=== PATIENT | male | born 1960 | race Caucasian/White ===

== ENCOUNTER 2017-06-21 12:59 | Inpatient (IN) | payer OTHER ==
--- NOTE | 2017-06-21 14:42 | PDOC ---
History of Present Illness - General History Source: Patient Exam Limitations: No Limitations - History of Present Illness Initial Comments: 06/21/17 14:56 The patient is a 56 year old male with a significant PMH of anemia, HTN, diabetes, hepatitis C, and MRSA who presents to the emergency department with RLE erythema beginning approximately yesterday. The patient reports having multiple diabetic ulcers bilaterally on his legs which take a while to heal. Upon presentation he notes developing RLE erythema which is spreading from his heel up his right leg. He notes the wounds on his RLE opened up a few days ago. He reports his LLE was wrapped by Dr. Barraza and has no LLE complaints aside from mild pruritus. The patient has been seen in the ED in the past for LE cellulitis. The patient also notes mild shortness of breath and chills that began yesterday but he denies palpitations. The patient denies chest pain, headache and dizziness. Denies fever, nausea, vomit, diarrhea and constipation. Denies dysuria, frequency, urgency and hematuria. Allergies: NKA Past surgical history: None reported. Social history: No reported cigarette, alcohol, or drug use. PCP: Dr. Ortiz <Carlitos Nunez - Last Filed: 06/21/17 15:03> <Catina Munson - Last Filed: 06/24/17 08:26> - General Chief Complaint: Wound Stated Complaint: CELLULITIS (RT LEG), SOB Time Seen by Provider: 06/21/17 13:28 Past History <Carlitos Nunez - Last Filed: 06/21/17 15:03> - Past Medical History Anemia: Yes Asthma: No Cancer: No Cardiac Disorders: No CVA: No COPD: No CHF: No Dementia: No Diabetes: Yes HTN: Yes Hypercholesterolemia: No Kidney Stones: No Liver Disease: Yes (HEP C) Seizures: No - Immunization History Immunization Up to Date: Yes - Suicide/Smoking/Psychosocial Hx Smoking Status: No Smoking History: Never smoked Have you smoked in the past 12 months: No Number of Cigarettes Smoked Daily: 0 Information on smoking cessation initiated: No Hx Alcohol Use: No Drug/Substance Use Hx: No Substance Use Type: None Hx Substance Use Treatment: No <Catina Munson - Last Filed: 06/24/17 08:26> - Past Medical History Allergies/Adverse Reactions: Allergies Allergy/AdvReac Type Severity Reaction Status Date / Time No Known Allergies Allergy Verified 06/21/17 13:08 Home Medications: Ambulatory Orders Furosemide [Lasix -] 40 mg PO DAILY 08/06/13 Glimepiride [Amaryl] 4 mg PO BID 08/06/13 Lisinopril [Prinivil -] 2.5 mg PO DAILY 08/06/13 Carvedilol [Coreg -] 6.25 mg PO BID #0 tablet 08/12/13 Metformin HCl [Glucophage] 1,000 mg PO BID #0 tablet 08/12/13 Lactobacillus Acidophilus [Bacid -] 1 each PO DAILY #14 tab 10/23/14 Lactulose (Oral Use) [Cephulac -] 20 gm PO DAILY #30 ud 10/23/14 Silver Sulfadiazine [Silvadene] 85 gm TP DAILY #1 cream..g. 02/24/17 Review of Systems - Review of Systems Able to Perform ROS?: Yes Comments:: 06/21/17 14:56 GENERAL/CONSTITUTIONAL: (+) Chills. No fever. No weakness. HEAD, EYES, EARS, NOSE AND THROAT: No change in vision. No ear pain or discharge. No sore throat. CARDIOVASCULAR: (+) Mild shortness of breath, No chest pain or shortness of breath. RESPIRATORY: No cough, wheezing, or hemoptysis. GASTROINTESTINAL: No nausea, vomiting, diarrhea or constipation. GENITOURINARY: No dysuria, frequency, or change in urination. MUSCULOSKELETAL: No joint or muscle swelling or pain. No neck or back pain. SKIN: (+) RLE erythema. (+) Bilateral LE diabetic ulcers, NEUROLOGIC: No headache, vertigo, loss of consciousness, or change in strength/ sensation. ENDOCRINE: No increased thirst. No abnormal weight change. HEMATOLOGIC/LYMPHATIC: No anemia, easy bleeding, or history of blood clots. ALLERGIC/IMMUNOLOGIC: No hives or skin allergy. <Carlitos Nunez - Last Filed: 06/21/17 15:03> *Physical Exam - Vital Signs Last Vital Signs Temp Pulse Resp BP Pulse Ox 98.3 F 74 17 113/56 100 06/21/17 13:08 06/21/17 13:08 06/21/17 13:08 06/21/17 13:08 06/21/17 13:08 <Carlitos Nunez - Last Filed: 06/21/17 15:03> - Vital Signs Last Vital Signs Temp Pulse Resp BP Pulse Ox 98.3 F 74 17 113/56 100 06/21/17 13:08 06/21/17 13:08 06/21/17 13:08 06/21/17 13:08 06/21/17 13:08 <Catina Munson - Last Filed: 06/24/17 08:26> ED Treatment Course - LABORATORY CBC & Chemistry Diagram: 06/21/17 14:35 06/21/17 14:35 <Carlitos Nunez - Last Filed: 06/21/17 15:03> - LABORATORY CBC & Chemistry Diagram: 06/24/17 06:00 06/24/17 06:00 <Catina Munson - Last Filed: 06/24/17 08:26> Medical Decision Making - Medical Decision Making Case d/w Dr. Wu for admission. Pt noted to have anemia and thrombocytopenia. Poss bone marrow suppression, as WBC is not commensurate with presence of infection in RLE. He has history of LIGHT and prior varices, guaiac sent to lab for analysis. IV abx given in ED for cellulitis. Wound cultures obtained for both RLE wounds. LLE not cultured, as there were no signs of infection. Patient also found to have acute renal failure. <Catina Munson - Last Filed: 06/24/17 08:26> *DC/Admit/Observation/Transfer - Attestations Scribe Attestion: 06/21/17 14:57 Documentation prepared by Carlitos Nunez, acting as medical records auditor for Catina Munson MD. <Carlitos Nunez - Last Filed: 06/21/17 15:03> - Discharge Dispostion Admit: Yes <Catina Munson - Last Filed: 06/24/17 08:26> Diagnosis at time of Disposition: Cellulitis of right anterior lower leg Acute renal failure Qualifiers: Acute renal failure type: unspecified Qualified Code(s): N17.9 - Acute kidney failure, unspecified Anemia Qualifiers: Other causes of anemia: acute posthemorrhagic - Discharge Dispostion Condition at time of disposition: Stable
[2017-06-21] MEDS ORDERED: PIPERACILLIN/TAZOB 3.375 GM 50 ML IVPB ONE (14:46)
--- NOTE | 2017-06-21 14:50 | EKG ---
Test Reason : Blood Pressure : / mmHG Vent. Rate : 074 BPM Atrial Rate : 074 BPM P-R Int : 292 ms QRS Dur : 094 ms QT Int : 372 ms P-R-T Axes : 011 -28 016 degrees QTc Int : 412 ms POOR DATA QUALITY, INTERPRETATION MAY BE ADVERSELY AFFECTED SINUS RHYTHM WITH 1ST DEGREE A-V BLOCK ANTERIOR INFARCT , AGE UNDETERMINED ABNORMAL ECG WHEN COMPARED WITH ECG OF 20-OCT-2014 08:56, ANTERIOR INFARCT IS NOW PRESENT Confirmed by JOSEPH ALVAREZ, BRENDA ([id number]) on 06/21/2017 2:50:07 PM Referred By: Confirmed By:BRENDA RUIZ MD
[2017-06-21 15:01] LABS: BASO % 0.4 % (0-2.0); EOS % 0.6 % (0-4.5); HEMATOCRIT 25.2 % (35.4-49); HEMOGLOBIN 7.7 GM/dL (11.7-16.9); LYMPH % 6.8 % (8-40); MCH 22.8 pg (25.7-33.7); MCHC 30.5 g/dl (32.0-35.9); MEAN CELL VOLUME 74.7 fl (80-96); MEAN PLT VOLUME 9.5 fl (7.5-11.1); NEUT % 84.2 % (42.8-82.8); PLATELET COUNT 61 K/MM3 (134-434); RBC 3.37 M/mm3 (4.00-5.60); RDW 23.7 % (11.9-15.9); WHITE BLOOD COUNT 7.2 K/mm3 (4.0-10.0)
[2017-06-21 15:10] LABS: ADD RBC MORPHOLOGY YES
[2017-06-21 15:11] LABS: ANISOCYTOSIS 3+
[2017-06-21 15:30] LABS: ALK PHOS 109 U/L (45-117); ANION GAP 9 (8-16); BLOOD UREA NITROGEN 59 mg/dL (7-18); CALCIUM 8.1 mg/dL (8.5-10.1); CHLORIDE 105 mmol/L (98-107); CO2 22 mmol/L (21-32); CREATININE 2.6 mg/dL (0.7-1.3); GLUCOSE,RANDOM 121 mg/dL (74-106); POTASSIUM 5.4 mmol/L (3.5-5.1); SGOT/AST 33 U/L (15-37); SGPT/ALT 32 U/L (12-78); SODIUM 136 mmol/L (136-145); TOT PROT 7.1 g/dl (6.4-8.2)
[2017-06-21] MEDS ORDERED: PIPERACILLIN/TAZOB 3.375 GM 3.375 GM/50 ML BAG IVPB ONE (16:11)
[2017-06-21] MEDS ORDERED: ONDANSETRON 4 MG/2 ML VIAL IVPUSH PRN (16:17)
--- NOTE | 2017-06-21 16:24 | HP ---
Admitting History and Physical - Primary Care Physician PCP: James Ortiz - Admission Chief Complaint: My leg is red History of Present Illness: Mr Apodaca is a pleasant 56 year old male who comes in with redness of his RLE with ulcerations x24 hours. He has history of LLE wounds and is being followed by wound care, this is doing well. However yesterday he noted that his RLE was becoming red. He also noted 2 area of ulcers with slight oozing. He says the redness was worsening and it began to track. He did not have trauma to the area , no interactions with animals. Because the redness was worsening he came in for further evaluation. He denies fevers, chills, lightheadedness, dizziness, chest pain or pressure, shortness of breath, nausea, vomiting, abdominal pain, diarrhea, constipation, difficulty or pain on urination, or leg swelling. He says he has a cold that has been present "for some time" with non-productive cough. History Source: Patient Limitations to Obtaining History: No Limitations - Past Medical History Cardiovascular: Yes: HTN Gastrointestinal: Yes: Esophageal Varices, Other (LIGHT with cirrhosis) Heme/Onc: Yes: Thrombocytopenia Endocrine: Yes: Diabetes Mellitus - Past Surgical History Past Surgical History: Yes: Tonsillectomy - Smoking History Smoking history: Never smoked Have you smoked in the past 12 months: No Aproximately how many cigarettes per day: 0 - Alcohol/Substance Use Hx Alcohol Use: No History of Substance Use: reports: None - Social History ADL: Independent Occupation: works for [employer] in [place] History of Recent Travel: No Home Medications - Allergies Allergies/Adverse Reactions: Allergies Allergy/AdvReac Type Severity Reaction Status Date / Time No Known Allergies Allergy Verified 06/21/17 13:08 - Home Medications Home Medications: Ambulatory Orders Furosemide [Lasix -] 40 mg PO DAILY 08/06/13 Glimepiride [Amaryl] 4 mg PO BID 08/06/13 Lisinopril [Prinivil -] 2.5 mg PO DAILY 08/06/13 Carvedilol [Coreg -] 6.25 mg PO BID #0 tablet 08/12/13 Metformin HCl [Glucophage] 1,000 mg PO BID #0 tablet 08/12/13 Lactobacillus Acidophilus [Bacid -] 1 each PO DAILY #14 tab 06/04/15 Lactulose (Oral Use) [Cephulac -] 20 gm PO DAILY #30 ud 10/23/14 Silver Sulfadiazine [Silvadene] 85 gm TP DAILY #1 cream..g. 02/24/17 Family Disease History - Family Disease History Family Disease History: Diabetes: Sister, CA: Father, Other: Mother (parkinsons) Review of Systems Findings/Remarks: Full review of systems obtained, as per HPI and otherwise negative. Physical Examination Vital Signs: Vital Signs Temperature 36.8 C 06/21/17 13:08 Pulse Rate 74 06/21/17 13:08 Respiratory Rate 17 06/21/17 13:08 Blood Pressure 113/56 06/21/17 13:08 O2 Sat by Pulse Oximetry (%) 100 06/21/17 13:08 Constitutional: Yes: No Distress, Calm, Obese Eyes: Yes: Conjunctiva Clear, EOM Intact, PERRL HENT: Yes: Atraumatic, Normocephalic Cardiovascular: Yes: Regular Rate and Rhythm. No: Gallop, Murmur, Rub Respiratory: Yes: Regular, CTA Bilaterally. No: Cough, Rales, Rhonchi, Wheezes Gastrointestinal: Yes: Normal Bowel Sounds, Soft. No: Distention, Tenderness Extremities: Yes: Erythema (RLE, tracking up leg) Edema: No Labs: CBC, BMP 06/21/17 14:35 06/21/17 14:35 Imaging - Results X-ray: Image Reviewed Ultrasound: Report Reviewed Problem List - Problems (1) Cellulitis of right anterior lower leg Assessment/Plan: -patient came in with acute onset cellulitis and ulceration -concern for DVT, negative -with normal WBC, however patient WBCs normally run around 4000 so 7000 with elevated neutrophils is significant -no other signs of sepsis -admit to med/surg -case d/w ID who will see in consultation -vancomycin and zosyn ordered -follow up wound cultures -wound care ordered -lactobacillus Code(s): L03.115 - CELLULITIS OF RIGHT LOWER LIMB (2) Acute renal failure Assessment/Plan: -patient on aldactone and lasix -will hold -hydrate with NS -monitor for improvement -will also hold lisinopril until renal function returns Code(s): N17.9 - ACUTE KIDNEY FAILURE, UNSPECIFIED Qualifiers: Acute renal failure type: unspecified Qualified Code(s): N17.9 - Acute kidney failure, unspecified (3) Diabetes mellitus Assessment/Plan: -continue glimeperide -hold metformin secondary to renal function -diabetic diet -FSBS and SSI Code(s): E11.9 - TYPE 2 DIABETES MELLITUS WITHOUT COMPLICATIONS Qualifiers: Diabetes mellitus complication status: with skin complications Diabetes mellitus complication detail: with other skin ulcer (4) Hyperkalemia Assessment/Plan: -secondary to aldactone and DARINEL -lisinopril might also be contributing -hold both aldactone and lisinopril -hydrate with NS Code(s): E87.5 - HYPERKALEMIA (5) Hypertension Assessment/Plan: -may elevate as off of aldactone, lasix, and lisinopril -also receiving IVF -continue coreg -monitor Code(s): I10 - ESSENTIAL (PRIMARY) HYPERTENSION (6) LIGHT (nonalcoholic steatohepatitis) Assessment/Plan: -monitor LFTs -check INR Code(s): K75.81 - NONALCOHOLIC STEATOHEPATITIS (LIGHT) (7) Thrombocytopenia Assessment/Plan: -chronic -secondary to hepatic disease Code(s): D69.6 - THROMBOCYTOPENIA, UNSPECIFIED (8) Anemia Assessment/Plan: -unclear cause -stool guaiac -check anemia labs -may need transfusion Code(s): D64.9 - ANEMIA, UNSPECIFIED Qualifiers: Anemia type: unspecified type Qualified Code(s): D64.9 - Anemia, unspecified
[2017-06-21] MEDS ORDERED: VANCOMYCIN 1,500 MG in DEXTROSE 5%-WATER - 500 ML IVPB ONE (16:55)
[2017-06-21] MEDS ORDERED: VANCOMYCIN 1,750 MG in SODIUM CHLORIDE 500 ML IVPB ONE (16:58)
[2017-06-21] MEDS: SODIUM CHLORIDE 1,000 ML IV SCH (18:05)
[2017-06-21] MEDS: INSULIN SLIDING SCALE (NOVOLOG) 1 VIAL SQ SCH ×2 (18:50→21:23)
[2017-06-21] MEDS ORDERED: INSULIN (NOVOLOG) ASPART 100 UNITS/ML 10ML VIAL ONE (20:50)
[2017-06-21] MEDS: CARVEDILOL 6.25 MG TABLET (FP) PO SCH (21:23)
[2017-06-21] MEDS ORDERED: VANCOMYCIN 1,000 MG in DEXTROSE 5%-WATER - 250 ML IVPB SCH (22:00)
[2017-06-21] MEDS: PIPERACILLIN/TAZOB 3.375 GM 3.375 GM in DEXTROSE 5%-WATER - 100 ML IVPB SCH (22:39)
[2017-06-21] MEDS ORDERED: PIPERACILLIN/TAZOB 3.375 GM/50 ML PRE-DOCKED IVPB SCH (23:00)
[2017-06-22] MEDS ORDERED: PIPERACIL/TAZOB 3.375 GM 3.375 GM/50 ML PREMIX IVPB ONE (00:30)
[2017-06-22 03:39] VITALS: BMI 44.7
[2017-06-22] MEDS: INSULIN SLIDING SCALE (NOVOLOG) 1 VIAL SQ SCH ×4 (06:58→21:42)
[2017-06-22] MEDS: PIPERACILLIN/TAZOB 3.375 GM 3.375 GM in DEXTROSE 5%-WATER - 100 ML IVPB SCH ×2 (07:01→14:33)
[2017-06-22] MEDS: GLIMEPIRIDE 4 MG TABLET (FP) PO SCH ×2 (07:02→17:24)
[2017-06-22] MEDS ORDERED: PT OWN MED DRAWER 7, Y5N ONE ×4 (07:23→17:18)
--- NOTE | 2017-06-22 07:39 | PN ---
Progress Note, Physician Chief Complaint: ID Full note dictated - Current Medication List Current Medications: Active Medications Carvedilol (Coreg -) 6.25 mg PO BID [facility] Last Admin: 06/21/17 21:23 Dose: 6.25 mg Glimepiride (Amaryl -) 4 mg PO BIDAC [facility] Last Admin: 06/22/17 07:02 Dose: 4 mg Sodium Chloride (Normal Saline -) 1,000 mls @ 75 mls/hr IV ASDIR [facility] Last Admin: 06/21/17 18:05 Dose: 75 mls/hr Piperacillin Sod/Tazobactam (Sod 3.375 gm/ Dextrose) 100 mls @ 200 mls/hr IVPB Q8H [facility] Last Admin: 06/22/17 07:01 Dose: 200 mls/hr Influenza Virus Vaccine Quadrival (Flulaval Quad [id number]) 60 mcg IM .ONCE ONE Stop: 06/22/17 10:01 Insulin Aspart (Novolog Vial Sliding Scale -) 1 vial SQ ACHS [facility] PRN Reason: Protocol Last Admin: 06/22/17 06:58 Dose: Not Given Lactobacillus Acidophilus (Bacid -) 1 tab PO DAILY [facility] Ondansetron HCl (Zofran Injection) 4 mg IVPUSH Q6H PRN PRN Reason: NAUSEA Silver Sulfadiazine (Silvadene -) 1 applic TP DAILY [facility] - Objective Vital Signs: Vital Signs Temperature 98 F 06/22/17 06:00 Pulse Rate 69 06/22/17 06:00 Respiratory Rate 20 06/22/17 06:00 Blood Pressure 111/53 06/22/17 06:00 O2 Sat by Pulse Oximetry (%) 98 06/22/17 02:28 Extremities: Yes: Other (Extensive right leg confulent erythema with multiple excoriations lower leg superfical ulcer LLE medial anle ulcer clean) Wound/Incision: Yes: Other (Multiple excoriations dry over his legs arms and trunk abd) Problem List - Problems (1) Cirrhosis Code(s): K74.60 - UNSPECIFIED CIRRHOSIS OF LIVER (2) Cellulitis of right anterior lower leg Code(s): L03.115 - CELLULITIS OF RIGHT LOWER LIMB (3) Diabetes mellitus Code(s): E11.9 - TYPE 2 DIABETES MELLITUS WITHOUT COMPLICATIONS Qualifiers: Diabetes mellitus complication status: with skin complications Diabetes mellitus complication detail: with other skin ulcer (4) LIGHT (nonalcoholic steatohepatitis) Code(s): K75.81 - NONALCOHOLIC STEATOHEPATITIS (LIGHT) Assessment/Plan Laboratory Tests 06/21/17 06/21/17 14:35 14:35 WBC 7.2 D Hgb 7.7 L D Plt Count 61 L BUN 59 H D Creatinine 2.6 H D Creat Clearance w eGFR 25.48 Assessment Cellulitis of the RLE Diabetes Cirrhosis ( LIGHT) Multiple excoriations with pruritus ? etiology ( Spares webs of the fingers) CKD Plan Vanco and Zosyn Check Vanco level Contact isolation ordered Dermatology evaluation Dr Dylan Tubbs MD
[2017-06-22 07:44] LABS: ANION GAP 3 (8-16); BLOOD UREA NITROGEN 63 mg/dL (7-18); CALCIUM 7.5 mg/dL (8.5-10.1); CHLORIDE 109 mmol/L (98-107); CO2 26 mmol/L (21-32); CREATININE 2.7 mg/dL (0.7-1.3); GLUCOSE,RANDOM 88 mg/dL (74-106); MAGNESIUM 2.1 mg/dL (1.8-2.4); PHOSPHOROUS 3.7 mg/dL (2.5-4.9); POTASSIUM 5.1 mmol/L (3.5-5.1); SODIUM 138 mmol/L (136-145)
[2017-06-22 07:48] LABS: ALBUMIN 2.6 g/dl (3.4-5.0); BILIRUBIN,DIRECT 0.3 mg/dL (0.0-0.2); BILIRUBIN,TOTAL 0.9 mg/dL (0.2-1.0); TOT PROT 6.5 g/dl (6.4-8.2)
[2017-06-22 07:54] LABS: BASO % 0.5 % (0-2.0); EOS % 3.1 % (0-4.5); LYMPH % 11.3 % (8-40); MCH 22.8 pg (25.7-33.7); MCHC 30.7 g/dl (32.0-35.9); MEAN CELL VOLUME 74.3 fl (80-96); MEAN PLT VOLUME 9.6 fl (7.5-11.1); MONO % 10.4 % (3.8-10.2); NEUT % 74.7 % (42.8-82.8); PLATELET COUNT 61 K/MM3 (134-434); RBC 2.89 M/mm3 (4.00-5.60); RDW 23.5 % (11.9-15.9); WHITE BLOOD COUNT 4.8 K/mm3 (4.0-10.0)
[2017-06-22 08:39] LABS: INR 1.28 (0.82-1.09); PROTHROMBIN TIME (PATIENT) 14.5 SEC (9.98-11.88)
[2017-06-22 08:57] LABS: HEMATOCRIT 21.5 % (35.4-49); HEMOGLOBIN 6.6 GM/dL (11.7-16.9)
--- NOTE | 2017-06-22 09:35 | CONS ---
DATE OF CONSULTATION: DATE OF DICTATION: 06/22/2017 HISTORY OF PRESENT ILLNESS: This is a 56-year-old male with a history of multiple comorbidities, admitted for cellulitis of the right lower extremity. He has had chronic wounds in the lower legs for which he has [facility]. He has morbid obesity, diabetes mellitus, liver cirrhosis with LIGHT, and apparently is admitted now after scratching multiple skin lesions and developing redness and swelling of his right lower leg extending up into his inner thigh area. He did not have any fever, chills, or other systemic signs of toxicity. He was empirically treated with initial dose of vancomycin along with Zosyn with adjustment for renal insufficiency. I am asked to see him now for further evaluation noting that he has been scratching his right lower leg and subsequently redness developed. PAST MEDICAL HISTORY: As noted above. MEDICATIONS: Lasix, Amaryl, Prinivil, Coreg, Glucophage. ALLERGIES: None known. SOCIAL HISTORY: Nonsmoker. No history of alcohol use. FAMILY HISTORY: Positive for diabetes and Parkinson's disease. REVIEW OF SYSTEMS: Respiratory: No cough, shortness of breath. Cardiac: No chest pain or palpitations. Gastrointestinal: No nausea, vomiting, or diarrhea. Genitourinary: No dysuria, hematuria, or urinary frequency. PHYSICAL EXAMINATION: General: He was an alert male weighing 358 pounds. He appeared in no acute distress. Vital signs: The temperature was 98, pulse 69, blood pressure 111/53, respirations 20. Neck: Supple, without adenopathy. Lungs: Clear to percussion and auscultation. Heart: S1, S2, regular rhythm, without audible murmur, gallop, or rub. Abdomen: Soft. Positive bowel sounds. No distension. No localized tenderness, guarding or rebound. Extremities: Revealed confluent erythema extending up the right lower extremity with swelling and erythema extending into the right thigh area. There was a superficial ulcer of the lateral aspect of the right lower extremity, and multiple dry excoriated lesions where apparently he had been scratching on his lower leg. Skin: Revealed multiple discrete excoriations on his trunk, arms, and lower legs. The white count is 7.2, hemoglobin 7.7, platelets 61. BUN 59, creatinine 2.6, bilirubin 1.0, AST 33, alkaline phosphatase 109, albumin 3.0. Blood cultures pending. ASSESSMENT: 1. This is a 56-year-old male with morbid obesity, diabetes, and liver cirrhosis presents with multiple discrete excoriations pruritic throughout his body for which he said he saw Dr. Richardson in the past. Currently, he has a history of wound culture for methicillin-resistant staphylococcus aureus June 15 from a vascular ulcer of the medial left ankle noted on examination today. 2. LIGHT (nonalcoholic steatohepatitis) with cirrhosis. 3. Diabetes mellitus. 4. Morbid obesity. 5. Chronic kidney disease. 6. Thrombocytopenia. PLAN: Empiric therapy with vancomycin and Zosyn as ordered. Maintain contact isolation for resistant organism. Vancomycin level has been ordered for this morning. Lastly, would obtain consultation with Dr. Richardson for dermatology evaluation of the skin lesions. He does not appear to have lesions between the web spaces, though scabies still needs to be considered. CARLOS EDUARDO MUNOZ M.D. [id number]
[2017-06-22 10:00] LABS: HEMATOCRIT 22.5 % (35.4-49); MCH 22.9 pg (25.7-33.7); MCHC 30.7 g/dl (32.0-35.9); MEAN CELL VOLUME 74.5 fl (80-96); MEAN PLT VOLUME 9.7 fl (7.5-11.1); PLATELET COUNT 65 K/MM3 (134-434); RBC 3.02 M/mm3 (4.00-5.60); RDW 23.8 % (11.9-15.9); WHITE BLOOD COUNT 4.7 K/mm3 (4.0-10.0)
[2017-06-22] MEDS ORDERED: FLU VACCINE QUAD 60 MCG/0.5 ML (MDV 17-18) IM ONE (10:00)
[2017-06-22] MEDS: CARVEDILOL 6.25 MG TABLET (FP) PO SCH ×2 (10:02→21:38)
[2017-06-22] MEDS: LACTOBACILLUS ACIDOPHILUS 1 CAP PO SCH (10:02)
[2017-06-22] MEDS: SILVER SULFADIAZINE 1% TOP CREAM 50 GM JAR TP SCH (10:10)
[2017-06-22 10:14] LABS: HEMOGLOBIN 6.9 GM/dL (11.7-16.9)
[2017-06-22] MEDS: SODIUM CHLORIDE 1,000 ML IV SCH ×2 (11:36→17:24)
--- NOTE | 2017-06-22 13:19 | PN ---
Progress Note (short form) - Note Progress Note: WOUND CARE - Dr. Pino Gonzalez PCP: James Ortiz CC: My leg is red HPI: Called to eval 56 yo male admitted with RLE cellulitis. Has h/o of LLE wound and is followed in [facility]. States RLE became more red than usual so came in for further evaluation. Since admit to hospital and started on iv abx. ID consult appreciated. Patient states he feels better today compared to yesterday. Still c /o total body itching. Denies n/v/f/c, fevers, CO, SOB, IVEY. PMHx: Chronic LLE wound. Diabetes Mellitus, Morbid obesity, HTN, Esophageal Varices, Other (LIGHT with cirrhosis), Thrombocytopenia PSHx: Tonsillectomy, bilat LE Vein stripping Allergies: NKDA Home Meds: Furosemide [Lasix -] 40 mg PO DAILY 08/06/13 Glimepiride [Amaryl] 4 mg PO BID 08/06/13 Lisinopril [Prinivil -] 2.5 mg PO DAILY 08/06/13 Carvedilol [Coreg -] 6.25 mg PO BID #0 tablet 08/12/13 Metformin HCl [Glucophage] 1,000 mg PO BID #0 tablet 08/12/13 Lactobacillus Acidophilus [Bacid -] 1 each PO DAILY #14 tab 10/23/14 Lactulose (Oral Use) [Cephulac -] 20 gm PO DAILY #30 ud 10/23/14 Silver Sulfadiazine [Silvadene] 85 gm TP DAILY #1 cream..g. 02/24/17 PE: Gen: alert. nad ABD: obese. soft. nt. nd. tiny 1 x 1 cm dry lesions to torso (chest/back/flank) UE: multiple 1 x 1 cm dry lesions LE: Left --> wound to foot (covered with clean dry dressing), venous stasis changes/dermatitis, excortiations. +1 edema Right--> venous stasis changes/dermatitis, excortiations, erythematous from mid calf extending distally. Small 2 x 2 cm stage 1 ulcer with serous drainage to posterolateral aspect of lower leg. +1 edema Problem List - Problems (1) Cellulitis of right anterior lower leg Assessment/Plan: Cont IV abx per ID LLE daily wound care Keep both legs elevated on footstool/chair or while in bed (will help with swelling) Lasix for diuresis No surgical intervention Cont medical management On behalf of Dr. Gonzalez, thank you for the opportunity to participate in your patient's care. Code(s): L03.115 - CELLULITIS OF RIGHT LOWER LIMB
--- NOTE | 2017-06-22 13:59 | PN ---
Progress Note, Physician Chief Complaint: Mr Apodaca says he is doing well, he says his leg is feeling better. No cp, sob , n/v. Complains of itching everywhere. - Current Medication List Current Medications: Active Medications Carvedilol (Coreg -) 6.25 mg PO BID [facility] Last Admin: 06/22/17 10:02 Dose: 6.25 mg Diphenhydramine HCl (Benadryl -) 25 mg PO Q6H PRN PRN Reason: FOR ITCHING Glimepiride (Amaryl -) 4 mg PO BIDAC [facility] Last Admin: 06/22/17 07:02 Dose: 4 mg Sodium Chloride (Normal Saline -) 1,000 mls @ 75 mls/hr IV ASDIR [facility] Last Admin: 06/22/17 11:36 Dose: 75 mls/hr Piperacillin Sod/Tazobactam (Sod 3.375 gm/ Dextrose) 100 mls @ 200 mls/hr IVPB Q8H [facility] Last Admin: 06/22/17 07:01 Dose: 200 mls/hr Insulin Aspart (Novolog Vial Sliding Scale -) 1 vial SQ ACHS [facility] PRN Reason: Protocol Last Admin: 06/22/17 11:39 Dose: Not Given Lactobacillus Acidophilus (Bacid -) 1 tab PO DAILY [facility] Last Admin: 06/22/17 10:02 Dose: 1 tab Ondansetron HCl (Zofran Injection) 4 mg IVPUSH Q6H PRN PRN Reason: NAUSEA Silver Sulfadiazine (Silvadene -) 1 applic TP DAILY [facility] Last Admin: 06/22/17 10:10 Dose: 1 applic - Objective Vital Signs: Vital Signs Temperature 36.6 C 06/22/17 06:00 Pulse Rate 69 06/22/17 06:00 Respiratory Rate 20 06/22/17 06:00 Blood Pressure 111/53 06/22/17 06:00 O2 Sat by Pulse Oximetry (%) 98 06/22/17 02:28 Constitutional: Yes: No Distress, Calm, Obese Cardiovascular: Yes: Regular Rate and Rhythm. No: Gallop, Murmur, Rub Respiratory: Yes: Regular, CTA Bilaterally. No: Rales, Rhonchi, Wheezes Gastrointestinal: Yes: Normal Bowel Sounds, Soft. No: Distention, Tenderness Extremities: Yes: Erythema (RLE, improved) Edema: No Labs: CBC, BMP 06/22/17 09:20 06/22/17 06:15 INR, PTT INR 1.28 (0.82-1.09) H 06/22/17 06:15 Problem List - Problems (1) Cellulitis of right anterior lower leg Code(s): L03.115 - CELLULITIS OF RIGHT LOWER LIMB (2) Acute renal failure Code(s): N17.9 - ACUTE KIDNEY FAILURE, UNSPECIFIED Qualifiers: Acute renal failure type: unspecified Qualified Code(s): N17.9 - Acute kidney failure, unspecified (3) Diabetes mellitus Code(s): E11.9 - TYPE 2 DIABETES MELLITUS WITHOUT COMPLICATIONS Qualifiers: Diabetes mellitus complication status: with skin complications Diabetes mellitus complication detail: with other skin ulcer (4) Hyperkalemia Code(s): E87.5 - HYPERKALEMIA (5) Hypertension Code(s): I10 - ESSENTIAL (PRIMARY) HYPERTENSION (6) LIGHT (nonalcoholic steatohepatitis) Code(s): K75.81 - NONALCOHOLIC STEATOHEPATITIS (LIGHT) (7) Thrombocytopenia Code(s): D69.6 - THROMBOCYTOPENIA, UNSPECIFIED (8) Anemia Code(s): D64.9 - ANEMIA, UNSPECIFIED Qualifiers: Other causes of anemia: acute posthemorrhagic (9) Generalized pruritus Code(s): L29.9 - PRURITUS, UNSPECIFIED Assessment/Plan (1) Cellulitis of right anterior lower leg Assessment/Plan: -case d/w ID -continue zosyn -improving Code(s): L03.115 - CELLULITIS OF RIGHT LOWER LIMB (2) Acute renal failure Assessment/Plan: -continue to hold aldactone and lasix -will transfuse blood today -if does not improve, consult nephrology in am -also hold lisinopril Code(s): N17.9 - ACUTE KIDNEY FAILURE, UNSPECIFIED Qualifiers: Acute renal failure type: unspecified Qualified Code(s): N17.9 - Acute kidney failure, unspecified (3) Diabetes mellitus Assessment/Plan: -continue glimeperide -hold metformin secondary to renal function -diabetic diet -FSBS and SSI Code(s): E11.9 - TYPE 2 DIABETES MELLITUS WITHOUT COMPLICATIONS Qualifiers: Diabetes mellitus complication status: with skin complications Diabetes mellitus complication detail: with other skin ulcer (4) Hyperkalemia Assessment/Plan: -resolved with IVF -monitor Code(s): E87.5 - HYPERKALEMIA (5) Hypertension Assessment/Plan: -controlled -monitor Code(s): I10 - ESSENTIAL (PRIMARY) HYPERTENSION (6) LIGHT (nonalcoholic steatohepatitis) Assessment/Plan: -stable Code(s): K75.81 - NONALCOHOLIC STEATOHEPATITIS (LIGHT) (7) Thrombocytopenia Assessment/Plan: -chronic -secondary to hepatic disease Code(s): D69.6 - THROMBOCYTOPENIA, UNSPECIFIED (8) Anemia Assessment/Plan: -worsening -occult blood positive -transfuse 2 units today -GI consult Code(s): D64.9 - ANEMIA, UNSPECIFIED Qualifiers: Anemia type: unspecified type Qualified Code(s): D64.9 - Anemia, unspecified (9) Pruritis -case d/w Dr Tubbs -concern for scabies -dermatology consulted -prn benadryl for symptom control
[2017-06-22] MEDS ORDERED: INSULIN (NOVOLOG) ASPART 100 UNITS/ML 10ML VIAL ONE ×2 (17:17→21:12)
--- NOTE | 2017-06-22 18:12 | PN ---
Progress Note (short form) - Note Progress Note: Dr. Driver covering for Dr. Franz full consult dictated 56M with RLE cellulitis. H/O LIGHT cirrhosis with poor follow-up Guaiac positive on exam - For EGD with possible banding tomorrow followed by colonoscopy at later date - Q 6 month AFP tumor marker and liver US to screen for HCC
--- NOTE | 2017-06-22 18:21 | PN ---
Progress Note (short form) - Note Progress Note: Glimepiride held as Mr. Apodaca will be NPO after midnight
--- NOTE | 2017-06-22 18:36 | CONSULT ---
Consult Consult Specialty:: Dermatology - History of Present Illness Chief Complaint: Itch and scabs on arms - History Source History Provided By: Patient - Past Medical History Cardio/Vascular: Yes: HTN Gastrointestinal: Yes: Esophageal Varices, Other (LIGHT with cirrhosis) Endocrine: Yes: Diabetes Mellitus Additional Medical History: perineal abscess - Past Surgical History Past Surgical History: Yes: Tonsillectomy - Alcohol/Substance Use Hx Alcohol Use: No History of Substance Use: reports: None - Smoking History Smoking history: Never smoked Have you smoked in the past 12 months: No Aproximately how many cigarettes per day: 0 - Social History Usual Living Arrangement: Other (with sister) ADL: Independent Occupation: works for [employer] in [place] History of Recent Travel: No Home Medications - Allergies Allergies/Adverse Reactions: Allergies Allergy/AdvReac Type Severity Reaction Status Date / Time No Known Allergies Allergy Verified 06/21/17 13:08 - Home Medications Home Medications: Ambulatory Orders Furosemide [Lasix -] 40 mg PO DAILY 08/06/13 Glimepiride [Amaryl] 4 mg PO BID 08/06/13 Lisinopril [Prinivil -] 2.5 mg PO DAILY 08/06/13 Carvedilol [Coreg -] 6.25 mg PO BID #0 tablet 08/12/13 Metformin HCl [Glucophage] 1,000 mg PO BID #0 tablet 08/12/13 Lactobacillus Acidophilus [Bacid -] 1 each PO DAILY #14 tab 10/23/14 Lactulose (Oral Use) [Cephulac -] 20 gm PO DAILY #30 ud 10/23/14 Silver Sulfadiazine [Silvadene] 85 gm TP DAILY #1 cream..g. 02/24/17 Family Disease History - Family Disease History Family Disease History: Diabetes: Sister, [place]: Father, Other: Mother (parkinsons) Review of Systems - Review of Systems Integumentary: reports: Lesions (multiple excoriations on forearms), Pruritis Physical Exam Vital Signs: Vital Signs Temperature 98.3 F 06/22/17 17:08 Pulse Rate 70 06/22/17 17:08 Respiratory Rate 20 06/22/17 17:08 Blood Pressure 105/65 06/22/17 17:08 O2 Sat by Pulse Oximetry (%) 96 06/22/17 09:00 Labs: CBC, BMP 06/22/17 09:20 06/22/17 06:15 Assessment/Plan Patient was previously seen by me for pruritis and eczema. he is currently hospitalized for cellulitis of extremity. On exam he has multiple excoriations on both forearms and lower extremity edema and erythema. patient reports that he picks at the scabs that form on his arms from excoriating. pruritis may result from renal and liver disease as well as diabetes and dryness of the skin. Patient should apply triamcinolone oint QD and apply vaseline QD. Patient will return to office for biopsy if condition continues. Patient has no lesions on abdomen umbilical area, back, neck or between fingers. On exam he has no evidence of scabies. He lives with his sister who has no skin complaints.
--- NOTE | 2017-06-22 19:57 | CONS ---
DATE OF CONSULTATION: 06/22/2017 GASTROINTESTINAL CONSULTATION REQUESTING PHYSICIAN: Chris Wu M.D. HISTORY OF PRESENT ILLNESS: The patient is a 56-year-old male admitted through [facility] initially yesterday for evaluation of right lower extremity erythema that began yesterday morning. He states that he just began experiencing pain in his right leg and then the redness began. He did have some wounds on his right lower extremity that had opened up a few days prior and is followed by Dr. Pino Gonzalez, and the wound clinic. I am covering for Dr. Franz, who has been asked to evaluate the patient for anemia. On admission, his hemoglobin was 7.7. This morning his hemoglobin 6.6 and repeat was 6.9. He is scheduled to receive 2 units of packed red blood cells. His last hemoglobin from [facility] system was in October of 2014 that revealed a hemoglobin of 10.5 . MCV is also noted to be 74.5 now, it is a new microcytic anemia as his MCV was 86.1 in October of 2014. He denies any nausea, vomiting, dysphagia, or odynophagia. He denies any overt rectal bleeding. He does describe dark bowel movements of late but he also attributes this to having recently started iron supplementation last week, which was started by his primary doctor, James Ortiz. He has been followed by Dr. Franz and Dr. Galvan in the past. He was seen in March of [address] Franz; at that time, he underwent upper endoscopy with banding of varices, and he was seen in office by Dr. Franz as well. He believes he was last seen in the office by Dr. Galvan, and it may have been a few years back. He admits that his followup has been poor of late. Upper endoscopy also revealed portal gastropathy as well. It appears as though his last colonoscopy was in March of 2012 that revealed diverticulosis, and he had a hyperplastic polyp removed in the past. He now describes, there is no family history of colorectal cancer. PAST MEDICAL HISTORY: Includes hypertension, diabetes mellitus type 2, morbid obesity, cirrhosis secondary to LIGHT manifesting with esophageal varices, portal gastropathy. He has a history of ascites, thrombocytopenia, splenomegaly, and he is also status post fistulectomy for recurrent fistulae. He is status post tonsillectomy, status post hyperplastic colonic polyp removal in 2009, diverticulosis and recurrent cellulitis. MEDICATION: Prior to admission, include Lasix, Prinivil, Amaryl, Coreg, Glucophage, Bacid, Cephulac, Silvadene, and he describes iron supplementation. ALLERGIES: No known drug allergies. SOCIAL HISTORY: He is . He has 2 sons . Retired from [employer] work. No smoking history. No history of alcohol abuse. No history of intravenous drug abuse or illicit drugs. Lives at home. FAMILY HISTORY: Mother at age 79, following an [place]. Father age 71 of prostate cancer. He has 2 sisters, 1 sister is diabetic with thyroid disease. His oldest sister has thyroid disease as well. REVIEW OF SYSTEMS: He does complain of some dyspnea on exertion, no dysphagia or early satiety. No over GI bleeding. The remainder of his review of systems is noted in the history of present illness. He denies any recent increase in abdominal girth. PHYSICAL EXAMINATION: General: The patient is found laying in his bed, he appeared to be in no apparent distress. Vital signs: Temperature is 98.3, pulse 70, blood pressure 105/65. HEENT: Sclerae are anicteric. Neck: Supple. Cardiovascular: Heart regular rate and rhythm. No murmurs are appreciated. Lungs: Clear to auscultation bilaterally. Abdomen: He had excoriated medrano on his abdomen, otherwise there were no scars. He had normoactive bowel sounds. No hepatosplenomegaly was appreciated. No mass was palpated. No hernia detected. No fluid wave was elicited. Extremities: Bilateral lower extremity edema. He did have erythema on his right lower extremity extending from his foot and improved on the upper thigh. 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 Otherwise no other external lesions. He had dark brown stool in the rectal vault which was guaiac positive. There was no overt melena or blood. Neurologic: The patient was awake, alert, oriented x3. LABORATORY EVALUATION: White blood count 4.7, hemoglobin 6.9, hematocrit 22.5 with an MCV of 74.5. INR of 1.28. Sodium of 138, potassium 3.1, chloride 109, bicarbonate of 26 with a BUN of 63 and creatinine of 2.7. AST of 28. ALT of 27. Alkaline phosphatase of 100. Total bilirubin 0.9 with an albumin of 2.6. Stool specimen sent was positive for occult blood this afternoon. RADIOLOGY REPORTS: He had a lower extremity Doppler study that revealed no evidence of DVT in the right lower extremity. IMPRESSION: This is a 56-year-old male with a profound microcytic anemia, thrombocytopenia, and mild coagulopathy in the background setting of suspected nonalcoholic steatohepatitis cirrhosis. I explained to the patient that for further evaluation, upper endoscopy could be undertaken followed by colonoscopy to exclude sources of potential bleeding such as esophageal varices, portal gastropathy, peptic ulcer disease, polyps of the intestinal tract, or malignancies of the intestinal tract such as colon cancer. We discussed potential risks of the procedure including but not limited to bleeding, perforation requiring surgery to repair, infection, sedation/medication effects, all of which can be potentially life-threatening, and we did discuss possible banding of varices if necessary. He has agreed to the procedures. He did eat breakfast, lunch, and dinner today, and therefore would not risk inadequate bowel preparation for tomorrow; therefore, upper endoscopy will be undertaken tomorrow, followed by colonoscopy, the timing of which will be dictated by Dr. Franz. He will also need q.6 month tumor marker along with liver ultrasound to screen for hepatoma. Other recommendations pending the above. I thank you for this consultative opportunity. WALTER GOVEA DO [id number]
[2017-06-22] MEDS: diphenhydrAMINE HCL 25 MG CAPSULE (FP) PO PRN (21:39)
[2017-06-22] MEDS: TRIAMCINOLONE ACET 0.1% OINT 15 GM TUBE TP SCH (22:30)
[2017-06-23] MEDS: PIPERACILLIN/TAZOB 3.375 GM 3.375 GM in DEXTROSE 5%-WATER - 100 ML IVPB SCH ×4 (00:34→22:33)
[2017-06-23] MEDS: DEXTROSE 5%-0.45% SALINE 1,000 ML IV SCH ×2 (02:42→06:38)
[2017-06-23] MEDS: INSULIN SLIDING SCALE (NOVOLOG) 1 VIAL SQ SCH ×4 (06:01→21:26)
[2017-06-23 08:07] LABS: SERUM IRON SATURATION 4 % (15-55); TOTAL IRON BINDING CAPACITY 270 ug/dL (250-450); UIBC 259 ug/dL (111-343)
[2017-06-23 08:08] LABS: ANION GAP 6 (8-16); BLOOD UREA NITROGEN 61 mg/dL (7-18); CALCIUM 7.6 mg/dL (8.5-10.1); CHLORIDE 108 mmol/L (98-107); CO2 23 mmol/L (21-32); CREATININE 2.6 mg/dL (0.7-1.3); GLUCOSE,RANDOM 95 mg/dL (74-106); MAGNESIUM 2.6 mg/dL (1.8-2.4); PHOSPHOROUS 3.7 mg/dL (2.5-4.9); POTASSIUM 5.5 mmol/L (3.5-5.1); SODIUM 137 mmol/L (136-145)
[2017-06-23 08:19] LABS: INR 1.12 (0.82-1.09); PROTHROMBIN TIME (PATIENT) 12.7 SEC (9.98-11.88)
[2017-06-23 09:47] LABS: BASO % 0.8 % (0-2.0); EOS % 5.4 % (0-4.5); HEMATOCRIT 28.8 % (35.4-49); HEMOGLOBIN 8.9 GM/dL (11.7-16.9); LYMPH % 14.5 % (8-40); MCH 23.4 pg (25.7-33.7); MCHC 30.9 g/dl (32.0-35.9); MEAN CELL VOLUME 75.9 fl (80-96); MEAN PLT VOLUME 9.7 fl (7.5-11.1); MONO % 7.7 % (3.8-10.2); NEUT % 71.6 % (42.8-82.8); PLATELET COUNT 96 K/MM3 (134-434); RDW 23.8 % (11.9-15.9); WHITE BLOOD COUNT 6.1 K/mm3 (4.0-10.0)
[2017-06-23] MEDS: LACTOBACILLUS ACIDOPHILUS 1 CAP PO SCH (10:07)
[2017-06-23] MEDS: CARVEDILOL 6.25 MG TABLET (FP) PO SCH ×2 (10:07→21:25)
[2017-06-23] MEDS: TRIAMCINOLONE ACET 0.1% OINT 15 GM TUBE TP SCH ×2 (10:09→21:30)
--- NOTE | 2017-06-23 10:19 | PN ---
Progress Note, Physician Chief Complaint: Mr Apodaca says the itching is improved today. No cp, sob, n/v. - Current Medication List Current Medications: Active Medications Carvedilol (Coreg -) 6.25 mg PO BID [facility] Last Admin: 06/23/17 10:07 Dose: 6.25 mg Diphenhydramine HCl (Benadryl -) 25 mg PO Q6H PRN PRN Reason: FOR ITCHING Last Admin: 06/22/17 21:39 Dose: 25 mg Piperacillin Sod/Tazobactam (Sod 3.375 gm/ Dextrose) 100 mls @ 200 mls/hr IVPB Q8H [facility] Last Admin: 06/23/17 06:23 Dose: 200 mls/hr Dextrose/Sodium Chloride (D5-1/2ns -) 1,000 mls @ 75 mls/hr IV ASDIR [facility] Last Admin: 06/23/17 06:38 Dose: 75 mls/hr Insulin Aspart (Novolog Vial Sliding Scale -) 1 vial SQ ACHS [facility] PRN Reason: Protocol Last Admin: 06/23/17 06:01 Dose: Not Given Lactobacillus Acidophilus (Bacid -) 1 tab PO DAILY [facility] Last Admin: 06/23/17 10:07 Dose: 1 tab Ondansetron HCl (Zofran Injection) 4 mg IVPUSH Q6H PRN PRN Reason: NAUSEA Pantoprazole Sodium (Protonix Iv) 40 mg IVPUSH BID [facility] Silver Sulfadiazine (Silvadene -) 1 applic TP DAILY [facility] Last Admin: 06/22/17 10:10 Dose: 1 applic Triamcinolone Acetonide (Aristocort 0.1% Ointment -) 1 applic TP BID [facility] Last Admin: 06/23/17 10:09 Dose: 1 applic - Objective Vital Signs: Vital Signs Temperature 36.9 C 06/23/17 06:00 Pulse Rate 66 06/23/17 06:00 Respiratory Rate 20 06/23/17 06:00 Blood Pressure 129/65 06/23/17 06:00 O2 Sat by Pulse Oximetry (%) 96 06/22/17 21:00 Constitutional: Yes: No Distress, Calm, Obese Cardiovascular: Yes: Regular Rate and Rhythm. No: Gallop, Murmur, Rub Respiratory: Yes: Regular, CTA Bilaterally. No: Rales, Rhonchi, Wheezes Gastrointestinal: Yes: Normal Bowel Sounds, Soft. No: Distention, Tenderness Extremities: Yes: Erythema (RLE) Edema: No Labs: CBC, BMP 06/23/17 06:00 06/23/17 06:00 INR, PTT INR 1.12 (0.82-1.09) 06/23/17 06:00 Problem List - Problems (1) Cellulitis of right anterior lower leg Code(s): L03.115 - CELLULITIS OF RIGHT LOWER LIMB (2) Acute renal failure Code(s): N17.9 - ACUTE KIDNEY FAILURE, UNSPECIFIED Qualifiers: Acute renal failure type: unspecified Qualified Code(s): N17.9 - Acute kidney failure, unspecified (3) Diabetes mellitus Code(s): E11.9 - TYPE 2 DIABETES MELLITUS WITHOUT COMPLICATIONS Qualifiers: Diabetes mellitus complication status: with skin complications Diabetes mellitus complication detail: with other skin ulcer (4) Hyperkalemia Code(s): E87.5 - HYPERKALEMIA (5) Hypertension Code(s): I10 - ESSENTIAL (PRIMARY) HYPERTENSION (6) LGIHT (nonalcoholic steatohepatitis) Code(s): K75.81 - NONALCOHOLIC STEATOHEPATITIS (LIGHT) (7) Thrombocytopenia Code(s): D69.6 - THROMBOCYTOPENIA, UNSPECIFIED (8) Anemia Code(s): D64.9 - ANEMIA, UNSPECIFIED Qualifiers: Other causes of anemia: acute posthemorrhagic (9) Generalized pruritus Code(s): L29.9 - PRURITUS, UNSPECIFIED Assessment/Plan (1) Cellulitis of right anterior lower leg Assessment/Plan: -case d/w ID -continue zosyn -improving Code(s): L03.115 - CELLULITIS OF RIGHT LOWER LIMB (2) Acute renal failure Assessment/Plan: -minimal improvement after IVF and blood -hold lasix, lisinopril, and aldactone -consult nephrology Code(s): N17.9 - ACUTE KIDNEY FAILURE, UNSPECIFIED Qualifiers: Acute renal failure type: unspecified Qualified Code(s): N17.9 - Acute kidney failure, unspecified (3) Diabetes mellitus Assessment/Plan: -continue glimeperide -hold metformin secondary to renal function -diabetic diet -FSBS and SSI Code(s): E11.9 - TYPE 2 DIABETES MELLITUS WITHOUT COMPLICATIONS Qualifiers: Diabetes mellitus complication status: with skin complications Diabetes mellitus complication detail: with other skin ulcer (4) Hyperkalemia Assessment/Plan: -recurrent -consult nephrology Code(s): E87.5 - HYPERKALEMIA (5) Hypertension Assessment/Plan: -controlled -monitor Code(s): I10 - ESSENTIAL (PRIMARY) HYPERTENSION (6) LIGHT (nonalcoholic steatohepatitis) Assessment/Plan: -stable Code(s): K75.81 - NONALCOHOLIC STEATOHEPATITIS (LIGHT) (7) Thrombocytopenia Assessment/Plan: -chronic -secondary to hepatic disease Code(s): D69.6 - THROMBOCYTOPENIA, UNSPECIFIED (8) Anemia Assessment/Plan: -case d/w GI -patient has history of esophageal varices -planning for endoscopy today -PPI -plan for colonoscopy on Monday since also has history of LGIB Code(s): D64.9 - ANEMIA, UNSPECIFIED Qualifiers: Anemia type: unspecified type Qualified Code(s): D64.9 - Anemia, unspecified (9) Pruritis -appreciate dermatology assistance -improved with cream
[2017-06-23] MEDS: PANTOPRAZOLE SODIUM 40 MG VIAL IVPUSH SCH ×2 (12:35→21:25)
[2017-06-23] MEDS: SILVER SULFADIAZINE 1% TOP CREAM 50 GM JAR TP SCH (12:35)
[2017-06-23] MEDS ORDERED: MIDAZOLAM HCL 2 MG/2 ML SINGLE DOSE VIAL ONE (14:26)
--- NOTE | 2017-06-23 14:33 | PN ---
Progress Note, Physician Chief Complaint: ID Vancomcyin and Zojohannn Seen by Dr Richardson - Current Medication List Current Medications: Active Medications Carvedilol (Coreg -) 6.25 mg PO BID [facility] Last Admin: 06/23/17 10:07 Dose: 6.25 mg Diphenhydramine HCl (Benadryl -) 25 mg PO Q6H PRN PRN Reason: FOR ITCHING Last Admin: 06/22/17 21:39 Dose: 25 mg Piperacillin Sod/Tazobactam (Sod 3.375 gm/ Dextrose) 100 mls @ 200 mls/hr IVPB Q8H [facility] Last Admin: 06/23/17 06:23 Dose: 200 mls/hr Dextrose/Sodium Chloride (D5-1/2ns -) 1,000 mls @ 75 mls/hr IV ASDIR [facility] Last Admin: 06/23/17 06:38 Dose: 75 mls/hr Insulin Aspart (Novolog Vial Sliding Scale -) 1 vial SQ ACHS [facility] PRN Reason: Protocol Last Admin: 06/23/17 12:36 Dose: Not Given Lactobacillus Acidophilus (Bacid -) 1 tab PO DAILY [facility] Last Admin: 06/23/17 10:07 Dose: 1 tab Ondansetron HCl (Zofran Injection) 4 mg IVPUSH Q6H PRN PRN Reason: NAUSEA Pantoprazole Sodium (Protonix Iv) 40 mg IVPUSH BID [facility] Last Admin: 06/23/17 12:35 Dose: 40 mg Silver Sulfadiazine (Silvadene -) 1 applic TP DAILY [facility] Last Admin: 06/23/17 12:35 Dose: 1 applic Triamcinolone Acetonide (Aristocort 0.1% Ointment -) 1 applic TP BID [facility] Last Admin: 06/23/17 10:09 Dose: 1 applic - Objective Vital Signs: Vital Signs Temperature 98.5 F 06/23/17 06:00 Pulse Rate 66 06/23/17 06:00 Respiratory Rate 20 06/23/17 06:00 Blood Pressure 129/65 06/23/17 06:00 O2 Sat by Pulse Oximetry (%) 96 06/22/17 21:00 Cardiovascular: Yes: Regular Rate and Rhythm, S1, S2 Respiratory: Yes: WNL, Regular, CTA Bilaterally Extremities: Yes: Erythema Labs: CBC, BMP 06/23/17 06:00 06/23/17 06:00 INR, PTT INR 1.12 (0.82-1.09) 06/23/17 06:00 Problem List - Problems (1) Cirrhosis Code(s): K74.60 - UNSPECIFIED CIRRHOSIS OF LIVER (2) Cellulitis of right anterior lower leg Code(s): L03.115 - CELLULITIS OF RIGHT LOWER LIMB (3) Diabetes mellitus Code(s): E11.9 - TYPE 2 DIABETES MELLITUS WITHOUT COMPLICATIONS Qualifiers: Diabetes mellitus complication status: with skin complications Diabetes mellitus complication detail: with other skin ulcer (4) LIGHT (nonalcoholic steatohepatitis) Code(s): K75.81 - NONALCOHOLIC STEATOHEPATITIS (LIGHT) Assessment/Plan Microbiology 06/21/17 23:00 Leg - Right Lower Gram Stain - Final 06/21/17 23:00 Leg - Right Lower Wound Culture - Preliminary Lactose Fermenting Neg Bacilli Presumptive Mrsa (Pbp2a Pos) Group D Strep Or Entero Coccus Pending Organism Pending Organism#2 Laboratory Tests 06/22/17 06/23/17 06/23/17 06:15 06:00 06:00 WBC 6.1 Hct 28.8 L D Plt Count 96 L D BUN 61 H Creatinine 2.6 H Random Vancomycin 11.859 Assessment Cellulitis of the leg Polymicrobial wound culture MRSA Plan Continue current meds an redose Vancomcyin 1.75 grs now Suly ALVAREZ
[2017-06-23] MEDS ORDERED: VANCOMYCIN 1,750 MG in DEXTROSE 5%-WATER - 500 ML IVPB ONE (14:45)
[2017-06-23] MEDS ORDERED: VANCOMYCIN 1,750 MG in SODIUM CHLORIDE 500 ML IVPB ONE (15:00)
[2017-06-23] MEDS ORDERED: PT OWN MED DRAWER 7, Y5N ONE (16:41)
--- NOTE | 2017-06-23 19:05 | CONSULT ---
Consult Consult Specialty:: Nephrology Reason for Consultation:: DARINEL - History of Present Illness Chief Complaint: right leg erythema History of Present Illness: Pt is 56 year old male with pmhx of anemia, HTN, DM, hep C, MRSA, obesity and cellulitis who presents to the ER for right lower extremity edema and erythema. He says that it started a few days ago. He denies fevers or chills. He has had cellulitis in the past and said he was following with the wound care clinic. He does complains of lower extremity edema and shortness of breath at times. He was found to be in acute renal failure and I was called to evaluate him. He denies history of CKD. He says he gets his labs checked regularly with his pmd and is unaware of any abnormal kidney function. He denies dysuria or hematuria. He was also found to be hyperkalemic. He is on an peyton at home. He has been taking daily nsaids for about 8 or 9 days for a toothache. He was also found to be anemic. - History Source History Provided By: Patient, Medical Record - Past Medical History Cardio/Vascular: Yes: HTN Gastrointestinal: Yes: Esophageal Varices, Other (LIGHT with cirrhosis) Hepatobiliary: Yes: Hepatitis C Infectious Disease: Yes: MRSA Endocrine: Yes: Diabetes Mellitus Additional Medical History: perineal abscess - Past Surgical History Past Surgical History: Yes: Tonsillectomy - Alcohol/Substance Use Hx Alcohol Use: No History of Substance Use: reports: None - Smoking History Smoking history: Never smoked Have you smoked in the past 12 months: No Aproximately how many cigarettes per day: 0 - Social History Usual Living Arrangement: Other (with sister) ADL: Independent Occupation: works for [employer] in [place] History of Recent Travel: No Home Medications - Allergies Allergies/Adverse Reactions: Allergies Allergy/AdvReac Type Severity Reaction Status Date / Time No Known Allergies Allergy Verified 06/21/17 13:08 - Home Medications Home Medications: Ambulatory Orders Furosemide [Lasix -] 40 mg PO DAILY 08/06/13 Glimepiride [Amaryl] 4 mg PO BID 08/06/13 Lisinopril [Prinivil -] 2.5 mg PO DAILY 08/06/13 Carvedilol [Coreg -] 6.25 mg PO BID #0 tablet 08/12/13 Metformin HCl [Glucophage] 1,000 mg PO BID #0 tablet 08/12/13 Lactobacillus Acidophilus [Bacid -] 1 each PO DAILY #14 tab 10/23/14 Lactulose (Oral Use) [Cephulac -] 20 gm PO DAILY #30 ud 10/23/14 Silver Sulfadiazine [Silvadene] 85 gm TP DAILY #1 cream..g. 02/24/17 Family Disease History - Family Disease History Family Disease History: Diabetes: Sister, [place]: Father, Other: Mother (parkinsons) Review of Systems - Review of Systems Constitutional: reports: Malaise. denies: Chills, Fever Eyes: reports: No Symptoms HENT: reports: No Symptoms Neck: reports: No Symptoms Cardiovascular: reports: Edema. denies: Chest Pain Respiratory: reports: No Symptoms Gastrointestinal: reports: No Symptoms Genitourinary: reports: No Symptoms Musculoskeletal: reports: No Symptoms Integumentary: reports: Eczema, Erythema, Lesions Neurological: reports: No Symptoms Endocrine: reports: No Symptoms Hematology/Lymphatic: reports: No Symptoms Psychiatric: reports: No Symptoms Physical Exam Vital Signs: Vital Signs Temperature 98.3 F 06/23/17 15:03 Pulse Rate 64 06/23/17 15:40 Respiratory Rate 18 06/23/17 15:40 Blood Pressure 130/70 06/23/17 15:40 O2 Sat by Pulse Oximetry (%) 100 06/23/17 15:40 Constitutional: Yes: Calm Eyes: Yes: Conjunctiva Clear HENT: Yes: Atraumatic Neck: Yes: Supple Cardiovascular: Yes: S1, S2 Respiratory: Yes: CTA Bilaterally Gastrointestinal: Yes: Soft, Abdomen, Obese Renal/: Yes: WNL Musculoskeletal: Yes: WNL Edema: Yes Edema: LLE: 1+, RLE: 2+ Integumentary: Yes: Erythema, Venous Stasis Changes Neurological: Yes: Oriented Psychiatric: Yes: Oriented Labs: CBC, BMP 06/23/17 06:00 06/23/17 06:00 Laboratory Tests 08/06/13 08/09/13 08/11/13 13:00 11:20 16:45 Hgb Sodium Potassium Chloride Carbon Dioxide Anion Gap BUN Creatinine 0.8 0.9 1.0 Stool Occult Blood Random Vancomycin 10/22/14 10/23/14 06/21/17 08:30 07:00 14:35 Hgb 7.7 L D Sodium Potassium Chloride Carbon Dioxide Anion Gap BUN Creatinine 1.2 1.1 Stool Occult Blood Random Vancomycin 06/21/17 06/22/17 06/22/17 14:35 06:15 06:15 Hgb 6.6 L* D Sodium Potassium Chloride Carbon Dioxide Anion Gap BUN Creatinine 2.6 H D Stool Occult Blood Random Vancomycin 11.859 06/22/17 06/22/17 06/22/17 06:15 09:20 14:40 Hgb 6.9 L* Sodium Potassium 5.1 Chloride Carbon Dioxide Anion Gap BUN Creatinine 2.7 H Stool Occult Blood Positive Random Vancomycin 06/23/17 06/23/17 06:00 06:00 Hgb 8.9 L D Sodium 137 Potassium 5.5 H Chloride 108 H Carbon Dioxide 23 Anion Gap 6 L BUN 61 H Creatinine 2.6 H Stool Occult Blood Random Vancomycin Imaging - Results Ultrasound: Report Reviewed (negative hydro) Problem List - Problems (1) Acute renal failure Code(s): N17.9 - ACUTE KIDNEY FAILURE, UNSPECIFIED Qualifiers: Acute renal failure type: unspecified Qualified Code(s): N17.9 - Acute kidney failure, unspecified (2) Anemia Code(s): D64.9 - ANEMIA, UNSPECIFIED Qualifiers: Other causes of anemia: acute posthemorrhagic (3) Cellulitis of right anterior lower leg Code(s): L03.115 - CELLULITIS OF RIGHT LOWER LIMB (4) Cirrhosis Code(s): K74.60 - UNSPECIFIED CIRRHOSIS OF LIVER (5) Generalized pruritus Code(s): L29.9 - PRURITUS, UNSPECIFIED (6) Cellulitis Code(s): L03.90 - CELLULITIS, UNSPECIFIED (7) Diabetes mellitus Code(s): E11.9 - TYPE 2 DIABETES MELLITUS WITHOUT COMPLICATIONS Qualifiers: Diabetes mellitus complication status: with skin complications Diabetes mellitus complication detail: with other skin ulcer (8) Hyperkalemia Code(s): E87.5 - HYPERKALEMIA (9) Hypertension Code(s): I10 - ESSENTIAL (PRIMARY) HYPERTENSION (10) LIGHT (nonalcoholic steatohepatitis) Code(s): K75.81 - NONALCOHOLIC STEATOHEPATITIS (LIGHT) Assessment/Plan Current Medications Generic Name Dose Route Start Last Admin Trade Name Freq PRN Reason Stop Dose Admin Carvedilol 6.25 mg 06/21/17 22:00 02/02/18 10:07 Coreg - PO 6.25 mg BID HANY Administration Diphenhydramine HCl 25 mg 06/22/17 13:58 06/22/17 21:39 Benadryl - PO 25 mg Q6H PRN Administration FOR ITCHING Piperacillin Sod/Tazobactam 100 mls @ 200 mls/hr 06/21/17 23:00 06/23/17 16: 45 Sod 3.375 gm/ Dextrose IVPB 200 mls/hr Q8H HANY Administration Dextrose/Sodium Chloride 1,000 mls @ 75 mls/hr 06/23/17 00:01 06/23/17 06:38 D5-1/2ns - IV 75 mls/hr ASDIR HANY Administration Insulin Aspart 1 vial 06/21/17 16:30 06/23/17 16:45 Novolog Vial Sliding Scale - SQ Not Given ACHS [facility] Protocol Lactobacillus Acidophilus 1 tab 06/22/17 10:00 06/23/17 10:07 Bacid - PO 1 tab DAILY HANY Administration Ondansetron HCl 4 mg 06/21/17 16:17 Zofran Injection IVPUSH Q6H PRN NAUSEA Pantoprazole Sodium 40 mg 06/23/17 10:30 06/23/17 12:35 Protonix Iv IVPUSH 40 mg BID HANY Administration Silver Sulfadiazine 1 applic 06/22/17 10:00 06/23/17 12:35 Silvadene - TP 1 applic DAILY HANY Administration Triamcinolone Acetonide 1 applic 06/22/17 22:00 06/23/17 10:09 Aristocort 0.1% Ointment - TP 1 applic BID HANY Administration chart reviewed meds reviewed labs reviewed (from old visits as well) Impression 1. DARINEL 2. anemia 3. cellulitis 4. anemia 5. hyperkalemia 6. hep c 7. hx MRSA 8. HTN 9. obesity 10. DM 11. LIGHT 12. right renal cyst 13. eczema 14. positive stool for occult blood Plan - will order more extensive renal workup - unclear hep c status - will give a dose of lasix as he appears overloaded, will help with potassium as well - hold peyton - hold metformin - stop nsaids (pt was taking OTC at home) - repeat labs in am - will order urine lytes and urine urea - repeat cxr in am - follow iron studies - GI follow up - cont abx - wound care to legs Dr Bermudez
[2017-06-23] MEDS ORDERED: FUROSEMIDE 40 MG TABLET (FP) PO ONE (19:30)
[2017-06-23] MEDS: diphenhydrAMINE HCL 25 MG CAPSULE (FP) PO PRN (23:05)
[2017-06-24] MEDS: DEXTROSE 5%-0.45% SALINE 1,000 ML IV SCH (04:54)
[2017-06-24] MEDS: INSULIN SLIDING SCALE (NOVOLOG) 1 VIAL SQ SCH ×4 (06:16→22:23)
[2017-06-24] MEDS: PIPERACILLIN/TAZOB 3.375 GM 3.375 GM in DEXTROSE 5%-WATER - 100 ML IVPB SCH ×3 (06:16→22:23)
[2017-06-24 07:38] LABS: ANION GAP 8 (8-16); BLOOD UREA NITROGEN 54 mg/dL (7-18); CALCIUM 7.8 mg/dL (8.5-10.1); CHLORIDE 107 mmol/L (98-107); CO2 22 mmol/L (21-32); CREATININE 2.4 mg/dL (0.7-1.3); GLUCOSE,RANDOM 151 mg/dL (74-106); MAGNESIUM 2.3 mg/dL (1.8-2.4); PHOSPHOROUS 3.9 mg/dL (2.5-4.9); POTASSIUM 5.5 mmol/L (3.5-5.1); SODIUM 137 mmol/L (136-145)
[2017-06-24 07:39] LABS: ALBUMIN 2.9 g/dl (3.4-5.0); BILIRUBIN,DIRECT 0.4 mg/dL (0.0-0.2); BILIRUBIN,TOTAL 1.1 mg/dL (0.2-1.0); TOT PROT 7.4 g/dl (6.4-8.2)
[2017-06-24 07:59] LABS: BASO % 0.8 % (0-2.0); EOS % 6.9 % (0-4.5); HEMATOCRIT 27.6 % (35.4-49); HEMOGLOBIN 8.7 GM/dL (11.7-16.9); LYMPH % 16.6 % (8-40); MCH 23.7 pg (25.7-33.7); MCHC 31.4 g/dl (32.0-35.9); MEAN CELL VOLUME 75.6 fl (80-96); MEAN PLT VOLUME 8.7 fl (7.5-11.1); MONO % 8.7 % (3.8-10.2); PLATELET COUNT 101 K/MM3 (134-434); RBC 3.65 M/mm3 (4.00-5.60); RDW 23.4 % (11.9-15.9); WHITE BLOOD COUNT 4.2 K/mm3 (4.0-10.0)
--- NOTE | 2017-06-24 08:21 | PN ---
Physical Exam: SUBJECTIVE: Patient seen and examined. He is oob eating breakfast, has itching under pecs, he denies fever, chills, bleeding. OBJECTIVE: Vital Signs Period Temp Pulse Resp BP Sys/Mathews Pulse Ox Last 24 Hr 97.3 F-98.3 F 60-67 18-20 110-130/47-70 97-100 PE Neuro: alert,a wake, cn 2-12intact Pulm: CTAB CV: s1 s2 rrr Abd: obese abd, soft nd nt + bs Ext: b/l LE edema R>L + 3 pitting edema RLE erythema, R lateral mallelous wound , LLE wound, chip drier than right SKin: b/l UE scabbed wounds, under b/l chest dermatitis + puritis Laboratory Results - last 24 hr 06/23/17 06/24/17 06/24/17 22:40 05:47 06:00 WBC 4.2 D RBC 3.65 L Hgb 8.7 L Hct 27.6 L MCV 75.6 L MCH 23.7 L MCHC 31.4 L RDW 23.4 H Plt Count 101 L MPV 8.7 D Neutrophils % 67.0 Lymphocytes % 16.6 Monocytes % 8.7 Eosinophils % 6.9 H Basophils % 0.8 PT with INR INR Sodium Potassium Chloride Carbon Dioxide Anion Gap BUN Creatinine POC Glucometer 191 Random Glucose Calcium Phosphorus Magnesium Total Bilirubin Direct Bilirubin AST ALT Alkaline Phosphatase Total Protein Albumin Tumor Marker AFP Ur Random Sodium Ur Random Potassium Ur Random Chloride Ur Random Urea Nitrogn Urine Creatinine 112.0 06/24/17 06/24/17 06:00 06:00 WBC RBC Hgb Hct MCV MCH MCHC RDW Plt Count MPV Neutrophils % Lymphocytes % Monocytes % Eosinophils % Basophils % PT with INR INR Sodium 137 Potassium 5.5 H Chloride 107 Carbon Dioxide 22 Anion Gap 8 BUN 54 H Creatinine 2.4 H POC Glucometer Random Glucose 151 H D Calcium 7.8 L Phosphorus 3.9 Magnesium 2.3 Total Bilirubin 1.1 H D Direct Bilirubin 0.4 H D AST 30 ALT 30 Alkaline Phosphatase 115 Total Protein 7.4 Albumin 2.9 L Tumor Marker AFP Ur Random Sodium Ur Random Potassium Ur Random Chloride Ur Random Urea Nitrogn Urine Creatinine Active Medications Generic Name Dose Route Start Last Admin Trade Name Freq PRN Reason Stop Dose Admin Carvedilol 6.25 mg 06/21/17 22:00 06/23/17 21:25 Coreg - PO 6.25 mg BID HANY Administration Diphenhydramine HCl 25 mg 06/22/17 13:58 06/23/17 23:05 Benadryl - PO 25 mg Q6H PRN Administration FOR ITCHING Piperacillin Sod/Tazobactam 100 mls @ 200 mls/hr 06/21/17 23:00 06/24/17 06: 16 Sod 3.375 gm/ Dextrose IVPB 200 mls/hr Q8H HANY Administration Insulin Aspart 1 vial 06/21/17 16:30 06/24/17 06:16 Novolog Vial Sliding Scale - SQ Not Given ACHS HANY Protocol Lactobacillus Acidophilus 1 tab 06/22/17 10:00 06/23/17 10:07 Bacid - PO 1 tab DAILY HANY Administration Ondansetron HCl 4 mg 06/21/17 16:17 Zofran Injection IVPUSH Q6H PRN NAUSEA Pantoprazole Sodium 40 mg 06/24/17 10:00 Protonix - PO BID HANY Silver Sulfadiazine 1 applic 06/22/17 10:00 06/23/17 12:35 Silvadene - TP 1 applic DAILY HANY Administration Triamcinolone Acetonide 1 applic 06/22/17 22:00 06/23/17 21:30 Aristocort 0.1% Ointment - TP 1 applic BID HANY Administration Microbiology 06/21/17 15:08 Blood Culture - Preliminary Blood - Peripheral Venous NO GROWTH OBTAINED AFTER 48 HOURS, INCUBATION TO CONTINUE FOR 3 DAYS. 06/21/17 15:08 Blood Culture - Preliminary Blood - Peripheral Venous NO GROWTH OBTAINED AFTER 48 HOURS, INCUBATION TO CONTINUE FOR 3 DAYS. 06/21/17 23:00 Gram Stain - Final Wound Wound Culture - Preliminary 06/21/17 14:43 Gram Stain - Final Leg - Right Lower Wound Culture - Preliminary 06/21/17 23:00 Gram Stain - Final Leg - Right Lower Wound Culture - Preliminary Lactose Fermenting Neg Bacilli Presumptive Mrsa (Pbp2a Pos) Group D Strep Or Entero Coccus Pending Organism Pending Organism#2 Assessment: 56 year old male with a significant PMH of anemia, HTN, diabetes, hepatitis C, and MRSA admitted with RLE erythema Plan: 1. Cellulitis of right anterior lower leg - Wound cx polymicrobial, MRSA - Continue Zosyn per ID 2. Acute renal failure - Stop fluids - Cr improved following lasix dose - Likely redose today, as continues to appear overloaded, will d/w renal - Continue to hold lasix, lisinopril, aldactone - Renal following 3. DM II - Hold PO antidiabetics - ISS, BGM ACHS 4. Hyperkalemia - Unchanged - Nephrology following 5. Hypertension - Controlled - Coreg 6.25mg BID 6. LIGHT (nonalcoholic steatohepatitis) - Stable 7. Thrombocytopenia - Improved today - Chronic - Secondary to hepatic disease 8. Acute blood loss anemia - s/p EGD 06/23 - Patient has history of esophageal varices - Change protonix to oral 40mg BID - Plan for colonoscopy on Monday since also has history of LGIB 9. Pruritis - Rash is drying - Continue Triamcinolone cream per Derm Visit type - Emergency Visit Emergency Visit: Yes ED Registration Date: 06/21/17 Care time: The patient presented to the Emergency Department on the above date and was hospitalized for further evaluation of their emergent condition. - New Patient This patient is new to me today: Yes Date on this admission: 06/24/17 - Critical Care Critical Care patient: No
[2017-06-24] MEDS ORDERED: PT OWN MED DRAWER 7, Y5N ONE ×2 (09:32→16:02)
--- NOTE | 2017-06-24 10:28 | PN ---
Progress Note (short form) - Note Progress Note: ID Vancomycin intermittent dosing ( given yesterday) along Pip Tazobactam Selected Entries 06/24/17 07:00 Temperature 98.0 F Pulse Rate 62 Respiratory 18 Rate Blood Pressure 123/65 Exam with cellulitis of the left leg Multiple excoriations seen by Ade Richardson treat steroids topical Microbiology 06/21/17 23:00 Leg - Right Lower Gram Stain - Final 06/21/17 23:00 Leg - Right Lower Wound Culture - Preliminary Lactose Fermenting Neg Bacilli Presumptive Mrsa (Pbp2a Pos) Group D Strep Or Entero Coccus Pending Organism Pending Organism#2 Laboratory Tests 06/22/17 06/24/17 06/24/17 06:15 06:00 06:00 WBC 4.2 D Hgb 8.7 L Hct 27.6 L Plt Count 101 L BUN 54 H Creatinine 2.4 H Random Vancomycin 11.859 Advise Check Vanco level today if between 10-15 would redose tomorrow Continue Zosyn as ordered Reassess on monday Suly ALVAREZ Problem List - Problems (1) Cirrhosis Code(s): K74.60 - UNSPECIFIED CIRRHOSIS OF LIVER (2) Cellulitis of right anterior lower leg Code(s): L03.115 - CELLULITIS OF RIGHT LOWER LIMB (3) Diabetes mellitus Code(s): E11.9 - TYPE 2 DIABETES MELLITUS WITHOUT COMPLICATIONS Qualifiers: Diabetes mellitus complication status: with skin complications Diabetes mellitus complication detail: with other skin ulcer (4) LIGHT (nonalcoholic steatohepatitis) Code(s): K75.81 - NONALCOHOLIC STEATOHEPATITIS (LIGHT)
[2017-06-24] MEDS: PANTOPRAZOLE 40 MG TABLET (FP) PO SCH ×2 (10:39→22:23)
[2017-06-24] MEDS: LACTOBACILLUS ACIDOPHILUS 1 CAP PO SCH (10:39)
[2017-06-24] MEDS: CARVEDILOL 6.25 MG TABLET (FP) PO SCH ×2 (10:39→22:22)
[2017-06-24] MEDS: TRIAMCINOLONE ACET 0.1% OINT 15 GM TUBE TP SCH ×2 (10:40→22:24)
[2017-06-24] MEDS ORDERED: INSULIN (NOVOLOG) ASPART 100 UNITS/ML 10ML VIAL ONE (10:42)
--- NOTE | 2017-06-24 16:24 | PN ---
Progress Note, Physician History of Present Illness: Pt seen and examined at bedside. He is awake and appears comfortable. He complains of lower extremity edema. - Current Medication List Current Medications: Active Medications Carvedilol (Coreg -) 6.25 mg PO BID [facility] Last Admin: 06/24/17 10:39 Dose: 6.25 mg Diphenhydramine HCl (Benadryl -) 25 mg PO Q6H PRN PRN Reason: FOR ITCHING Last Admin: 06/23/17 23:05 Dose: 25 mg Piperacillin Sod/Tazobactam (Sod 3.375 gm/ Dextrose) 100 mls @ 200 mls/hr IVPB Q8H [facility] Last Admin: 06/24/17 06:16 Dose: 200 mls/hr Insulin Aspart (Novolog Vial Sliding Scale -) 1 vial SQ ACHS [facility] PRN Reason: Protocol Last Admin: 06/24/17 10:52 Dose: 2 units Lactobacillus Acidophilus (Bacid -) 1 tab PO DAILY [facility] Last Admin: 06/24/17 10:39 Dose: 1 tab Ondansetron HCl (Zofran Injection) 4 mg IVPUSH Q6H PRN PRN Reason: NAUSEA Pantoprazole Sodium (Protonix -) 40 mg PO BID [facility] Last Admin: 06/24/17 10:39 Dose: 40 mg Silver Sulfadiazine (Silvadene -) 1 applic TP DAILY [facility] Last Admin: 06/23/17 12:35 Dose: 1 applic Triamcinolone Acetonide (Aristocort 0.1% Ointment -) 1 applic TP BID [facility] Last Admin: 06/24/17 10:40 Dose: 1 applic - Objective Vital Signs: Vital Signs Temperature 97.8 F 06/24/17 10:00 Pulse Rate 66 06/24/17 10:00 Respiratory Rate 18 06/24/17 10:00 Blood Pressure 121/62 06/24/17 10:00 O2 Sat by Pulse Oximetry (%) 100 06/24/17 09:00 Constitutional: Yes: Calm Eyes: Yes: Conjunctiva Clear HENT: Yes: Atraumatic Neck: Yes: Supple Cardiovascular: Yes: S1, S2 Respiratory: Yes: CTA Bilaterally Gastrointestinal: Yes: Soft, Abdomen, Obese Genitourinary: Yes: WNL Edema: Yes Edema: LLE: 1+, RLE: 1+ Integumentary: Yes: Erythema Neurological: Yes: Oriented Psychiatric: Yes: Oriented Labs: CBC, BMP 06/24/17 06:00 06/24/17 06:00 INR, PTT INR 1.12 (0.82-1.09) 06/23/17 06:00 Problem List - Problems (1) Acute renal failure Code(s): N17.9 - ACUTE KIDNEY FAILURE, UNSPECIFIED Qualifiers: Acute renal failure type: unspecified Qualified Code(s): N17.9 - Acute kidney failure, unspecified (2) Anemia Code(s): D64.9 - ANEMIA, UNSPECIFIED Qualifiers: Other causes of anemia: acute posthemorrhagic (3) Cellulitis of right anterior lower leg Code(s): L03.115 - CELLULITIS OF RIGHT LOWER LIMB (4) Cirrhosis Code(s): K74.60 - UNSPECIFIED CIRRHOSIS OF LIVER (5) Generalized pruritus Code(s): L29.9 - PRURITUS, UNSPECIFIED (6) Cellulitis Code(s): L03.90 - CELLULITIS, UNSPECIFIED (7) Diabetes mellitus Code(s): E11.9 - TYPE 2 DIABETES MELLITUS WITHOUT COMPLICATIONS Qualifiers: Diabetes mellitus complication status: with skin complications Diabetes mellitus complication detail: with other skin ulcer (8) Hyperkalemia Code(s): E87.5 - HYPERKALEMIA (9) Hypertension Code(s): I10 - ESSENTIAL (PRIMARY) HYPERTENSION (10) LIGHT (nonalcoholic steatohepatitis) Code(s): K75.81 - NONALCOHOLIC STEATOHEPATITIS (LIGHT) Assessment/Plan Current Medications Generic Name Dose Route Start Last Admin Trade Name Freq PRN Reason Stop Dose Admin Carvedilol 6.25 mg 06/21/17 22:00 06/24/17 10:39 Coreg - PO 6.25 mg BID HANY Administration Diphenhydramine HCl 25 mg 06/22/17 13:58 06/23/17 23:05 Benadryl - PO 25 mg Q6H PRN Administration FOR ITCHING Piperacillin Sod/Tazobactam 100 mls @ 200 mls/hr 06/21/17 23:00 06/24/17 06: 16 Sod 3.375 gm/ Dextrose IVPB 200 mls/hr Q8H HANY Administration Insulin Aspart 1 vial 06/21/17 16:30 06/24/17 10:52 Novolog Vial Sliding Scale - SQ 2 units ACHS HANY Administration Protocol Lactobacillus Acidophilus 1 tab 06/22/17 10:00 06/24/17 10:39 Bacid - PO 1 tab DAILY HANY Administration Ondansetron HCl 4 mg 06/21/17 16:17 Zofran Injection IVPUSH Q6H PRN NAUSEA Pantoprazole Sodium 40 mg 06/24/17 10:00 06/24/17 10:39 Protonix - PO 40 mg BID HANY Administration Silver Sulfadiazine 1 applic 06/22/17 10:00 06/23/17 12:35 Silvadene - TP 1 applic DAILY HANY Administration Triamcinolone Acetonide 1 applic 06/22/17 22:00 06/24/17 10:40 Aristocort 0.1% Ointment - TP 1 applic BID HANY Administration Laboratory Tests 06/24/17 06/24/17 06:00 06:00 LAKEISHA M-Moody Pending DOMINICK Screen Pending c-ANCA Pending Proteinase 3 (PR3) Pending p-ANCA Pending Atypical p-ANCA Pending Myeloperoxidase Ab Pending Double Strand DNA Ab Pending Glomerular Base Memb Ab Pending Hepatitis A Ab Total Pending Hep Bs Antigen Pending Hep Bs Antibody Pending Hep B Core Total Ab Pending Hepatitis C Antibody Pending Impression 1. DARINEL 2. anemia 3. cellulitis 4. anemia 5. hyperkalemia 6. hep c 7. hx MRSA 8. HTN 9. obesity 10. DM 11. LIGHT 12. right renal cyst 13. eczema 14. positive stool for occult blood Plan - renal workup in progress - will give a dose of lasix - repeat labs in am - discussed with medical team - please stop fluids - low potassium diet - hold peyton - hold metformin - stop nsaids (pt was taking OTC at home) - follow iron studies - cont abx - wound care to legs Dr Bermudez
[2017-06-24] MEDS ORDERED: SODIUM BICARBONATE 8.4% 50 MEQ/50 ML VIAL IVPUSH ONE (16:30)
[2017-06-24] MEDS ORDERED: FUROSEMIDE 40 MG/4 ML INJECTABLE VIAL IVPUSH ONE (16:30)
[2017-06-24] MEDS: SILVER SULFADIAZINE 1% TOP CREAM 50 GM JAR TP SCH (16:30)
[2017-06-25 06:37] LABS: HBSAG SCREEN Negative (Negative); HEP B CORE AB, TOT Negative (Negative)
[2017-06-25] MEDS: PIPERACILLIN/TAZOB 3.375 GM 3.375 GM in DEXTROSE 5%-WATER - 100 ML IVPB SCH ×3 (06:56→22:40)
[2017-06-25] MEDS: INSULIN SLIDING SCALE (NOVOLOG) 1 VIAL SQ SCH ×4 (06:59→21:49)
[2017-06-25 08:18] LABS: BASO % 0.8 % (0-2.0); EOS % 7.3 % (0-4.5); HEMATOCRIT 28.3 % (35.4-49); LYMPH % 16.9 % (8-40); MCH 23.6 pg (25.7-33.7); MCHC 31.6 g/dl (32.0-35.9); MEAN CELL VOLUME 74.7 fl (80-96); MEAN PLT VOLUME 8.9 fl (7.5-11.1); MONO % 9.5 % (3.8-10.2); NEUT % 65.5 % (42.8-82.8); PLATELET COUNT 115 K/MM3 (134-434); RDW 22.9 % (11.9-15.9); WHITE BLOOD COUNT 5.1 K/mm3 (4.0-10.0)
[2017-06-25 08:59] LABS: ALBUMIN 2.9 g/dl (3.4-5.0); ALK PHOS 118 U/L (45-117); ANION GAP 8 (8-16); BILIRUBIN,TOTAL 0.9 mg/dL (0.2-1.0); BLOOD UREA NITROGEN 58 mg/dL (7-18); CALCIUM 7.8 mg/dL (8.5-10.1); CHLORIDE 107 mmol/L (98-107); CO2 23 mmol/L (21-32); CREATININE 2.5 mg/dL (0.7-1.3); GLUCOSE,RANDOM 129 mg/dL (74-106); POTASSIUM 5.4 mmol/L (3.5-5.1); SGOT/AST 28 U/L (15-37); SGPT/ALT 30 U/L (12-78); SODIUM 138 mmol/L (136-145); TOT PROT 7.5 g/dl (6.4-8.2)
[2017-06-25 09:08] LABS: ADD RBC MORPHOLOGY YES
[2017-06-25] MEDS: TRIAMCINOLONE ACET 0.1% OINT 15 GM TUBE TP SCH ×2 (09:16→21:49)
[2017-06-25] MEDS: LACTOBACILLUS ACIDOPHILUS 1 CAP PO SCH (09:17)
[2017-06-25] MEDS: CARVEDILOL 6.25 MG TABLET (FP) PO SCH ×2 (09:17→21:49)
[2017-06-25] MEDS: PANTOPRAZOLE 40 MG TABLET (FP) PO SCH ×2 (09:17→21:49)
[2017-06-25 09:49] LABS: ANISOCYTOSIS 2+; PLATELET ESTIMATE ADEQUATE
[2017-06-25] MEDS ORDERED: SODIUM POLYSTYRENE SULFONATE 15 GM/60 ML BOTTLE PO ONE (10:20)
--- NOTE | 2017-06-25 10:45 | PN ---
Physical Exam: SUBJECTIVE: Patient seen and examined. He has no acute complaints. He does think his R leg is less red. OBJECTIVE: Vital Signs Period Temp Pulse Resp BP Sys/Mathews Pulse Ox Last 24 Hr 97.5 F-98.2 F 65-69 20-20 126-127/62-65 100 PE Neuro: alert,a wake, cn 2-12intact Pulm: CTAB CV: s1 s2 rrr Abd: obese abd, soft nd nt + bs Ext: RLE edema, erythema- improving, R ankle edema resolving, wound with purulent drainage, LLE edema- improving drying, wound dressed SKin: b/l UE excoriations, drying Laboratory Results - last 24 hr 06/24/17 06/24/17 06/24/17 06:00 10:37 11:34 WBC RBC Hgb Hct MCV MCH MCHC RDW Plt Count MPV Neutrophils % Lymphocytes % Monocytes % Eosinophils % Basophils % Hypochromia Platelet Estimate Polychromasia Anisocytosis Sodium Potassium Chloride Carbon Dioxide Anion Gap BUN Creatinine Creat Clearance w eGFR POC Glucometer 224 Random Glucose Calcium Total Bilirubin AST ALT Alkaline Phosphatase Total Protein Albumin Random Vancomycin 14.326 Hepatitis A Ab Total Negative Hep Bs Antigen Negative Hep Bs Antibody Non reactive Hep B Core Total Ab Negative Hepatitis C Antibody 0.2 06/25/17 06/25/17 07:15 07:15 WBC 5.1 RBC 3.80 L Hgb 9.0 L Hct 28.3 L MCV 74.7 L MCH 23.6 L MCHC 31.6 L RDW 22.9 H Plt Count 115 L MPV 8.9 Neutrophils % 65.5 Lymphocytes % 16.9 Monocytes % 9.5 Eosinophils % 7.3 H Basophils % 0.8 Hypochromia 1+ Platelet Estimate Adequate Polychromasia 1+ Anisocytosis 2+ Sodium 138 Potassium 5.4 H Chloride 107 Carbon Dioxide 23 Anion Gap 8 BUN 58 H Creatinine 2.5 H Creat Clearance w eGFR 26.66 POC Glucometer Random Glucose 129 H Calcium 7.8 L Total Bilirubin 0.9 AST 28 ALT 30 Alkaline Phosphatase 118 H Total Protein 7.5 Albumin 2.9 L Random Vancomycin Hepatitis A Ab Total Hep Bs Antigen Hep Bs Antibody Hep B Core Total Ab Hepatitis C Antibody Active Medications Generic Name Dose Route Start Last Admin Trade Name Freq PRN Reason Stop Dose Admin Carvedilol 6.25 mg 06/21/17 22:00 06/25/17 09:17 Coreg - PO 6.25 mg BID HANY Administration Diphenhydramine HCl 25 mg 06/22/17 13:58 06/23/17 23:05 Benadryl - PO 25 mg Q6H PRN Administration FOR ITCHING Piperacillin Sod/Tazobactam 100 mls @ 200 mls/hr 06/21/17 23:00 06/25/17 06: 56 Sod 3.375 gm/ Dextrose IVPB 200 mls/hr Q8H HANY Administration Insulin Aspart 1 vial 06/21/17 16:30 06/25/17 06:59 Novolog Vial Sliding Scale - SQ Not Given ACHS HANY Protocol Lactobacillus Acidophilus 1 tab 06/22/17 10:00 06/25/17 09:17 Bacid - PO 1 tab DAILY HANY Administration Ondansetron HCl 4 mg 06/21/17 16:17 Zofran Injection IVPUSH Q6H PRN NAUSEA Pantoprazole Sodium 40 mg 06/24/17 10:00 06/25/17 09:17 Protonix - PO 40 mg BID HANY Administration Silver Sulfadiazine 1 applic 06/22/17 10:00 06/24/17 16:30 Silvadene - TP 1 applic DAILY HANY Administration Triamcinolone Acetonide 1 applic 06/22/17 22:00 06/25/17 09:16 Aristocort 0.1% Ointment - TP 1 applic BID HANY Administration Assessment: 56 year old male with a significant PMHx of anemia, HTN, diabetes, hepatitis C, and MRSA admitted with RLE erythema Plan: 1. Cellulitis of right anterior lower leg - Wound cx polymicrobial, MRSA - Dose vanco for level 10-15 - Continue Zosyn per ID 2. Acute renal failure - Cr unchanged - Lasix 60mg iv given yesterday - Continue to hold lasix, lisinopril, aldactone - Nephrology seeing 3. DM II - Hold PO antidiabetics - ISS, BGM ACHS 4. Hyperkalemia - Unchanged after lasix and amp of bicarb - Unclear if pt to go for colonoscopy tomorrow, will d/w GI re: prep - If no prep, will consider kayexalate 5. Hypertension - Controlled - Coreg 6.25mg BID 6. LIGHT (nonalcoholic steatohepatitis) - Stable 7. Thrombocytopenia - Up trending - Chronic - Secondary to hepatic disease 8. Acute blood loss anemia - s/p EGD 2/2 - Patient has history of esophageal varices - Change protonix to oral 40mg BID - Tentative plan for colonoscopy tomorrow since also has history of LGIB, will need to confirm with GI 9. Pruritis - Continue Triamcinolone cream per Derm Visit type - Emergency Visit Emergency Visit: Yes ED Registration Date: 06/21/17 Care time: The patient presented to the Emergency Department on the above date and was hospitalized for further evaluation of their emergent condition. - New Patient This patient is new to me today: No - Critical Care Critical Care patient: No
[2017-06-25] MEDS ORDERED: PT OWN MED DRAWER 7, Y5N ONE ×2 (14:11→15:33)
[2017-06-25] MEDS: SILVER SULFADIAZINE 1% TOP CREAM 50 GM JAR TP SCH (15:33)
[2017-06-25] MEDS ORDERED: FUROSEMIDE 40 MG/4 ML INJECTABLE VIAL IVPUSH ONE (17:56)
--- NOTE | 2017-06-25 17:57 | PN ---
Progress Note, Physician History of Present Illness: Pt seen and examined at bedside. He is awake and alert. He denies shortness of breath. He complains of lower ext edema. - Current Medication List Current Medications: Active Medications Carvedilol (Coreg -) 6.25 mg PO BID [facility] Last Admin: 06/25/17 09:17 Dose: 6.25 mg Diphenhydramine HCl (Benadryl -) 25 mg PO Q6H PRN PRN Reason: FOR ITCHING Last Admin: 06/23/17 23:05 Dose: 25 mg Piperacillin Sod/Tazobactam (Sod 3.375 gm/ Dextrose) 100 mls @ 200 mls/hr IVPB Q8H [facility] Last Admin: 06/25/17 15:00 Dose: 200 mls/hr Insulin Aspart (Novolog Vial Sliding Scale -) 1 vial SQ ACHS [facility] PRN Reason: Protocol Last Admin: 06/25/17 12:13 Dose: Not Given Lactobacillus Acidophilus (Bacid -) 1 tab PO DAILY [facility] Last Admin: 06/25/17 09:17 Dose: 1 tab Ondansetron HCl (Zofran Injection) 4 mg IVPUSH Q6H PRN PRN Reason: NAUSEA Pantoprazole Sodium (Protonix -) 40 mg PO BID [facility] Last Admin: 06/25/17 09:17 Dose: 40 mg Silver Sulfadiazine (Silvadene -) 1 applic TP DAILY [facility] Last Admin: 06/25/17 15:33 Dose: 1 applic Triamcinolone Acetonide (Aristocort 0.1% Ointment -) 1 applic TP BID [facility] Last Admin: 06/25/17 09:16 Dose: 1 applic - Objective Vital Signs: Vital Signs Temperature 98.4 F 06/25/17 17:34 Pulse Rate 66 06/25/17 17:34 Respiratory Rate 18 06/25/17 17:34 Blood Pressure 124/68 06/25/17 17:34 O2 Sat by Pulse Oximetry (%) 98 06/25/17 09:00 Constitutional: Yes: Calm Eyes: Yes: Conjunctiva Clear HENT: Yes: Atraumatic Neck: Yes: Supple Cardiovascular: Yes: S1, S2 Respiratory: Yes: CTA Bilaterally Gastrointestinal: Yes: Soft, Abdomen, Obese Genitourinary: Yes: WNL Edema: Yes Edema: LLE: 1+, RLE: 2+ Neurological: Yes: Oriented Psychiatric: Yes: Oriented Labs: CBC, BMP 06/25/17 07:15 06/25/17 07:15 INR, PTT INR 1.12 (0.82-1.09) 06/23/17 06:00 Problem List - Problems (1) Acute renal failure Code(s): N17.9 - ACUTE KIDNEY FAILURE, UNSPECIFIED Qualifiers: Acute renal failure type: unspecified Qualified Code(s): N17.9 - Acute kidney failure, unspecified (2) Anemia Code(s): D64.9 - ANEMIA, UNSPECIFIED Qualifiers: Other causes of anemia: acute posthemorrhagic (3) Cellulitis of right anterior lower leg Code(s): L03.115 - CELLULITIS OF RIGHT LOWER LIMB (4) Cirrhosis Code(s): K74.60 - UNSPECIFIED CIRRHOSIS OF LIVER (5) Generalized pruritus Code(s): L29.9 - PRURITUS, UNSPECIFIED (6) Cellulitis Code(s): L03.90 - CELLULITIS, UNSPECIFIED (7) Diabetes mellitus Code(s): E11.9 - TYPE 2 DIABETES MELLITUS WITHOUT COMPLICATIONS Qualifiers: Diabetes mellitus complication status: with skin complications Diabetes mellitus complication detail: with other skin ulcer (8) Hyperkalemia Code(s): E87.5 - HYPERKALEMIA (9) Hypertension Code(s): I10 - ESSENTIAL (PRIMARY) HYPERTENSION (10) LIGHT (nonalcoholic steatohepatitis) Code(s): K75.81 - NONALCOHOLIC STEATOHEPATITIS (LIGHT) Assessment/Plan Current Medications Generic Name Dose Route Start Last Admin Trade Name Akiq PRN Reason Stop Dose Admin Carvedilol 6.25 mg 06/21/17 22:00 06/25/17 09:17 Coreg - PO 6.25 mg BID [facility] Administration Diphenhydramine HCl 25 mg 06/22/17 13:58 06/23/17 23:05 Benadryl - PO 25 mg Q6H PRN Administration FOR ITCHING Piperacillin Sod/Tazobactam 100 mls @ 200 mls/hr 06/21/17 23:00 06/25/17 15: 00 Sod 3.375 gm/ Dextrose IVPB 200 mls/hr Q8H [facility] Administration Insulin Aspart 1 vial 06/21/17 16:30 06/25/17 12:13 Novolog Vial Sliding Scale - SQ Not Given ACHS [facility] Protocol Lactobacillus Acidophilus 1 tab 06/22/17 10:00 06/25/17 09:17 Bacid - PO 1 tab DAILY [facility] Administration Ondansetron HCl 4 mg 06/21/17 16:17 Zofran Injection IVPUSH Q6H PRN NAUSEA Pantoprazole Sodium 40 mg 06/24/17 10:00 06/25/17 09:17 Protonix - PO 40 mg BID [facility] Administration Silver Sulfadiazine 1 applic 06/22/17 10:00 06/25/17 15:33 Silvadene - TP 1 applic DAILY [facility] Administration Triamcinolone Acetonide 1 applic 06/22/17 22:00 06/25/17 09:16 Aristocort 0.1% Ointment - TP 1 applic BID [facility] Administration Laboratory Tests 06/24/17 06/24/17 06:00 06:00 LAKEISHA M-Moody Pending DOMINICK Screen Pending c-ANCA Pending Proteinase 3 (PR3) Pending p-ANCA Pending Atypical p-ANCA Pending Myeloperoxidase Ab Pending Double Strand DNA Ab Pending Glomerular Base Memb Ab Pending Hepatitis A Ab Total Negative Hep Bs Antigen Negative Hep Bs Antibody Non reactive Hep B Core Total Ab Negative Hepatitis C Antibody 0.2 Impression 1. DARINEL 2. anemia 3. cellulitis 4. anemia 5. hyperkalemia 6. hep c 7. hx MRSA 8. HTN 9. obesity 10. DM 11. LIGHT 12. right renal cyst 13. eczema 14. positive stool for occult blood Plan - follow renal workup - low potassium diet - will give a dose of lasix - repeat labs in am - low potassium diet - hold peyton - hold metformin - stop nsaids (pt was taking OTC at home) - cont abx - wound care to legs - discussed with medical team Dr Bermudez
[2017-06-25 20:58] LABS: URINE APPEARANCE CLEAR; URINE BILIRUBIN NEGATIVE (NEGATIVE); URINE BLOOD 1+ (NEGATIVE); URINE COLOR LTYELLOW; URINE GLUCOSE (UA) NEGATIVE (NEGATIVE); URINE KETONE NEGATIVE (NEGATIVE); URINE LEUK ESTERASE NEGATIVE (NEGATIVE); URINE NITRITE NEGATIVE (NEGATIVE); URINE PROTEIN NEGATIVE (NEGATIVE); URINE UROBILINOGEN NEGATIVE mg/dL (0.2-1.0)
[2017-06-26] MEDS: PIPERACILLIN/TAZOB 3.375 GM 3.375 GM in DEXTROSE 5%-WATER - 100 ML IVPB SCH (06:24)
[2017-06-26] MEDS: INSULIN SLIDING SCALE (NOVOLOG) 1 VIAL SQ SCH ×4 (06:24→21:53)
[2017-06-26 07:40] LABS: HEMATOCRIT 30.2 % (35.4-49); HEMOGLOBIN 9.6 GM/dL (11.7-16.9); MCH 23.6 pg (25.7-33.7); MCHC 31.7 g/dl (32.0-35.9); MEAN CELL VOLUME 74.4 fl (80-96); MEAN PLT VOLUME 8.9 fl (7.5-11.1); PLATELET COUNT 120 K/MM3 (134-434); RBC 4.06 M/mm3 (4.00-5.60); RDW 23.3 % (11.9-15.9); WHITE BLOOD COUNT 6.2 K/mm3 (4.0-10.0)
[2017-06-26 08:22] LABS: CHLORIDE 104 mmol/L (98-107); POTASSIUM 5.3 mmol/L (3.5-5.1); SODIUM 137 mmol/L (136-145)
[2017-06-26 08:26] LABS: ANION GAP 10 (8-16); BLOOD UREA NITROGEN 59 mg/dL (7-18); CALCIUM 8.3 mg/dL (8.5-10.1); CO2 23 mmol/L (21-32); CREATININE 2.5 mg/dL (0.7-1.3); GLUCOSE,RANDOM 128 mg/dL (74-106)
--- NOTE | 2017-06-26 10:00 | PN ---
Progress Note, Physician Chief Complaint: ID Erma and Kimberly Admitted the May - Current Medication List Current Medications: Active Medications Carvedilol (Coreg -) 6.25 mg PO BID [facility] Last Admin: 06/25/17 21:49 Dose: 6.25 mg Diphenhydramine HCl (Benadryl -) 25 mg PO Q6H PRN PRN Reason: FOR ITCHING Last Admin: 06/23/17 23:05 Dose: 25 mg Piperacillin Sod/Tazobactam (Sod 3.375 gm/ Dextrose) 100 mls @ 200 mls/hr IVPB Q8H [facility] Last Admin: 06/26/17 06:24 Dose: 200 mls/hr Insulin Aspart (Novolog Vial Sliding Scale -) 1 vial SQ ACHS [facility] PRN Reason: Protocol Last Admin: 06/26/17 06:24 Dose: Not Given Lactobacillus Acidophilus (Bacid -) 1 tab PO DAILY [facility] Last Admin: 06/25/17 09:17 Dose: 1 tab Ondansetron HCl (Zofran Injection) 4 mg IVPUSH Q6H PRN PRN Reason: NAUSEA Pantoprazole Sodium (Protonix -) 40 mg PO BID [facility] Last Admin: 06/25/17 21:49 Dose: 40 mg Silver Sulfadiazine (Silvadene -) 1 applic TP DAILY [facility] Last Admin: 06/25/17 15:33 Dose: 1 applic Triamcinolone Acetonide (Aristocort 0.1% Ointment -) 1 applic TP BID [facility] Last Admin: 06/25/17 21:49 Dose: 1 applic - Objective Vital Signs: Vital Signs Temperature 97.9 F 06/26/17 07:59 Pulse Rate 71 06/26/17 07:59 Respiratory Rate 20 06/26/17 07:59 Blood Pressure 122/68 06/26/17 07:59 O2 Sat by Pulse Oximetry (%) 98 06/25/17 23:53 Constitutional: Yes: Obese Neck: Yes: WNL, Supple Cardiovascular: Yes: Regular Rate and Rhythm, S1, S2. No: Murmur Respiratory: Yes: WNL, Regular, CTA Bilaterally Gastrointestinal: Yes: WNL, Normal Bowel Sounds, Soft. No: Tenderness Extremities: Yes: Other (Swelling of the right leg and redness improved by 50% LLE swollen though less so with clean ulcer ankle) Labs: CBC, BMP 06/26/17 06:00 06/26/17 06:00 INR, PTT INR 1.12 (0.82-1.09) 06/23/17 06:00 Problem List - Problems (1) Cirrhosis Code(s): K74.60 - UNSPECIFIED CIRRHOSIS OF LIVER (2) Cellulitis of right anterior lower leg Code(s): L03.115 - CELLULITIS OF RIGHT LOWER LIMB (3) Diabetes mellitus Code(s): E11.9 - TYPE 2 DIABETES MELLITUS WITHOUT COMPLICATIONS Qualifiers: Diabetes mellitus complication status: with skin complications Diabetes mellitus complication detail: with other skin ulcer (4) LIGHT (nonalcoholic steatohepatitis) Code(s): K75.81 - NONALCOHOLIC STEATOHEPATITIS (LIGHT) Assessment/Plan Microbiology 06/21/17 23:00 Leg - Right Lower Gram Stain - Final 06/21/17 23:00 Leg - Right Lower Wound Culture - Preliminary Klebsiella Oxytoca Mr S Aureus Enterococcus Faecalis Pending Organism#2 Laboratory Tests 06/24/17 06/26/17 06/26/17 11:34 06:00 06:00 WBC 6.2 Hgb 9.6 L Hct 30.2 L Plt Count 120 L BUN 59 H Creatinine 2.5 H Random Vancomycin 14.326 Assessment Severe cellulitis right leg with ulcer polymicrobial wound. This is about 50% better but not ready for discharge Plan Continue current therapy but can substitute Unasyn instead of Zosyn to "save" Zosyn Kindly recall as needed Treat another 3-5 days
--- NOTE | 2017-06-26 10:13 | PN ---
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 I have offered [facility] and [facility]. He has chosen the latter. He will contact my office after discharge when I will provide him with the names [facility]. He already has a copy of his EGD report. He denies abdominal pain. NO bleeding. - Objective Vital Signs: Vital Signs Temperature 97.9 F 06/26/17 07:59 Pulse Rate 71 06/26/17 07:59 Respiratory Rate 20 06/26/17 07:59 Blood Pressure 122/68 06/26/17 07:59 O2 Sat by Pulse Oximetry (%) 98 06/25/17 23:53 Laboratory Tests 06/22/17 06/23/17 06/25/17 09:20 06:00 07:15 Hgb 6.9 L* 9.0 L Total Bilirubin AST ALT Alkaline Phosphatase Albumin Tumor Marker AFP 1.1 06/25/17 06/26/17 07:15 06:00 Hgb 9.6 L Total Bilirubin 0.9 AST 28 ALT 30 Alkaline Phosphatase 118 H Albumin 2.9 L Tumor Marker AFP Constitutional: No Distress ...Auscultate: Yes: Normoactive Bowel Sounds ...Palpate: Yes: Soft, Other (nontender) Labs: CBC, BMP 06/26/17 06:00 06/26/17 06:00 INR, PTT INR 1.12 (0.82-1.09) 06/23/17 06:00 Assessment/Plan 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 They will need to be confirmed by EUS and then ablated with endoscopic glue which is available at [facility]. I have then advised him to followup in our office to arrange colonoscopy. No GI objections to discharge when otherwise medically feasible.
[2017-06-26] MEDS ORDERED: PT OWN MED DRAWER 7, Y5N ONE ×2 (10:22→15:43)
[2017-06-26] MEDS: LACTOBACILLUS ACIDOPHILUS 1 CAP PO SCH (10:27)
[2017-06-26] MEDS: PANTOPRAZOLE 40 MG TABLET (FP) PO SCH ×2 (10:27→21:54)
[2017-06-26] MEDS: CARVEDILOL 6.25 MG TABLET (FP) PO SCH ×2 (10:27→21:53)
[2017-06-26] MEDS: TRIAMCINOLONE ACET 0.1% OINT 15 GM TUBE TP SCH ×2 (10:28→21:54)
[2017-06-26] MEDS: SILVER SULFADIAZINE 1% TOP CREAM 50 GM JAR TP SCH (10:28)
[2017-06-26] MEDS ORDERED: VANCOMYCIN 1,750 MG in SODIUM CHLORIDE 500 ML IVPB ONE (11:00)
[2017-06-26] MEDS: AMPICILLIN NA/SULBACTAM NA 1.5 GM in SODIUM CHLORIDE 100 ML IVPB SCH ×3 (11:32→21:54)
--- NOTE | 2017-06-26 13:39 | PN ---
Progress Note, Physician Chief Complaint: Mr Apodaca is without complaint. No cp, sob, n/v. - Current Medication List Current Medications: Active Medications Carvedilol (Coreg -) 6.25 mg PO BID [facility] Last Admin: 06/26/17 10:27 Dose: 6.25 mg Diphenhydramine HCl (Benadryl -) 25 mg PO Q6H PRN PRN Reason: FOR ITCHING Last Admin: 06/23/17 23:05 Dose: 25 mg Vancomycin HCl 1,750 mg/ (Sodium Chloride) 500 mls @ 250 mls/hr IVPB ONCE ONE Stop: 06/28/17 12:59 Ampicillin Sodium/Sulbactam (Sodium 1.5 gm/ Sodium Chloride) 100 mls @ 200 mls/ hr IVPB Q6H-IV [facility] Last Admin: 06/26/17 11:32 Dose: 200 mls/hr Insulin Aspart (Novolog Vial Sliding Scale -) 1 vial SQ ACHS [facility] PRN Reason: Protocol Last Admin: 06/26/17 11:58 Dose: 4 units Lactobacillus Acidophilus (Bacid -) 1 tab PO DAILY [facility] Last Admin: 06/26/17 10:27 Dose: 1 tab Ondansetron HCl (Zofran Injection) 4 mg IVPUSH Q6H PRN PRN Reason: NAUSEA Pantoprazole Sodium (Protonix -) 40 mg PO BID [facility] Last Admin: 06/26/17 10:27 Dose: 40 mg Silver Sulfadiazine (Silvadene -) 1 applic TP DAILY [facility] Last Admin: 06/26/17 10:28 Dose: 1 applic Triamcinolone Acetonide (Aristocort 0.1% Ointment -) 1 applic TP BID [facility] Last Admin: 06/26/17 10:28 Dose: 1 applic - Objective Vital Signs: Vital Signs Temperature 36.6 C 06/26/17 07:59 Pulse Rate 71 06/26/17 07:59 Respiratory Rate 20 06/26/17 07:59 Blood Pressure 122/68 06/26/17 07:59 O2 Sat by Pulse Oximetry (%) 97 06/26/17 09:00 Constitutional: Yes: No Distress, Calm, Obese Cardiovascular: Yes: Regular Rate and Rhythm. No: Gallop, Murmur, Rub Respiratory: Yes: Regular, CTA Bilaterally. No: Rales, Rhonchi, Wheezes Gastrointestinal: Yes: Normal Bowel Sounds, Soft. No: Distention, Tenderness Extremities: Yes: Other (RLE wrapped) Edema: Yes Edema: LLE: 2+, RLE: 2+ Labs: CBC, BMP 06/26/17 06:00 06/26/17 06:00 INR, PTT INR 1.12 (0.82-1.09) 06/23/17 06:00 Problem List - Problems (1) Cellulitis of right anterior lower leg Code(s): L03.115 - CELLULITIS OF RIGHT LOWER LIMB (2) Acute renal failure Code(s): N17.9 - ACUTE KIDNEY FAILURE, UNSPECIFIED Qualifiers: Acute renal failure type: unspecified Qualified Code(s): N17.9 - Acute kidney failure, unspecified (3) Diabetes mellitus Code(s): E11.9 - TYPE 2 DIABETES MELLITUS WITHOUT COMPLICATIONS Qualifiers: Diabetes mellitus complication status: with skin complications Diabetes mellitus complication detail: with other skin ulcer (4) Hyperkalemia Code(s): E87.5 - HYPERKALEMIA (5) Hypertension Code(s): I10 - ESSENTIAL (PRIMARY) HYPERTENSION (6) LIGHT (nonalcoholic steatohepatitis) Code(s): K75.81 - NONALCOHOLIC STEATOHEPATITIS (LIGHT) (7) Thrombocytopenia Code(s): D69.6 - THROMBOCYTOPENIA, UNSPECIFIED (8) Anemia Code(s): D64.9 - ANEMIA, UNSPECIFIED Qualifiers: Other causes of anemia: acute posthemorrhagic (9) Generalized pruritus Code(s): L29.9 - PRURITUS, UNSPECIFIED Assessment/Plan (1) Cellulitis of right anterior lower leg Assessment/Plan: -case d/w ID -changed to unasyn -continue vancomycin -improving -needs 3 more days per ID Code(s): L03.115 - CELLULITIS OF RIGHT LOWER LIMB (2) Acute renal failure Assessment/Plan: -case d/w nephrology -will need to obtain outpatient creatinine level, may be at baseline Code(s): N17.9 - ACUTE KIDNEY FAILURE, UNSPECIFIED Qualifiers: Acute renal failure type: unspecified Qualified Code(s): N17.9 - Acute kidney failure, unspecified (3) Diabetes mellitus Assessment/Plan: -continue glimeperide -metformin stopped secondary to renal function -diabetic diet -FSBS and SSI Code(s): E11.9 - TYPE 2 DIABETES MELLITUS WITHOUT COMPLICATIONS Qualifiers: Diabetes mellitus complication status: with skin complications Diabetes mellitus complication detail: with other skin ulcer (4) Hyperkalemia Assessment/Plan: -given lasix -low potassium diet Code(s): E87.5 - HYPERKALEMIA (5) Hypertension Assessment/Plan: -controlled -monitor Code(s): I10 - ESSENTIAL (PRIMARY) HYPERTENSION (6) LIGHT (nonalcoholic steatohepatitis) Assessment/Plan: -stable Code(s): K75.81 - NONALCOHOLIC STEATOHEPATITIS (LIGHT) (7) Thrombocytopenia Assessment/Plan: -chronic -secondary to hepatic disease Code(s): D69.6 - THROMBOCYTOPENIA, UNSPECIFIED (8) Anemia Assessment/Plan: -s/p EGD with 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
[2017-06-26] MEDS ORDERED: INSULIN (NOVOLOG) ASPART 100 UNITS/ML 10ML VIAL ONE ×2 (18:18→21:30)
[2017-06-26] MEDS ORDERED: FUROSEMIDE 100 MG/10 ML INJECTABLE VIAL IVPB ONE (18:45)
--- NOTE | 2017-06-26 18:45 | PN ---
Progress Note, Physician History of Present Illness: Pt seen and examined at bedside. He is awake and alert. He complains of lower extremity edema. He denies shortness of breath. - Current Medication List Current Medications: Active Medications Carvedilol (Coreg -) 6.25 mg PO BID [facility] Last Admin: 06/26/17 10:27 Dose: 6.25 mg Diphenhydramine HCl (Benadryl -) 25 mg PO Q6H PRN PRN Reason: FOR ITCHING Last Admin: 06/23/17 23:05 Dose: 25 mg Vancomycin HCl 1,750 mg/ (Sodium Chloride) 500 mls @ 250 mls/hr IVPB ONCE ONE Stop: 06/28/17 12:59 Ampicillin Sodium/Sulbactam (Sodium 1.5 gm/ Sodium Chloride) 100 mls @ 200 mls/ hr IVPB Q6H-IV [facility] Last Admin: 06/26/17 15:47 Dose: 200 mls/hr Insulin Aspart (Novolog Vial Sliding Scale -) 1 vial SQ ACHS [facility] PRN Reason: Protocol Last Admin: 06/26/17 18:09 Dose: 2 units Lactobacillus Acidophilus (Bacid -) 1 tab PO DAILY [facility] Last Admin: 06/26/17 10:27 Dose: 1 tab Ondansetron HCl (Zofran Injection) 4 mg IVPUSH Q6H PRN PRN Reason: NAUSEA Pantoprazole Sodium (Protonix -) 40 mg PO BID [facility] Last Admin: 06/26/17 10:27 Dose: 40 mg Silver Sulfadiazine (Silvadene -) 1 applic TP DAILY [facility] Last Admin: 06/26/17 10:28 Dose: 1 applic Triamcinolone Acetonide (Aristocort 0.1% Ointment -) 1 applic TP BID [facility] Last Admin: 06/26/17 10:28 Dose: 1 applic - Objective Vital Signs: Vital Signs Temperature 98.4 F 06/26/17 13:57 Pulse Rate 66 06/26/17 13:57 Respiratory Rate 20 06/26/17 13:57 Blood Pressure 108/60 06/26/17 13:57 O2 Sat by Pulse Oximetry (%) 97 06/26/17 09:00 Constitutional: Yes: Calm Eyes: Yes: Conjunctiva Clear HENT: Yes: Atraumatic Cardiovascular: Yes: S1, S2 Respiratory: Yes: CTA Bilaterally Gastrointestinal: Yes: Soft, Abdomen, Obese Genitourinary: Yes: WNL Musculoskeletal: Yes: WNL Edema: Yes Edema: LLE: 2+, RLE: 2+ Neurological: Yes: Oriented Psychiatric: Yes: Oriented Labs: CBC, BMP 06/26/17 06:00 06/26/17 06:00 INR, PTT INR 1.12 (0.82-1.09) 06/23/17 06:00 Problem List - Problems (1) Acute renal failure Code(s): N17.9 - ACUTE KIDNEY FAILURE, UNSPECIFIED Qualifiers: Acute renal failure type: unspecified Qualified Code(s): N17.9 - Acute kidney failure, unspecified (2) Anemia Code(s): D64.9 - ANEMIA, UNSPECIFIED Qualifiers: Other causes of anemia: acute posthemorrhagic (3) Cellulitis of right anterior lower leg Code(s): L03.115 - CELLULITIS OF RIGHT LOWER LIMB (4) Cirrhosis Code(s): K74.60 - UNSPECIFIED CIRRHOSIS OF LIVER (5) Generalized pruritus Code(s): L29.9 - PRURITUS, UNSPECIFIED (6) Cellulitis Code(s): L03.90 - CELLULITIS, UNSPECIFIED (7) Diabetes mellitus Code(s): E11.9 - TYPE 2 DIABETES MELLITUS WITHOUT COMPLICATIONS Qualifiers: Diabetes mellitus complication status: with skin complications Diabetes mellitus complication detail: with other skin ulcer (8) Hyperkalemia Code(s): E87.5 - HYPERKALEMIA (9) Hypertension Code(s): I10 - ESSENTIAL (PRIMARY) HYPERTENSION (10) LIGHT (nonalcoholic steatohepatitis) Code(s): K75.81 - NONALCOHOLIC STEATOHEPATITIS (LIGHT) Assessment/Plan Current Medications Generic Name Dose Route Start Last Admin Trade Name Freq PRN Reason Stop Dose Admin Carvedilol 6.25 mg 06/21/17 22:00 06/26/17 10:27 Coreg - PO 6.25 mg BID [facility] Administration Diphenhydramine HCl 25 mg 06/22/17 13:58 06/23/17 23:05 Benadryl - PO 25 mg Q6H PRN Administration FOR ITCHING Vancomycin HCl 1,750 mg/ 500 mls @ 250 mls/hr 06/28/17 11:00 Sodium Chloride IVPB 06/28/17 12:59 ONCE ONE Ampicillin Sodium/Sulbactam 100 mls @ 200 mls/hr 06/26/17 10:30 06/26/17 15: 47 Sodium 1.5 gm/ Sodium Chloride IVPB 200 mls/hr Q6H-IV [facility] Administration Insulin Aspart 1 vial 06/21/17 16:30 06/26/17 18:09 Novolog Vial Sliding Scale - SQ 2 units ACHS [facility] Administration Protocol Lactobacillus Acidophilus 1 tab 06/22/17 10:00 06/26/17 10:27 Bacid - PO 1 tab DAILY [facility] Administration Ondansetron HCl 4 mg 06/21/17 16:17 Zofran Injection IVPUSH Q6H PRN NAUSEA Pantoprazole Sodium 40 mg 06/24/17 10:00 06/26/17 10:27 Protonix - PO 40 mg BID [facility] Administration Silver Sulfadiazine 1 applic 06/22/17 10:00 06/26/17 10:28 Silvadene - TP 1 applic DAILY [facility] Administration Triamcinolone Acetonide 1 applic 06/22/17 22:00 06/26/17 10:28 Aristocort 0.1% Ointment - TP 1 applic BID [facility] Administration Laboratory Tests 06/24/17 06/24/17 06:00 06:00 LAKEISHA M-Moody Pending DOMINICK Screen Pending c-ANCA Pending Proteinase 3 (PR3) Pending p-ANCA Pending Atypical p-ANCA Pending Myeloperoxidase Ab Pending Double Strand DNA Ab 1 Glomerular Base Memb Ab Pending Hepatitis A Ab Total Negative Hep Bs Antigen Negative Hep Bs Antibody Non reactive Hep B Core Total Ab Negative Hepatitis C Antibody 0.2 Impression 1. DARINEL 2. anemia 3. cellulitis 4. anemia 5. hyperkalemia 6. hep c 7. hx MRSA 8. HTN 9. obesity 10. DM 11. LIGHT 12. right renal cyst 13. eczema 14. positive stool for occult blood Plan - renal workup is in progress - awaiting outpt lab results - will give dose of lasix - low potassium diet - hold peyton - hold metformin - stop nsaids (pt was taking OTC at home) - wound care to legs Dr Bermudez
[2017-06-27] MEDS: AMPICILLIN NA/SULBACTAM NA 1.5 GM in SODIUM CHLORIDE 100 ML IVPB SCH ×4 (02:31→21:08)
[2017-06-27] MEDS: INSULIN SLIDING SCALE (NOVOLOG) 1 VIAL SQ SCH ×4 (06:07→21:16)
[2017-06-27] MEDS ORDERED: INSULIN (NOVOLOG) ASPART 100 UNITS/ML 10ML VIAL ONE ×3 (06:33→20:36)
[2017-06-27 07:54] LABS: BASO % 0.7 % (0-2.0); EOS % 5.9 % (0-4.5); HEMATOCRIT 27.3 % (35.4-49); HEMOGLOBIN 8.6 GM/dL (11.7-16.9); LYMPH % 13.8 % (8-40); MCH 23.6 pg (25.7-33.7); MCHC 31.4 g/dl (32.0-35.9); MEAN CELL VOLUME 75.2 fl (80-96); MEAN PLT VOLUME 8.9 fl (7.5-11.1); MONO % 11.4 % (3.8-10.2); NEUT % 68.2 % (42.8-82.8); PLATELET COUNT 109 K/MM3 (134-434); RBC 3.63 M/mm3 (4.00-5.60); RDW 22.9 % (11.9-15.9); WHITE BLOOD COUNT 5.4 K/mm3 (4.0-10.0)
[2017-06-27 08:15] LABS: CHLORIDE 106 mmol/L (98-107); POTASSIUM 5.1 mmol/L (3.5-5.1); SODIUM 138 mmol/L (136-145)
[2017-06-27 08:23] LABS: ANION GAP 8 (8-16); BLOOD UREA NITROGEN 59 mg/dL (7-18); CALCIUM 8.3 mg/dL (8.5-10.1); CO2 24 mmol/L (21-32); CREATININE 2.3 mg/dL (0.7-1.3); GLUCOSE,RANDOM 146 mg/dL (74-106); MAGNESIUM 2.1 mg/dL (1.8-2.4); PHOSPHOROUS 3.7 mg/dL (2.5-4.9)
[2017-06-27] MEDS ORDERED: PT OWN MED DRAWER 7, Y5N ONE ×2 (08:27→11:30)
[2017-06-27] MEDS ORDERED: FUROSEMIDE 100 MG/10 ML INJECTABLE VIAL IVPB SCH (10:00)
[2017-06-27 10:12] LABS: ANTIGLOMERULAR BASEMENT MEN.AB 5 units (0-20)
[2017-06-27] MEDS: CARVEDILOL 6.25 MG TABLET (FP) PO SCH ×2 (10:34→21:09)
[2017-06-27] MEDS: diphenhydrAMINE HCL 25 MG CAPSULE (FP) PO PRN ×2 (10:34→21:10)
[2017-06-27] MEDS: PANTOPRAZOLE 40 MG TABLET (FP) PO SCH ×2 (10:34→21:09)
[2017-06-27] MEDS: LACTOBACILLUS ACIDOPHILUS 1 CAP PO SCH (10:34)
[2017-06-27] MEDS: TRIAMCINOLONE ACET 0.1% OINT 15 GM TUBE TP SCH ×2 (10:35→21:11)
[2017-06-27] MEDS: FUROSEMIDE 40 MG/4 ML INJECTABLE VIAL IVPB SCH ×2 (11:33→15:21)
[2017-06-27] MEDS: SILVER SULFADIAZINE 1% TOP CREAM 50 GM JAR TP SCH (15:21)
--- NOTE | 2017-06-27 16:12 | PN ---
Progress Note, Physician History of Present Illness: Pt seen and examined at bedside. He is awake and alert. He denies shortness of breath. - Current Medication List Current Medications: Active Medications Carvedilol (Coreg -) 6.25 mg PO BID [facility] Last Admin: 06/27/17 10:34 Dose: 6.25 mg Diphenhydramine HCl (Benadryl -) 25 mg PO Q6H PRN PRN Reason: FOR ITCHING Last Admin: 06/27/17 10:34 Dose: 25 mg Furosemide (Lasix Injection -) 40 mg IVPB BID@0600,1400 [facility] Last Admin: 06/27/17 15:21 Dose: 40 mg Vancomycin HCl 1,750 mg/ (Sodium Chloride) 500 mls @ 250 mls/hr IVPB ONCE ONE Stop: 06/28/17 12:59 Ampicillin Sodium/Sulbactam (Sodium 1.5 gm/ Sodium Chloride) 100 mls @ 200 mls/ hr IVPB Q6H-IV [facility] Last Admin: 06/27/17 15:20 Dose: 200 mls/hr Insulin Aspart (Novolog Vial Sliding Scale -) 1 vial SQ ACHS HANY PRN Reason: Protocol Last Admin: 06/27/17 11:34 Dose: 2 units Lactobacillus Acidophilus (Bacid -) 1 tab PO DAILY [facility] Last Admin: 06/27/17 10:34 Dose: 1 tab Ondansetron HCl (Zofran Injection) 4 mg IVPUSH Q6H PRN PRN Reason: NAUSEA Pantoprazole Sodium (Protonix -) 40 mg PO BID [facility] Last Admin: 06/27/17 10:34 Dose: 40 mg Silver Sulfadiazine (Silvadene -) 1 applic TP DAILY [facility] Last Admin: 06/27/17 15:21 Dose: 1 applic Triamcinolone Acetonide (Aristocort 0.1% Ointment -) 1 applic TP BID [facility] Last Admin: 06/27/17 10:35 Dose: 1 applic - Objective Vital Signs: Vital Signs Temperature 98.3 F 06/27/17 14:23 Pulse Rate 73 06/27/17 14:23 Respiratory Rate 18 06/27/17 14:23 Blood Pressure 112/53 06/27/17 14:23 O2 Sat by Pulse Oximetry (%) 97 06/27/17 09:00 Constitutional: Yes: Calm Eyes: Yes: Conjunctiva Clear HENT: Yes: Atraumatic Neck: Yes: Supple Cardiovascular: Yes: S1, S2 Respiratory: Yes: CTA Bilaterally Gastrointestinal: Yes: Soft, Abdomen, Obese Genitourinary: Yes: WNL Musculoskeletal: Yes: WNL Edema: Yes Edema: LUE: 1+, RUE: 1+ Wound/Incision: Yes: Dressing Dry and Intact Neurological: Yes: Oriented Labs: CBC, BMP 06/27/17 06:30 06/27/17 06:30 INR, PTT INR 1.12 (0.82-1.09) 06/23/17 06:00 Problem List - Problems (1) Acute renal failure Code(s): N17.9 - ACUTE KIDNEY FAILURE, UNSPECIFIED Qualifiers: Acute renal failure type: unspecified Qualified Code(s): N17.9 - Acute kidney failure, unspecified (2) Anemia Code(s): D64.9 - ANEMIA, UNSPECIFIED Qualifiers: Other causes of anemia: acute posthemorrhagic (3) Cellulitis of right anterior lower leg Code(s): L03.115 - CELLULITIS OF RIGHT LOWER LIMB (4) Cirrhosis Code(s): K74.60 - UNSPECIFIED CIRRHOSIS OF LIVER (5) Generalized pruritus Code(s): L29.9 - PRURITUS, UNSPECIFIED (6) Cellulitis Code(s): L03.90 - CELLULITIS, UNSPECIFIED (7) Diabetes mellitus Code(s): E11.9 - TYPE 2 DIABETES MELLITUS WITHOUT COMPLICATIONS Qualifiers: Diabetes mellitus complication status: with skin complications Diabetes mellitus complication detail: with other skin ulcer (8) Hyperkalemia Code(s): E87.5 - HYPERKALEMIA (9) Hypertension Code(s): I10 - ESSENTIAL (PRIMARY) HYPERTENSION (10) LIGHT (nonalcoholic steatohepatitis) Code(s): K75.81 - NONALCOHOLIC STEATOHEPATITIS (LIGHT) Assessment/Plan Current Medications Generic Name Dose Route Start Last Admin Trade Name Freq PRN Reason Stop Dose Admin Carvedilol 6.25 mg 06/21/17 22:00 06/27/17 10:34 Coreg - PO 6.25 mg BID HANY Administration Diphenhydramine HCl 25 mg 06/22/17 13:58 06/27/17 10:34 Benadryl - PO 25 mg Q6H PRN Administration FOR ITCHING Furosemide 40 mg 06/27/17 10:00 06/27/17 15:21 Lasix Injection - IVPB 40 mg BID@0600,1400 HANY Administration Vancomycin HCl 1,750 mg/ 500 mls @ 250 mls/hr 06/28/17 11:00 Sodium Chloride IVPB 06/28/17 12:59 ONCE ONE Ampicillin Sodium/Sulbactam 100 mls @ 200 mls/hr 06/26/17 10:30 06/27/17 15: 20 Sodium 1.5 gm/ Sodium Chloride IVPB 200 mls/hr Q6H-IV HANY Administration Insulin Aspart 1 vial 06/21/17 16:30 06/27/17 11:34 Novolog Vial Sliding Scale - SQ 2 units ACHS HANY Administration Protocol Lactobacillus Acidophilus 1 tab 06/22/17 10:00 06/27/17 10:34 Bacid - PO 1 tab DAILY HANY Administration Ondansetron HCl 4 mg 06/21/17 16:17 Zofran Injection IVPUSH Q6H PRN NAUSEA Pantoprazole Sodium 40 mg 06/24/17 10:00 06/27/17 10:34 Protonix - PO 40 mg BID HANY Administration Silver Sulfadiazine 1 applic 06/22/17 10:00 06/27/17 15:21 Silvadene - TP 1 applic DAILY HANY Administration Triamcinolone Acetonide 1 applic 06/22/17 22:00 06/27/17 10:35 Aristocort 0.1% Ointment - TP 1 applic BID HANY Administration Impression 1. DARINEL 2. anemia 3. cellulitis 4. anemia 5. hyperkalemia 6. hep c 7. hx MRSA 8. HTN 9. obesity 10. DM 11. LIGHT 12. right renal cyst 13. eczema 14. positive stool for occult blood 15. 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
--- NOTE | 2017-06-27 17:17 | PN ---
Progress Note, Physician Chief Complaint: Mr Apodaca is without complaint. No cp, sob, n/v. - Current Medication List Current Medications: Active Medications Carvedilol (Coreg -) 6.25 mg PO BID [facility] Last Admin: 06/27/17 10:34 Dose: 6.25 mg Diphenhydramine HCl (Benadryl -) 25 mg PO Q6H PRN PRN Reason: FOR ITCHING Last Admin: 06/27/17 10:34 Dose: 25 mg Furosemide (Lasix Injection -) 40 mg IVPB BID@0600,1400 [facility] Last Admin: 06/27/17 15:21 Dose: 40 mg Vancomycin HCl 1,750 mg/ (Sodium Chloride) 500 mls @ 250 mls/hr IVPB ONCE ONE Stop: 06/28/17 12:59 Ampicillin Sodium/Sulbactam (Sodium 1.5 gm/ Sodium Chloride) 100 mls @ 200 mls/ hr IVPB Q6H-IV [facility] Last Admin: 06/27/17 15:20 Dose: 200 mls/hr Insulin Aspart (Novolog Vial Sliding Scale -) 1 vial SQ ACHS HANY PRN Reason: Protocol Last Admin: 06/27/17 11:34 Dose: 2 units Lactobacillus Acidophilus (Bacid -) 1 tab PO DAILY [facility] Last Admin: 06/27/17 10:34 Dose: 1 tab Ondansetron HCl (Zofran Injection) 4 mg IVPUSH Q6H PRN PRN Reason: NAUSEA Pantoprazole Sodium (Protonix -) 40 mg PO BID [facility] Last Admin: 06/27/17 10:34 Dose: 40 mg Silver Sulfadiazine (Silvadene -) 1 applic TP DAILY [facility] Last Admin: 06/27/17 15:21 Dose: 1 applic Triamcinolone Acetonide (Aristocort 0.1% Ointment -) 1 applic TP BID [facility] Last Admin: 06/27/17 10:35 Dose: 1 applic - Objective Vital Signs: Vital Signs Temperature 36.8 C 06/27/17 14:23 Pulse Rate 73 06/27/17 14:23 Respiratory Rate 18 06/27/17 14:23 Blood Pressure 112/53 06/27/17 14:23 O2 Sat by Pulse Oximetry (%) 97 06/27/17 09:00 Constitutional: Yes: No Distress, Calm, Obese Cardiovascular: Yes: Regular Rate and Rhythm. No: Gallop, Murmur, Rub Respiratory: Yes: Regular, CTA Bilaterally. No: Rales, Rhonchi, Wheezes Gastrointestinal: Yes: Normal Bowel Sounds, Soft. No: Distention, Tenderness Extremities: Yes: Other (wrapped) Edema: Yes Edema: LLE: Trace, RLE: Trace Labs: CBC, BMP 06/27/17 06:30 06/27/17 06:30 INR, PTT INR 1.12 (0.82-1.09) 06/23/17 06:00 Problem List - Problems (1) Cellulitis of right anterior lower leg Code(s): L03.115 - CELLULITIS OF RIGHT LOWER LIMB (2) Acute renal failure Code(s): N17.9 - ACUTE KIDNEY FAILURE, UNSPECIFIED Qualifiers: Acute renal failure type: unspecified Qualified Code(s): N17.9 - Acute kidney failure, unspecified (3) Diabetes mellitus Code(s): E11.9 - TYPE 2 DIABETES MELLITUS WITHOUT COMPLICATIONS Qualifiers: Diabetes mellitus complication status: with skin complications Diabetes mellitus complication detail: with other skin ulcer (4) Hyperkalemia Code(s): E87.5 - HYPERKALEMIA (5) Hypertension Code(s): I10 - ESSENTIAL (PRIMARY) HYPERTENSION (6) LIGHT (nonalcoholic steatohepatitis) Code(s): K75.81 - NONALCOHOLIC STEATOHEPATITIS (LIGHT) (7) Thrombocytopenia Code(s): D69.6 - THROMBOCYTOPENIA, UNSPECIFIED (8) Anemia Code(s): D64.9 - ANEMIA, UNSPECIFIED Qualifiers: Other causes of anemia: acute posthemorrhagic (9) Generalized pruritus Code(s): L29.9 - PRURITUS, UNSPECIFIED Assessment/Plan (1) Cellulitis of right anterior lower leg Assessment/Plan: -case d/w ID -changed to unasyn -continue vancomycin -improving -needs 2 more days per ID Code(s): L03.115 - CELLULITIS OF RIGHT LOWER LIMB (2) Acute renal failure Assessment/Plan: -case d/w nephrology -will need to obtain outpatient creatinine level, may be at baseline Code(s): N17.9 - ACUTE KIDNEY FAILURE, UNSPECIFIED Qualifiers: Acute renal failure type: unspecified Qualified Code(s): N17.9 - Acute kidney failure, unspecified (3) Diabetes mellitus Assessment/Plan: -continue glimeperide -metformin stopped secondary to renal function -diabetic diet -FSBS and SSI Code(s): E11.9 - TYPE 2 DIABETES MELLITUS WITHOUT COMPLICATIONS Qualifiers: Diabetes mellitus complication status: with skin complications Diabetes mellitus complication detail: with other skin ulcer (4) Hyperkalemia Assessment/Plan: -given lasix -low potassium diet Code(s): E87.5 - HYPERKALEMIA (5) Hypertension Assessment/Plan: -controlled -monitor Code(s): I10 - ESSENTIAL (PRIMARY) HYPERTENSION (6) LIGHT (nonalcoholic steatohepatitis) Assessment/Plan: -stable Code(s): K75.81 - NONALCOHOLIC STEATOHEPATITIS (LIGHT) (7) Thrombocytopenia Assessment/Plan: -chronic -secondary to hepatic disease Code(s): D69.6 - THROMBOCYTOPENIA, UNSPECIFIED (8) Anemia Assessment/Plan: -s/p EGD with 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
[2017-06-28 00:11] LABS: ATYPICAL pANCA <1:20 titer (Neg:<1:20); C-ANCA <1:20 titer (Neg:<1:20); P-ANCA <1:20 titer (Neg:<1:20); PROTEINASE-3 ANTIBODY <3.5 U/mL (0.0-3.5)
[2017-06-28] MEDS: AMPICILLIN NA/SULBACTAM NA 1.5 GM in SODIUM CHLORIDE 100 ML IVPB SCH ×3 (02:03→15:19)
[2017-06-28] MEDS ORDERED: INSULIN (NOVOLOG) ASPART 100 UNITS/ML 10ML VIAL ONE (06:25)
[2017-06-28] MEDS: INSULIN SLIDING SCALE (NOVOLOG) 1 VIAL SQ SCH ×2 (06:27→12:13)
[2017-06-28] MEDS: FUROSEMIDE 40 MG/4 ML INJECTABLE VIAL IVPB SCH (06:27)
[2017-06-28 08:13] LABS: BASO % 0.6 % (0-2.0); EOS % 6.2 % (0-4.5); HEMATOCRIT 28.3 % (35.4-49); LYMPH % 13.8 % (8-40); MCH 23.5 pg (25.7-33.7); MCHC 31.8 g/dl (32.0-35.9); MEAN CELL VOLUME 73.9 fl (80-96); MEAN PLT VOLUME 8.9 fl (7.5-11.1); MONO % 12.2 % (3.8-10.2); NEUT % 67.2 % (42.8-82.8); PLATELET COUNT 114 K/MM3 (134-434); RBC 3.83 M/mm3 (4.00-5.60); RDW 22.6 % (11.9-15.9)
[2017-06-28 08:37] LABS: ANION GAP 7 (8-16); BLOOD UREA NITROGEN 58 mg/dL (7-18); CALCIUM 8.3 mg/dL (8.5-10.1); CHLORIDE 104 mmol/L (98-107); CO2 25 mmol/L (21-32); GLUCOSE,RANDOM 178 mg/dL (74-106); SODIUM 136 mmol/L (136-145)
[2017-06-28] MEDS ORDERED: PT OWN MED DRAWER 7, Y5N ONE ×2 (09:10→10:22)
[2017-06-28] MEDS: CARVEDILOL 6.25 MG TABLET (FP) PO SCH (09:24)
[2017-06-28] MEDS: LACTOBACILLUS ACIDOPHILUS 1 CAP PO SCH (09:24)
[2017-06-28] MEDS: PANTOPRAZOLE 40 MG TABLET (FP) PO SCH (09:24)
[2017-06-28] MEDS: SILVER SULFADIAZINE 1% TOP CREAM 50 GM JAR TP SCH ×2 (09:25→15:14)
[2017-06-28] MEDS: TRIAMCINOLONE ACET 0.1% OINT 15 GM TUBE TP SCH (09:25)
[2017-06-28] MEDS ORDERED: VANCOMYCIN 1,750 MG in SODIUM CHLORIDE 500 ML IVPB ONE (11:00)
[2017-06-28] MEDS ORDERED: FUROSEMIDE 40 MG/4 ML INJECTABLE VIAL IVPUSH SCH (12:55)
--- NOTE | 2017-06-28 13:19 | PN ---
Progress Note, Physician History of Present Illness: Pt seen and examined at bedside. He is awake and alert. He denies shortness of breath. - Current Medication List Current Medications: Active Medications Carvedilol (Coreg -) 6.25 mg PO BID [facility] Last Admin: 06/28/17 09:24 Dose: 6.25 mg Diphenhydramine HCl (Benadryl -) 25 mg PO Q6H PRN PRN Reason: FOR ITCHING Last Admin: 06/27/17 21:10 Dose: 25 mg Furosemide (Lasix Injection -) 40 mg IVPUSH BID@0600,1400 [facility] Ampicillin Sodium/Sulbactam (Sodium 1.5 gm/ Sodium Chloride) 100 mls @ 200 mls/ hr IVPB Q6H-IV [facility] Last Admin: 06/28/17 09:24 Dose: 200 mls/hr Insulin Aspart (Novolog Vial Sliding Scale -) 1 vial SQ ACHS HANY PRN Reason: Protocol Last Admin: 06/28/17 12:13 Dose: 4 units Lactobacillus Acidophilus (Bacid -) 1 tab PO DAILY [facility] Last Admin: 06/28/17 09:24 Dose: 1 tab Ondansetron HCl (Zofran Injection) 4 mg IVPUSH Q6H PRN PRN Reason: NAUSEA Pantoprazole Sodium (Protonix -) 40 mg PO BID [facility] Last Admin: 06/28/17 09:24 Dose: 40 mg Silver Sulfadiazine (Silvadene -) 1 applic TP DAILY [facility] Last Admin: 06/28/17 09:25 Dose: 1 applic Triamcinolone Acetonide (Aristocort 0.1% Ointment -) 1 applic TP BID [facility] Last Admin: 06/28/17 09:25 Dose: 1 applic - Objective Vital Signs: Vital Signs Temperature 98.3 F 06/28/17 06:34 Pulse Rate 70 06/28/17 06:34 Respiratory Rate 20 06/28/17 09:00 Blood Pressure 118/62 06/28/17 06:34 O2 Sat by Pulse Oximetry (%) 98 06/28/17 09:00 Constitutional: Yes: Calm Eyes: Yes: Conjunctiva Clear HENT: Yes: Atraumatic Neck: Yes: Supple Cardiovascular: Yes: S1, S2 Respiratory: Yes: CTA Bilaterally Gastrointestinal: Yes: Normal Bowel Sounds, Soft, Abdomen, Obese Genitourinary: Yes: WNL Edema: Yes Edema: LLE: 1+, RLE: 1+ Integumentary: Yes: Venous Stasis Changes Wound/Incision: Yes: Dressing Dry and Intact Neurological: Yes: Oriented Psychiatric: Yes: Oriented Labs: CBC, BMP 06/28/17 06:45 06/28/17 06:45 INR, PTT INR 1.12 (0.82-1.09) 06/23/17 06:00 Problem List - Problems (1) Acute renal failure Code(s): N17.9 - ACUTE KIDNEY FAILURE, UNSPECIFIED Qualifiers: Acute renal failure type: unspecified Qualified Code(s): N17.9 - Acute kidney failure, unspecified (2) Anemia Code(s): D64.9 - ANEMIA, UNSPECIFIED Qualifiers: Other causes of anemia: acute posthemorrhagic (3) Cellulitis of right anterior lower leg Code(s): L03.115 - CELLULITIS OF RIGHT LOWER LIMB (4) Cirrhosis Code(s): K74.60 - UNSPECIFIED CIRRHOSIS OF LIVER (5) Generalized pruritus Code(s): L29.9 - PRURITUS, UNSPECIFIED (6) Cellulitis Code(s): L03.90 - CELLULITIS, UNSPECIFIED (7) Diabetes mellitus Code(s): E11.9 - TYPE 2 DIABETES MELLITUS WITHOUT COMPLICATIONS Qualifiers: Diabetes mellitus complication status: with skin complications Diabetes mellitus complication detail: with other skin ulcer (8) Hyperkalemia Code(s): E87.5 - HYPERKALEMIA (9) Hypertension Code(s): I10 - ESSENTIAL (PRIMARY) HYPERTENSION (10) LIGHT (nonalcoholic steatohepatitis) Code(s): K75.81 - NONALCOHOLIC STEATOHEPATITIS (LIGHT) Assessment/Plan Current Medications Generic Name Dose Route Start Last Admin Trade Name Freq PRN Reason Stop Dose Admin Carvedilol 6.25 mg 06/21/17 22:00 06/28/17 09:24 Coreg - PO 6.25 mg BID HANY Administration Diphenhydramine HCl 25 mg 06/22/17 13:58 06/27/17 21:10 Benadryl - PO 25 mg Q6H PRN Administration FOR ITCHING Furosemide 40 mg 06/28/17 12:55 Lasix Injection - IVPUSH BID@0600,1400 [facility] Ampicillin Sodium/Sulbactam 100 mls @ 200 mls/hr 06/26/17 10:30 06/28/17 09: 24 Sodium 1.5 gm/ Sodium Chloride IVPB 200 mls/hr Q6H-IV [facility]ANY Administration Insulin Aspart 1 vial 06/21/17 16:30 06/28/17 12:13 Novolog Vial Sliding Scale - SQ 4 units ACHS HANY Administration Protocol Lactobacillus Acidophilus 1 tab 06/22/17 10:00 06/28/17 09:24 Bacid - PO 1 tab DAILY [facility]ANY Administration Ondansetron HCl 4 mg 06/21/17 16:17 Zofran Injection IVPUSH Q6H PRN NAUSEA Pantoprazole Sodium 40 mg 06/24/17 10:00 06/28/17 09:24 Protonix - PO 40 mg BID [facility]ANY Administration Silver Sulfadiazine 1 applic 06/22/17 10:00 06/28/17 09:25 Silvadene - TP 1 applic DAILY [facility]ANY Administration Triamcinolone Acetonide 1 applic 06/22/17 22:00 06/28/17 09:25 Aristocort 0.1% Ointment - TP 1 applic BID HANY Administration Laboratory Tests 06/24/17 06/24/17 06:00 06:00 LAKEISHA M-Moody Not observed DOMINICK Screen Negative c-ANCA <1:20 Proteinase 3 (PR3) <3.5 p-ANCA <1:20 Atypical p-ANCA <1:20 Myeloperoxidase Ab <9.0 Double Strand DNA Ab 1 Glomerular Base Memb Ab 5 Hepatitis A Ab Total Negative Hep Bs Antigen Negative Hep Bs Antibody Non reactive Hep B Core Total Ab Negative Hepatitis C Antibody 0.2 Impression 1. DARINEL 2. anemia 3. cellulitis 4. CKD 5. hyperkalemia 6. hep c 7. hx MRSA 8. HTN 9. obesity 10. DM 11. LIGHT 12. right renal cyst 13. eczema 14. positive stool for occult blood Plan - renal function stabilizing - baseline handkerchief maker is 1.78 - cont lasix - will see as outpt for kidney biopsy - potassium is improved - low potassium diet - hold peyton and metformin - wound care to legs Dr Bermudez
[2017-06-28] MEDS ORDERED: FUROSEMIDE 40 MG TABLET (FP) PO ONE (13:58)
--- NOTE | 2017-06-28 14:01 | DS ---
Physical Examination Vital Signs: Vital Signs Temperature 36.8 C 06/28/17 06:34 Pulse Rate 70 06/28/17 06:34 Respiratory Rate 20 06/28/17 09:00 Blood Pressure 118/62 06/28/17 06:34 O2 Sat by Pulse Oximetry (%) 98 06/28/17 09:00 Constitutional: Yes: No Distress, Calm, Obese Cardiovascular: Yes: Regular Rate and Rhythm. No: Gallop, Murmur, Rub Respiratory: Yes: Regular, CTA Bilaterally. No: Rales, Rhonchi, Wheezes Gastrointestinal: Yes: Normal Bowel Sounds, Soft. No: Distention, Tenderness Extremities: Yes: Erythema Edema: Yes Edema: LLE: Trace, RLE: Trace Labs: CBC, BMP 06/28/17 06:45 06/28/17 06:45 Discharge Summary Reason For Visit: ARF,ANEMIA,CELLULITIS Current Active Problems Acute renal failure (Acute) Anemia (Acute) Cellulitis of right anterior lower leg (Acute) Cirrhosis (Acute) Generalized pruritus (Acute) Hospital Course: (1) Cellulitis of right anterior lower leg Code(s): L03.115 - CELLULITIS OF RIGHT LOWER LIMB (2) Acute renal failure Code(s): N17.9 - ACUTE KIDNEY FAILURE, UNSPECIFIED Qualifiers: Acute renal failure type: unspecified Qualified Code(s): N17.9 - Acute kidney failure, unspecified (3) Diabetes mellitus Code(s): E11.9 - TYPE 2 DIABETES MELLITUS WITHOUT COMPLICATIONS Qualifiers: Diabetes mellitus complication status: with skin complications Diabetes mellitus complication detail: with other skin ulcer (4) Hyperkalemia Code(s): E87.5 - HYPERKALEMIA (5) Hypertension Code(s): I10 - ESSENTIAL (PRIMARY) HYPERTENSION (6) LIGHT (nonalcoholic steatohepatitis) Code(s): K75.81 - NONALCOHOLIC STEATOHEPATITIS (LIGHT) (7) Thrombocytopenia Code(s): D69.6 - THROMBOCYTOPENIA, UNSPECIFIED (8) Anemia Code(s): D64.9 - ANEMIA, UNSPECIFIED Qualifiers: Other causes of anemia: acute posthemorrhagic (9) Generalized pruritus Code(s): L29.9 - PRURITUS, UNSPECIFIED Mr Apodaca is a 56 year old male who came in with cellulitis of his RLE. He was seen by ID and started on IV vancomycin and zosyn. He finished a full course of this and improved. He is to continue outpatient wound care for this. while here he developed anemia and was found to have a GI bleed. He was transfused and seen by GI. 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 His bleeding stopped and is otherwise stable, so he will be seen as an outpatient for this at [facility]. He also had ARF on CKD. he was seen by nephrology and treated, his renal function improved. He will need outpatient work up after his variceal work up. Currently he is stable for discharge home. 37 minutes spent in preparation of this discharge Condition: Stable - Instructions Diet, Activity, Other Instructions: resume previous diet and activity. Referrals: Rinku Tubbs MD [Staff Physician] - Pino Gonzalez MD [Staff Physician] - Rosana Bermudez MD [Staff Physician] - James Ortiz MD [Primary Care Provider] - Disposition: [facility]NS/HOME HEALTH CARE - Home Medications Comprehensive Discharge Medication List: Ambulatory Orders Furosemide [Lasix -] 40 mg PO DAILY 08/06/13 Glimepiride [Amaryl] 4 mg PO BID 08/06/13 Carvedilol [Coreg -] 6.25 mg PO BID #0 tablet 08/12/13 Lactobacillus Acidophilus [Bacid -] 1 each PO DAILY #14 tab 10/23/14 Silver Sulfadiazine [Silvadene] 85 gm TP DAILY #1 cream..g. 02/24/17 Triamcinolone 0.1% Ointment [Aristocort 0.1% Ointment -] 1 applic TP BID #1 tube 06/28/17
[2017-06-28 15:12] VITALS: BP 131/47; PULSE 69; TEMP 98
[2017-07-03 14:17] LABS: TOTAL PROTEIN, URINE 8.6 mg/dL (Not Estab.)
== END 2017-06-28 15:54 | disposition home health service (06) | DRG 383 ==
LOC: JER 12:59 → JERBED 15:56 → J8W 19:40
PROVIDERS: ADMIT Internal Medicine; ATTEND Internal Medicine
PROC: 30233N1 Transfusion of Nonautologous Red Blood Cells into Peripheral Vein, Percutaneous Approach (ICD-10-PCS; 2017-06-22)
PROC: 0DJ08ZZ Inspection of Upper Intestinal Tract, Via Natural or Artificial Opening Endoscopic (ICD-10-PCS; principal; 2017-06-23 14:30)
DX: L03.115 Cellulitis of right lower limb (principal); N17.9 Acute kidney failure, unspecified; E87.5 Hyperkalemia; K75.81 Nonalcoholic steatohepatitis (NASH); D69.6 Thrombocytopenia, unspecified; L29.9 Pruritus, unspecified; K92.2 Gastrointestinal hemorrhage, unspecified; I12.9 Hypertensive chronic kidney disease with stage 1 through stage 4 chronic kidney disease, or unspecified chronic kidney disease; N18.9 Chronic kidney disease, unspecified; K74.60 Unspecified cirrhosis of liver; E11.22 Type 2 diabetes mellitus with diabetic chronic kidney disease; E66.9 Obesity, unspecified; Z68.41 Body mass index [BMI] 40.0-44.9, adult; D62 Acute posthemorrhagic anemia; K44.9 Diaphragmatic hernia without obstruction or gangrene
CPT/HCPCS: 36415; 36430; 36511; 71045-TC-FY; 73590-TC-RT-FY; 76705-TC; 76775-TC; 80048; 80053; 80076; 81003; 81015; 82105; 82272; 82436; 82570; 82607; 82728; 82746; 82962; 83516; 83520; 83540; 83550; 83735; 84100; 84133; 84155; 84156; 84157; 84165; 84300; 84466; 84540; 85025; 85027; 85610; 86038; 86225; 86256; 86704; 86706; 86708; 86803; 86850; 86900; 86901; 86922; 87040; 87070; 87186; 87205; 87340; 87804; 90688; 93005; 93010; 93971-TC; 94010; 97116-GP; 97161-GP; 99284-25; G0008; G0480; J7030; P9038; P9058

== ENCOUNTER 2017-10-25 09:24 | Inpatient (IN) | payer OTHER ==
--- NOTE | 2017-10-25 09:55 | PDOC ---
History of Present Illness - General History Source: Patient Exam Limitations: No Limitations - History of Present Illness Initial Comments: 10/25/17 10:41 The patient is a 56-year-old male, with a significant past medical history of anemia, HTN, diabetes, LIGHT, MRSA, and recent admission for bilateral lower extremity cellulitis, who presents today with a necrotic right middle toe. The patient noted the wound on his right mid toe back in August 2017 for which he visited Dr. Pino Gonzalez. He presents today because the toe has progressively worsened since then. On exam, he also reports having multiple excoriated lesions on his upper and lower extremities; he states his skin is very itchy. He has not visited Dr. Gonzalez since his last visit in August and has been dressing his wounds on his own. The patient has a poor appetite and reports vomiting 1x recently. He has not been managing his diabetes or checking his sugar level. The patient denies any fever, chills, diarrhea, constipation, or abdominal pain. Denies any chest pain or shortness of breath. Allergies: NKA Surgical History: Tonsillectomy PCP: Dr. Ortiz Greens Keeper: Dr. Franz <Rina Johnson - Last Filed: 10/25/17 13:40> - General History Source: Patient Exam Limitations: No Limitations <Harriet Edwards - Last Filed: 10/25/17 18:36> - General Chief Complaint: Wound Stated Complaint: RT TOE INJURY, SOB Time Seen by Provider: 10/25/17 09:55 Past History <Rina Johnson - Last Filed: 10/25/17 13:40> - Past Medical History Anemia: Yes Asthma: No Cancer: No Cardiac Disorders: No CVA: No COPD: No CHF: No Dementia: No Diabetes: Yes HTN: Yes Hypercholesterolemia: No Kidney Stones: No Liver Disease: Yes (HEP C) Seizures: No - Immunization History Immunization Up to Date: Yes - Suicide/Smoking/Psychosocial Hx Smoking Status: No Smoking History: Never smoked Have you smoked in the past 12 months: No Number of Cigarettes Smoked Daily: 0 Hx Alcohol Use: No Drug/Substance Use Hx: No Substance Use Type: None Hx Substance Use Treatment: No <Harriet Edwards - Last Filed: 10/25/17 18:36> - Past Medical History Allergies/Adverse Reactions: Allergies Allergy/AdvReac Type Severity Reaction Status Date / Time No Known Allergies Allergy Verified 10/25/17 09:31 Home Medications: Ambulatory Orders Furosemide [Lasix -] 40 mg PO DAILY 08/06/13 Glimepiride [Amaryl] 4 mg PO BID 08/06/13 Carvedilol [Coreg -] 6.25 mg PO BID #0 tablet 08/12/13 Lactobacillus Acidophilus [Bacid -] 1 each PO DAILY #14 tab 10/23/14 Silver Sulfadiazine [Silvadene] 85 gm TP DAILY #1 cream..g. 02/24/17 Triamcinolone 0.1% Ointment [Aristocort 0.1% Ointment -] 1 applic TP BID #1 tube 06/28/17 Review of Systems - Review of Systems Able to Perform ROS?: Yes Comments:: 10/25/17 10:41 GENERAL/CONSTITUTIONAL: (+)loss of appetite. No: fever, chills, weakness. HEAD, EYES, EARS, NOSE AND THROAT: No: change in vision, ear pain, discharge, sore throat, throat swelling. CARDIOVASCULAR: No: chest pain, lightheadedness, palpitations, syncope RESPIRATORY: No: cough, shortness of breath, wheezing, hemoptysis, stridor. GASTROINTESTINAL: (+)vomiting. No: nausea, abdominal cramping, diarrhea, rectal bleeding, constipation. GENITOURINARY: No: dysuria, hematuria, frequency, urgency, flank pain. MUSCULOSKELETAL: No: back pain, neck pain, joint pain, muscle swelling or pain SKIN AND BREASTS: (+)Right necrotic middle toe, multiple excoriated lesions on upper and lower extremities, itching of bilateral upper and lower extremities. No: pallor, easy bruising. NEUROLOGIC: No: headache, vertigo, paresthesias, weakness ENDOCRINE: No: unexplained weight gain or loss HEMATOLOGIC/LYMPHATIC: No: anemia, easy bleeding, swelling nodes <Rina Johnson - Last Filed: 10/25/17 13:40> *Physical Exam - Vital Signs Last Vital Signs Temp Pulse Resp BP Pulse Ox 98 F 82 22 127/81 99 10/25/17 09:25 10/25/17 09:25 10/25/17 09:25 10/25/17 09:25 10/25/17 09:25 - Physical Exam Comments: 10/25/17 10:44 GENERAL: (+)Obese. Answers all questions, no acute distress. HEAD: Normal with no signs of trauma. EYES: PERRLA, EOMI, sclera anicteric, conjunctiva clear. ENT: Ears normal, nares patent, oropharynx clear without exudates. Moist mucous membranes. NECK: Normal range of motion, supple without lymphadenopathy, JVD, or masses. LUNGS: Breath sounds equal, clear to auscultation bilaterally. No wheezes, and no crackles. HEART:Regular rate and rhythm, normal S1 and S2 without murmur, rub or gallop. ABDOMEN: (+)Protuberant abdomen. Soft, nontender, normoactive bowel sounds. No guarding, no rebound. EXTREMITIES: (+)Bilateral upper and lower extremities with multiple excoriated lesions; Right middle toe grangenous, malodorous, with purulent drainage; Left medial malleolus wound is [id number]; Right medial malleolus is [id number]; Anterior right stanton is [id number]. Normal range of motion. No clubbing or cyanosis. NEUROLOGICAL: (+)Decreased sensation in bilateral lower extremities. Cranial nerves II through XII grossly intact. Normal speech. MUSCULOSKELETAL: Back non-tender to palpation, no CVA tenderness SKIN: Warm, Dry, normal turgor. (See EXTREMITIES section). <Rina Johnson - Last Filed: 10/25/17 13:40> - Vital Signs Last Vital Signs Temp Pulse Resp BP Pulse Ox 98 F 82 22 127/81 99 10/25/17 09:25 10/25/17 09:25 10/25/17 09:25 10/25/17 09:25 10/25/17 09:25 <Harriet Edwards - Last Filed: 10/25/17 18:36> ED Treatment Course - LABORATORY CBC & Chemistry Diagram: 10/25/17 09:56 10/25/17 09:56 - RADIOLOGY Radiology Studies Ordered: 10/25/17 13:39 Right Foot X-Ray was reviewed by Dr. Edwards and over-read by Radiology. Impression: Destructive osseous changes of the terminal phalanx of the third toe consistent with an osteomyelitis. Healing fracture of the midshaft of the proximal phalanx of the fourth toe. Plantar and retrocalcaneal enthesophytes. Degenerative changes of the tarsal bones. 10/25/17 13:40 Chest X-Ray was reviewed by Dr. Edwards and over-read by Radiology. Impression: No focal airspace disease or pleural effusion. Borderline-enlarged cardiac silhouette size. <Shannon Johnsonie - Last Filed: 10/25/17 13:40> - LABORATORY CBC & Chemistry Diagram: 10/25/17 09:56 10/25/17 09:56 <Harriet Edwards - Last Filed: 10/25/17 18:36> Medical Decision Making - Medical Decision Making 10/25/17 10:18 Dr. Pino Gonzalez was paged and notified via phone service. Second page was placed at 11:54, spoke to elementary secretary and she states the message was passed on to Dr. Gonzalez but she does not know when he is going to call back. <AlexShannonRina - Last Filed: 10/25/17 13:40> - Medical Decision Making 10/25/17 10:47 Mr Apodaca is a 56yo M h/o anemia, HTN, diabetes, LIGHT, MRSA, and recent admission for bilateral lower extremity cellulitis Pt presents to the ER due to progression of right middle toe necrosis Pt states that he last saw dr Gonzalez on 09/10 At that time, the toe ulcer was present but not severe He has noted a steady progression of worsening of his toe ulcer Over the past 1.5 weeks, the toe has rapidly worsened It is malodorous, (+) drainage Pt states it is not painful No fevers or chills No cellulitis (+) lower extremity edema (+) excoriated lesions of the arms and legs DD: Wet Gangrene Right Middle Toe Fluid overloading Will do: labs Cultures Lactate IV abx 10/25/17 10:56 Will admit Call placed to Dr Gonzalez 10/25/17 11:08 Laboratory Tests 06/28/17 10/25/17 06:45 09:56 WBC 5.0 6.7 D Hgb 9.0 L 6.3 L* D Hct 28.3 L 21.1 L D Plt Count 114 L 142 D PRBCs ordered 10/25/17 11:24 Laboratory Tests 10/25/17 09:56 PT with INR 15.00 H INR 1.33 H 10/25/17 11:37 Laboratory Tests 06/28/17 10/25/17 06:45 09:56 Sodium 135 L Potassium 4.7 Chloride 103 Carbon Dioxide 26 BUN 58 H 57 H Creatinine 2.0 H 10/25/17 11:37 Laboratory Tests 10/25/17 09:56 Total Bilirubin 1.1 H D AST 52 H D ALT 23 D 10/25/17 11:[address] Wu 10/25/17 12:13 CXR: cardiomegaly, no effusion, no consolidation Foot Xray: bony destruction middle toe Pt reports pain, swelling right posterior leg Will order duplex 10/25/17 18:35 EKG: Sinus rhythm, rate of 74 bpm, first-degree AV block, [place] normal, no other interval abnormality No ST elevations or depressions, T waves upright <Harriet Edwards - Last Filed: 10/25/17 18:36> *DC/Admit/Observation/Transfer - Attestations Scribe Attestion: 10/25/17 10:45 Documentation prepared by Rina Jhonson, acting as registered medical assistant for Harriet Edwards MD. <Rina Johnson - Last Filed: 10/25/17 13:40> - Discharge Dispostion Decision to Admit order: Yes <Harriet Edwards - Last Filed: 10/25/17 18:36> Diagnosis at time of Disposition: Diabetic wet gangrene of the foot, Renal insufficiency Anemia Qualifiers: Anemia type: other cause Other causes of anemia: acute posthemorrhagic Qualified Code(s): D62 - Acute posthemorrhagic anemia - Discharge Dispostion Condition at time of disposition: Fair
[2017-10-25] MEDS ORDERED: VANCOMYCIN 1,500 MG in DEXTROSE 5%-WATER - 250 ML IVPB ONE (10:31)
[2017-10-25] MEDS ORDERED: PIPERACILLIN/TAZOB 4.5 GM 4.5 GM in DEXTROSE 5%-WATER 100 ML IVPB ONE (10:31)
[2017-10-25 10:49] LABS: BASO % 1.1 % (0-2.0); EOS % 1.5 % (0-4.5); HEMATOCRIT 21.1 % (35.4-49); MCH 21.1 pg (25.7-33.7); MCHC 30.1 g/dl (32.0-35.9); MEAN CELL VOLUME 70.1 fl (80-96); MEAN PLT VOLUME 8.8 fl (7.5-11.1); MONO % 9.1 % (3.8-10.2); NEUT % 83.3 % (42.8-82.8); PLATELET COUNT 142 K/MM3 (134-434); RBC 3.01 M/mm3 (4.00-5.60); WHITE BLOOD COUNT 6.7 K/mm3 (4.0-10.0)
[2017-10-25] MEDS ORDERED: PIPERACILLIN/TAZOB 4.5 GM 4.5 GM/100 ML BAG IVPB ONE (11:02)
[2017-10-25 11:03] LABS: HEMOGLOBIN 6.3 GM/dL (11.7-16.9)
[2017-10-25 11:13] LABS: INR 1.33 (0.82-1.09)
[2017-10-25] MEDS ORDERED: VANCOMYCIN 1,500 MG in DEXTROSE 5%-WATER - 500 ML IVPB ONE (11:15)
[2017-10-25 11:23] LABS: ALBUMIN 2.6 g/dl (3.4-5.0); ANION GAP 6 (8-16); BLOOD UREA NITROGEN 57 mg/dL (7-18); CALCIUM 7.8 mg/dL (8.5-10.1); CHLORIDE 103 mmol/L (98-107); CO2 26 mmol/L (21-32); GLUCOSE,RANDOM 187 mg/dL (74-106); SODIUM 135 mmol/L (136-145)
[2017-10-25 11:26] LABS: ALK PHOS 109 U/L (45-117); BILIRUBIN,TOTAL 1.1 mg/dL (0.2-1.0); SGPT/ALT 23 U/L (12-78); TOT PROT 7.6 g/dl (6.4-8.2)
[2017-10-25 11:33] LABS: POTASSIUM 4.7 mmol/L (3.5-5.1); SGOT/AST 52 U/L (15-37)
[2017-10-25] MEDS ORDERED: PANTOPRAZOLE SODIUM 40 MG VIAL IVPUSH ONE (11:45)
[2017-10-25 11:47] LABS: ANISOCYTOSIS 1+; PLATELET ESTIMATE NORMAL; TEAR DROP CELLS 1+
[2017-10-25] MEDS ORDERED: PANTOPRAZOLE SODIUM 40 MG VIAL ONE (12:15)
[2017-10-25] MEDS ORDERED: ACETAMINOPHEN 325 MG TABLET (FP) PO PRN (14:29)
--- NOTE | 2017-10-25 14:33 | HP ---
Admitting History and Physical - Primary Care Physician PCP: James Ortiz - Admission Chief Complaint: My toe History of Present Illness: Mr Apodaca is a very pleasant 56 year old male who comes in with a gangrenous toe. He is somewhat reticent on history but says in August he was noted to have a lesion on his R toe. He did not return to wound care clinic and attempted to treat it himself. However he noted that it was becoming wet and when he was changing the dressing some skin sluffed off. After that it became maladorous and gangrenous. He says he became so concerned about how it looked and smelled he came in. He also notes that he has melena off and on for the past few months. He was supposed to follow up with GI at [facility] and did not, and has not followed up with GI at all. He denies fevers, chills, lightheadedness, dizziness , passing out, chest pain or pressure, shortness of breath, coughing, nausea, vomiting, diarrhea, constipation, difficulty or pain on urination, or pain in his foot. History Source: Patient Limitations to Obtaining History: No Limitations - Past Medical History Cardiovascular: Yes: HTN Gastrointestinal: Yes: Esophageal Varices, Other (LIGHT with cirrhosis) Hepatobiliary: Yes: Hepatitis C Heme/Onc: Yes: Thrombocytopenia Infectious Disease: Yes: MRSA Endocrine: Yes: Diabetes Mellitus - Past Surgical History Past Surgical History: Yes: Tonsillectomy - Smoking History Smoking history: Never smoked Have you smoked in the past 12 months: No Aproximately how many cigarettes per day: 0 - Alcohol/Substance Use Hx Alcohol Use: No History of Substance Use: reports: None - Social History Usual Living Arrangement: Yes: Alone ADL: Independent Occupation: works for [employer] in [employer] History of Recent Travel: No Home Medications - Allergies Allergies/Adverse Reactions: Allergies Allergy/AdvReac Type Severity Reaction Status Date / Time No Known Allergies Allergy Verified 10/25/17 09:31 - Home Medications Home Medications: Ambulatory Orders Furosemide [Lasix -] 40 mg PO DAILY 08/06/13 Glimepiride [Amaryl] 4 mg PO BID 08/06/13 Carvedilol [Coreg -] 6.25 mg PO BID #0 tablet 08/12/13 Lactobacillus Acidophilus [Bacid -] 1 each PO DAILY #14 tab 10/23/14 Silver Sulfadiazine [Silvadene] 85 gm TP DAILY #1 cream..g. 02/24/17 Triamcinolone 0.1% Ointment [Aristocort 0.1% Ointment -] 1 applic TP BID #1 tube 06/28/17 Family Disease History - Family Disease History Family Disease History: Diabetes: Sister, CA: Father, Other: Mother (parkinsons) Review of Systems Findings/Remarks: Full review of systems obtained, as per HPI and otherwise negative Physical Examination Vital Signs: Vital Signs Temperature 37.0 C 10/25/17 14:00 Pulse Rate 77 10/25/17 14:00 Respiratory Rate 18 10/25/17 14:00 Blood Pressure 144/70 10/25/17 14:00 O2 Sat by Pulse Oximetry (%) 98 10/25/17 14:00 Constitutional: Yes: No Distress, Calm, Obese (morbid) Eyes: Yes: Conjunctiva Clear, EOM Intact, PERRL HENT: Yes: Atraumatic, Normocephalic Cardiovascular: Yes: Regular Rate and Rhythm. No: Gallop, Murmur, Rub Respiratory: Yes: Regular, CTA Bilaterally. No: Rales, Rhonchi, Wheezes Gastrointestinal: Yes: Normal Bowel Sounds, Soft. No: Distention, Tenderness Extremities: Yes: Other (R toe gangrene, very malodorous) Edema: No Labs: CBC, BMP 10/25/17 09:56 10/25/17 09:56 Imaging - Results Chest X-ray: Report Reviewed, Image Reviewed X-ray: Report Reviewed Problem List - Problems (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 Assessment/Plan: -patient presents with wet gangrene of R foot -admit to hospital -received vancomycin and zosyn in the ED -consult ID to continue broad spectrum antibiotics -consult vascular surgery, suspect will need amputation Code(s): E11.52 - TYPE 2 DIABETES W DIABETIC PERIPHERAL ANGIOPATHY W GANGRENE (2) Anemia Assessment/Plan: -secondary to GI bleed, 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 -will start protonix gtt -consult GI -ultimately will need follow up at [facility] but will control bleeding -receiving transfusion currently Code(s): D64.9 - ANEMIA, UNSPECIFIED Qualifiers: Anemia type: other cause Other causes of anemia: acute posthemorrhagic Qualified Code(s): D62 - Acute posthemorrhagic anemia (3) CKD (chronic kidney disease) Assessment/Plan: -secondary to diabetes -at baseline -monitor Code(s): N18.9 - CHRONIC KIDNEY DISEASE, UNSPECIFIED Qualifiers: Chronic kidney disease stage: stage 4 (severe) Qualified Code(s): N18.4 - Chronic kidney disease, stage 4 (severe) (4) GI bleed Assessment/Plan: -consult GI -as above Code(s): K92.2 - GASTROINTESTINAL HEMORRHAGE, UNSPECIFIED (5) Cirrhosis Assessment/Plan: -stable Code(s): K74.60 - UNSPECIFIED CIRRHOSIS OF LIVER (6) Diabetes mellitus Assessment/Plan: -continue amaryl -diabetic diet -FSBS and SSI -check HgbA1c in am Code(s): E11.9 - TYPE 2 DIABETES MELLITUS WITHOUT COMPLICATIONS Qualifiers: Diabetes mellitus type: type 2 Diabetes mellitus mcfp insulin use: without terminal gauger supervisor use Diabetes mellitus complication status: with skin complications Diabetes mellitus complication detail: with other skin ulcer Qualified Code(s): E11.622 - Type 2 diabetes mellitus with other skin ulcer (7) Hypertension Assessment/Plan: -continue coreg and lasix -monitor Code(s): I10 - ESSENTIAL (PRIMARY) HYPERTENSION (8) LIGHT (nonalcoholic steatohepatitis) Assessment/Plan: -stable Code(s): K75.81 - NONALCOHOLIC STEATOHEPATITIS (LIGHT)
[2017-10-25] MEDS ORDERED: PANTOPRAZOLE SODIUM 80 MG in SODIUM CHLORIDE 100 ML IVPB SCH (16:15)
[2017-10-25] MEDS ORDERED: PANTOPRAZOLE SODIUM 160 MG in DEXTROSE 5%-WATER - 290 ML IVPB SCH (16:30)
--- NOTE | 2017-10-25 18:16 | CON.ID ---
Consult Consult Specialty:: infectious diseases Referred by:: Dr Barney Reason for Consultation:: non healing ulcer of the rt toes and non healing wound - History of Present Illness Chief Complaint: non healing ulcer of the rt 3rd toe and other leg and rt foot and left foot History of Present Illness: 56 year old male who comes in with a gangrenous toe. Patient in August he was noted to have a lesion on his R toe. patient never followed with anyone and tried to treat himself. patient noted that it was becoming wet and when he was changing the dressing some skin sluffed off. and had foul smell to the wound and then became maladorous and gangrenous. patient came to the hospital and was decided that the patient needed amputation of the toe and he is planned for amputation tomorrow other complaint of the patient is yoli off and on and patient was supposed to follow with gi at [facility] which he did not do he also scratches a lot says he cannot stop scratching and has multiple skin abrasions and small open wounds because of that otherwise patient is stable and doing well - History Source History Provided By: Patient Limitations to Obtaining History: No Limitations - Past Medical History Cardio/Vascular: Yes: HTN Gastrointestinal: Yes: Esophageal Varices, Other (LIGHT with cirrhosis) Hepatobiliary: Yes: Hepatitis C Infectious Disease: Yes: MRSA Endocrine: Yes: Diabetes Mellitus Additional Medical History: perineal abscess - Past Surgical History Past Surgical History: Yes: Tonsillectomy - Alcohol/Substance Use Hx Alcohol Use: No History of Substance Use: reports: None - Smoking History Smoking history: Never smoked Have you smoked in the past 12 months: No Aproximately how many cigarettes per day: 0 - Social History Usual Living Arrangement: Other (with sister) ADL: Independent Occupation: works for [employer] in [employer] History of Recent Travel: No Home Medications - Allergies Allergies/Adverse Reactions: Allergies Allergy/AdvReac Type Severity Reaction Status Date / Time No Known Allergies Allergy Verified 10/25/17 09:31 - Home Medications Home Medications: Ambulatory Orders Furosemide [Lasix -] 40 mg PO DAILY 08/06/13 Glimepiride [Amaryl] 4 mg PO BID 08/06/13 Carvedilol [Coreg -] 6.25 mg PO BID #0 tablet 08/12/13 Lactobacillus Acidophilus [Bacid -] 1 each PO DAILY #14 tab 10/23/14 Silver Sulfadiazine [Silvadene] 85 gm TP DAILY #1 cream..g. 02/24/17 Triamcinolone 0.1% Ointment [Aristocort 0.1% Ointment -] 1 applic TP BID #1 tube 06/28/17 Vit B12/Pyridoxine/Thiamine 1 tab PO WEEKLY 10/26/17 Family Disease History - Family Disease History Family Disease History: Diabetes: Sister, CA: Father, Other: Mother (parkinsons) Review of Systems - Review of Systems Constitutional: reports: No Symptoms Eyes: reports: No Symptoms HENT: reports: No Symptoms Neck: reports: No Symptoms Cardiovascular: reports: No Symptoms Respiratory: reports: No Symptoms Gastrointestinal: reports: No Symptoms Genitourinary: reports: No Symptoms Musculoskeletal: reports: Other Integumentary: reports: Change in Color, Erythema, Other Neurological: reports: No Symptoms Endocrine: reports: No Symptoms Hematology/Lymphatic: reports: No Symptoms Psychiatric: reports: No Symptoms Physical Exam Vital Signs: Vital Signs Temperature 98.6 F 10/25/17 14:38 Pulse Rate 74 10/25/17 14:38 Respiratory Rate 16 10/25/17 14:38 Blood Pressure 134/78 10/25/17 14:38 O2 Sat by Pulse Oximetry (%) 98 10/25/17 14:38 Constitutional: Yes: Well Nourished, Calm, Obese, Other Eyes: Yes: Conjunctiva Clear HENT: Yes: Atraumatic, Normocephalic Neck: Yes: Supple, Trachea Midline Cardiovascular: Yes: Regular Rate and Rhythm Respiratory: Yes: Regular, CTA Bilaterally Gastrointestinal: Yes: Normal Bowel Sounds, Soft Musculoskeletal: Yes: WNL Extremities: Yes: Other (rt toe gangrene wiht foul smell) Integumentary: Yes: Erythema, Other (gangren rt toe with foul smell multiple small open wounds on the lower and upper ext due to scratching) Wound/Incision: Yes: Draining, Other Neurological: Yes: Alert, Oriented Psychiatric: Yes: Alert, Oriented Labs: CBC, BMP 10/25/17 09:56 10/25/17 09:56 Imaging - Results X-ray: Report Reviewed, Image Reviewed Assessment/Plan Problem List - Problems (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 Code(s): E11.52 - TYPE 2 DIABETES W DIABETIC PERIPHERAL ANGIOPATHY W GANGRENE (2) Anemia Code(s): D64.9 - ANEMIA, UNSPECIFIED Qualifiers: Anemia type: other cause Other causes of anemia: acute posthemorrhagic Qualified Code(s): D62 - Acute posthemorrhagic anemia (3) CKD (chronic kidney disease) Code(s): N18.9 - CHRONIC KIDNEY DISEASE, UNSPECIFIED Qualifiers: Chronic kidney disease stage: stage 4 (severe) Qualified Code(s): N18.4 - Chronic kidney disease, stage 4 (severe) (4) GI bleed Code(s): K92.2 - GASTROINTESTINAL HEMORRHAGE, UNSPECIFIED (5) Cirrhosis Code(s): K74.60 - UNSPECIFIED CIRRHOSIS OF LIVER (6) Diabetes mellitus Code(s): E11.9 - TYPE 2 DIABETES MELLITUS WITHOUT COMPLICATIONS Qualifiers: Diabetes mellitus type: type 2 Diabetes mellitus intermediate frame tender insulin use: without intermediate frame tender use Diabetes mellitus complication status: with skin complications Diabetes mellitus complication detail: with other skin ulcer Qualified Code(s): E11.622 - Type 2 diabetes mellitus with other skin ulcer (7) Hypertension Code(s): I10 - ESSENTIAL (PRIMARY) HYPERTENSION (8) LIGHT (nonalcoholic steatohepatitis) Code(s): K75.81 - NONALCOHOLIC STEATOHEPATITIS (LIGHT) plan agree with amputation will start patient on abx await for cx report avoid scratching rest continue as per the team
--- NOTE | 2017-10-25 18:35 | PN ---
Progress Note (short form) - Note Progress Note: Vascular Surgery Pt seen and examined. Well known from [facility] Comes in with 2 week history of gangrene of toe on right foot. Now toe is infected and draining infection. Pt with palpable DP pulse. Will consult podiatry for amputation. NPO past midnite. Pino ramos DO
[2017-10-25] MEDS: INSULIN SLIDING SCALE (NOVOLOG) 1 VIAL SQ SCH ×2 (18:42→21:25)
[2017-10-25] MEDS: GLIMEPIRIDE 4 MG TABLET (FP) PO SCH (21:01)
[2017-10-25] MEDS ORDERED: PIPERACILLIN/TAZOBACTAM 2.25 GM VIAL IVPB ONE (21:05)
[2017-10-25] MEDS ORDERED: INSULIN (NOVOLOG) ASPART 100 UNITS/ML 10ML VIAL ONE (21:05)
[2017-10-25] MEDS ORDERED: DEXTROSE 5%-WATER - 50 ML IVPB ONE (21:06)
[2017-10-25] MEDS: CARVEDILOL 6.25 MG TABLET (FP) PO SCH (21:13)
[2017-10-25] MEDS: PIPERACILLIN/TAZOB 2.25 GM 2.25 GM in DEXTROSE 5%-WATER - 50 ML IVPB SCH (21:13)
[2017-10-25] MEDS: CLINDAMYCIN 300 MG PREMIX IVPB 300 MG/50 ML BAG IVPB SCH (21:14)
[2017-10-26 00:48] VITALS: BMI 46.8
[2017-10-26] MEDS: CLINDAMYCIN 300 MG PREMIX IVPB 300 MG/50 ML BAG IVPB SCH ×4 (03:21→21:47)
[2017-10-26] MEDS ORDERED: PIPERACILLIN/TAZOBACTAM 2.25 GM VIAL IVPB ONE ×3 (03:50→21:20)
[2017-10-26] MEDS ORDERED: DEXTROSE 5%-WATER - 50 ML IVPB ONE ×3 (03:50→21:20)
[2017-10-26] MEDS: PIPERACILLIN/TAZOB 2.25 GM 2.25 GM in DEXTROSE 5%-WATER - 50 ML IVPB SCH ×4 (03:55→21:47)
[2017-10-26] MEDS ORDERED: PT OWN MED DRAWER 7, Y5N ONE ×5 (04:01→21:19)
[2017-10-26] MEDS: GLIMEPIRIDE 4 MG TABLET (FP) PO SCH ×2 (06:23→17:09)
[2017-10-26 06:24] LABS: BASO % 0.7 % (0-2.0); EOS % 3.3 % (0-4.5); HEMATOCRIT 21.3 % (35.4-49); LYMPH % 6.5 % (8-40); MCH 22.6 pg (25.7-33.7); MCHC 32.1 g/dl (32.0-35.9); MEAN CELL VOLUME 70.5 fl (80-96); MEAN PLT VOLUME 8.6 fl (7.5-11.1); NEUT % 78.5 % (42.8-82.8); PLATELET COUNT 131 K/MM3 (134-434); RBC 3.02 M/mm3 (4.00-5.60); RDW 18.8 % (11.9-15.9); WHITE BLOOD COUNT 6.2 K/mm3 (4.0-10.0)
[2017-10-26 06:33] LABS: HEMOGLOBIN 6.8 GM/dL (11.7-16.9)
[2017-10-26] MEDS: INSULIN SLIDING SCALE (NOVOLOG) 1 VIAL SQ SCH ×4 (06:33→21:48)
[2017-10-26] MEDS ORDERED: INSULIN (NOVOLOG) ASPART 100 UNITS/ML 10ML VIAL ONE ×2 (06:38→11:43)
[2017-10-26 06:52] LABS: CHLORIDE 104 mmol/L (98-107); POTASSIUM 4.2 mmol/L (3.5-5.1); SODIUM 136 mmol/L (136-145)
[2017-10-26 06:58] LABS: ANION GAP 10 (8-16); BLOOD UREA NITROGEN 60 mg/dL (7-18); CALCIUM 7.9 mg/dL (8.5-10.1); CO2 22 mmol/L (21-32); CREATININE 1.9 mg/dL (0.7-1.3); GLUCOSE,RANDOM 185 mg/dL (74-106); MAGNESIUM 2.7 mg/dL (1.8-2.4); PHOSPHOROUS 2.7 mg/dL (2.5-4.9)
--- NOTE | 2017-10-26 07:29 | CONSULT ---
Consult - text type - Consultation Consultation Note: Patient seen in bed. VSS. Alert and oriented. Asked to see by vascular for debridement right foot with possible amputation right foot. Tmax 98.9 +gangarene 3rd toe right, +abscess proximal to 2,3,4 toes right, +mal odor, + drainage, +cellulitis, wbc=6.2 +wound medial ankles b/l, xray +for om 3rd toe, gangarene abscess right foot ankle wound b/l grade1 -2 Dressings removed. Reapplied. OR today. Patioent has verbally consented to debridement of bone and soft tissue possible amputation toes 2,3,4 right foot, Santyl dressing to b/l ankle wounds. ESR, CRP today.
[2017-10-26] MEDS: CARVEDILOL 6.25 MG TABLET (FP) PO SCH ×2 (07:45→21:46)
[2017-10-26 08:07] LABS: SERUM IRON SATURATION 4 % (15-55); TOTAL IRON BINDING CAPACITY 261 ug/dL (250-450); UIBC 250 ug/dL (111-343)
[2017-10-26] MEDS ORDERED: PROPOFOL 20 ML ONE (08:42)
[2017-10-26] MEDS ORDERED: MIDAZOLAM HCL 2 MG/2 ML SINGLE DOSE VIAL ONE (08:42)
[2017-10-26] MEDS ORDERED: LIDOCAINE HCL 1%, 10 MG/ML (20ML VIAL) PNB ONE (09:18)
[2017-10-26] MEDS ORDERED: BUPIVACAINE HCL/PF (5 MG/ML) 30 ML VIAL IJ ONE (09:18)
[2017-10-26] MEDS ORDERED: ONDANSETRON 4 MG/2 ML VIAL IVPUSH PRN (09:20)
[2017-10-26] MEDS ORDERED: FUROSEMIDE 40 MG TABLET (FP) PO SCH (10:00)
[2017-10-26] MEDS ORDERED: LACTOBACILLUS ACIDOPHILUS 1 TABLET PO SCH (10:00)
[2017-10-26] MEDS ORDERED: ACETAMINOPHEN 325 MG TABLET (FP) PO PRN (10:35)
--- NOTE | 2017-10-26 11:29 | EKG ---
Test Reason : Blood Pressure : / mmHG Vent. Rate : 074 BPM Atrial Rate : 074 BPM P-R Int : 274 ms QRS Dur : 094 ms QT Int : 402 ms P-R-T Axes : 046 -15 030 degrees QTc Int : 446 ms POOR DATA QUALITY, INTERPRETATION MAY BE ADVERSELY AFFECTED SINUS RHYTHM WITH 1ST DEGREE A-V BLOCK OTHERWISE NORMAL ECG WHEN COMPARED WITH ECG OF 21-JUN-2017 14:35, CRITERIA FOR ANTERIOR INFARCT ARE NO LONGER PRESENT Confirmed by MENDEZ UNGER MD ([id number]) on 10/26/2017 11:29:36 AM Referred By: Confirmed By:MENDEZ UNGER MD
[2017-10-26] MEDS: PANTOPRAZOLE SODIUM 160 MG in DEXTROSE 5%-WATER - 290 ML IVPB SCH (12:31)
--- NOTE | 2017-10-26 13:01 | OP ---
Operative Note - Note: Operative Date: 10/26/17 Pre-Operative Diagnosis: ganagrene/osteomyelitis 3rd toe right Operation: debridement of bone and soft tissue right 3rd toe Findings: osteomyelitis with gangarene Post-Operative Diagnosis: Same as Pre-op Surgeon: Ana Novak Anesthesia: Local, MAC Specimens Removed: bone soft tissue, toe 3rd Estimated Blood Loss (mls): 75
--- NOTE | 2017-10-26 13:47 | PN ---
Progress Note, Physician Chief Complaint: Mr Apodaca says he is feeling fine. s/p amputation, no pain currently. No cp, sob, n/v. - Current Medication List Current Medications: Active Medications Acetaminophen (Tylenol -) 650 mg PO Q4H PRN PRN Reason: PAIN LEVEL 1-5 Carvedilol (Coreg -) 6.25 mg PO BID HANY Furosemide (Lasix -) 40 mg PO DAILY HANY Glimepiride (Amaryl -) 4 mg PO BIDI HANY Clindamycin Phosphate (Cleocin 300 Mg Premix Ivpb) 300 mg in 50 mls @ 100 mls/ hr IVPB Q6H-IV HANY; Protocol Pantoprazole Sodium 160 mg/ (Dextrose) 290 mls @ 14.5 mls/hr IVPB Q20H HANY Last Admin: 10/26/17 12:31 Dose: 14.5 mls/hr Piperacillin Sod/Tazobactam (Sod 2.25 gm/ Dextrose) 50 mls @ 100 mls/hr IVPB Q6H-IV HANY; Protocol Insulin Aspart (Novolog Vial Sliding Scale -) 1 vial SQ ACHS HANY; Protocol Last Admin: 10/26/17 12:08 Dose: Not Given Lactobacillus Acidophilus (Bacid -) 1 tab PO DAILY HANY - Objective Vital Signs: Vital Signs Temperature 36.8 C 10/26/17 11:10 Pulse Rate 64 10/26/17 11:10 Respiratory Rate 18 10/26/17 11:10 Blood Pressure 132/63 10/26/17 11:10 O2 Sat by Pulse Oximetry (%) 97 10/26/17 11:10 Constitutional: Yes: No Distress, Calm, Obese (morbid) Cardiovascular: Yes: Regular Rate and Rhythm. No: Gallop, Murmur, Rub Respiratory: Yes: Regular, CTA Bilaterally. No: Rales, Rhonchi, Wheezes Gastrointestinal: Yes: Normal Bowel Sounds, Soft. No: Distention, Tenderness Extremities: Yes: Other (R foot wrapped) Edema: No Labs: CBC, BMP 10/26/17 06:00 10/26/17 06:00 INR, PTT INR 1.33 (0.82-1.09) H 10/25/17 09:56 Problem List - Problems (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 Code(s): E11.52 - TYPE 2 DIABETES W DIABETIC PERIPHERAL ANGIOPATHY W GANGRENE (2) Anemia Code(s): D64.9 - ANEMIA, UNSPECIFIED Qualifiers: Anemia type: other cause Other causes of anemia: acute posthemorrhagic Qualified Code(s): D62 - Acute posthemorrhagic anemia (3) CKD (chronic kidney disease) Code(s): N18.9 - CHRONIC KIDNEY DISEASE, UNSPECIFIED Qualifiers: Chronic kidney disease stage: stage 4 (severe) Qualified Code(s): N18.4 - Chronic kidney disease, stage 4 (severe) (4) GI bleed Code(s): K92.2 - GASTROINTESTINAL HEMORRHAGE, UNSPECIFIED (5) Cirrhosis Code(s): K74.60 - UNSPECIFIED CIRRHOSIS OF LIVER (6) Diabetes mellitus Code(s): E11.9 - TYPE 2 DIABETES MELLITUS WITHOUT COMPLICATIONS Qualifiers: Diabetes mellitus type: type 2 Diabetes mellitus intermediate insulin use: without corporate communications manager use Diabetes mellitus complication status: with skin complications Diabetes mellitus complication detail: with other skin ulcer Qualified Code(s): E11.622 - Type 2 diabetes mellitus with other skin ulcer (7) Hypertension Code(s): I10 - ESSENTIAL (PRIMARY) HYPERTENSION (8) LIGHT (nonalcoholic steatohepatitis) Code(s): K75.81 - NONALCOHOLIC STEATOHEPATITIS (LIGHT) Assessment/Plan (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 Assessment/Plan: -appreciate vascular surgery assistance -s/p amputation -on clindamycin and zosyn -appreciate ID assistance -wound care per Dr Gonzalez Code(s): E11.52 - TYPE 2 DIABETES W DIABETIC PERIPHERAL ANGIOPATHY W GANGRENE (2) Anemia Assessment/Plan: -has received 3 units pRBCs -about to receive 4th unit now -check cbc 2 hours after last unit finished -GI consulted -continue protonix gtt currently Code(s): D64.9 - ANEMIA, UNSPECIFIED Qualifiers: Anemia type: other cause Other causes of anemia: acute posthemorrhagic Qualified Code(s): D62 - Acute posthemorrhagic anemia (3) CKD (chronic kidney disease) Assessment/Plan: -secondary to diabetes -at baseline -monitor Code(s): N18.9 - CHRONIC KIDNEY DISEASE, UNSPECIFIED Qualifiers: Chronic kidney disease stage: stage 4 (severe) Qualified Code(s): N18.4 - Chronic kidney disease, stage 4 (severe) (4) GI bleed Assessment/Plan: -GI consulted -as above Code(s): K92.2 - GASTROINTESTINAL HEMORRHAGE, UNSPECIFIED (5) Cirrhosis Assessment/Plan: -stable Code(s): K74.60 - UNSPECIFIED CIRRHOSIS OF LIVER (6) Diabetes mellitus Assessment/Plan: -continue amaryl -diabetic diet -FSBS and SSI -HgbA1c 6.9 Code(s): E11.9 - TYPE 2 DIABETES MELLITUS WITHOUT COMPLICATIONS Qualifiers: Diabetes mellitus type: type 2 Diabetes mellitus intermediate insulin use: without corporate communications manager use Diabetes mellitus complication status: with skin complications Diabetes mellitus complication detail: with other skin ulcer Qualified Code(s): E11.622 - Type 2 diabetes mellitus with other skin ulcer (7) Hypertension Assessment/Plan: -continue coreg and lasix -monitor Code(s): I10 - ESSENTIAL (PRIMARY) HYPERTENSION (8) LIGHT (nonalcoholic steatohepatitis) Assessment/Plan: -stable Code(s): K75.81 - NONALCOHOLIC STEATOHEPATITIS (LIGHT)
--- NOTE | 2017-10-26 17:03 | PN ---
Progress Note, Physician History of Present Illness: stable no complaints amputation done of the rt great toe - Current Medication List Current Medications: Active Medications Acetaminophen (Tylenol -) 650 mg PO Q4H PRN PRN Reason: PAIN LEVEL 1-5 Carvedilol (Coreg -) 6.25 mg PO BID HANY Furosemide (Lasix -) 40 mg PO DAILY HANY Glimepiride (Amaryl -) 4 mg PO BIDI [facility] Clindamycin Phosphate (Cleocin 300 Mg Premix Ivpb) 300 mg in 50 mls @ 100 mls/ hr IVPB Q6H-IV HANY; Protocol Last Admin: 10/26/17 14:12 Dose: 100 mls/hr Pantoprazole Sodium 160 mg/ (Dextrose) 290 mls @ 14.5 mls/hr IVPB Q20H HANY Last Admin: 10/26/17 12:31 Dose: 14.5 mls/hr Piperacillin Sod/Tazobactam (Sod 2.25 gm/ Dextrose) 50 mls @ 100 mls/hr IVPB Q6H-IV HANY; Protocol Last Admin: 10/26/17 14:12 Dose: 100 mls/hr Insulin Aspart (Novolog Vial Sliding Scale -) 1 vial SQ ACHS [facility]; Protocol Last Admin: 10/26/17 12:08 Dose: Not Given Lactobacillus Acidophilus (Bacid -) 1 tab PO DAILY [facility] - Objective Vital Signs: Vital Signs Temperature 98.9 F 10/26/17 14:38 Pulse Rate 72 10/26/17 14:38 Respiratory Rate 18 10/26/17 14:38 Blood Pressure 148/76 10/26/17 14:38 O2 Sat by Pulse Oximetry (%) 97 10/26/17 11:10 Constitutional: Yes: No Distress, Calm Cardiovascular: Yes: Regular Rate and Rhythm Respiratory: Yes: Regular, CTA Bilaterally Gastrointestinal: Yes: Normal Bowel Sounds, Soft Musculoskeletal: Yes: WNL Extremities: Yes: Other Integumentary: Yes: Skin Tear, Other Wound/Incision: Yes: Dressing Dry and Intact Neurological: Yes: Alert, Oriented Psychiatric: Yes: Alert, Oriented Labs: CBC, BMP 10/26/17 06:00 10/26/17 06:00 INR, PTT INR 1.33 (0.82-1.09) H 10/25/17 09:56 Assessment/Plan Problem List - Problems (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 Code(s): E11.52 - TYPE 2 DIABETES W DIABETIC PERIPHERAL ANGIOPATHY W GANGRENE (2) Anemia Code(s): D64.9 - ANEMIA, UNSPECIFIED Qualifiers: Anemia type: other cause Other causes of anemia: acute posthemorrhagic Qualified Code(s): D62 - Acute posthemorrhagic anemia (3) CKD (chronic kidney disease) Code(s): N18.9 - CHRONIC KIDNEY DISEASE, UNSPECIFIED Qualifiers: Chronic kidney disease stage: stage 4 (severe) Qualified Code(s): N18.4 - Chronic kidney disease, stage 4 (severe) (4) GI bleed Code(s): K92.2 - GASTROINTESTINAL HEMORRHAGE, UNSPECIFIED (5) Cirrhosis Code(s): K74.60 - UNSPECIFIED CIRRHOSIS OF LIVER (6) Diabetes mellitus Code(s): E11.9 - TYPE 2 DIABETES MELLITUS WITHOUT COMPLICATIONS Qualifiers: Diabetes mellitus type: type 2 Diabetes mellitus long line teamster insulin use: without long-term use Diabetes mellitus complication status: with skin complications Diabetes mellitus complication detail: with other skin ulcer Qualified Code(s): E11.622 - Type 2 diabetes mellitus with other skin ulcer (7) Hypertension Code(s): I10 - ESSENTIAL (PRIMARY) HYPERTENSION (8) LIGHT (nonalcoholic steatohepatitis) Code(s): K75.81 - NONALCOHOLIC STEATOHEPATITIS (LIGHT) plan continue current mgmt abx await for cx report avoid scratching rest continue as per the team
[2017-10-26 21:50] LABS: HEMATOCRIT 24.7 % (35.4-49); HEMOGLOBIN 7.9 GM/dL (11.7-16.9); MEAN CELL VOLUME 71.9 fl (80-96); MEAN PLT VOLUME 8.7 fl (7.5-11.1); PLATELET COUNT 147 K/MM3 (134-434); RBC 3.43 M/mm3 (4.00-5.60); WHITE BLOOD COUNT 5.7 K/mm3 (4.0-10.0)
--- NOTE | 2017-10-26 22:21 | CON.GI ---
Consult Consult Specialty:: Gastroenterology Referred by:: Dr. Wu Reason for Consultation:: anemia - History of Present Illness Chief Complaint: Gangrene of middle right toe History of Present Illness: 56M underwent amputation of his middle right toe this AM for gangrene. He presented with a Hb of 6.3. He denies any overt bleeding and has been moving his bowels regularly. He does have abdominal wall edema and distension and senses that his ascites is reaccumulating. He has required transfusions for anemia in 07/09. I did an EGD at that time which reveals that his esophageal varices remain ablated from previous variceal banding. A patent Schatzki ring was noted. 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 He was referred to [facility] to consider ablation options but never went there. He has cirrhosis with portal hypertension , varices, ascites and thrombocytopenia. His cirrhosis is felt to be due to LIGHT. He did not have HCV or HBV. He had his varices ablated in 2011. He also had his last colonoscopy on 04/09/12 when only diverticulosis was found. He had a hyperplastic polyp removed in 2008. - History Source History Provided By: Patient Limitations to Obtaining History: No Limitations - Past Medical History Cardio/Vascular: Yes: HTN Gastrointestinal: Yes: Diverticulosis, Esophageal Varices, Other (Duodenal varices) Hepatobiliary: Yes: Other (LIGHT with cirrhosis) Renal/: Yes: Renal Inusuff Heme/Onc: Yes: Thrombocytopenia Infectious Disease: Yes: MRSA Endocrine: Yes: Diabetes Mellitus, Other (Morbid obesity) Dermatology: Yes: Cellulitis Additional Medical History: perineal abscess - Past Surgical History Past Surgical History: Yes: Tonsillectomy Additional Surgical History: Multiple perineal abscess I&Ds. Perianal fistulectomy for recurrent anal fistulae. Amputation middle right toe (today) - Alcohol/Substance Use Hx Alcohol Use: No History of Substance Use: reports: None - Smoking History Smoking history: Never smoked Have you smoked in the past 12 months: No Aproximately how many cigarettes per day: 0 - Social History Usual Living Arrangement: Other (with sister) ADL: Independent Occupation: works for [employer] in [employer] Place of : [facility] History of Recent Travel: No Home Medications - Allergies Allergies/Adverse Reactions: Allergies Allergy/AdvReac Type Severity Reaction Status Date / Time No Known Allergies Allergy Verified 10/25/17 09:31 - Home Medications Home Medications: Ambulatory Orders Furosemide [Lasix -] 40 mg PO DAILY 08/06/13 Glimepiride [Amaryl] 4 mg PO BID 08/06/13 Carvedilol [Coreg -] 6.25 mg PO BID #0 tablet 08/12/13 Lactobacillus Acidophilus [Bacid -] 1 each PO DAILY #14 tab 10/23/14 Silver Sulfadiazine [Silvadene] 85 gm TP DAILY #1 cream..g. 02/24/17 Triamcinolone 0.1% Ointment [Aristocort 0.1% Ointment -] 1 applic TP BID #1 tube 06/28/17 Vit B12/Pyridoxine/Thiamine 1 tab PO WEEKLY 10/26/17 Family Disease History - Family Disease History Family Disease History: Diabetes: Sister (thyroid disease), Heart Disease: Mother (parkinsons, of [place]), CA: Father (prostate cancer), Other: Mother, Sister Review of Systems - Review of Systems Constitutional: reports: Malaise Eyes: reports: No Symptoms HENT: reports: No Symptoms Neck: reports: No Symptoms Cardiovascular: reports: Edema Respiratory: reports: Exercise Intolerance Gastrointestinal: reports: Bloating Genitourinary: reports: No Symptoms Musculoskeletal: reports: Back Pain Neurological: reports: No Symptoms Endocrine: reports: Increased Hunger Physical Exam-GI Vital Signs: Vital Signs Temperature 98.6 F 10/26/17 16:00 Pulse Rate 80 10/26/17 16:00 Respiratory Rate 18 10/26/17 16:00 Blood Pressure 144/84 10/26/17 16:00 O2 Sat by Pulse Oximetry (%) 97 10/26/17 11:10 CBC,CMP WBC 5.7 K/mm3 (4.0-10.0) 10/26/17 21:10 RBC 3.43 M/mm3 (4.00-5.60) L 10/26/17 21:10 Hgb 7.9 GM/dL (11.7-16.9) L D 10/26/17 21:10 Hct 24.7 % (35.4-49) L D 10/26/17 21:10 MCV 71.9 fl (80-96) L 10/26/17 21:10 MCH 23.0 pg (25.7-33.7) L 10/26/17 21:10 MCHC 32.0 g/dl (32.0-35.9) 10/26/17 21:10 RDW 20.0 % (11.9-15.9) H 10/26/17 21:10 Plt Count 147 K/MM3 (134-434) 10/26/17 21:10 MPV 8.7 fl (7.5-11.1) 10/26/17 21:10 Absolute Neuts (auto) 4.8 # 10/26/17 06:00 Neutrophils % 78.5 % (42.8-82.8) 10/26/17 06:00 Lymphocytes % 6.5 % (8-40) L D 10/26/17 06:00 Monocytes % 11.0 % (3.8-10.2) H 10/26/17 06:00 Eosinophils % 3.3 % (0-4.5) D 10/26/17 06:00 Basophils % 0.7 % (0-2.0) 10/26/17 06:00 Nucleated RBC % 0 % (0-0) 10/26/17 06:00 Hypochromia 1+ 10/25/17 09:56 Platelet Estimate Normal 10/25/17 09:56 Basophilic Stippling 1+ 10/25/17 09:56 Anisocytosis 1+ 10/25/17 09:56 Microcytosis 1+ 10/25/17 09:56 Tear Drop Cells 1+ 10/25/17 09:56 ESR 54 mm/hr (0-20) H 10/26/17 07:30 Sodium 136 mmol/L (136-145) 10/26/17 06:00 Potassium 4.2 mmol/L (3.5-5.1) 10/26/17 06:00 Chloride 104 mmol/L (98-107) 10/26/17 06:00 Carbon Dioxide 22 mmol/L (21-32) 10/26/17 06:00 Anion Gap 10 (8-16) 10/26/17 06:00 BUN 60 mg/dL (7-18) H 10/26/17 06:00 Creatinine 1.9 mg/dL (0.7-1.3) H 10/26/17 06:00 Creat Clearance w eGFR 34.49 (>60) 10/25/17 09:56 POC Glucometer 146 UNITS (80-120) 10/26/17 21:44 Random Glucose 185 mg/dL (74-106) H 10/26/17 06:00 Hemoglobin A1c % 6.9 % (4.8-6.0) H 10/26/17 06:00 Calcium 7.9 mg/dL (8.5-10.1) L 10/26/17 06:00 Phosphorus 2.7 mg/dL (2.5-4.9) D 10/26/17 06:00 Magnesium 2.7 mg/dL (1.8-2.4) H D 10/26/17 06:00 Iron 11 ug/dL (38-169) L 10/25/17 11:21 TIBC 261 ug/dL (250-450) 10/25/17 11:21 Iron Saturation 4 % (15-55) L 10/25/17 11:21 Ferritin Cancelled 10/25/17 11:21 Total Bilirubin 1.1 mg/dL (0.2-1.0) H D 10/25/17 09:56 AST 52 U/L (15-37) H D 10/25/17 09:56 ALT 23 U/L (12-78) D 10/25/17 09:56 Alkaline Phosphatase 109 U/L (45-117) 10/25/17 09:56 C-Reactive Protein Cancelled 10/26/17 07:30 Total Protein 7.6 g/dl (6.4-8.2) 10/25/17 09:56 Albumin 2.6 g/dl (3.4-5.0) L 10/25/17 09:56 Current Medications Generic Name Dose Route Start Last Admin Trade Name Freq PRN Reason Stop Dose Admin Acetaminophen 650 mg 10/26/17 10:35 Tylenol - PO Q4H PRN PAIN LEVEL 1-5 Carvedilol 6.25 mg 10/26/17 22:00 10/26/17 21:46 Coreg - PO 6.25 mg BID HANY Administration Furosemide 40 mg 10/27/17 10:00 Lasix - PO DAILY HANY Glimepiride 4 mg 10/26/17 16:30 10/26/17 17:09 Amaryl - PO 4 mg BIDI HANY Administration Clindamycin Phosphate 300 mg in 50 mls @ 100 mls/hr 10/26/17 15:00 10/26/17 21:47 Cleocin 300 Mg Premix Ivpb IVPB 100 mls/hr Q6H-IV HANY Administration Protocol Pantoprazole Sodium 160 mg/ 290 mls @ 14.5 mls/hr 10/26/17 12:30 10/26/17 12: 31 Dextrose IVPB 14.5 mls/hr Q20H HANY Administration Piperacillin Sod/Tazobactam 50 mls @ 100 mls/hr 10/26/17 15:00 10/26/17 21:47 Sod 2.25 gm/ Dextrose IVPB 100 mls/hr Q6H-IV HANY Administration Protocol Insulin Aspart 1 vial 10/26/17 11:00 10/26/17 21:48 Novolog Vial Sliding Scale - SQ Not Given ACHS HANY Protocol Lactobacillus Acidophilus 1 tab 10/27/17 10:00 Bacid - PO DAILY HANY Constitutional: Yes: No Distress Eyes: Yes: Conjunctiva Clear HENT: Yes: Atraumatic Neck: Yes: Supple Cardiovascular: Yes: Regular Rate and Rhythm Respiratory: Yes: CTA Bilaterally Gastrointestinal Inspection: Yes: Distention, Other (abdominal wall edema) ...Auscultate: Yes: Normoactive Bowel Sounds ...Palpate: Yes: Soft, Other (nontender) ...Rectal Exam: Yes: Guaiac Positive, Hemorrhoids/External Genitourinary: Yes: Other (2+ prostate) Edema: Yes Edema: LLE: 3+, RLE: 3+ Neurological: Yes: Alert, Oriented Labs: CBC, BMP 10/26/17 21:10 10/26/17 06:00 INR, PTT INR 1.33 (0.82-1.09) H 10/25/17 09:56 Problem List - Problems (1) Ascites Code(s): R18.8 - OTHER ASCITES (2) Colon polyp, hyperplastic Code(s): K63.5 - POLYP OF COLON (3) Diverticula of colon Code(s): K57.30 - DVRTCLOS OF LG INT W/O PERFORATION OR ABSCESS W/O BLEEDING (4) Varices of small intestine Code(s): I86.8 - VARICOSE VEINS OF OTHER SPECIFIED SITES (5) Portal hypertensive gastropathy Code(s): K76.6 - PORTAL HYPERTENSION; K31.89 - OTHER DISEASES OF STOMACH AND DUODENUM (6) GI bleed Assessment/Plan: Suspect that Brett has chronic GI bleeding from portal gastropathy and his duodenal and perhaps more distal varices. A colon source of bleeding needs to be excluded. I have proposed an EGD and a colonoscopy to try to determine a source. If unrevealing then a capsule endoscopy will become necessary. I have inform him of the potential risks of endoscopy including perforation and hemorrhage. He has granted informed consents for both procedures. I will schedule him for 10/29 to allow his toe to heal. Code(s): K92.2 - GASTROINTESTINAL HEMORRHAGE, UNSPECIFIED Qualifiers: GI bleed type/associated pathology: unspecified gastrointestinal hemorrhage type Qualified Code(s): K92.2 - Gastrointestinal hemorrhage, unspecified (7) Cirrhosis Assessment/Plan: Will get sonogram to assess/confirm ascites Code(s): K74.60 - UNSPECIFIED CIRRHOSIS OF LIVER Qualifiers: Ascites presence: with ascites
[2017-10-27] MEDS: CLINDAMYCIN 300 MG PREMIX IVPB 300 MG/50 ML BAG IVPB SCH ×4 (03:10→21:19)
[2017-10-27] MEDS ORDERED: DEXTROSE 5%-WATER - 50 ML IVPB ONE ×4 (03:17→21:05)
[2017-10-27] MEDS ORDERED: PIPERACILLIN/TAZOBACTAM 2.25 GM VIAL IVPB ONE ×4 (03:17→21:04)
[2017-10-27] MEDS: PIPERACILLIN/TAZOB 2.25 GM 2.25 GM in DEXTROSE 5%-WATER - 50 ML IVPB SCH ×4 (03:37→21:18)
[2017-10-27] MEDS: PANTOPRAZOLE SODIUM 160 MG in DEXTROSE 5%-WATER - 290 ML IVPB SCH ×2 (03:37→09:48)
[2017-10-27] MEDS: INSULIN SLIDING SCALE (NOVOLOG) 1 VIAL SQ SCH ×4 (06:24→21:20)
[2017-10-27] MEDS: GLIMEPIRIDE 4 MG TABLET (FP) PO SCH ×2 (06:24→16:44)
[2017-10-27 07:53] LABS: BASO % 0.4 % (0-2.0); EOS % 2.7 % (0-4.5); HEMATOCRIT 25.1 % (35.4-49); HEMOGLOBIN 8.1 GM/dL (11.7-16.9); LYMPH % 4.9 % (8-40); MCH 23.6 pg (25.7-33.7); MCHC 32.4 g/dl (32.0-35.9); MEAN CELL VOLUME 72.9 fl (80-96); MEAN PLT VOLUME 8.7 fl (7.5-11.1); MONO % 9.3 % (3.8-10.2); NEUT % 82.7 % (42.8-82.8); PLATELET COUNT 143 K/MM3 (134-434); RBC 3.44 M/mm3 (4.00-5.60); RDW 20.5 % (11.9-15.9); WHITE BLOOD COUNT 6.6 K/mm3 (4.0-10.0)
[2017-10-27 08:32] LABS: CHLORIDE 103 mmol/L (98-107); POTASSIUM 4.4 mmol/L (3.5-5.1); SODIUM 134 mmol/L (136-145)
[2017-10-27 09:02] LABS: ANION GAP 10 (8-16); BLOOD UREA NITROGEN 58 mg/dL (7-18); CALCIUM 7.7 mg/dL (8.5-10.1); CO2 21 mmol/L (21-32); CREATININE 1.9 mg/dL (0.7-1.3); GLUCOSE,RANDOM 223 mg/dL (74-106); LDH 207 U/L (87-241); MAGNESIUM 2.4 mg/dL (1.8-2.4); PHOSPHOROUS 2.6 mg/dL (2.5-4.9)
--- NOTE | 2017-10-27 09:24 | OP ---
DATE OF OPERATION: 10/26/2017 PREOPERATIVE DIAGNOSIS: Right foot infected ulcer, osteomyelitis 3rd digit. POSTOPERATIVE DIAGNOSIS: Right foot infected ulcer, osteomyelitis 3rd digit. OPERATION: debridement of bone and soft tissue. Right foot 3rd digit amputation. SURGEON: Ana Novak DPM PRE CODER: Stephanie Askew, PGY3 ANESTHESIA: Local with IV sedation. ESTIMATED BLOOD LOSS: 75 mL. MATERIALS: Plain packing, 3-0 nylon sutures. COMPLICATIONS: None. CONDITION: Stable. PATHOLOGY: Right foot bone and soft tissue, right foot deep wound culture. OPERATIVE PROCEDURE: The patient was brought to the operating room and placed on the operating room table in the supine position. Following IV sedation local anesthesia to the right foot was given utilizing a 1:1 mixture of 20 mL of 1% lidocaine plain and 0.25% Marcaine plain. The right foot was then scrubbed, prepped and draped in the usual aseptic manner. Attention was then directed to the right foot 3rd digit where there was noted to be an infected ulcer. A No. 15 blade was then used to make an incision down to bone in a transverse fashion just proximal to the head of the proximal phalanx. The incision was then carried medial, laterally and plantarly encompassing the toe, leaving a large amount of the plantar surface of the toe. Next a deep wound culture was taken. Next the middle and distal phalanx was disarticulated at the interphalangeal joint and removed. The proximal phalanx of the toe was then cut in half using a bone cutter and resected. Next the proximal portion of the remaining proximal phalanx was resected and sent to Pathology as a clean margin specimen. Next the 3rd metatarsal head was evaluated and probed with a [place] elevator. It was noted to be white and hard. The proximal margin of the surgical site tissue and 3rd metatarsal head appeared healthy. Next the surgical site was copiously flushed using bacitracin/normal saline solution. The skin was reapproximated with 3-0 nylon with simple interrupted sutures. The dorsal portion of the wound was then left open and packed with 1/4" plain packing. Incision sites were then covered with Betadine-soaked Adaptic and sterile compressive dressings consisting of surgical gauze, ABD pad, Kerlix. The tourniquet was then deflated. Immediate hyperemia returned to the foot. An Dylan bandage was finally applied. The patient tolerated the procedure and anesthesia well and left the operating room to the recovery room in good condition with all vital signs stable to the feet. The patient was admitted to PACU and will be discharged back to floor once stable as per anesthesia team. BENITA Gill/[id number]
[2017-10-27] MEDS ORDERED: PT OWN MED DRAWER 7, Y5N ONE ×2 (09:36→21:53)
[2017-10-27] MEDS: CARVEDILOL 6.25 MG TABLET (FP) PO SCH ×2 (09:41→21:20)
[2017-10-27] MEDS: LACTOBACILLUS ACIDOPHILUS 1 TABLET PO SCH (09:41)
[2017-10-27] MEDS: FUROSEMIDE 40 MG TABLET (FP) PO SCH (09:41)
--- NOTE | 2017-10-27 13:09 | PN ---
Progress Note, Physician Chief Complaint: Mr Apoadca says he is feeling ok. No cp, sob, n/v. Not having pain in foot. - Current Medication List Current Medications: Active Medications Acetaminophen (Tylenol -) 650 mg PO Q4H PRN PRN Reason: PAIN LEVEL 1-5 Carvedilol (Coreg -) 6.25 mg PO BID [facility] Last Admin: 10/27/17 09:41 Dose: 6.25 mg Furosemide (Lasix -) 40 mg PO DAILY [facility] Last Admin: 10/27/17 09:41 Dose: 40 mg Glimepiride (Amaryl -) 4 mg PO BIDI [facility] Last Admin: 10/27/17 06:24 Dose: Not Given Clindamycin Phosphate (Cleocin 300 Mg Premix Ivpb) 300 mg in 50 mls @ 100 mls/ hr IVPB Q6H-IV [facility]; Protocol Last Admin: 10/27/17 10:00 Dose: 100 mls/hr Pantoprazole Sodium 160 mg/ (Dextrose) 290 mls @ 14.5 mls/hr IVPB Q20H [facility] Last Admin: 10/27/17 09:48 Dose: Not Given Piperacillin Sod/Tazobactam (Sod 2.25 gm/ Dextrose) 50 mls @ 100 mls/hr IVPB Q6H-IV [facility]; Protocol Last Admin: 10/27/17 09:42 Dose: 100 mls/hr Insulin Aspart (Novolog Vial Sliding Scale -) 1 vial SQ ACHS [facility]; Protocol Last Admin: 10/27/17 11:55 Dose: 2 units Lactobacillus Acidophilus (Bacid -) 1 tab PO DAILY [facility] Last Admin: 10/27/17 09:41 Dose: 1 tab - Objective Vital Signs: Vital Signs Temperature 37.1 C 10/27/17 10:00 Pulse Rate 74 10/27/17 10:00 Respiratory Rate 20 10/27/17 10:00 Blood Pressure 147/67 10/27/17 10:00 O2 Sat by Pulse Oximetry (%) 98 10/27/17 09:00 Constitutional: Yes: No Distress, Calm, Obese Cardiovascular: Yes: Regular Rate and Rhythm. No: Gallop, Murmur, Rub Respiratory: Yes: Regular, CTA Bilaterally. No: Rales, Rhonchi, Wheezes Gastrointestinal: Yes: Normal Bowel Sounds, Soft. No: Distention, Tenderness Extremities: Yes: Other (right foot wrapped) Edema: No Labs: CBC, BMP 10/27/17 06:18 10/27/17 06:18 INR, PTT INR 1.33 (0.82-1.09) H 10/25/17 09:56 Problem List - Problems (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 Code(s): E11.52 - TYPE 2 DIABETES W DIABETIC PERIPHERAL ANGIOPATHY W GANGRENE (2) Anemia Code(s): D64.9 - ANEMIA, UNSPECIFIED Qualifiers: Anemia type: other cause Other causes of anemia: acute posthemorrhagic Qualified Code(s): D62 - Acute posthemorrhagic anemia (3) CKD (chronic kidney disease) Code(s): N18.9 - CHRONIC KIDNEY DISEASE, UNSPECIFIED Qualifiers: Chronic kidney disease stage: stage 4 (severe) Qualified Code(s): N18.4 - Chronic kidney disease, stage 4 (severe) (4) GI bleed Code(s): K92.2 - GASTROINTESTINAL HEMORRHAGE, UNSPECIFIED Qualifiers: GI bleed type/associated pathology: unspecified gastrointestinal hemorrhage type Qualified Code(s): K92.2 - Gastrointestinal hemorrhage, unspecified (5) Cirrhosis Code(s): K74.60 - UNSPECIFIED CIRRHOSIS OF LIVER Qualifiers: Ascites presence: with ascites (6) Diabetes mellitus Code(s): E11.9 - TYPE 2 DIABETES MELLITUS WITHOUT COMPLICATIONS Qualifiers: Diabetes mellitus type: type 2 Diabetes mellitus long term care phlebotomist insulin use: without long term care phlebotomist use Diabetes mellitus complication status: with skin complications Diabetes mellitus complication detail: with other skin ulcer Qualified Code(s): E11.622 - Type 2 diabetes mellitus with other skin ulcer (7) Hypertension Code(s): I10 - ESSENTIAL (PRIMARY) HYPERTENSION (8) LIGHT (nonalcoholic steatohepatitis) Code(s): K75.81 - NONALCOHOLIC STEATOHEPATITIS (LIGHT) Assessment/Plan (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 Assessment/Plan: -appreciate vascular surgery assistance -s/p amputation -on clindamycin and zosyn -appreciate ID assistance -wound care per Dr Gonzalez Code(s): E11.52 - TYPE 2 DIABETES W DIABETIC PERIPHERAL ANGIOPATHY W GANGRENE (2) Anemia Assessment/Plan -s/p 4 units -H/H increased, but not appropriately -? if still bleeding -will check H/H bid -transfuse for Hgb less than 7 Code(s): D64.9 - ANEMIA, UNSPECIFIED Qualifiers: Anemia type: other cause Other causes of anemia: acute posthemorrhagic Qualified Code(s): D62 - Acute posthemorrhagic anemia (3) CKD (chronic kidney disease) Assessment/Plan: -secondary to diabetes -at baseline -monitor Code(s): N18.9 - CHRONIC KIDNEY DISEASE, UNSPECIFIED Qualifiers: Chronic kidney disease stage: stage 4 (severe) Qualified Code(s): N18.4 - Chronic kidney disease, stage 4 (severe) (4) GI bleed Assessment/Plan: -GI consulted and note reviewed -agree with colonoscopy Code(s): K92.2 - GASTROINTESTINAL HEMORRHAGE, UNSPECIFIED (5) Cirrhosis Assessment/Plan: -stable Code(s): K74.60 - UNSPECIFIED CIRRHOSIS OF LIVER (6) Diabetes mellitus Assessment/Plan: -continue amaryl -diabetic diet -FSBS and SSI -HgbA1c 6.9 Code(s): E11.9 - TYPE 2 DIABETES MELLITUS WITHOUT COMPLICATIONS Qualifiers: Diabetes mellitus type: type 2 Diabetes mellitus chcf insulin use: without long term care phlebotomist use Diabetes mellitus complication status: with skin complications Diabetes mellitus complication detail: with other skin ulcer Qualified Code(s): E11.622 - Type 2 diabetes mellitus with other skin ulcer (7) Hypertension Assessment/Plan: -continue coreg and lasix -monitor Code(s): I10 - ESSENTIAL (PRIMARY) HYPERTENSION (8) LIGHT (nonalcoholic steatohepatitis) Assessment/Plan: -stable Code(s): K75.81 - NONALCOHOLIC STEATOHEPATITIS (LIGHT)
--- NOTE | 2017-10-27 15:40 | PN ---
Progress Note, Physician History of Present Illness: stable no new issues cx back some organism stilla waited - Current Medication List Current Medications: Active Medications Acetaminophen (Tylenol -) 650 mg PO Q4H PRN PRN Reason: PAIN LEVEL 1-5 Carvedilol (Coreg -) 6.25 mg PO BID [facility] Last Admin: 10/27/17 09:41 Dose: 6.25 mg Furosemide (Lasix -) 40 mg PO DAILY [facility] Last Admin: 10/27/17 09:41 Dose: 40 mg Glimepiride (Amaryl -) 4 mg PO BIDI [facility] Last Admin: 10/27/17 06:24 Dose: Not Given Clindamycin Phosphate (Cleocin 300 Mg Premix Ivpb) 300 mg in 50 mls @ 100 mls/ hr IVPB Q6H-IV [facility]; Protocol Last Admin: 10/27/17 14:13 Dose: 100 mls/hr Pantoprazole Sodium 160 mg/ (Dextrose) 290 mls @ 14.5 mls/hr IVPB Q20H [facility] Last Admin: 10/27/17 09:48 Dose: Not Given Piperacillin Sod/Tazobactam (Sod 2.25 gm/ Dextrose) 50 mls @ 100 mls/hr IVPB Q6H-IV [facility]; Protocol Last Admin: 10/27/17 09:42 Dose: 100 mls/hr Insulin Aspart (Novolog Vial Sliding Scale -) 1 vial SQ ACHS [facility]; Protocol Last Admin: 10/27/17 11:55 Dose: 2 units Lactobacillus Acidophilus (Bacid -) 1 tab PO DAILY [facility] Last Admin: 10/27/17 09:41 Dose: 1 tab - Objective Vital Signs: Vital Signs Temperature 98.5 F 10/27/17 14:05 Pulse Rate 71 10/27/17 14:05 Respiratory Rate 18 10/27/17 14:05 Blood Pressure 123/68 10/27/17 14:05 O2 Sat by Pulse Oximetry (%) 98 10/27/17 09:00 Constitutional: Yes: No Distress, Calm, Obese Cardiovascular: Yes: Regular Rate and Rhythm Respiratory: Yes: Regular, CTA Bilaterally Gastrointestinal: Yes: Normal Bowel Sounds, Soft Musculoskeletal: Yes: WNL Extremities: Yes: Other Wound/Incision: Yes: Dressing Dry and Intact Neurological: Yes: Alert, Oriented Psychiatric: Yes: Alert, Oriented Labs: CBC, BMP 10/27/17 06:18 10/27/17 06:18 INR, PTT INR 1.33 (0.82-1.09) H 10/25/17 09:56 Assessment/Plan Problem List - Problems (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 Code(s): E11.52 - TYPE 2 DIABETES W DIABETIC PERIPHERAL ANGIOPATHY W GANGRENE (2) Anemia Code(s): D64.9 - ANEMIA, UNSPECIFIED Qualifiers: Anemia type: other cause Other causes of anemia: acute posthemorrhagic Qualified Code(s): D62 - Acute posthemorrhagic anemia (3) CKD (chronic kidney disease) Code(s): N18.9 - CHRONIC KIDNEY DISEASE, UNSPECIFIED Qualifiers: Chronic kidney disease stage: stage 4 (severe) Qualified Code(s): N18.4 - Chronic kidney disease, stage 4 (severe) (4) GI bleed Code(s): K92.2 - GASTROINTESTINAL HEMORRHAGE, UNSPECIFIED (5) Cirrhosis Code(s): K74.60 - UNSPECIFIED CIRRHOSIS OF LIVER (6) Diabetes mellitus Code(s): E11.9 - TYPE 2 DIABETES MELLITUS WITHOUT COMPLICATIONS Qualifiers: Diabetes mellitus type: type 2 Diabetes mellitus shelter insulin use: without shelter use Diabetes mellitus complication status: with skin complications Diabetes mellitus complication detail: with other skin ulcer Qualified Code(s): E11.622 - Type 2 diabetes mellitus with other skin ulcer (7) Hypertension Code(s): I10 - ESSENTIAL (PRIMARY) HYPERTENSION (8) LIGHT (nonalcoholic steatohepatitis) Code(s): K75.81 - NONALCOHOLIC STEATOHEPATITIS (LIGHT) plan continue current mgmt abx await for cx report avoid scratching rest continue as per the team
--- NOTE | 2017-10-27 16:38 | PATH ---
Surgical Pathology Report Patient Name: MENDEZ GODFREY [facility]. Rec. #: [id number] /Age/Gender: 1960 (Age: 56) / M Account: [id number] Location: 4 SO PEDS/ADOL Taken: 10/26/2017 Received: 10/26/2017 Reported: 10/27/2017 Physicians: BENITA Gill M.D. Specimen(s) Received A: RIGHT THIRD TOE B: PROXIMAL BONE FROM RIGHT THIRD TOE Clinical History Right foot, amputation and debridement of third toe Gangrene right third toe Final Diagnosis A. THIRD TOE, RIGHT, AMPUTATION: DIGIT WITH ACUTE AND CHRONIC GANGRENOUS NECROSIS, ASSOCIATED ULCERATION, AND BONE WITH ACUTE OSTEOMYELITIS, EXTENDING TO SURGICAL MARGINS. B. PROXIMAL BONE, THIRD TOE, RIGHT, EXCISION: BONE WITH ACUTE OSTEOMYELITIS. Electronically Signed Judy Cowart M.D. Gross Description A. Received in formalin labelled "third right toe" is an amputation specimen measuring 4 x 3.2 x 0.5 cm. The distal portion of the toe is placed by eschar and ulcer base. The skin and soft tissue of the margin appears viable. The bone of the proximal margin is hard. The bone of the distal toe is soft. A center section from the proximal skin and soft tissue margin is submitted in cassette 1. Bone from the margin is submitted in cassette 2 after decalcification. Sections of bone and soft tissue from the distal toe are submitted in cassettes 3 and 4 after decalcification. B. Received in formalin labelled "proximal bone from right third toe" is a day 2 x 2 x 1 cm aggregate of is a bone and soft tissue. No lesions are identified. Dessert Cup Machine Feeder sections are submitted in one cassette after decalcification. [facility]/10/26/2017 [facility]/10/26/2017
--- NOTE | 2017-10-27 18:11 | PN ---
GI Progress Note Subjective: GI NOte: Feeling somewhat dejected following his amputation and has concerns about his future. No GI complaints. Feels stronger with Hb above 8. The sonogram reveals minimal ascites. Monday's schedule will not accomodate Brett. Will try to Monday - Objective Vital Signs: Vital Signs Temperature 98.8 F 10/27/17 17:35 Pulse Rate 71 10/27/17 17:35 Respiratory Rate 20 10/27/17 17:35 Blood Pressure 132/72 10/27/17 17:35 O2 Sat by Pulse Oximetry (%) 98 10/27/17 09:00 Constitutional: Anxious Gastrointestinal Inspection: Yes: Distention ...Auscultate: Yes: Normoactive Bowel Sounds ...Palpate: Yes: Soft, Other (nontender) Labs: CBC, BMP 10/27/17 06:18 10/27/17 06:18 INR, PTT INR 1.33 (0.82-1.09) H 10/25/17 09:56 Problem List - Problems (1) Ascites Assessment/Plan: Minimal ascites seen on sonogram Code(s): R18.8 - OTHER ASCITES (2) Colon polyp, hyperplastic Code(s): K63.5 - POLYP OF COLON (3) Diverticula of colon Code(s): K57.30 - DVRTCLOS OF LG INT W/O PERFORATION OR ABSCESS W/O BLEEDING (4) Varices of small intestine Code(s): I86.8 - VARICOSE VEINS OF OTHER SPECIFIED SITES (5) Portal hypertensive gastropathy Code(s): K76.6 - PORTAL HYPERTENSION; K31.89 - OTHER DISEASES OF STOMACH AND DUODENUM (6) GI bleed Assessment/Plan: Will need to defer EGD and colonoscopy until Monday. May extend the upper to enteroscopy. Brett consents Code(s): K92.2 - GASTROINTESTINAL HEMORRHAGE, UNSPECIFIED Qualifiers: GI bleed type/associated pathology: unspecified gastrointestinal hemorrhage type Qualified Code(s): K92.2 - Gastrointestinal hemorrhage, unspecified (7) Cirrhosis Code(s): K74.60 - UNSPECIFIED CIRRHOSIS OF LIVER Qualifiers: Ascites presence: with ascites
[2017-10-27 18:17] LABS: HEMATOCRIT 26.1 % (35.4-49); HEMOGLOBIN 8.2 GM/dL (11.7-16.9); MCHC 31.6 g/dl (32.0-35.9); MEAN CELL VOLUME 72.9 fl (80-96); MEAN PLT VOLUME 8.6 fl (7.5-11.1); PLATELET COUNT 153 K/MM3 (134-434); RBC 3.58 M/mm3 (4.00-5.60); RDW 20.9 % (11.9-15.9); WHITE BLOOD COUNT 7.5 K/mm3 (4.0-10.0)
--- NOTE | 2017-10-27 23:03 | PN ---
Progress Note (short form) - Note Progress Note: pod#1. no pain. vss. seen earlier today. tmax 98.6 +dressing clean dry and intact, wbc=7.5, staph latex, xray reviewed normal post op infection of foot dressing change tomorrow. will follow.
[2017-10-28] MEDS: CLINDAMYCIN 300 MG PREMIX IVPB 300 MG/50 ML BAG IVPB SCH ×4 (02:01→20:30)
[2017-10-28] MEDS: PANTOPRAZOLE SODIUM 160 MG in DEXTROSE 5%-WATER - 290 ML IVPB SCH ×2 (02:02→05:53)
[2017-10-28] MEDS ORDERED: DEXTROSE 5%-WATER - 50 ML IVPB ONE ×4 (02:25→20:05)
[2017-10-28] MEDS ORDERED: PIPERACILLIN/TAZOBACTAM 2.25 GM VIAL IVPB ONE ×4 (02:25→20:05)
[2017-10-28] MEDS: PIPERACILLIN/TAZOB 2.25 GM 2.25 GM in DEXTROSE 5%-WATER - 50 ML IVPB SCH ×4 (03:55→21:28)
[2017-10-28] MEDS: GLIMEPIRIDE 4 MG TABLET (FP) PO SCH ×2 (06:32→16:59)
[2017-10-28] MEDS: INSULIN SLIDING SCALE (NOVOLOG) 1 VIAL SQ SCH ×4 (06:33→21:25)
[2017-10-28 07:14] LABS: BASO % 0.8 % (0-2.0); EOS % 2.6 % (0-4.5); HEMATOCRIT 24.2 % (35.4-49); HEMOGLOBIN 7.7 GM/dL (11.7-16.9); LYMPH % 4.2 % (8-40); MCH 23.2 pg (25.7-33.7); MCHC 31.8 g/dl (32.0-35.9); MONO % 11.5 % (3.8-10.2); NEUT % 80.9 % (42.8-82.8); PLATELET COUNT 133 K/MM3 (134-434); RBC 3.32 M/mm3 (4.00-5.60); RDW 20.6 % (11.9-15.9)
[2017-10-28] MEDS ORDERED: INSULIN (LEVEMIR) 100 UNITS/ML UNITS SQ ONE (07:37)
[2017-10-28] MEDS ORDERED: INSULIN (NOVOLOG) ASPART 100 UNITS/ML 10ML VIAL ONE (07:37)
[2017-10-28 08:24] LABS: CHLORIDE 104 mmol/L (98-107); POTASSIUM 4.4 mmol/L (3.5-5.1); SODIUM 136 mmol/L (136-145)
[2017-10-28 08:47] LABS: ANION GAP 9 (8-16); BLOOD UREA NITROGEN 63 mg/dL (7-18); CALCIUM 7.5 mg/dL (8.5-10.1); CO2 23 mmol/L (21-32); GLUCOSE,RANDOM 167 mg/dL (74-106); MAGNESIUM 2.5 mg/dL (1.8-2.4); PHOSPHOROUS 3.3 mg/dL (2.5-4.9)
--- NOTE | 2017-10-28 09:10 | PN ---
Progress Note, Physician Chief Complaint: No new complaints, denies any melena or BRB per rectum no c/o Dizziness History of Present Illness: 56 yrs old man morbidly obese, T2DM, uncontrolled , CKD, LIGHT/ Cirrhosis, Portal HTN, Esophageal and Duodenal varicies s/p band ligation, chronic LEANNE and thrombocytopenia, B/L LE venous stasis ulcer presently admitted with severe anemia due to recurrent GI bleed and Rt 3rd toe gangrene s/p amputation s/p during this hospitalization, received PRBC transfusion last EGD was in 06/2017. H/H stable. - Current Medication List Current Medications: Active Medications Acetaminophen (Tylenol -) 650 mg PO Q4H PRN PRN Reason: PAIN LEVEL 1-5 Carvedilol (Coreg -) 6.25 mg PO BID [facility] Last Admin: 10/27/17 21:20 Dose: 6.25 mg Furosemide (Lasix -) 40 mg PO DAILY [facility] Last Admin: 10/27/17 09:41 Dose: 40 mg Glimepiride (Amaryl -) 4 mg PO BIDI [facility] Last Admin: 10/28/17 06:32 Dose: 4 mg Clindamycin Phosphate (Cleocin 300 Mg Premix Ivpb) 300 mg in 50 mls @ 100 mls/ hr IVPB Q6H-IV [facility]; Protocol Last Admin: 10/28/17 02:01 Dose: 100 mls/hr Pantoprazole Sodium 160 mg/ (Dextrose) 290 mls @ 14.5 mls/hr IVPB Q20H [facility] Last Admin: 10/28/17 05:53 Dose: Not Given Piperacillin Sod/Tazobactam (Sod 2.25 gm/ Dextrose) 50 mls @ 100 mls/hr IVPB Q6H-IV [facility]; Protocol Last Admin: 10/28/17 03:55 Dose: 100 mls/hr Insulin Aspart (Novolog Vial Sliding Scale -) 1 vial SQ ACHS [facility]; Protocol Last Admin: 10/28/17 06:33 Dose: Not Given Lactobacillus Acidophilus (Bacid -) 1 tab PO DAILY [facility] Last Admin: 10/27/17 09:41 Dose: 1 tab - Objective Vital Signs: Vital Signs Temperature 97.6 F 10/28/17 06:00 Pulse Rate 70 10/28/17 06:00 Respiratory Rate 18 10/28/17 06:00 Blood Pressure 126/62 10/28/17 06:00 O2 Sat by Pulse Oximetry (%) 98 10/27/17 21:00 Constitutional: Yes: No Distress, Calm, Obese Eyes: Yes: EOM Intact HENT: Yes: Atraumatic, Normocephalic. No: Drooling, Epistaxis Neck: Yes: Supple, Trachea Midline. No: Decreased ROM, Lymphadenopathy Cardiovascular: Yes: Regular Rate and Rhythm, S1, S2. No: JVD, Murmur Respiratory: Yes: Regular, CTA Bilaterally Gastrointestinal: Yes: Normal Bowel Sounds, Soft, Abdomen, Obese. No: Ascites, Distention, Hematemesis, Tenderness Musculoskeletal: No: Back Pain, Joint Stiffness, Joint Swelling Extremities: Yes: Other (B/L Chronic Venous stasis ulcer Rt 3rd toe ambutation) . No: Amputation Edema: RUE: 2+, LLE: 1+ Peripheral Pulses WNL: Yes Peripheral Pulses: Left Doralis Pedis: 1+, Right Dorsalis Pedis: 1+ Wound/Incision: Yes: Dressing Dry and Intact Neurological: Yes: Alert, Oriented. No: Asterixis, Ataxia ...Motor Strength: WNL, LUE, LLE, RUE, RLE Labs: CBC, BMP 10/28/17 06:10 10/28/17 06:10 INR, PTT INR 1.33 (0.82-1.09) H 10/25/17 09:56 HbA1c 6.9 Problem List - Problems (1) Cellulitis of right anterior lower leg Assessment/Plan: Cont current abx Zosyn and Clindamycin F/U ID recommendations , wound culture grew Staph Auerus, enterococci and Morganella cultures. Code(s): L03.115 - CELLULITIS OF RIGHT LOWER LIMB (2) Diabetic wet gangrene of the foot Assessment/Plan: S/P Rt 3rd toe amputation F/U Cultures. Code(s): E11.52 - TYPE 2 DIABETES W DIABETIC PERIPHERAL ANGIOPATHY W GANGRENE (3) Anemia due to blood loss, acute Assessment/Plan: Sever anemia due to upper GI blood loss s/p transfusion H/h stable. Code(s): D62 - ACUTE POSTHEMORRHAGIC ANEMIA (4) Portal hypertensive gastropathy Assessment/Plan: on PPI H/O Esophageal varicose ligation. Code(s): K76.6 - PORTAL HYPERTENSION; K31.89 - OTHER DISEASES OF STOMACH AND DUODENUM (5) T2DM (type 2 diabetes mellitus) Assessment/Plan: On Glipizise and correction dose insulin HBA1C 6.9 optimize Glycemic control. Code(s): E11.9 - TYPE 2 DIABETES MELLITUS WITHOUT COMPLICATIONS Qualifiers: Chronic kidney disease stage: stage 3 (moderate) (6) Morbid obesity with BMI of 45.0-49.9, adult Assessment/Plan: Nutritional consult as out patient. Code(s): E66.01 - MORBID (SEVERE) OBESITY DUE TO EXCESS CALORIES; Z68.42 - BODY MASS INDEX (BMI) 45.0-49.9, ADULT (7) Cirrhosis Assessment/Plan: Due to LIGHT Portal HTN and Thrombocytopenia. cont current management. Code(s): K74.60 - UNSPECIFIED CIRRHOSIS OF LIVER Qualifiers: Ascites presence: with ascites (8) CKD (chronic kidney disease) Assessment/Plan: Due to Diabetic Nephropathy. Code(s): N18.9 - CHRONIC KIDNEY DISEASE, UNSPECIFIED Qualifiers: Chronic kidney disease stage: stage 3 (moderate) Qualified Code(s): N18.3 - Chronic kidney disease, stage 3 (moderate) (9) Hypertension Assessment/Plan: cont current management. Code(s): I10 - ESSENTIAL (PRIMARY) HYPERTENSION
--- NOTE | 2017-10-28 09:31 | PN ---
Progress Note (short form) - Note Progress Note: pod #2. no pain. vss. +dressing clean dry and intact, wbc=7.0, staph latex, retention sutures intact, -drainage, -mal odor, normal post op infection of foot packing pulled. Betadine dressing applied. Santyl dressings to all other wounds except foot. will follow. esr crp in am.
[2017-10-28] MEDS: FUROSEMIDE 40 MG TABLET (FP) PO SCH (09:49)
[2017-10-28] MEDS: LACTOBACILLUS ACIDOPHILUS 1 TABLET PO SCH (09:49)
[2017-10-28] MEDS: CARVEDILOL 6.25 MG TABLET (FP) PO SCH ×2 (09:49→21:24)
[2017-10-28] MEDS: COLLAGENASE CLOSTRIDIUM HIST. 30 GRAMS TUBE TP SCH (10:32)
--- NOTE | 2017-10-28 10:36 | PN ---
Progress Note, Physician History of Present Illness: Pt seen and examined. Events noted. States he feels well. Denies fever/chills, pain controlled. - Current Medication List Current Medications: Active Medications Acetaminophen (Tylenol -) 650 mg PO Q4H PRN PRN Reason: PAIN LEVEL 1-5 Last Admin: 10/28/17 09:50 Dose: 650 mg Carvedilol (Coreg -) 6.25 mg PO BID [facility] Last Admin: 10/28/17 09:49 Dose: 6.25 mg Collagenase (Santyl -) 1 applic TP DAILY [facility] Furosemide (Lasix -) 40 mg PO DAILY [facility] Last Admin: 10/28/17 09:49 Dose: 40 mg Glimepiride (Amaryl -) 4 mg PO BIDI [facility] Last Admin: 10/28/17 06:32 Dose: 4 mg Clindamycin Phosphate (Cleocin 300 Mg Premix Ivpb) 300 mg in 50 mls @ 100 mls/ hr IVPB Q6H-IV [facility]; Protocol Last Admin: 10/28/17 09:49 Dose: 100 mls/hr Pantoprazole Sodium 160 mg/ (Dextrose) 290 mls @ 14.5 mls/hr IVPB Q20H [facility] Last Admin: 10/28/17 05:53 Dose: Not Given Piperacillin Sod/Tazobactam (Sod 2.25 gm/ Dextrose) 50 mls @ 100 mls/hr IVPB Q6H-IV [facility]; Protocol Last Admin: 10/28/17 03:55 Dose: 100 mls/hr Insulin Aspart (Novolog Vial Sliding Scale -) 1 vial SQ ACHS [facility]; Protocol Last Admin: 10/28/17 06:33 Dose: Not Given Lactobacillus Acidophilus (Bacid -) 1 tab PO DAILY [facility] Last Admin: 10/28/17 09:49 Dose: 1 tab - Objective Vital Signs: Vital Signs Temperature 97.6 F 10/28/17 06:00 Pulse Rate 70 10/28/17 06:00 Respiratory Rate 18 10/28/17 06:00 Blood Pressure 126/62 10/28/17 06:00 O2 Sat by Pulse Oximetry (%) 98 10/27/17 21:00 Constitutional: Yes: No Distress, Calm Cardiovascular: Yes: Regular Rate and Rhythm Respiratory: Yes: Regular Gastrointestinal: Yes: Normal Bowel Sounds, Soft, Distention Extremities: Yes: Erythema Integumentary: Yes: Erythema (b/l LE edema) Wound/Incision: Yes: Dressing Dry and Intact (Rt foot dressed) Neurological: Yes: Alert Labs: CBC, BMP 10/28/17 06:10 10/28/17 06:10 INR, PTT INR 1.33 (0.82-1.09) H 10/25/17 09:56 Microbiology 10/26/17 09:27 Foot - Right Gram Stain - Final 10/26/17 09:27 Foot - Right Wound Culture - Preliminary Staphylococcus Aureus Morganella Morganii Pending Organism 10/25/17 09:56 Blood - Peripheral Venous Blood Culture - Preliminary NO GROWTH OBTAINED AFTER 48 HOURS, INCUBATION TO CONTINUE FOR 3 DAYS. 10/25/17 09:56 Blood - Peripheral Venous Blood Culture - Preliminary NO GROWTH OBTAINED AFTER 48 HOURS, INCUBATION TO CONTINUE FOR 3 DAYS. Problem List - Problems (1) Anemia Code(s): D64.9 - ANEMIA, UNSPECIFIED Qualifiers: Anemia type: other cause Other causes of anemia: acute posthemorrhagic Qualified Code(s): D62 - Acute posthemorrhagic anemia (2) Ascites Code(s): R18.8 - OTHER ASCITES (3) CKD (chronic kidney disease) Code(s): N18.9 - CHRONIC KIDNEY DISEASE, UNSPECIFIED Qualifiers: Chronic kidney disease stage: stage 4 (severe) Qualified Code(s): N18.4 - Chronic kidney disease, stage 4 (severe) (4) Diabetic wet gangrene of the foot Code(s): E11.52 - TYPE 2 DIABETES W DIABETIC PERIPHERAL ANGIOPATHY W GANGRENE (5) Diabetes mellitus Code(s): E11.9 - TYPE 2 DIABETES MELLITUS WITHOUT COMPLICATIONS Qualifiers: Diabetes mellitus type: type 2 Diabetes mellitus longterm insulin use: without termite control service representative use Diabetes mellitus complication status: with skin complications Diabetes mellitus complication detail: with other skin ulcer Qualified Code(s): E11.622 - Type 2 diabetes mellitus with other skin ulcer (6) Hypertension Code(s): I10 - ESSENTIAL (PRIMARY) HYPERTENSION (7) Venous (peripheral) insufficiency Code(s): I87.2 - VENOUS INSUFFICIENCY (CHRONIC) (PERIPHERAL) (8) Venous stasis ulcer of left ankle with fat layer exposed Code(s): I83.023 - VARICOSE VEINS OF LEFT LOWER EXTREMITY WITH ULCER OF ANKLE; L97.322 - NON-PRESSURE CHRONIC ULCER OF LEFT ANKLE W FAT LAYER EXPOSED Assessment/Plan Rt toe wet gangrene s/p amputation DM CKD PVD Cirrhosis Anemia -- continue current antibiotics, organisms noted -- wound care -- monitor esr/crp
[2017-10-28] MEDS ORDERED: PT OWN MED DRAWER 7, Y5N ONE ×2 (15:11→20:10)
--- NOTE | 2017-10-28 17:04 | PN ---
GI Progress Note Subjective: GI NOte: Hb dropping but Brett denies any signs of GI bleed. His weight has increased 15 lbs but no ascites is seen. He does have lower extremity and abdominal wall edema. Not diuresing with lasix. Renal and bone marrow functioning are compromised. Would consider renal and hematology consultation. AFP normal and no liver masses seen on songram - Objective Vital Signs: Vital Signs Temperature 97.4 F L 10/28/17 14:00 Pulse Rate 69 10/28/17 14:00 Respiratory Rate 20 10/28/17 14:00 Blood Pressure 144/78 10/28/17 14:00 O2 Sat by Pulse Oximetry (%) 98 10/28/17 10:00 Laboratory Tests 10/27/17 10/27/17 10/27/17 06:18 06:18 06:18 Hgb Retic Count 1.72 H D BUN Creatinine Iron 12 L TIBC 238 L Ferritin 64.0 10/27/17 10/28/17 10/28/17 17:45 06:10 06:10 Hgb 8.2 L 7.7 L Retic Count BUN 63 H Creatinine 2.0 H Iron TIBC Ferritin Laboratory Tests 10/27/17 06:18 Tumor Marker AFP 0.9 Constitutional: Calm ...Auscultate: Yes: Normoactive Bowel Sounds ...Palpate: Yes: Soft, Other (nontender) Labs: CBC, BMP 10/28/17 06:10 10/28/17 06:10 INR, PTT INR 1.33 (0.82-1.09) H 10/25/17 09:56 Problem List - Problems (1) Anemia Assessment/Plan: Not clear that anemia is all GI blood loss. Would expect increased reticulocyte count. Unclear iron status as ferritin may reflect acute phase reactant. Would consult hematology Code(s): D64.9 - ANEMIA, UNSPECIFIED Qualifiers: Anemia type: other cause Other causes of anemia: acute posthemorrhagic Qualified Code(s): D62 - Acute posthemorrhagic anemia (2) Ascites Assessment/Plan: Minimal ascites seen on sonogram Code(s): R18.8 - OTHER ASCITES (3) Colon polyp, hyperplastic Code(s): K63.5 - POLYP OF COLON (4) Diverticula of colon Code(s): K57.30 - DVRTCLOS OF LG INT W/O PERFORATION OR ABSCESS W/O BLEEDING (5) Varices of small intestine Code(s): I86.8 - VARICOSE VEINS OF OTHER SPECIFIED SITES (6) Portal hypertensive gastropathy Code(s): K76.6 - PORTAL HYPERTENSION; K31.89 - OTHER DISEASES OF STOMACH AND DUODENUM (7) GI bleed Code(s): K92.2 - GASTROINTESTINAL HEMORRHAGE, UNSPECIFIED Qualifiers: GI bleed type/associated pathology: unspecified gastrointestinal hemorrhage type Qualified Code(s): K92.2 - Gastrointestinal hemorrhage, unspecified (8) Cirrhosis Code(s): K74.60 - UNSPECIFIED CIRRHOSIS OF LIVER Qualifiers: Ascites presence: with ascites
[2017-10-28 17:31] LABS: BASO % 0.5 % (0-2.0); EOS % 2.8 % (0-4.5); HEMATOCRIT 25.6 % (35.4-49); HEMOGLOBIN 8.1 GM/dL (11.7-16.9); LYMPH % 4.4 % (8-40); MCH 23.1 pg (25.7-33.7); MCHC 31.6 g/dl (32.0-35.9); MEAN CELL VOLUME 72.9 fl (80-96); MEAN PLT VOLUME 8.2 fl (7.5-11.1); MONO % 10.7 % (3.8-10.2); NEUT % 81.6 % (42.8-82.8); PLATELET COUNT 146 K/MM3 (134-434); RBC 3.52 M/mm3 (4.00-5.60); WHITE BLOOD COUNT 7.1 K/mm3 (4.0-10.0)
[2017-10-28 18:05] LABS: ANISOCYTOSIS 2+; MACROCYTOSIS 1+; OVALOCYTE 1+; PLATELET ESTIMATE ADEQUATE
[2017-10-28] MEDS: PANTOPRAZOLE 40 MG TABLET (FP) PO SCH (21:24)
[2017-10-29] MEDS ORDERED: PT OWN MED DRAWER 7, Y5N ONE ×3 (02:13→21:41)
[2017-10-29] MEDS ORDERED: DEXTROSE 5%-WATER - 50 ML IVPB ONE ×4 (02:13→21:39)
[2017-10-29] MEDS ORDERED: PIPERACILLIN/TAZOBACTAM 2.25 GM VIAL IVPB ONE ×4 (02:13→21:39)
[2017-10-29] MEDS: CLINDAMYCIN 300 MG PREMIX IVPB 300 MG/50 ML BAG IVPB SCH ×4 (03:20→21:00)
[2017-10-29] MEDS: PIPERACILLIN/TAZOB 2.25 GM 2.25 GM in DEXTROSE 5%-WATER - 50 ML IVPB SCH ×4 (03:24→21:46)
[2017-10-29] MEDS: GLIMEPIRIDE 4 MG TABLET (FP) PO SCH ×2 (06:19→16:32)
[2017-10-29] MEDS: INSULIN SLIDING SCALE (NOVOLOG) 1 VIAL SQ SCH ×4 (06:20→21:47)
[2017-10-29 07:40] LABS: BASO % 0.6 % (0-2.0); EOS % 3.1 % (0-4.5); HEMATOCRIT 23.3 % (35.4-49); HEMOGLOBIN 7.6 GM/dL (11.7-16.9); LYMPH % 6.1 % (8-40); MCH 23.8 pg (25.7-33.7); MCHC 32.6 g/dl (32.0-35.9); MEAN CELL VOLUME 73.1 fl (80-96); MEAN PLT VOLUME 8.8 fl (7.5-11.1); MONO % 9.4 % (3.8-10.2); NEUT % 80.8 % (42.8-82.8); PLATELET COUNT 138 K/MM3 (134-434); RBC 3.18 M/mm3 (4.00-5.60); RDW 21.8 % (11.9-15.9); WHITE BLOOD COUNT 6.3 K/mm3 (4.0-10.0)
[2017-10-29 08:03] LABS: ALBUMIN 2.2 g/dl (3.4-5.0); ANION GAP 7 (8-16); BILIRUBIN,TOTAL 1.2 mg/dL (0.2-1.0); BLOOD UREA NITROGEN 67 mg/dL (7-18); CALCIUM 7.9 mg/dL (8.5-10.1); CHLORIDE 105 mmol/L (98-107); CO2 24 mmol/L (21-32); GLUCOSE,RANDOM 92 mg/dL (74-106); POTASSIUM 4.4 mmol/L (3.5-5.1); SGOT/AST 25 U/L (15-37); SGPT/ALT 21 U/L (12-78); SODIUM 136 mmol/L (136-145)
[2017-10-29 08:04] LABS: ALK PHOS 121 U/L (45-117); TOT PROT 7.1 g/dl (6.4-8.2)
[2017-10-29] MEDS: LACTOBACILLUS ACIDOPHILUS 1 TABLET PO SCH (10:03)
[2017-10-29] MEDS: PANTOPRAZOLE 40 MG TABLET (FP) PO SCH ×2 (10:03→21:46)
[2017-10-29] MEDS: FUROSEMIDE 40 MG TABLET (FP) PO SCH (10:04)
[2017-10-29] MEDS: CARVEDILOL 6.25 MG TABLET (FP) PO SCH ×2 (10:04→21:46)
[2017-10-29] MEDS: POLYETHYLENE GLYCOL 3350 119 GM BTL PO SCH (10:04)
--- NOTE | 2017-10-29 10:28 | PN ---
Progress Note, Physician Chief Complaint: C/O inability to make a fist for past many months, No new complaints, denies any melena or BRB per rectum no c/o Dizziness History of Present Illness: 56 yrs old man morbidly obese, T2DM, uncontrolled , CKD, LIGHT/ Cirrhosis, Portal HTN, Esophageal and Duodenal varicies s/p band ligation, chronic LEANNE and thrombocytopenia, B/L LE venous stasis ulcer presently admitted with severe anemia due to recurrent GI bleed and Rt 3rd toe gangrene s/p amputation s/p during this hospitalization, received PRBC transfusion last EGD was in 06/2017. H/H stable. - Current Medication List Current Medications: Active Medications Acetaminophen (Tylenol -) 650 mg PO Q4H PRN PRN Reason: PAIN LEVEL 1-5 Last Admin: 10/28/17 09:50 Dose: 650 mg Carvedilol (Coreg -) 6.25 mg PO BID [facility] Last Admin: 10/29/17 10:04 Dose: 6.25 mg Collagenase (Santyl -) 1 applic TP DAILY [facility] Last Admin: 10/28/17 10:32 Dose: 1 applic Furosemide (Lasix -) 40 mg PO DAILY [facility] Last Admin: 10/29/17 10:04 Dose: 40 mg Glimepiride (Amaryl -) 4 mg PO BIDI [facility] Last Admin: 10/29/17 06:19 Dose: 4 mg Clindamycin Phosphate (Cleocin 300 Mg Premix Ivpb) 300 mg in 50 mls @ 100 mls/ hr IVPB Q6H-IV [facility]; Protocol Last Admin: 10/29/17 03:20 Dose: 100 mls/hr Piperacillin Sod/Tazobactam (Sod 2.25 gm/ Dextrose) 50 mls @ 100 mls/hr IVPB Q6H-IV [facility]; Protocol Last Admin: 10/29/17 10:04 Dose: 100 mls/hr Insulin Aspart (Novolog Vial Sliding Scale -) 1 vial SQ ACHS [facility]; Protocol Last Admin: 10/29/17 06:20 Dose: Not Given Lactobacillus Acidophilus (Bacid -) 1 tab PO DAILY [facility] Last Admin: 10/29/17 10:03 Dose: 1 tab Pantoprazole Sodium (Protonix -) 40 mg PO BID [facility] Last Admin: 10/29/17 10:03 Dose: 40 mg Polyethylene Glycol (Miralax (For Daily Use) -) 17 gm PO DAILY [facility] Last Admin: 10/29/17 10:04 Dose: 17 gm - Objective Vital Signs: Vital Signs Temperature 98.6 F 10/29/17 06:00 Pulse Rate 66 10/29/17 06:00 Respiratory Rate 20 10/29/17 06:00 Blood Pressure 117/57 10/29/17 06:00 O2 Sat by Pulse Oximetry (%) 99 10/28/17 20:24 Constitutional:No Distress, Calm, Obese HENT: Atraumatic, Normocephalic. No: Drooling, Epistaxis Neck: Supple, Trachea Midline. No: Decreased ROM, Lymphadenopathy Cardiovascular: Regular Rate and Rhythm, S1, S2. No: JVD, Murmur Respiratory: Yes: Regular, CTA Bilaterally Gastrointestinal: : Normal Bowel Sounds, Soft, Abdomen, Obese. No: Ascites, Distention, Hematemesis, Tenderness Musculoskeletal: B/L both hand thickened palm facia, inability to make a fist, No: Back Pain, Joint Stiffness, Joint Swelling Extremities: Yes: Other (B/L Chronic Venous stasis ulcer Rt 3rd toe amputation Edema: RUE: 2+, LLE: 1+ Peripheral Pulses: Difficult to palpate capillary circulation +. Wound/Incision: Yes: Dressing Dry and Intact Neurological: Yes: Alert, Oriented. No: Asterixis, Ataxia, Motor Strength: WNL , LUE, LLE, RUE, RLE Labs: CBC, BMP 10/29/17 06:35 10/29/17 06:35 INR, PTT INR 1.33 (0.82-1.09) H 10/25/17 09:56 Problem List - Problems (1) Cellulitis of right anterior lower leg Assessment/Plan: Cont current abx Zosyn and Clindamycin F/U ID recommendations , wound culture grew Staph Auerus, enterococci and Morganella cultures. Code(s): L03.115 - CELLULITIS OF RIGHT LOWER LIMB (2) Diabetic wet gangrene of the foot Assessment/Plan: S/P Rt 3rd toe amputation F/U Cultures. Code(s): E11.52 - TYPE 2 DIABETES W DIABETIC PERIPHERAL ANGIOPATHY W GANGRENE (3) Anemia due to blood loss, acute Assessment/Plan: Sever anemia due to upper GI blood loss s/p transfusion H/h stable. (4) Portal hypertensive gastropathy Assessment/Plan: on PPI H/O Esophageal varicose ligation. Code(s): K76.6 - PORTAL HYPERTENSION; K31.89 - OTHER DISEASES OF STOMACH AND DUODENUM (5) T2DM (type 2 diabetes mellitus) Assessment/Plan: On Glipizise and correction dose insulin HBA1C 6.9 optimize Glycemic control. Code(s): E11.9 - TYPE 2 DIABETES MELLITUS WITHOUT COMPLICATIONS Qualifiers: Chronic kidney disease stage: stage 3 (moderate) (6) Morbid obesity with BMI of 45.0-49.9, adult Assessment/Plan: Nutritional consult as out patient. Code(s): E66.01 - MORBID (SEVERE) OBESITY DUE TO EXCESS CALORIES; Z68.42 - BODY MASS INDEX (BMI) 45.0-49.9, ADULT (7) Cirrhosis Assessment/Plan: Due to LIGHT Portal HTN and Thrombocytopenia. cont current management. Code(s): K74.60 - UNSPECIFIED CIRRHOSIS OF LIVER Qualifiers: Ascites presence: with ascites (8) CKD (chronic kidney disease) Assessment/Plan: Due to Diabetic Nephropathy. Code(s): N18.9 - CHRONIC KIDNEY DISEASE, UNSPECIFIED Qualifiers: Chronic kidney disease stage: stage 3 (moderate) Qualified Code(s): N18.3 - Chronic kidney disease, stage 3 (moderate) (9) Hypertension Assessment/Plan: cont current management. Code(s): I10 - ESSENTIAL (PRIMARY) HYPERTENSION (10) Dupuytren contracture Assessment/Plan: B/L Plamar fascia thickening with inability to make afist, considering H/O DM and Cirrhosis possibility of Dupuytren contracture adv Physical therapy with ball and roller compression. Code(s): M72.0 - PALMAR FASCIAL FIBROMATOSIS [DUPUYTREN]
[2017-10-29] MEDS: COLLAGENASE CLOSTRIDIUM HIST. 30 GRAMS TUBE TP SCH (10:45)
--- NOTE | 2017-10-29 12:23 | PN ---
Progress Note, Physician History of Present Illness: Pt remains alert, afebrile. Denies any specific new complaints. - Current Medication List Current Medications: Active Medications Acetaminophen (Tylenol -) 650 mg PO Q4H PRN PRN Reason: PAIN LEVEL 1-5 Last Admin: 10/28/17 09:50 Dose: 650 mg Carvedilol (Coreg -) 6.25 mg PO BID [facility] Last Admin: 10/29/17 10:04 Dose: 6.25 mg Collagenase (Santyl -) 1 applic TP DAILY [facility] Last Admin: 10/29/17 10:45 Dose: 1 applic Furosemide (Lasix -) 40 mg PO DAILY [facility] Last Admin: 10/29/17 10:04 Dose: 40 mg Glimepiride (Amaryl -) 4 mg PO BIDI [facility] Last Admin: 10/29/17 06:19 Dose: 4 mg Clindamycin Phosphate (Cleocin 300 Mg Premix Ivpb) 300 mg in 50 mls @ 100 mls/ hr IVPB Q6H-IV [facility]; Protocol Last Admin: 10/29/17 10:45 Dose: 100 mls/hr Piperacillin Sod/Tazobactam (Sod 2.25 gm/ Dextrose) 50 mls @ 100 mls/hr IVPB Q6H-IV [facility]; Protocol Last Admin: 10/29/17 10:04 Dose: 100 mls/hr Insulin Aspart (Novolog Vial Sliding Scale -) 1 vial SQ ACHS [facility]; Protocol Last Admin: 10/29/17 11:27 Dose: Not Given Lactobacillus Acidophilus (Bacid -) 1 tab PO DAILY [facility] Last Admin: 10/29/17 10:03 Dose: 1 tab Pantoprazole Sodium (Protonix -) 40 mg PO BID [facility] Last Admin: 10/29/17 10:03 Dose: 40 mg Polyethylene Glycol (Miralax (For Daily Use) -) 17 gm PO DAILY [facility] Last Admin: 10/29/17 10:04 Dose: 17 gm - Objective Vital Signs: Vital Signs Temperature 98.6 F 10/29/17 06:00 Pulse Rate 66 10/29/17 06:00 Respiratory Rate 20 10/29/17 06:00 Blood Pressure 117/57 10/29/17 06:00 O2 Sat by Pulse Oximetry (%) 99 10/28/17 20:24 Constitutional: Yes: No Distress Cardiovascular: Yes: Regular Rate and Rhythm Respiratory: Yes: Regular Gastrointestinal: Yes: Normal Bowel Sounds, Abdomen, Obese Extremities: Yes: Amputation (LE toe amputaion) Edema: Yes (b/l LE) Wound/Incision: Yes: Sutures Intact, Dressing Removed (clear drainage, no pus/ malodor) Neurological: Yes: Alert, Oriented Labs: CBC, BMP 10/29/17 06:35 10/29/17 06:35 INR, PTT INR 1.33 (0.82-1.09) H 10/25/17 09:56 Microbiology 10/26/17 09:27 Foot - Right Gram Stain - Final 10/26/17 09:27 Foot - Right Wound Culture - Preliminary Staphylococcus Aureus Morganella Morganii Enterococcus Faecalis Pending Organism 10/25/17 09:56 Blood - Peripheral Venous Blood Culture - Preliminary NO GROWTH OBTAINED AFTER 96 HOURS, INCUBATION TO CONTINUE FOR 1 DAYS. 10/25/17 09:56 Blood - Peripheral Venous Blood Culture - Preliminary NO GROWTH OBTAINED AFTER 96 HOURS, INCUBATION TO CONTINUE FOR 1 DAYS. Problem List - Problems (1) Anemia Code(s): D64.9 - ANEMIA, UNSPECIFIED Qualifiers: Anemia type: other cause Other causes of anemia: acute posthemorrhagic Qualified Code(s): D62 - Acute posthemorrhagic anemia (2) Ascites Code(s): R18.8 - OTHER ASCITES (3) CKD (chronic kidney disease) Code(s): N18.9 - CHRONIC KIDNEY DISEASE, UNSPECIFIED Qualifiers: Chronic kidney disease stage: stage 3 (moderate) Qualified Code(s): N18.3 - Chronic kidney disease, stage 3 (moderate) (4) Diabetic wet gangrene of the foot Code(s): E11.52 - TYPE 2 DIABETES W DIABETIC PERIPHERAL ANGIOPATHY W GANGRENE (5) Diabetes mellitus Code(s): E11.9 - TYPE 2 DIABETES MELLITUS WITHOUT COMPLICATIONS Qualifiers: Diabetes mellitus type: type 2 Diabetes mellitus terminal computer operator insulin use: without terminal computer operator use Diabetes mellitus complication status: with skin complications Diabetes mellitus complication detail: with other skin ulcer Qualified Code(s): E11.622 - Type 2 diabetes mellitus with other skin ulcer (6) Hypertension Code(s): I10 - ESSENTIAL (PRIMARY) HYPERTENSION (7) Venous (peripheral) insufficiency Code(s): I87.2 - VENOUS INSUFFICIENCY (CHRONIC) (PERIPHERAL) (8) Venous stasis ulcer of left ankle with fat layer exposed Code(s): I83.023 - VARICOSE VEINS OF LEFT LOWER EXTREMITY WITH ULCER OF ANKLE; L97.322 - NON-PRESSURE CHRONIC ULCER OF LEFT ANKLE W FAT LAYER EXPOSED (9) Cirrhosis Code(s): K74.60 - UNSPECIFIED CIRRHOSIS OF LIVER Qualifiers: Ascites presence: with ascites Assessment/Plan Rt toe wet gangrene s/p amputation POD#3 DM CKD PVD Cirrhosis Anemia -- continue IV antibiotics -- continue wound care -- continue monitor esr, order crp
--- NOTE | 2017-10-29 14:06 | PN ---
GI Progress Note Subjective: GI NOte: Ambulating to bathroom. Complaining of pain in hand joints and inability to clench a fist. His left 5th digit is warm but not exquisitely trender as would be expected with gout. Will consult decorating machine tender - Objective Vital Signs: Vital Signs Temperature 98.6 F 10/29/17 10:00 Pulse Rate 66 10/29/17 10:00 Respiratory Rate 20 10/29/17 10:00 Blood Pressure 117/57 10/29/17 10:00 O2 Sat by Pulse Oximetry (%) 99 10/29/17 10:00 Laboratory Tests 10/26/17 10/27/17 10/28/17 06:00 17:45 06:10 Hgb 8.2 L 7.7 L ESR C-Reactive Protein 9.6 H 10/28/17 10/28/17 10/29/17 06:10 16:15 06:35 Hgb 8.1 L 7.6 L ESR C-Reactive Protein 14.0 H 10/29/17 06:35 Hgb ESR 64 H C-Reactive Protein Constitutional: Calm ...Auscultate: Yes: Normoactive Bowel Sounds ...Palpate: Yes: Soft, Other (nontender) Extremities: Yes: Other (swollen hands with warm left 5th digit) Labs: CBC, BMP 10/29/17 06:35 10/29/17 06:35 INR, PTT INR 1.33 (0.82-1.09) H 10/25/17 09:56 Problem List - Problems (1) Anemia Assessment/Plan: Not clear that anemia is all GI blood loss. Will prep for enteroscopy and colonoscopy on 10/31. Code(s): D64.9 - ANEMIA, UNSPECIFIED Qualifiers: Anemia type: other cause Other causes of anemia: acute posthemorrhagic Qualified Code(s): D62 - Acute posthemorrhagic anemia (2) Ascites Code(s): R18.8 - OTHER ASCITES (3) Colon polyp, hyperplastic Code(s): K63.5 - POLYP OF COLON (4) Diverticula of colon Code(s): K57.30 - DVRTCLOS OF LG INT W/O PERFORATION OR ABSCESS W/O BLEEDING (5) Varices of small intestine Code(s): I86.8 - VARICOSE VEINS OF OTHER SPECIFIED SITES (6) Portal hypertensive gastropathy Code(s): K76.6 - PORTAL HYPERTENSION; K31.89 - OTHER DISEASES OF STOMACH AND DUODENUM (7) GI bleed Code(s): K92.2 - GASTROINTESTINAL HEMORRHAGE, UNSPECIFIED Qualifiers: GI bleed type/associated pathology: unspecified gastrointestinal hemorrhage type Qualified Code(s): K92.2 - Gastrointestinal hemorrhage, unspecified (8) Cirrhosis Code(s): K74.60 - UNSPECIFIED CIRRHOSIS OF LIVER Qualifiers: Ascites presence: with ascites (9) Arthritis of both hands Code(s): M19.041 - PRIMARY OSTEOARTHRITIS, RIGHT HAND; M19.042 - PRIMARY OSTEOARTHRITIS, LEFT HAND
[2017-10-30] MEDS ORDERED: DEXTROSE 5%-WATER - 50 ML IVPB ONE ×4 (00:02→20:25)
[2017-10-30] MEDS ORDERED: PT OWN MED DRAWER 7, Y5N ONE ×3 (00:02→20:25)
[2017-10-30] MEDS ORDERED: PIPERACILLIN/TAZOBACTAM 2.25 GM VIAL IVPB ONE ×4 (00:02→20:25)
[2017-10-30] MEDS: CLINDAMYCIN 300 MG PREMIX IVPB 300 MG/50 ML BAG IVPB SCH ×4 (02:30→20:32)
[2017-10-30] MEDS: PIPERACILLIN/TAZOB 2.25 GM 2.25 GM in DEXTROSE 5%-WATER - 50 ML IVPB SCH ×4 (02:54→21:38)
[2017-10-30] MEDS: INSULIN SLIDING SCALE (NOVOLOG) 1 VIAL SQ SCH ×4 (06:13→21:42)
[2017-10-30] MEDS: GLIMEPIRIDE 4 MG TABLET (FP) PO SCH ×2 (06:13→15:31)
[2017-10-30 07:46] LABS: ANION GAP 8 (8-16); BLOOD UREA NITROGEN 65 mg/dL (7-18); CALCIUM 7.8 mg/dL (8.5-10.1); CHLORIDE 107 mmol/L (98-107); CO2 23 mmol/L (21-32); GLUCOSE,RANDOM 97 mg/dL (74-106); POTASSIUM 4.5 mmol/L (3.5-5.1); SODIUM 138 mmol/L (136-145)
[2017-10-30 07:48] LABS: CREATININE 1.9 mg/dL (0.7-1.3)
[2017-10-30 07:53] LABS: URIC ACID 11.8 mg/dL (2.6-7.2)
[2017-10-30 07:57] LABS: BASO % 0.9 % (0-2.0); EOS % 4.4 % (0-4.5); HEMATOCRIT 24.1 % (35.4-49); HEMOGLOBIN 7.7 GM/dL (11.7-16.9); LYMPH % 6.3 % (8-40); MCH 23.3 pg (25.7-33.7); MCHC 31.8 g/dl (32.0-35.9); MEAN CELL VOLUME 73.1 fl (80-96); MEAN PLT VOLUME 8.6 fl (7.5-11.1); MONO % 8.9 % (3.8-10.2); NEUT % 79.5 % (42.8-82.8); PLATELET COUNT 157 K/MM3 (134-434); RBC 3.29 M/mm3 (4.00-5.60); RDW 21.5 % (11.9-15.9); WHITE BLOOD COUNT 5.1 K/mm3 (4.0-10.0)
[2017-10-30] MEDS ORDERED: PEG3350/SOD SULF,BICARB,CL/KCL 4,000 ML SOLN.RECON PO ONE (09:00)
[2017-10-30] MEDS: POLYETHYLENE GLYCOL 3350 119 GM BTL PO SCH (10:19)
[2017-10-30] MEDS: PANTOPRAZOLE 40 MG TABLET (FP) PO SCH ×2 (10:19→21:38)
[2017-10-30] MEDS: FUROSEMIDE 40 MG TABLET (FP) PO SCH (10:19)
[2017-10-30] MEDS: LACTOBACILLUS ACIDOPHILUS 1 TABLET PO SCH (10:19)
[2017-10-30] MEDS: CARVEDILOL 6.25 MG TABLET (FP) PO SCH ×2 (10:19→21:38)
[2017-10-30] MEDS: COLLAGENASE CLOSTRIDIUM HIST. 30 GRAMS TUBE TP SCH (10:20)
--- NOTE | 2017-10-30 10:42 | PN ---
Progress Note, Physician Chief Complaint: Mr Apodaca is without complaint. No cp, sob, n/v. No pain, being prepped for colonoscopy. - Current Medication List Current Medications: Active Medications Acetaminophen (Tylenol -) 650 mg PO Q4H PRN PRN Reason: PAIN LEVEL 1-5 Last Admin: 10/28/17 09:50 Dose: 650 mg Bisacodyl (Dulcolax -) 20 mg PO ONCE ONE Stop: 10/30/17 18:01 Carvedilol (Coreg -) 6.25 mg PO BID [facility] Last Admin: 10/30/17 10:19 Dose: 6.25 mg Collagenase (Santyl -) 1 applic TP DAILY [facility] Last Admin: 10/30/17 10:20 Dose: 1 applic Furosemide (Lasix -) 40 mg PO DAILY [facility] Last Admin: 10/30/17 10:19 Dose: 40 mg Glimepiride (Amaryl -) 4 mg PO BIDI [facility] Last Admin: 10/30/17 06:13 Dose: 4 mg Clindamycin Phosphate (Cleocin 300 Mg Premix Ivpb) 300 mg in 50 mls @ 100 mls/ hr IVPB Q6H-IV [facility]; Protocol Last Admin: 10/30/17 10:19 Dose: 100 mls/hr Piperacillin Sod/Tazobactam (Sod 2.25 gm/ Dextrose) 50 mls @ 100 mls/hr IVPB Q6H-IV [facility]; Protocol Last Admin: 10/30/17 02:54 Dose: 100 mls/hr Insulin Aspart (Novolog Vial Sliding Scale -) 1 vial SQ ACHS [facility]; Protocol Last Admin: 10/30/17 06:13 Dose: Not Given Lactobacillus Acidophilus (Bacid -) 1 tab PO DAILY [facility] Last Admin: 10/30/17 10:19 Dose: 1 tab Pantoprazole Sodium (Protonix -) 40 mg PO BID [facility] Last Admin: 10/30/17 10:19 Dose: 40 mg Polyethylene Glycol (Miralax (For Daily Use) -) 17 gm PO DAILY [facility] Last Admin: 10/30/17 10:19 Dose: 17 gm - Objective Vital Signs: Vital Signs Temperature 36.8 C 10/30/17 09:11 Pulse Rate 71 10/30/17 09:11 Respiratory Rate 18 10/30/17 09:11 Blood Pressure 103/69 10/30/17 09:11 O2 Sat by Pulse Oximetry (%) 99 10/29/17 21:00 Constitutional: Yes: No Distress, Calm, Obese Cardiovascular: Yes: Regular Rate and Rhythm. No: Gallop, Murmur, Rub Respiratory: Yes: Regular, CTA Bilaterally. No: Rales, Rhonchi, Wheezes Gastrointestinal: Yes: Normal Bowel Sounds, Soft. No: Distention, Tenderness Extremities: Yes: Other (RLE wrapped) Edema: No Labs: CBC, BMP 10/30/17 06:38 10/30/17 06:38 INR, PTT INR 1.33 (0.82-1.09) H 10/25/17 09:56 Problem List - Problems (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 Code(s): E11.52 - TYPE 2 DIABETES W DIABETIC PERIPHERAL ANGIOPATHY W GANGRENE (2) Anemia Code(s): D64.9 - ANEMIA, UNSPECIFIED Qualifiers: Anemia type: other cause Other causes of anemia: acute posthemorrhagic Qualified Code(s): D62 - Acute posthemorrhagic anemia (3) CKD (chronic kidney disease) Code(s): N18.9 - CHRONIC KIDNEY DISEASE, UNSPECIFIED Qualifiers: Chronic kidney disease stage: stage 3 (moderate) Qualified Code(s): N18.3 - Chronic kidney disease, stage 3 (moderate) (4) GI bleed Code(s): K92.2 - GASTROINTESTINAL HEMORRHAGE, UNSPECIFIED Qualifiers: GI bleed type/associated pathology: unspecified gastrointestinal hemorrhage type Qualified Code(s): K92.2 - Gastrointestinal hemorrhage, unspecified (5) Cirrhosis Code(s): K74.60 - UNSPECIFIED CIRRHOSIS OF LIVER Qualifiers: Ascites presence: with ascites (6) Diabetes mellitus Code(s): E11.9 - TYPE 2 DIABETES MELLITUS WITHOUT COMPLICATIONS Qualifiers: Diabetes mellitus type: type 2 Diabetes mellitus longwall headgate operator insulin use: without penitentiary use Diabetes mellitus complication status: with skin complications Diabetes mellitus complication detail: with other skin ulcer Qualified Code(s): E11.622 - Type 2 diabetes mellitus with other skin ulcer (7) Hypertension Code(s): I10 - ESSENTIAL (PRIMARY) HYPERTENSION (8) LIGHT (nonalcoholic steatohepatitis) Code(s): K75.81 - NONALCOHOLIC STEATOHEPATITIS (LIGHT) Assessment/Plan (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 Assessment/Plan: -appreciate vascular surgery assistance -s/p amputation -on clindamycin and zosyn -case d/w Dr [place], to evaluate today to see if needs longwall headgate operator IV antibiotics for osteomyelitis -vascular surgery following Code(s): E11.52 - TYPE 2 DIABETES W DIABETIC PERIPHERAL ANGIOPATHY W GANGRENE (2) Anemia Assessment/Plan -s/p 4 units -stable Code(s): D64.9 - ANEMIA, UNSPECIFIED Qualifiers: Anemia type: other cause Other causes of anemia: acute posthemorrhagic Qualified Code(s): D62 - Acute posthemorrhagic anemia (3) CKD (chronic kidney disease) Assessment/Plan: -secondary to diabetes -at baseline -monitor Code(s): N18.9 - CHRONIC KIDNEY DISEASE, UNSPECIFIED Qualifiers: Chronic kidney disease stage: stage 4 (severe) Qualified Code(s): N18.4 - Chronic kidney disease, stage 4 (severe) (4) GI bleed Assessment/Plan: -agree with colonoscopy, to be performed tomorrow Code(s): K92.2 - GASTROINTESTINAL HEMORRHAGE, UNSPECIFIED (5) Cirrhosis Assessment/Plan: -stable Code(s): K74.60 - UNSPECIFIED CIRRHOSIS OF LIVER (6) Diabetes mellitus Assessment/Plan: -continue amaryl -diabetic diet -FSBS and SSI -HgbA1c 6.9 Code(s): E11.9 - TYPE 2 DIABETES MELLITUS WITHOUT COMPLICATIONS Qualifiers: Diabetes mellitus type: type 2 Diabetes mellitus longwall headgate operator insulin use: without longwall headgate operator use Diabetes mellitus complication status: with skin complications Diabetes mellitus complication detail: with other skin ulcer Qualified Code(s): E11.622 - Type 2 diabetes mellitus with other skin ulcer (7) Hypertension Assessment/Plan: -continue coreg and lasix -monitor Code(s): I10 - ESSENTIAL (PRIMARY) HYPERTENSION (8) LIGHT (nonalcoholic steatohepatitis) Assessment/Plan: -stable Code(s): K75.81 - NONALCOHOLIC STEATOHEPATITIS (LIGHT)
--- NOTE | 2017-10-30 12:47 | PN ---
Progress Note, Physician History of Present Illness: stable doing well no issues all cx reports noted - Current Medication List Current Medications: Active Medications Acetaminophen (Tylenol -) 650 mg PO Q4H PRN PRN Reason: PAIN LEVEL 1-5 Last Admin: 10/28/17 09:50 Dose: 650 mg Bisacodyl (Dulcolax -) 20 mg PO ONCE ONE Stop: 10/30/17 18:01 Carvedilol (Coreg -) 6.25 mg PO BID [facility] Last Admin: 10/30/17 10:19 Dose: 6.25 mg Collagenase (Santyl -) 1 applic TP DAILY [facility] Last Admin: 10/30/17 10:20 Dose: 1 applic Furosemide (Lasix -) 40 mg PO DAILY [facility] Last Admin: 10/30/17 10:19 Dose: 40 mg Glimepiride (Amaryl -) 4 mg PO BIDI [facility] Last Admin: 10/30/17 06:13 Dose: 4 mg Clindamycin Phosphate (Cleocin 300 Mg Premix Ivpb) 300 mg in 50 mls @ 100 mls/ hr IVPB Q6H-IV [facility]; Protocol Last Admin: 10/30/17 10:19 Dose: 100 mls/hr Piperacillin Sod/Tazobactam (Sod 2.25 gm/ Dextrose) 50 mls @ 100 mls/hr IVPB Q6H-IV [facility]; Protocol Last Admin: 10/30/17 02:54 Dose: 100 mls/hr Insulin Aspart (Novolog Vial Sliding Scale -) 1 vial SQ ACHS [facility]; Protocol Last Admin: 10/30/17 06:13 Dose: Not Given Lactobacillus Acidophilus (Bacid -) 1 tab PO DAILY [facility] Last Admin: 10/30/17 10:19 Dose: 1 tab Pantoprazole Sodium (Protonix -) 40 mg PO BID [facility] Last Admin: 10/30/17 10:19 Dose: 40 mg Polyethylene Glycol (Miralax (For Daily Use) -) 17 gm PO DAILY [facility] Last Admin: 10/30/17 10:19 Dose: 17 gm - Objective Vital Signs: Vital Signs Temperature 98.2 F 10/30/17 09:11 Pulse Rate 71 10/30/17 09:11 Respiratory Rate 18 10/30/17 09:11 Blood Pressure 103/69 10/30/17 09:11 O2 Sat by Pulse Oximetry (%) 99 10/29/17 21:00 Constitutional: Yes: No Distress, Calm Cardiovascular: Yes: Regular Rate and Rhythm Respiratory: Yes: Regular, CTA Bilaterally Gastrointestinal: Yes: Normal Bowel Sounds, Soft Musculoskeletal: Yes: Other Extremities: Yes: Other Wound/Incision: Yes: Dressing Dry and Intact Neurological: Yes: Alert, Oriented Psychiatric: Yes: Alert, Oriented Labs: CBC, BMP 10/30/17 06:38 10/30/17 06:38 INR, PTT INR 1.33 (0.82-1.09) H 10/25/17 09:56 Assessment/Plan Problem List - Problems (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 Code(s): E11.52 - TYPE 2 DIABETES W DIABETIC PERIPHERAL ANGIOPATHY W GANGRENE (2) Anemia Code(s): D64.9 - ANEMIA, UNSPECIFIED Qualifiers: Anemia type: other cause Other causes of anemia: acute posthemorrhagic Qualified Code(s): D62 - Acute posthemorrhagic anemia (3) CKD (chronic kidney disease) Code(s): N18.9 - CHRONIC KIDNEY DISEASE, UNSPECIFIED Qualifiers: Chronic kidney disease stage: stage 4 (severe) Qualified Code(s): N18.4 - Chronic kidney disease, stage 4 (severe) (4) GI bleed Code(s): K92.2 - GASTROINTESTINAL HEMORRHAGE, UNSPECIFIED (5) Cirrhosis Code(s): K74.60 - UNSPECIFIED CIRRHOSIS OF LIVER (6) Diabetes mellitus Code(s): E11.9 - TYPE 2 DIABETES MELLITUS WITHOUT COMPLICATIONS Qualifiers: Diabetes mellitus type: type 2 Diabetes mellitus custodial insulin use: without custodial use Diabetes mellitus complication status: with skin complications Diabetes mellitus complication detail: with other skin ulcer Qualified Code(s): E11.622 - Type 2 diabetes mellitus with other skin ulcer (7) Hypertension Code(s): I10 - ESSENTIAL (PRIMARY) HYPERTENSION (8) LIGHT (nonalcoholic steatohepatitis) Code(s): K75.81 - NONALCOHOLIC STEATOHEPATITIS (LIGHT) plan continue current mgmt continue abx will need it for couple of weeks wound care avoid scratching rest continue as per the team
--- NOTE | 2017-10-30 14:47 | CONSULT ---
Consult Consult Specialty:: Rheumatology - History of Present Illness History of Present Illness: 56 year old male, with a significant past medical history of anemia, HTN, diabetes, cirrhosis with portal hypertension, varices, ascites and thrombocytopenia (2o to LIGHT?), chronic kidney disease, MRSA, and recent admission for bilateral lower extremity cellulitis, admitted with gangrenous necrosis and osteomyelitis of the right 3rd toe that was amputated on 10/26/17. In the hospital the patient was found to have arthritis in hands, mainly in the left 3 rd PIP. HPI. The patient is a poor historian. Apparently he had an episode of gout 8 years ago. Two months ago he developed pain in the left 5th finger and yesterday he developed diffuse swelling I n the right hand and significant pain in the right 2nd finger. Laboratory work-up revealed creatinine of 1.9, ESR 64, uric acid 11.8. On : ANCA, myeloperoxidase, proteinase-3 and glomerular basal membrane antibody were all negative - History Source History Provided By: Patient, Medical Record Limitations to Obtaining History: Poor Historian - Past Medical History Cardio/Vascular: Yes: HTN Gastrointestinal: Yes: Diverticulosis, Esophageal Varices, Other (Duodenal varices) Hepatobiliary: Yes: Other (LIGHT with cirrhosis) Renal/: Yes: Renal Inusuff Infectious Disease: Yes: MRSA Endocrine: Yes: Diabetes Mellitus, Other (Morbid obesity) Dermatology: Yes: Cellulitis Additional Medical History: perineal abscess - Past Surgical History Past Surgical History: Yes: Tonsillectomy Additional Surgical History: Multiple perineal abscess I&Ds. Perianal fistulectomy for recurrent anal fistulae. Amputation middle right toe (today) - Alcohol/Substance Use Hx Alcohol Use: No History of Substance Use: reports: None - Smoking History Smoking history: Never smoked Have you smoked in the past 12 months: No Aproximately how many cigarettes per day: 0 - Social History Usual Living Arrangement: Other (with sister) ADL: Independent Occupation: works for [employer] in [employer] History of Recent Travel: No Home Medications - Allergies Allergies/Adverse Reactions: Allergies Allergy/AdvReac Type Severity Reaction Status Date / Time No Known Allergies Allergy Verified 10/25/17 09:31 - Home Medications Home Medications: Ambulatory Orders Furosemide [Lasix -] 40 mg PO DAILY 08/06/13 Glimepiride [Amaryl] 4 mg PO BID 08/06/13 Carvedilol [Coreg -] 6.25 mg PO BID #0 tablet 08/12/13 Lactobacillus Acidophilus [Bacid -] 1 each PO DAILY #14 tab 10/23/14 Silver Sulfadiazine [Silvadene] 85 gm TP DAILY #1 cream..g. 02/24/17 Triamcinolone 0.1% Ointment [Aristocort 0.1% Ointment -] 1 applic TP BID #1 tube 06/28/17 Vit B12/Pyridoxine/Thiamine 1 tab PO WEEKLY 10/26/17 Family Disease History - Family Disease History Family Disease History: Diabetes: Sister (thyroid disease), Heart Disease: Mother (parkinsons, of [place]), [place]: Father (prostate cancer), Other: Mother, Sister Review of Systems - Review of Systems Constitutional: reports: Malaise Eyes: reports: No Symptoms HENT: reports: No Symptoms Neck: reports: No Symptoms Cardiovascular: reports: No Symptoms Respiratory: reports: No Symptoms Gastrointestinal: reports: No Symptoms Musculoskeletal: reports: Other (See HPI) Physical Exam Vital Signs: Vital Signs Temperature 97.8 F 10/30/17 13:45 Pulse Rate 63 10/30/17 13:45 Respiratory Rate 16 10/30/17 13:45 Blood Pressure 132/67 10/30/17 13:45 O2 Sat by Pulse Oximetry (%) 99 10/29/17 21:00 Constitutional: Yes: Moderate Distress Eyes: Yes: WNL HENT: Yes: WNL Neck: Yes: WNL Cardiovascular: Yes: WNL Respiratory: Yes: WNL Musculoskeletal: Yes: Other (In the right hand there was diffuse puffiness in the dorsum ofthe hand. All PIPs were swollen and hehad severe tenderness in the 2nd PIP. In the left hand all PIPs were swollen and he had severe tenderness in the 5th PIP.) Labs: CBC, BMP 10/30/17 06:38 10/30/17 06:38 Laboratory Tests 10/29/17 10/30/17 06:35 06:38 ESR 64 H Uric Acid 11.8 H Problem List - Problems (1) Gouty arthritis Assessment/Plan: Probable acute polyarticular gouty arthritis. Chronic renal disease. Plan: As per discussion with Dr. Wu, I will start Prednisone 40 mg/d for 3 days then taper down and discontinue. As outpatient he will require Uloric. Code(s): M10.9 - GOUT, UNSPECIFIED
[2017-10-30] MEDS: predniSONE 20 MG TABLET (UD) PO SCH (15:31)
[2017-10-30] MEDS ORDERED: BISACODYL 5 MG TABLET.DR (FP) PO ONE (18:00)
[2017-10-31] MEDS ORDERED: PT OWN MED DRAWER 7, Y5N ONE ×3 (02:11→21:57)
[2017-10-31] MEDS ORDERED: PIPERACILLIN/TAZOBACTAM 2.25 GM VIAL IVPB ONE ×4 (02:11→21:57)
[2017-10-31] MEDS ORDERED: DEXTROSE 5%-WATER - 50 ML IVPB ONE ×4 (02:12→21:57)
[2017-10-31] MEDS: CLINDAMYCIN 300 MG PREMIX IVPB 300 MG/50 ML BAG IVPB SCH ×4 (02:15→21:59)
[2017-10-31] MEDS: PIPERACILLIN/TAZOB 2.25 GM 2.25 GM in DEXTROSE 5%-WATER - 50 ML IVPB SCH ×4 (03:18→21:59)
[2017-10-31] MEDS: INSULIN SLIDING SCALE (NOVOLOG) 1 VIAL SQ SCH ×4 (06:10→22:37)
[2017-10-31] MEDS: GLIMEPIRIDE 4 MG TABLET (FP) PO SCH ×2 (06:10→15:32)
[2017-10-31 07:21] LABS: BASO % 0.5 % (0-2.0); EOS % 0.6 % (0-4.5); HEMATOCRIT 25.5 % (35.4-49); HEMOGLOBIN 8.1 GM/dL (11.7-16.9); MCH 23.4 pg (25.7-33.7); MCHC 31.8 g/dl (32.0-35.9); MEAN CELL VOLUME 73.6 fl (80-96); MEAN PLT VOLUME 8.7 fl (7.5-11.1); MONO % 5.8 % (3.8-10.2); NEUT % 86.1 % (42.8-82.8); PLATELET COUNT 157 K/MM3 (134-434); RBC 3.47 M/mm3 (4.00-5.60); RDW 21.8 % (11.9-15.9); WHITE BLOOD COUNT 4.5 K/mm3 (4.0-10.0)
[2017-10-31 07:56] LABS: CHLORIDE 106 mmol/L (98-107); POTASSIUM 4.6 mmol/L (3.5-5.1); SODIUM 137 mmol/L (136-145)
[2017-10-31 08:26] LABS: ANION GAP 9 (8-16); BLOOD UREA NITROGEN 61 mg/dL (7-18); CALCIUM 7.9 mg/dL (8.5-10.1); CO2 22 mmol/L (21-32); CREATININE 1.8 mg/dL (0.7-1.3); GLUCOSE,RANDOM 156 mg/dL (74-106); MAGNESIUM 2.4 mg/dL (1.8-2.4); PHOSPHOROUS 3.8 mg/dL (2.5-4.9)
[2017-10-31] MEDS: FUROSEMIDE 40 MG TABLET (FP) PO SCH (10:09)
[2017-10-31] MEDS: LACTOBACILLUS ACIDOPHILUS 1 TABLET PO SCH (10:09)
[2017-10-31] MEDS: PANTOPRAZOLE 40 MG TABLET (FP) PO SCH (10:09)
[2017-10-31] MEDS: predniSONE 20 MG TABLET (UD) PO SCH (10:09)
[2017-10-31] MEDS: CARVEDILOL 6.25 MG TABLET (FP) PO SCH ×2 (10:11→21:59)
--- NOTE | 2017-10-31 12:15 | PN ---
Progress Note (short form) - Note Progress Note: pod #5. no pain. vss. +dressing clean dry and intact, wbc=4.5, retention sutures intact, -drainage, - mal odor, esr=64 normal post op infection of foot Betadine dressing applied to be applied by nursing. removed by me.. Santyl dressings to all other wounds except foot. will follow.
[2017-10-31] MEDS: COLLAGENASE CLOSTRIDIUM HIST. 30 GRAMS TUBE TP SCH (12:30)
--- NOTE | 2017-10-31 12:40 | PN ---
Progress Note, Physician Chief Complaint: Mr Apodaca says he is doing well. No cp, sob, n/v. - Current Medication List Current Medications: Active Medications Acetaminophen (Tylenol -) 650 mg PO Q4H PRN PRN Reason: PAIN LEVEL 1-5 Last Admin: 10/28/17 09:50 Dose: 650 mg Carvedilol (Coreg -) 6.25 mg PO BID [facility] Last Admin: 10/31/17 10:11 Dose: 6.25 mg Collagenase (Santyl -) 1 applic TP DAILY [facility] Last Admin: 10/30/17 10:20 Dose: 1 applic Furosemide (Lasix -) 40 mg PO DAILY [facility] Last Admin: 10/31/17 10:09 Dose: 40 mg Glimepiride (Amaryl -) 4 mg PO BIDI [facility] Last Admin: 10/31/17 06:10 Dose: Not Given Clindamycin Phosphate (Cleocin 300 Mg Premix Ivpb) 300 mg in 50 mls @ 100 mls/ hr IVPB Q6H-IV [facility]; Protocol Last Admin: 10/31/17 10:11 Dose: 100 mls/hr Piperacillin Sod/Tazobactam (Sod 2.25 gm/ Dextrose) 50 mls @ 100 mls/hr IVPB Q6H-IV [facility]; Protocol Last Admin: 10/31/17 11:11 Dose: 100 mls/hr Insulin Aspart (Novolog Vial Sliding Scale -) 1 vial SQ ACHS [facility]; Protocol Last Admin: 10/31/17 11:22 Dose: Not Given Lactobacillus Acidophilus (Bacid -) 1 tab PO DAILY [facility] Last Admin: 10/31/17 10:09 Dose: 1 tab Pantoprazole Sodium (Protonix -) 40 mg PO BID [facility] Last Admin: 10/31/17 10:09 Dose: 40 mg Polyethylene Glycol (Miralax (For Daily Use) -) 17 gm PO DAILY [facility] Last Admin: 10/30/17 10:19 Dose: 17 gm Prednisone (Deltasone -) 40 mg PO DAILY [facility] Last Admin: 10/31/17 10:09 Dose: 40 mg - Objective Vital Signs: Vital Signs Temperature 36.2 C L 10/31/17 06:00 Pulse Rate 62 10/31/17 06:00 Respiratory Rate 20 10/31/17 06:00 Blood Pressure 121/52 10/31/17 06:00 O2 Sat by Pulse Oximetry (%) 98 10/30/17 21:00 Constitutional: Yes: No Distress, Calm, Obese Cardiovascular: Yes: Regular Rate and Rhythm. No: Gallop, Murmur, Rub Respiratory: Yes: Regular, CTA Bilaterally. No: Rales, Rhonchi, Wheezes Gastrointestinal: Yes: Normal Bowel Sounds, Soft. No: Distention, Tenderness Extremities: Yes: Other (R foot wrapped) Edema: No Labs: CBC, BMP 10/31/17 06:31 10/31/17 06:31 INR, PTT INR 1.33 (0.82-1.09) H 10/25/17 09:56 Problem List - Problems (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 Code(s): E11.52 - TYPE 2 DIABETES W DIABETIC PERIPHERAL ANGIOPATHY W GANGRENE (2) Anemia Code(s): D64.9 - ANEMIA, UNSPECIFIED Qualifiers: Anemia type: other cause Other causes of anemia: acute posthemorrhagic Qualified Code(s): D62 - Acute posthemorrhagic anemia (3) CKD (chronic kidney disease) Code(s): N18.9 - CHRONIC KIDNEY DISEASE, UNSPECIFIED Qualifiers: Chronic kidney disease stage: stage 3 (moderate) Qualified Code(s): N18.3 - Chronic kidney disease, stage 3 (moderate) (4) GI bleed Code(s): K92.2 - GASTROINTESTINAL HEMORRHAGE, UNSPECIFIED Qualifiers: GI bleed type/associated pathology: unspecified gastrointestinal hemorrhage type Qualified Code(s): K92.2 - Gastrointestinal hemorrhage, unspecified (5) Cirrhosis Code(s): K74.60 - UNSPECIFIED CIRRHOSIS OF LIVER Qualifiers: Ascites presence: with ascites (6) Diabetes mellitus Code(s): E11.9 - TYPE 2 DIABETES MELLITUS WITHOUT COMPLICATIONS Qualifiers: Diabetes mellitus type: type 2 Diabetes mellitus chcf insulin use: without intermodal customer service use Diabetes mellitus complication status: with skin complications Diabetes mellitus complication detail: with other skin ulcer Qualified Code(s): E11.622 - Type 2 diabetes mellitus with other skin ulcer (7) Hypertension Code(s): I10 - ESSENTIAL (PRIMARY) HYPERTENSION (8) LIGHT (nonalcoholic steatohepatitis) Code(s): K75.81 - NONALCOHOLIC STEATOHEPATITIS (LIGHT) Assessment/Plan (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 Assessment/Plan: -appreciate vascular surgery assistance -s/p amputation -on clindamycin and zosyn -defer transition to oral antibiotics per Dr Birmingham Code(s): E11.52 - TYPE 2 DIABETES W DIABETIC PERIPHERAL ANGIOPATHY W GANGRENE (2) Anemia Assessment/Plan -s/p 4 units -stable Code(s): D64.9 - ANEMIA, UNSPECIFIED Qualifiers: Anemia type: other cause Other causes of anemia: acute posthemorrhagic Qualified Code(s): D62 - Acute posthemorrhagic anemia (3) CKD (chronic kidney disease) Assessment/Plan: -secondary to diabetes -at baseline -monitor Code(s): N18.9 - CHRONIC KIDNEY DISEASE, UNSPECIFIED Qualifiers: Chronic kidney disease stage: stage 4 (severe) Qualified Code(s): N18.4 - Chronic kidney disease, stage 4 (severe) (4) GI bleed Assessment/Plan: -plan for colonoscopy today Code(s): K92.2 - GASTROINTESTINAL HEMORRHAGE, UNSPECIFIED (5) Cirrhosis Assessment/Plan: -stable Code(s): K74.60 - UNSPECIFIED CIRRHOSIS OF LIVER (6) Diabetes mellitus Assessment/Plan: -continue amaryl -diabetic diet -FSBS and SSI -HgbA1c 6.9 Code(s): E11.9 - TYPE 2 DIABETES MELLITUS WITHOUT COMPLICATIONS Qualifiers: Diabetes mellitus type: type 2 Diabetes mellitus chcf insulin use: without chcf use Diabetes mellitus complication status: with skin complications Diabetes mellitus complication detail: with other skin ulcer Qualified Code(s): E11.622 - Type 2 diabetes mellitus with other skin ulcer (7) Hypertension Assessment/Plan: -continue coreg and lasix -monitor Code(s): I10 - ESSENTIAL (PRIMARY) HYPERTENSION (8) LIGHT (nonalcoholic steatohepatitis) Assessment/Plan: -stable Code(s): K75.81 - NONALCOHOLIC STEATOHEPATITIS (LIGHT)
[2017-10-31] MEDS: POLYETHYLENE GLYCOL 3350 119 GM BTL PO SCH (12:43)
[2017-10-31] MEDS ORDERED: KETAMINE HCL 500 MG/10 ML VIAL ONE (13:37)
[2017-10-31] MEDS ORDERED: PROPOFOL 20 ML ONE (13:37)
[2017-10-31] MEDS ORDERED: MIDAZOLAM HCL 2 MG/2 ML SINGLE DOSE VIAL ONE (13:37)
[2017-10-31] MEDS ORDERED: GLYCOPYRROLATE 0.2 MG/1 ML VIAL ONE (13:38)
--- NOTE | 2017-10-31 15:02 | PN ---
Progress Note (short form) - Note Progress Note: GI Procedures NOte: Please see scanned enteroscopy and colonoscopy reports. Duodenal varices were again seen but there was no active bleeding or stigmata of recent bleeding. NO source for anemia found. Consider hematology consultation. No GI objections to discharge but would maintain miralax one a day. Problem List - Problems (1) Anemia Code(s): D64.9 - ANEMIA, UNSPECIFIED Qualifiers: Anemia type: other cause Other causes of anemia: acute posthemorrhagic Qualified Code(s): D62 - Acute posthemorrhagic anemia (2) Ascites Code(s): R18.8 - OTHER ASCITES (3) Colon polyp, hyperplastic Code(s): K63.5 - POLYP OF COLON (4) Diverticula of colon Code(s): K57.30 - DVRTCLOS OF LG INT W/O PERFORATION OR ABSCESS W/O BLEEDING (5) Varices of small intestine Code(s): I86.8 - VARICOSE VEINS OF OTHER SPECIFIED SITES (6) Portal hypertensive gastropathy Code(s): K76.6 - PORTAL HYPERTENSION; K31.89 - OTHER DISEASES OF STOMACH AND DUODENUM (7) GI bleed Code(s): K92.2 - GASTROINTESTINAL HEMORRHAGE, UNSPECIFIED Qualifiers: GI bleed type/associated pathology: unspecified gastrointestinal hemorrhage type Qualified Code(s): K92.2 - Gastrointestinal hemorrhage, unspecified (8) Cirrhosis Code(s): K74.60 - UNSPECIFIED CIRRHOSIS OF LIVER Qualifiers: Ascites presence: with ascites (9) Arthritis of both hands Code(s): M19.041 - PRIMARY OSTEOARTHRITIS, RIGHT HAND; M19.042 - PRIMARY OSTEOARTHRITIS, LEFT HAND
--- NOTE | 2017-10-31 15:15 | PN ---
Progress Note, Physician History of Present Illness: stable doing well no issues all cx reports noted rheum on case - Current Medication List Current Medications: Active Medications Acetaminophen (Tylenol -) 650 mg PO Q4H PRN PRN Reason: PAIN LEVEL 1-5 Last Admin: 10/28/17 09:50 Dose: 650 mg Carvedilol (Coreg -) 6.25 mg PO BID [facility] Last Admin: 10/31/17 10:11 Dose: 6.25 mg Collagenase (Santyl -) 1 applic TP DAILY [facility] Last Admin: 10/30/17 10:20 Dose: 1 applic Furosemide (Lasix -) 40 mg PO DAILY [facility] Last Admin: 10/31/17 10:09 Dose: 40 mg Glimepiride (Amaryl -) 4 mg PO BIDI [facility] Last Admin: 10/31/17 06:10 Dose: Not Given Clindamycin Phosphate (Cleocin 300 Mg Premix Ivpb) 300 mg in 50 mls @ 100 mls/ hr IVPB Q6H-IV [facility]; Protocol Last Admin: 10/31/17 10:11 Dose: 100 mls/hr Piperacillin Sod/Tazobactam (Sod 2.25 gm/ Dextrose) 50 mls @ 100 mls/hr IVPB Q6H-IV [facility]; Protocol Last Admin: 10/31/17 11:11 Dose: 100 mls/hr Insulin Aspart (Novolog Vial Sliding Scale -) 1 vial SQ ACHS [facility]; Protocol Last Admin: 10/31/17 11:22 Dose: Not Given Lactobacillus Acidophilus (Bacid -) 1 tab PO DAILY [facility] Last Admin: 10/31/17 10:09 Dose: 1 tab Pantoprazole Sodium (Protonix -) 40 mg PO BID [facility] Last Admin: 10/31/17 10:09 Dose: 40 mg Polyethylene Glycol (Miralax (For Daily Use) -) 17 gm PO DAILY [facility] Last Admin: 10/31/17 12:43 Dose: Not Given Prednisone (Deltasone -) 40 mg PO DAILY [facility] Last Admin: 10/31/17 10:09 Dose: 40 mg - Objective Vital Signs: Vital Signs Temperature 97.5 F L 10/31/17 14:17 Pulse Rate 61 10/31/17 15:02 Respiratory Rate 17 10/31/17 15:02 Blood Pressure 138/77 10/31/17 15:02 O2 Sat by Pulse Oximetry (%) 100 10/31/17 15:02 Constitutional: Yes: No Distress, Calm Cardiovascular: Yes: Regular Rate and Rhythm Respiratory: Yes: Regular, On Nasal O2 Gastrointestinal: Yes: Normal Bowel Sounds, Soft Musculoskeletal: Yes: WNL Extremities: Yes: Other Wound/Incision: Yes: Dressing Dry and Intact Neurological: Yes: Alert, Oriented Psychiatric: Yes: Alert, Oriented Labs: CBC, BMP 10/31/17 06:31 10/31/17 06:31 INR, PTT INR 1.33 (0.82-1.09) H 10/25/17 09:56 Assessment/Plan Problem List - Problems (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 Code(s): E11.52 - TYPE 2 DIABETES W DIABETIC PERIPHERAL ANGIOPATHY W GANGRENE (2) Anemia Code(s): D64.9 - ANEMIA, UNSPECIFIED Qualifiers: Anemia type: other cause Other causes of anemia: acute posthemorrhagic Qualified Code(s): D62 - Acute posthemorrhagic anemia (3) CKD (chronic kidney disease) Code(s): N18.9 - CHRONIC KIDNEY DISEASE, UNSPECIFIED Qualifiers: Chronic kidney disease stage: stage 4 (severe) Qualified Code(s): N18.4 - Chronic kidney disease, stage 4 (severe) (4) GI bleed Code(s): K92.2 - GASTROINTESTINAL HEMORRHAGE, UNSPECIFIED (5) Cirrhosis Code(s): K74.60 - UNSPECIFIED CIRRHOSIS OF LIVER (6) Diabetes mellitus Code(s): E11.9 - TYPE 2 DIABETES MELLITUS WITHOUT COMPLICATIONS Qualifiers: Diabetes mellitus type: type 2 Diabetes mellitus [employer] insulin use: without [facility] use Diabetes mellitus complication status: with skin complications Diabetes mellitus complication detail: with other skin ulcer Qualified Code(s): E11.622 - Type 2 diabetes mellitus with other skin ulcer (7) Hypertension Code(s): I10 - ESSENTIAL (PRIMARY) HYPERTENSION (8) LIGHT (nonalcoholic steatohepatitis) Code(s): K75.81 - NONALCOHOLIC STEATOHEPATITIS (LIGHT) plan continue current mgmt continue abx will need it for couple of weeks wound care avoid scratching rest continue as per the team
[2017-11-01] MEDS ORDERED: PIPERACILLIN/TAZOBACTAM 2.25 GM VIAL IVPB ONE ×4 (02:24→20:25)
[2017-11-01] MEDS ORDERED: PT OWN MED DRAWER 7, Y5N ONE ×4 (02:24→21:25)
[2017-11-01] MEDS ORDERED: DEXTROSE 5%-WATER - 50 ML IVPB ONE ×4 (02:25→20:25)
[2017-11-01] MEDS: CLINDAMYCIN 300 MG PREMIX IVPB 300 MG/50 ML BAG IVPB SCH ×4 (02:59→21:50)
[2017-11-01] MEDS: PIPERACILLIN/TAZOB 2.25 GM 2.25 GM in DEXTROSE 5%-WATER - 50 ML IVPB SCH ×4 (03:00→20:43)
[2017-11-01] MEDS: INSULIN SLIDING SCALE (NOVOLOG) 1 VIAL SQ SCH ×4 (06:13→21:49)
[2017-11-01 06:32] LABS: BASO % 0.8 % (0-2.0); EOS % 2.2 % (0-4.5); HEMATOCRIT 26.4 % (35.4-49); HEMOGLOBIN 8.4 GM/dL (11.7-16.9); LYMPH % 10.7 % (8-40); MCH 23.4 pg (25.7-33.7); MCHC 31.7 g/dl (32.0-35.9); MEAN CELL VOLUME 73.7 fl (80-96); MEAN PLT VOLUME 7.9 fl (7.5-11.1); MONO % 6.9 % (3.8-10.2); NEUT % 79.4 % (42.8-82.8); PLATELET COUNT 176 K/MM3 (134-434); RBC 3.58 M/mm3 (4.00-5.60); RDW 21.4 % (11.9-15.9); WHITE BLOOD COUNT 4.9 K/mm3 (4.0-10.0)
[2017-11-01] MEDS: GLIMEPIRIDE 4 MG TABLET (FP) PO SCH ×2 (06:54→16:32)
[2017-11-01 07:01] LABS: CHLORIDE 106 mmol/L (98-107); POTASSIUM 4.6 mmol/L (3.5-5.1); SODIUM 139 mmol/L (136-145)
[2017-11-01 07:08] LABS: ANION GAP 10 (8-16); BLOOD UREA NITROGEN 65 mg/dL (7-18); CALCIUM 7.9 mg/dL (8.5-10.1); CO2 23 mmol/L (21-32); CREATININE 1.9 mg/dL (0.7-1.3); GLUCOSE,RANDOM 154 mg/dL (74-106); MAGNESIUM 2.5 mg/dL (1.8-2.4); PHOSPHOROUS 3.9 mg/dL (2.5-4.9)
[2017-11-01] MEDS: predniSONE 20 MG TABLET (UD) PO SCH (09:18)
[2017-11-01] MEDS: PANTOPRAZOLE 40 MG TABLET (FP) PO SCH (09:19)
[2017-11-01] MEDS: FUROSEMIDE 40 MG TABLET (FP) PO SCH (09:19)
[2017-11-01] MEDS: LACTOBACILLUS ACIDOPHILUS 1 TABLET PO SCH (09:19)
[2017-11-01] MEDS: CARVEDILOL 6.25 MG TABLET (FP) PO SCH ×2 (09:19→21:49)
[2017-11-01] MEDS: POLYETHYLENE GLYCOL 3350 119 GM BTL PO SCH (10:55)
--- NOTE | 2017-11-01 11:22 | PN ---
GI Progress Note Subjective: GI NOte: No adverse reactions to endoscopies. NO bleeding. Not diuresing. Will start Aldactone. If tolerated then may need to increase lasix dose. Will need to observe carefully to avoid hepatorenal syndrome. - Objective Vital Signs: Vital Signs Temperature 98.9 F 11/01/17 06:00 Pulse Rate 65 11/01/17 06:00 Respiratory Rate 20 11/01/17 06:00 Blood Pressure 132/70 11/01/17 06:00 O2 Sat by Pulse Oximetry (%) 96 10/31/17 21:00 Laboratory Tests 10/25/17 10/29/17 10/31/17 09:56 06:35 06:31 BUN 57 H 67 H Creatinine 2.0 H 1.8 H 11/01/17 06:00 BUN 65 H Creatinine 1.9 H Constitutional: No Distress Gastrointestinal Inspection: Yes: Other (abdominal wall edema noted) ...Auscultate: Yes: Normoactive Bowel Sounds ...Palpate: Yes: Soft, Other (nontender) Edema: Yes Edema: LUE: 3+ (up to thighs), RUE: 3+ (up to thighs) Labs: CBC, BMP 11/01/17 06:00 11/01/17 06:00 INR, PTT INR 1.33 (0.82-1.09) H 10/25/17 09:56 Problem List - Problems (1) Anemia Code(s): D64.9 - ANEMIA, UNSPECIFIED Qualifiers: Anemia type: other cause Other causes of anemia: acute posthemorrhagic Qualified Code(s): D62 - Acute posthemorrhagic anemia (2) Ascites Assessment/Plan: Ascites minimal but has lower extremity and abdominal wall edema. Aldactone started Code(s): R18.8 - OTHER ASCITES (3) Colon polyp, hyperplastic Code(s): K63.5 - POLYP OF COLON (4) Diverticula of colon Code(s): K57.30 - DVRTCLOS OF LG INT W/O PERFORATION OR ABSCESS W/O BLEEDING (5) Varices of small intestine Code(s): I86.8 - VARICOSE VEINS OF OTHER SPECIFIED SITES (6) Portal hypertensive gastropathy Code(s): K76.6 - PORTAL HYPERTENSION; K31.89 - OTHER DISEASES OF STOMACH AND DUODENUM (7) GI bleed Code(s): K92.2 - GASTROINTESTINAL HEMORRHAGE, UNSPECIFIED Qualifiers: GI bleed type/associated pathology: unspecified gastrointestinal hemorrhage type Qualified Code(s): K92.2 - Gastrointestinal hemorrhage, unspecified (8) Cirrhosis Code(s): K74.60 - UNSPECIFIED CIRRHOSIS OF LIVER Qualifiers: Ascites presence: with ascites (9) Arthritis of both hands Code(s): M19.041 - PRIMARY OSTEOARTHRITIS, RIGHT HAND; M19.042 - PRIMARY OSTEOARTHRITIS, LEFT HAND
[2017-11-01] MEDS: COLLAGENASE CLOSTRIDIUM HIST. 30 GRAMS TUBE TP SCH (14:35)
--- NOTE | 2017-11-01 16:06 | PN ---
Progress Note, Physician Chief Complaint: Mr Apodaac is without complaint. No cp, sob, n/v. - Current Medication List Current Medications: Active Medications Acetaminophen (Tylenol -) 650 mg PO Q4H PRN PRN Reason: PAIN LEVEL 1-5 Last Admin: 10/28/17 09:50 Dose: 650 mg Carvedilol (Coreg -) 6.25 mg PO BID [facility] Last Admin: 11/01/17 09:19 Dose: 6.25 mg Collagenase (Santyl -) 1 applic TP DAILY [facility] Last Admin: 11/01/17 14:35 Dose: 1 applic Furosemide (Lasix -) 40 mg PO DAILY [facility] Last Admin: 11/01/17 09:19 Dose: 40 mg Glimepiride (Amaryl -) 4 mg PO BIDI [facility] Last Admin: 11/01/17 06:54 Dose: 4 mg Clindamycin Phosphate (Cleocin 300 Mg Premix Ivpb) 300 mg in 50 mls @ 100 mls/ hr IVPB Q6H-IV [facility]; Protocol Last Admin: 11/01/17 14:30 Dose: 100 mls/hr Piperacillin Sod/Tazobactam (Sod 2.25 gm/ Dextrose) 50 mls @ 100 mls/hr IVPB Q6H-IV [facility]; Protocol Last Admin: 11/01/17 14:31 Dose: 100 mls/hr Insulin Aspart (Novolog Vial Sliding Scale -) 1 vial SQ ACHS [facility]; Protocol Last Admin: 11/01/17 10:55 Dose: Not Given Lactobacillus Acidophilus (Bacid -) 1 tab PO DAILY [facility] Last Admin: 11/01/17 09:19 Dose: 1 tab Pantoprazole Sodium (Protonix -) 40 mg PO DAILY [facility] Last Admin: 11/01/17 09:19 Dose: 40 mg Polyethylene Glycol (Miralax (For Daily Use) -) 17 gm PO DAILY [facility] Last Admin: 11/01/17 10:55 Dose: Not Given Prednisone (Deltasone -) 40 mg PO DAILY [facility] Last Admin: 11/01/17 09:18 Dose: 40 mg Spironolactone (Aldactone -) 25 mg PO BID [facility] - Objective Vital Signs: Vital Signs Temperature 36.6 C 11/01/17 14:10 Pulse Rate 60 11/01/17 14:10 Respiratory Rate 18 11/01/17 14:10 Blood Pressure 120/66 11/01/17 14:10 O2 Sat by Pulse Oximetry (%) 98 11/01/17 13:07 Constitutional: Yes: No Distress, Calm, Obese Cardiovascular: Yes: Regular Rate and Rhythm. No: Gallop, Murmur, Rub Respiratory: Yes: Regular, CTA Bilaterally. No: Rales, Rhonchi, Wheezes Gastrointestinal: Yes: Normal Bowel Sounds, Soft. 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 Code(s): E11.52 - TYPE 2 DIABETES W DIABETIC PERIPHERAL ANGIOPATHY W GANGRENE (2) Anemia Code(s): D64.9 - ANEMIA, UNSPECIFIED Qualifiers: Anemia type: other cause Other causes of anemia: acute posthemorrhagic Qualified Code(s): D62 - Acute posthemorrhagic anemia (3) CKD (chronic kidney disease) Code(s): N18.9 - CHRONIC KIDNEY DISEASE, UNSPECIFIED Qualifiers: Chronic kidney disease stage: stage 3 (moderate) Qualified Code(s): N18.3 - Chronic kidney disease, stage 3 (moderate) (4) GI bleed Code(s): K92.2 - GASTROINTESTINAL HEMORRHAGE, UNSPECIFIED Qualifiers: GI bleed type/associated pathology: unspecified gastrointestinal hemorrhage type Qualified Code(s): K92.2 - Gastrointestinal hemorrhage, unspecified (5) Cirrhosis Code(s): K74.60 - UNSPECIFIED CIRRHOSIS OF LIVER Qualifiers: Ascites presence: with ascites (6) Diabetes mellitus Code(s): E11.9 - TYPE 2 DIABETES MELLITUS WITHOUT COMPLICATIONS Qualifiers: Diabetes mellitus type: type 2 Diabetes mellitus fpc insulin use: without watermelon harvesting supervisor use Diabetes mellitus complication status: with skin complications Diabetes mellitus complication detail: with other skin ulcer Qualified Code(s): E11.622 - Type 2 diabetes mellitus with other skin ulcer (7) Hypertension Code(s): I10 - ESSENTIAL (PRIMARY) HYPERTENSION (8) LIGHT (nonalcoholic steatohepatitis) Code(s): K75.81 - NONALCOHOLIC STEATOHEPATITIS (LIGHT) Assessment/Plan (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 Assessment/Plan: -appreciate vascular surgery assistance -s/p amputation -on clindamycin and zosyn -Dr Birmingham to determine length of IV antibiotics, may need full course secondary to osteomyelitis Code(s): E11.52 - TYPE 2 DIABETES W DIABETIC PERIPHERAL ANGIOPATHY W GANGRENE (2) Anemia Assessment/Plan -s/p 4 units -stable Code(s): D64.9 - ANEMIA, UNSPECIFIED Qualifiers: Anemia type: other cause Other causes of anemia: acute posthemorrhagic Qualified Code(s): D62 - Acute posthemorrhagic anemia (3) CKD (chronic kidney disease) Assessment/Plan: -secondary to diabetes -at baseline -monitor Code(s): N18.9 - CHRONIC KIDNEY DISEASE, UNSPECIFIED Qualifiers: Chronic kidney disease stage: stage 4 (severe) Qualified Code(s): N18.4 - Chronic kidney disease, stage 4 (severe) (4) GI bleed Assessment/Plan: -s/p colonoscopy Code(s): K92.2 - GASTROINTESTINAL HEMORRHAGE, UNSPECIFIED (5) Cirrhosis Assessment/Plan: -stable Code(s): K74.60 - UNSPECIFIED CIRRHOSIS OF LIVER (6) Diabetes mellitus Assessment/Plan: -continue amaryl -diabetic diet -FSBS and SSI -HgbA1c 6.9 Code(s): E11.9 - TYPE 2 DIABETES MELLITUS WITHOUT COMPLICATIONS Qualifiers: Diabetes mellitus type: type 2 Diabetes mellitus fpc insulin use: without watermelon harvesting supervisor use Diabetes mellitus complication status: with skin complications Diabetes mellitus complication detail: with other skin ulcer Qualified Code(s): E11.622 - Type 2 diabetes mellitus with other skin ulcer (7) Hypertension Assessment/Plan: -continue coreg and lasix -monitor Code(s): I10 - ESSENTIAL (PRIMARY) HYPERTENSION (8) LIGHT (nonalcoholic steatohepatitis) Assessment/Plan: -stable Code(s): K75.81 - NONALCOHOLIC STEATOHEPATITIS (LIGHT)
--- NOTE | 2017-11-01 16:17 | PN ---
Progress Note, Physician History of Present Illness: stable doing well no issues all cx reports noted rheum plan noted - Current Medication List Current Medications: Active Medications Acetaminophen (Tylenol -) 650 mg PO Q4H PRN PRN Reason: PAIN LEVEL 1-5 Last Admin: 10/28/17 09:50 Dose: 650 mg Carvedilol (Coreg -) 6.25 mg PO BID [facility] Last Admin: 11/01/17 09:19 Dose: 6.25 mg Collagenase (Santyl -) 1 applic TP DAILY [facility] Last Admin: 11/01/17 14:35 Dose: 1 applic Furosemide (Lasix -) 40 mg PO DAILY [facility] Last Admin: 11/01/17 09:19 Dose: 40 mg Glimepiride (Amaryl -) 4 mg PO BIDI [facility] Last Admin: 11/01/17 06:54 Dose: 4 mg Clindamycin Phosphate (Cleocin 300 Mg Premix Ivpb) 300 mg in 50 mls @ 100 mls/ hr IVPB Q6H-IV [facility]; Protocol Last Admin: 11/01/17 14:30 Dose: 100 mls/hr Piperacillin Sod/Tazobactam (Sod 2.25 gm/ Dextrose) 50 mls @ 100 mls/hr IVPB Q6H-IV [facility]; Protocol Last Admin: 11/01/17 14:31 Dose: 100 mls/hr Insulin Aspart (Novolog Vial Sliding Scale -) 1 vial SQ ACHS [facility]; Protocol Last Admin: 11/01/17 10:55 Dose: Not Given Lactobacillus Acidophilus (Bacid -) 1 tab PO DAILY [facility] Last Admin: 11/01/17 09:19 Dose: 1 tab Pantoprazole Sodium (Protonix -) 40 mg PO DAILY [facility] Last Admin: 11/01/17 09:19 Dose: 40 mg Polyethylene Glycol (Miralax (For Daily Use) -) 17 gm PO DAILY [facility] Last Admin: 11/01/17 10:55 Dose: Not Given Prednisone (Deltasone -) 40 mg PO DAILY [facility] Last Admin: 11/01/17 09:18 Dose: 40 mg Spironolactone (Aldactone -) 25 mg PO BID [facility] - Objective Vital Signs: Vital Signs Temperature 97.9 F 11/01/17 14:10 Pulse Rate 60 11/01/17 14:10 Respiratory Rate 18 11/01/17 14:10 Blood Pressure 120/66 11/01/17 14:10 O2 Sat by Pulse Oximetry (%) 98 11/01/17 13:07 Constitutional: Yes: No Distress, Calm, Obese Cardiovascular: Yes: Regular Rate and Rhythm Respiratory: Yes: Regular, CTA Bilaterally, On Nasal O2 Gastrointestinal: Yes: Normal Bowel Sounds, Soft Musculoskeletal: Yes: Other Extremities: Yes: Other Neurological: Yes: Alert, Oriented Psychiatric: Yes: Alert, Oriented Labs: CBC, BMP 11/01/17 06:00 11/01/17 06:00 INR, PTT INR 1.33 (0.82-1.09) H 10/25/17 09:56 Assessment/Plan Problem List - Problems (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 Code(s): E11.52 - TYPE 2 DIABETES W DIABETIC PERIPHERAL ANGIOPATHY W GANGRENE (2) Anemia Code(s): D64.9 - ANEMIA, UNSPECIFIED Qualifiers: Anemia type: other cause Other causes of anemia: acute posthemorrhagic Qualified Code(s): D62 - Acute posthemorrhagic anemia (3) CKD (chronic kidney disease) Code(s): N18.9 - CHRONIC KIDNEY DISEASE, UNSPECIFIED Qualifiers: Chronic kidney disease stage: stage 4 (severe) Qualified Code(s): N18.4 - Chronic kidney disease, stage 4 (severe) (4) GI bleed Code(s): K92.2 - GASTROINTESTINAL HEMORRHAGE, UNSPECIFIED (5) Cirrhosis Code(s): K74.60 - UNSPECIFIED CIRRHOSIS OF LIVER (6) Diabetes mellitus Code(s): E11.9 - TYPE 2 DIABETES MELLITUS WITHOUT COMPLICATIONS Qualifiers: Diabetes mellitus type: type 2 Diabetes mellitus mcfp insulin use: without mcfp use Diabetes mellitus complication status: with skin complications Diabetes mellitus complication detail: with other skin ulcer Qualified Code(s): E11.622 - Type 2 diabetes mellitus with other skin ulcer (7) Hypertension Code(s): I10 - ESSENTIAL (PRIMARY) HYPERTENSION (8) LIGHT (nonalcoholic steatohepatitis) Code(s): K75.81 - NONALCOHOLIC STEATOHEPATITIS (LIGHT) plan continue current mgmt continue abx will need it for couple of weeks wound care avoid scratching avoid skin tears rest continue as per the team
[2017-11-01] MEDS: SPIRONOLACTONE 25 MG TABLET (FP) PO SCH (21:50)
[2017-11-02] MEDS ORDERED: PIPERACILLIN/TAZOBACTAM 2.25 GM VIAL IVPB ONE ×2 (01:53→09:23)
[2017-11-02] MEDS ORDERED: DEXTROSE 5%-WATER - 50 ML IVPB ONE ×2 (01:53→09:23)
[2017-11-02] MEDS ORDERED: PT OWN MED DRAWER 7, Y5N ONE ×2 (01:55→09:24)
[2017-11-02 08:56] LABS: ANION GAP 6 (8-16); BLOOD UREA NITROGEN 66 mg/dL (7-18); CALCIUM 8.3 mg/dL (8.5-10.1); CHLORIDE 108 mmol/L (98-107); CO2 26 mmol/L (21-32); CREATININE 1.8 mg/dL (0.7-1.3); GLUCOSE,RANDOM 131 mg/dL (74-106); MAGNESIUM 2.5 mg/dL (1.8-2.4); PHOSPHOROUS 3.1 mg/dL (2.5-4.9); POTASSIUM 4.7 mmol/L (3.5-5.1); SODIUM 140 mmol/L (136-145)
[2017-11-02 09:02] LABS: BASO % 0.7 % (0-2.0); EOS % 1.5 % (0-4.5); HEMOGLOBIN 8.5 GM/dL (11.7-16.9); LYMPH % 10.2 % (8-40); MCH 23.1 pg (25.7-33.7); MCHC 31.6 g/dl (32.0-35.9); MEAN PLT VOLUME 8.2 fl (7.5-11.1); NEUT % 80.6 % (42.8-82.8); PLATELET COUNT 202 K/MM3 (134-434); RBC 3.69 M/mm3 (4.00-5.60); RDW 21.8 % (11.9-15.9); WHITE BLOOD COUNT 6.3 K/mm3 (4.0-10.0)
[2017-11-02 09:36] VITALS: TEMP 97.5
[2017-11-02] MEDS: PIPERACILLIN/TAZOB 2.25 GM 2.25 GM in DEXTROSE 5%-WATER - 50 ML IVPB SCH ×2 (09:37)
[2017-11-02] MEDS: CLINDAMYCIN 300 MG PREMIX IVPB 300 MG/50 ML BAG IVPB SCH ×2 (09:37→09:38)
[2017-11-02] MEDS: GLIMEPIRIDE 4 MG TABLET (FP) PO SCH (09:38)
[2017-11-02] MEDS: INSULIN SLIDING SCALE (NOVOLOG) 1 VIAL SQ SCH ×2 (09:38→12:52)
[2017-11-02] MEDS: SPIRONOLACTONE 25 MG TABLET (FP) PO SCH (09:39)
[2017-11-02] MEDS: predniSONE 20 MG TABLET (UD) PO SCH (09:39)
[2017-11-02] MEDS: CARVEDILOL 6.25 MG TABLET (FP) PO SCH (09:39)
[2017-11-02] MEDS: PANTOPRAZOLE 40 MG TABLET (FP) PO SCH (09:39)
[2017-11-02] MEDS: FUROSEMIDE 40 MG TABLET (FP) PO SCH (09:39)
[2017-11-02] MEDS: LACTOBACILLUS ACIDOPHILUS 1 TABLET PO SCH (09:40)
[2017-11-02] MEDS: COLLAGENASE CLOSTRIDIUM HIST. 30 GRAMS TUBE TP SCH (09:40)
[2017-11-02] MEDS: POLYETHYLENE GLYCOL 3350 119 GM BTL PO SCH (09:41)
[2017-11-02] MEDS ORDERED: SPIRONOLACTONE 25 MG TABLET (FP) PO SCH (10:00)
--- NOTE | 2017-11-02 11:54 | PN ---
Progress Note, Physician History of Present Illness: patient doing well picc line all results noted patient doing well - Current Medication List Current Medications: Active Medications Acetaminophen (Tylenol -) 650 mg PO Q4H PRN PRN Reason: PAIN LEVEL 1-5 Last Admin: 10/28/17 09:50 Dose: 650 mg Carvedilol (Coreg -) 6.25 mg PO BID [facility] Last Admin: 11/02/17 09:39 Dose: 6.25 mg Collagenase (Santyl -) 1 applic TP DAILY [facility] Last Admin: 11/02/17 09:40 Dose: 1 applic Furosemide (Lasix -) 40 mg PO DAILY [facility] Last Admin: 11/02/17 09:39 Dose: 40 mg Glimepiride (Amaryl -) 4 mg PO BIDI [facility] Last Admin: 11/02/17 09:38 Dose: Not Given Clindamycin Phosphate (Cleocin 300 Mg Premix Ivpb) 300 mg in 50 mls @ 100 mls/ hr IVPB Q6H-IV [facility]; Protocol Last Admin: 11/02/17 09:38 Dose: 100 mls/hr Piperacillin Sod/Tazobactam (Sod 2.25 gm/ Dextrose) 50 mls @ 100 mls/hr IVPB Q6H-IV [facility]; Protocol Last Admin: 11/02/17 09:37 Dose: 100 mls/hr Insulin Aspart (Novolog Vial Sliding Scale -) 1 vial SQ ACHS [facility]; Protocol Last Admin: 11/02/17 09:38 Dose: 2 units Lactobacillus Acidophilus (Bacid -) 1 tab PO DAILY [facility] Last Admin: 11/02/17 09:40 Dose: 1 tab Pantoprazole Sodium (Protonix -) 40 mg PO DAILY [facility] Last Admin: 11/02/17 09:39 Dose: 40 mg Polyethylene Glycol (Miralax (For Daily Use) -) 17 gm PO DAILY [facility] Last Admin: 11/02/17 09:41 Dose: Not Given Prednisone (Deltasone -) 40 mg PO DAILY [facility] Last Admin: 11/02/17 09:39 Dose: 40 mg Spironolactone (Aldactone -) 25 mg PO BID [facility] Last Admin: 11/02/17 09:39 Dose: 25 mg - Objective Vital Signs: Vital Signs Temperature 97.5 F L 11/02/17 09:36 Pulse Rate 60 11/02/17 09:36 Respiratory Rate 20 11/02/17 09:36 Blood Pressure 133/66 11/02/17 09:36 O2 Sat by Pulse Oximetry (%) 100 11/01/17 21:00 Constitutional: Yes: No Distress, Calm, Obese Cardiovascular: Yes: Regular Rate and Rhythm Gastrointestinal: Yes: Normal Bowel Sounds, Soft Musculoskeletal: Yes: WNL Extremities: Yes: WNL Integumentary: Yes: Skin Tear Wound/Incision: Yes: Dressing Dry and Intact Neurological: Yes: Alert, Oriented Psychiatric: Yes: Alert Labs: CBC, BMP 11/02/17 06:24 11/02/17 06:00 INR, PTT INR 1.33 (0.82-1.09) H 10/25/17 09:56 Assessment/Plan Problem List - Problems (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 Code(s): E11.52 - TYPE 2 DIABETES W DIABETIC PERIPHERAL ANGIOPATHY W GANGRENE (2) Anemia Code(s): D64.9 - ANEMIA, UNSPECIFIED Qualifiers: Anemia type: other cause Other causes of anemia: acute posthemorrhagic Qualified Code(s): D62 - Acute posthemorrhagic anemia (3) CKD (chronic kidney disease) Code(s): N18.9 - CHRONIC KIDNEY DISEASE, UNSPECIFIED Qualifiers: Chronic kidney disease stage: stage 4 (severe) Qualified Code(s): N18.4 - Chronic kidney disease, stage 4 (severe) (4) GI bleed Code(s): K92.2 - GASTROINTESTINAL HEMORRHAGE, UNSPECIFIED (5) Cirrhosis Code(s): K74.60 - UNSPECIFIED CIRRHOSIS OF LIVER (6) Diabetes mellitus Code(s): E11.9 - TYPE 2 DIABETES MELLITUS WITHOUT COMPLICATIONS Qualifiers: Diabetes mellitus type: type 2 Diabetes mellitus canary breeder insulin use: without senior care use Diabetes mellitus complication status: with skin complications Diabetes mellitus complication detail: with other skin ulcer Qualified Code(s): E11.622 - Type 2 diabetes mellitus with other skin ulcer (7) Hypertension Code(s): I10 - ESSENTIAL (PRIMARY) HYPERTENSION (8) LIGHT (nonalcoholic steatohepatitis) Code(s): K75.81 - NONALCOHOLIC STEATOHEPATITIS (LIGHT) plan continue current mgmt continue abx discussed wiht the primary team length of abx wound care avoid scratching avoid skin tears rest continue as per the team follow up wiht wound care
[2017-11-02] MEDS ORDERED: PICC LINE 8 ML FLUSH PROTOCOL IVPUSH PRN (11:58)
--- NOTE | 2017-11-02 13:30 | PN ---
Progress Note, Physician Chief Complaint: Mr Apodaca is without complaint. No cp, sob, n/v. - Current Medication List Current Medications: Active Medications Acetaminophen (Tylenol -) 650 mg PO Q4H PRN PRN Reason: PAIN LEVEL 1-5 Last Admin: 10/28/17 09:50 Dose: 650 mg Carvedilol (Coreg -) 6.25 mg PO BID [facility] Last Admin: 11/02/17 09:39 Dose: 6.25 mg Collagenase (Santyl -) 1 applic TP DAILY [facility] Last Admin: 11/02/17 09:40 Dose: 1 applic Furosemide (Lasix -) 40 mg PO DAILY [facility] Last Admin: 11/02/17 09:39 Dose: 40 mg Glimepiride (Amaryl -) 4 mg PO BIDI [facility] Last Admin: 11/02/17 09:38 Dose: Not Given IV Flush (Picc Line Flush) 8 ml IVPUSH PRN PRN PRN Reason: Protocol Clindamycin Phosphate (Cleocin 300 Mg Premix Ivpb) 300 mg in 50 mls @ 100 mls/ hr IVPB Q6H-IV [facility]; Protocol Last Admin: 11/02/17 09:38 Dose: 100 mls/hr Piperacillin Sod/Tazobactam (Sod 2.25 gm/ Dextrose) 50 mls @ 100 mls/hr IVPB Q6H-IV [facility]; Protocol Last Admin: 11/02/17 09:37 Dose: 100 mls/hr Insulin Aspart (Novolog Vial Sliding Scale -) 1 vial SQ ACHS [facility]; Protocol Last Admin: 11/02/17 12:52 Dose: Not Given Lactobacillus Acidophilus (Bacid -) 1 tab PO DAILY [facility] Last Admin: 11/02/17 09:40 Dose: 1 tab Pantoprazole Sodium (Protonix -) 40 mg PO DAILY [facility] Last Admin: 11/02/17 09:39 Dose: 40 mg Polyethylene Glycol (Miralax (For Daily Use) -) 17 gm PO DAILY [facility] Last Admin: 11/02/17 09:41 Dose: Not Given Prednisone (Deltasone -) 40 mg PO DAILY [facility] Last Admin: 11/02/17 09:39 Dose: 40 mg Spironolactone (Aldactone -) 25 mg PO BID [facility] Last Admin: 11/02/17 09:39 Dose: 25 mg - Objective Vital Signs: Vital Signs Temperature 36.4 C L 11/02/17 09:36 Pulse Rate 60 11/02/17 09:36 Respiratory Rate 20 11/02/17 09:36 Blood Pressure 133/66 11/02/17 09:36 O2 Sat by Pulse Oximetry (%) 100 11/02/17 09:00 Constitutional: Yes: No Distress, Calm, Obese Cardiovascular: Yes: Regular Rate and Rhythm. No: Gallop, Murmur, Rub Respiratory: Yes: Regular, CTA Bilaterally. No: Rales, Rhonchi, Wheezes Gastrointestinal: Yes: Normal Bowel Sounds, Soft. 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 Code(s): E11.52 - TYPE 2 DIABETES W DIABETIC PERIPHERAL ANGIOPATHY W GANGRENE (2) Anemia Code(s): D64.9 - ANEMIA, UNSPECIFIED Qualifiers: Anemia type: other cause Other causes of anemia: acute posthemorrhagic Qualified Code(s): D62 - Acute posthemorrhagic anemia (3) CKD (chronic kidney disease) Code(s): N18.9 - CHRONIC KIDNEY DISEASE, UNSPECIFIED Qualifiers: Chronic kidney disease stage: stage 3 (moderate) Qualified Code(s): N18.3 - Chronic kidney disease, stage 3 (moderate) (4) GI bleed Code(s): K92.2 - GASTROINTESTINAL HEMORRHAGE, UNSPECIFIED Qualifiers: GI bleed type/associated pathology: unspecified gastrointestinal hemorrhage type Qualified Code(s): K92.2 - Gastrointestinal hemorrhage, unspecified (5) Cirrhosis Code(s): K74.60 - UNSPECIFIED CIRRHOSIS OF LIVER Qualifiers: Ascites presence: with ascites (6) Diabetes mellitus Code(s): E11.9 - TYPE 2 DIABETES MELLITUS WITHOUT COMPLICATIONS Qualifiers: Diabetes mellitus type: type 2 Diabetes mellitus intermediate school teacher insulin use: without usp use Diabetes mellitus complication status: with skin complications Diabetes mellitus complication detail: with other skin ulcer Qualified Code(s): E11.622 - Type 2 diabetes mellitus with other skin ulcer (7) Hypertension Code(s): I10 - ESSENTIAL (PRIMARY) HYPERTENSION (8) LIGHT (nonalcoholic steatohepatitis) Code(s): K75.81 - NONALCOHOLIC STEATOHEPATITIS (LIGHT) Assessment/Plan (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 Assessment/Plan: -appreciate vascular surgery assistance -s/p amputation -continue zosyn for 13 more days per ID Code(s): E11.52 - TYPE 2 DIABETES W DIABETIC PERIPHERAL ANGIOPATHY W GANGRENE (2) Anemia Assessment/Plan -s/p 4 units -stable Code(s): D64.9 - ANEMIA, UNSPECIFIED Qualifiers: Anemia type: other cause Other causes of anemia: acute posthemorrhagic Qualified Code(s): D62 - Acute posthemorrhagic anemia (3) CKD (chronic kidney disease) Assessment/Plan: -secondary to diabetes -at baseline -monitor Code(s): N18.9 - CHRONIC KIDNEY DISEASE, UNSPECIFIED Qualifiers: Chronic kidney disease stage: stage 4 (severe) Qualified Code(s): N18.4 - Chronic kidney disease, stage 4 (severe) (4) GI bleed Assessment/Plan: -s/p colonoscopy Code(s): K92.2 - GASTROINTESTINAL HEMORRHAGE, UNSPECIFIED (5) Cirrhosis Assessment/Plan: -stable Code(s): K74.60 - UNSPECIFIED CIRRHOSIS OF LIVER (6) Diabetes mellitus Assessment/Plan: -continue amaryl -diabetic diet -FSBS and SSI -HgbA1c 6.9 Code(s): E11.9 - TYPE 2 DIABETES MELLITUS WITHOUT COMPLICATIONS Qualifiers: Diabetes mellitus type: type 2 Diabetes mellitus usp insulin use: without intermediate school teacher use Diabetes mellitus complication status: with skin complications Diabetes mellitus complication detail: with other skin ulcer Qualified Code(s): E11.622 - Type 2 diabetes mellitus with other skin ulcer (7) Hypertension Assessment/Plan: -continue coreg and lasix -aldactone also started this admission Code(s): I10 - ESSENTIAL (PRIMARY) HYPERTENSION (8) LIGHT (nonalcoholic steatohepatitis) Assessment/Plan: -stable Code(s): K75.81 - NONALCOHOLIC STEATOHEPATITIS (LIGHT) Dispo -discharge home today or tomorrow pending PICC line placement and home antibiotics set up
[2017-11-02 14:37] VITALS: BP 142/76; PULSE 63
--- NOTE | 2017-11-02 18:20 | DS ---
Physical Examination Vital Signs: Vital Signs Temperature 36.4 C L 11/02/17 14:35 Pulse Rate 63 11/02/17 14:35 Respiratory Rate 16 11/02/17 14:35 Blood Pressure 142/76 11/02/17 14:35 O2 Sat by Pulse Oximetry (%) 100 11/02/17 09:00 Labs: CBC, BMP 11/02/17 06:24 11/02/17 06:00 Discharge Summary Reason For Visit: DIABETIC WET GANGRENE OF THE FOOT Condition: Stable - Instructions Diet, Activity, Other Instructions: resume previous diet and activity Referrals: Iftikhar Birmingham MD [Staff Physician] - Mike Franz MD [Staff Physician] - James Ortiz MD [Primary Care Provider] - Disposition: VNS/HOME HEALTH CARE - Home Medications Comprehensive Discharge Medication List: Ambulatory Orders Furosemide [Lasix -] 40 mg PO DAILY 08/06/13 Glimepiride [Amaryl] 4 mg PO BID 08/06/13 Carvedilol [Coreg -] 6.25 mg PO BID #0 tablet 08/12/13 Lactobacillus Acidophilus [Bacid -] 1 each PO DAILY #14 tab 10/23/14 Vit B12/Pyridoxine/Thiamine 1 tab PO WEEKLY 10/26/17 Collagenase Clostridium Hist. [Santyl -] 1 applic TP DAILY #1 tube 11/02/17 Pantoprazole Sodium [Protonix -] 40 mg PO DAILY #30 tablet.ec 11/02/17 Piperacillin/Tazob 2.25 gm [Zosyn -] 2.25 gm IVPB Q6H-IV 13 Days vial 11/02/17 Prednisone 10 mg PO DAILY #12 tablet 11/02/17 Spironolactone [Aldactone -] 25 mg PO BID #60 tablet 11/02/17
== END 2017-11-02 16:53 | disposition home health service (06) | DRG 314 ==
LOC: JER 09:24 → JERBED 11:51 → J4S 18:01
PROVIDERS: ADMIT Internal Medicine; ATTEND Internal Medicine
PROC: 0QBQ0ZZ Excision of Right Toe Phalanx, Open Approach (ICD-10-PCS; 2017-10-26)
PROC: 0Y6T0Z0 Detachment at Right 3rd Toe, Complete, Open Approach (ICD-10-PCS; principal; 2017-10-26 10:00)
PROC: 0DJD8ZZ Inspection of Lower Intestinal Tract, Via Natural or Artificial Opening Endoscopic (ICD-10-PCS; 2017-10-31)
PROC: 0DD68ZX Extraction of Stomach, Via Natural or Artificial Opening Endoscopic, Diagnostic (ICD-10-PCS; 2017-10-31)
PROC: 05HM33Z Insertion of Infusion Device into Right Internal Jugular Vein, Percutaneous Approach (ICD-10-PCS; 2017-11-02)
PROC: B513ZZA Fluoroscopy of Right Jugular Veins, Guidance (ICD-10-PCS; 2017-11-02)
DX: E11.52 Type 2 diabetes mellitus with diabetic peripheral angiopathy with gangrene (principal); M86.9 Osteomyelitis, unspecified; I96 Gangrene, not elsewhere classified; E11.22 Type 2 diabetes mellitus with diabetic chronic kidney disease; N18.4 Chronic kidney disease, stage 4 (severe); K75.81 Nonalcoholic steatohepatitis (NASH); K74.60 Unspecified cirrhosis of liver; E11.628 Type 2 diabetes mellitus with other skin complications; K76.6 Portal hypertension; D69.6 Thrombocytopenia, unspecified; E11.621 Type 2 diabetes mellitus with foot ulcer; E11.65 Type 2 diabetes mellitus with hyperglycemia; L03.115 Cellulitis of right lower limb; Z68.42 Body mass index [BMI] 45.0-49.9, adult; D62 Acute posthemorrhagic anemia; E66.01 Morbid (severe) obesity due to excess calories; L97.519 Non-pressure chronic ulcer of other part of right foot with unspecified severity; B95.61 Methicillin susceptible Staphylococcus aureus infection as the cause of diseases classified elsewhere; B95.2 Enterococcus as the cause of diseases classified elsewhere; B96.89 Other specified bacterial agents as the cause of diseases classified elsewhere; B19.20 Unspecified viral hepatitis C without hepatic coma; Z79.84 Long term (current) use of oral hypoglycemic drugs; I12.9 Hypertensive chronic kidney disease with stage 1 through stage 4 chronic kidney disease, or unspecified chronic kidney disease; L02.611 Cutaneous abscess of right foot; K57.30 Diverticulosis of large intestine without perforation or abscess without bleeding; I87.8 Other specified disorders of veins; D50.9 Iron deficiency anemia, unspecified; M72.0 Palmar fascial fibromatosis [Dupuytren]; M10.042 Idiopathic gout, left hand; M10.041 Idiopathic gout, right hand; K64.8 Other hemorrhoids; K44.9 Diaphragmatic hernia without obstruction or gangrene; K31.89 Other diseases of stomach and duodenum
CPT/HCPCS: 36415; 36430; 36558; 71045-TC-FY; 73630-TC-RT-FY; 76700-TC; 77001-TC-FY; 80048; 80053; 82105; 82140; 82728; 82962; 83036; 83540; 83550; 83615; 83735; 84100; 84550; 85025; 85027; 85044; 85610; 85651; 86140; 86431; 86850; 86900; 86901; 86922; 87040; 87070; 87186; 87205; 88305-TC; 88307-TC; 88311-TC; 93005; 93010; 93970-TC; 94760; 99285-25; C1751; P9038; P9058

== ENCOUNTER 2018-06-16 09:48 | Inpatient (IN) | payer OTHER ==
--- NOTE | 2018-06-16 10:10 | PDOC ---
History of Present Illness - General Chief Complaint: Shortness of Breath Stated Complaint: SHORTNESS OF BREATH Time Seen by Provider: 06/16/18 10:06 - History of Present Illness Initial Comments: 06/16/18 10:08 57 yo M with h/o HTN, HLD, DM, CKD, Cirrhosis who p/w SOB. Patient reports two weeks of progressive Marsh, SOB. Also endorses increased BL LE swelling, and abdominal distension. Denies home O2 requirements, duonebs. Lasix 40 mg QD. Reports two lasix pills yesterday d/t increased SOB. Recent recovered from URI type illness, with productive green sputum cough x 1 week ago, now resolved following PO antibiotic. Patient denies KENNEY, vision change, N/V, F,C, orthopnea, PND, cough, wheezing, palpitations, CP, SOB, urinary complaints, abdominal pain, BPR, hematuria, diarrhea, constipation, lightheadedness, weakness, sensory changes. PMHx: as noted above. Denies h/o ACS/CA, stent placement, CABG, abnml stress testing, PE/DVT ROS: as noted SHx: Denies tobacco use, Etoh, IVDA Allergies: NKDA Past History - Past Medical History Allergies/Adverse Reactions: Allergies Allergy/AdvReac Type Severity Reaction Status Date / Time No Known Allergies Allergy Verified 06/16/18 10:03 Home Medications: Ambulatory Orders Furosemide [Lasix -] 40 mg PO DAILY 08/06/13 Glimepiride [Amaryl] 4 mg PO BID 08/06/13 Carvedilol [Coreg -] 6.25 mg PO BID #0 tablet 08/12/13 Collagenase Clostridium Hist. [Santyl -] 1 applic TP DAILY #1 tube 11/02/17 Pantoprazole Sodium [Protonix -] 40 mg PO DAILY #30 tablet.ec 11/02/17 Spironolactone [Aldactone -] 25 mg PO BID #60 tablet 11/02/17 Alprazolam [Xanax] 0.25 mg PO BID PRN 06/16/18 Fluticasone/Salmeterol [Advair Hfa 115-21 Mcg Inhaler] 1 inh PO BID 06/16/18 hydrOXYzine PAMOATE [Vistaril -] 25 mg PO TID 06/16/18 Anemia: Yes Asthma: No Cancer: No Cardiac Disorders: No CVA: No COPD: No CHF: No Dementia: No Diabetes: Yes HTN: Yes Hypercholesterolemia: No Kidney Stones: No Liver Disease: Yes (HEP C) Seizures: No - Surgical History Abdominal Surgery: No Cardiac Surgery: No Cholecystectomy: No GI Surgery: No Lung Surgery: No - Immunization History Immunization Up to Date: Yes - Suicide/Smoking/Psychosocial Hx Smoking Status: No Smoking History: Never smoked Have you smoked in the past 12 months: No Number of Cigarettes Smoked Daily: 0 Hx Alcohol Use: No Drug/Substance Use Hx: No Substance Use Type: None Hx Substance Use Treatment: No Review of Systems - Review of Systems Comments:: 06/16/18 10:08 GENERAL/CONSTITUTIONAL: No fever or chills. No weakness. HEAD, EYES, EARS, NOSE AND THROAT: No change in vision. No ear pain or discharge. No sore throat. CARDIOVASCULAR: No chest pain. RESPIRATORY: + SOB. No cough, wheezing, or hemoptysis. GASTROINTESTINAL: No nausea, vomiting, diarrhea or constipation. GENITOURINARY: No dysuria, frequency, or change in urination. MUSCULOSKELETAL: No joint or muscle swelling or pain. No neck or back pain. SKIN: No rash NEUROLOGIC: No headache, vertigo, loss of consciousness, or change in strength/ sensation. ENDOCRINE: No increased thirst. No abnormal weight change HEMATOLOGIC/LYMPHATIC: No anemia, easy bleeding, or history of blood clots. ALLERGIC/IMMUNOLOGIC: No hives or skin allergy. *Physical Exam - Vital Signs Last Vital Signs Temp Pulse Resp BP Pulse Ox 98.3 F 91 H 24 H 155/63 100 06/16/18 10:03 06/16/18 10:03 06/16/18 10:03 06/16/18 10:03 06/16/18 10:03 - Physical Exam Comments: 06/16/18 10:08 GENERAL: Awake, alert, and fully oriented, in no acute distress HEAD: No signs of trauma, normocephalic, atraumatic EYES: PERRLA, EOMI, sclera anicteric, conjunctiva clear ENT: Hearing grossly normal, nares patent, oropharynx clear without exudates. Moist mucosa NECK: Normal ROM, supple, no lymphadenopathy, JVD, or masses LUNGS: No distress, speaks full sentences, clear to auscultation bilaterally HEART: Regular rate and rhythm, normal S1 and S2, no murmurs, rubs or gallops, peripheral pulses normal and equal bilaterally. ABDOMEN: pitting edema on abdomen. Soft, nontender, Portruberant, normoactive bowel sounds. No guarding, no rebound. No masses EXTREMITIES : BL LE edema 2+, + BL venous stasis skin change. Normal inspection , Normal range of motion, no edema. No clubbing or cyanosis. NEUROLOGICAL:+ BL flapping hand tremor. Cranial nerves II through XII grossly intact. Normal speech, normal gait, no focal sensorimotor deficits SKIN: Multiple excoriations, and petechiae, Warm, Dry, normal turgor. Moderate Sedation - Procedure Monitoring Vital Signs: Procedure Monitoring Vital Signs Temperature 98.3 F 06/16/18 10:03 Pulse Rate 91 H 06/16/18 10:03 Respiratory Rate 24 H 06/16/18 10:03 Blood Pressure 155/63 06/16/18 10:03 O2 Sat by Pulse Oximetry (%) 100 06/16/18 10:03 ED Treatment Course - LABORATORY CBC & Chemistry Diagram: 06/16/18 11:15 06/16/18 11:15 Medical Decision Making - Medical Decision Making 06/16/18 10:09 57 yo M with h/o HTN, HLD, DM, CKD, Anemia, LIGHT, Cirrhosis, morbid obesity who p/w SOB. Vitals wnl, AF, A&Ox3. ACS/CA r/o. Possible volume/fluid overload 2/2 cirrhosis. Will consider CHF, anemia, pleural effusion, URI, PNA, asthma. ED course: 06/16/18 10:26 CBC,CMP,CARDIAC,BNP,NH4 EKG,CXR EKG: NSR with absent RAF, STD. Normal axis . NM interval 278, 1st degree AV block. TWI I, AvL. 06/16/18 12:04 H/H: 6.0/19.2 PLT 115 Bedside U/S: diffuse ascites 06/16/18 12:04 Transfuse 2 U PRBC 06/16/18 12:05 BUN/Cr: 52/1.3 06/16/18 12:05 BNP: 708 NH4: 50.6 06/16/18 12:[address] Wu. Admit to medicine. 06/16/18 13:02 FOBT: Pos BL LE dopplers 06/16/18 13:[address] Franz *DC/Admit/Observation/Transfer Diagnosis at time of Disposition: Anemia requiring transfusions, Shortness of breath - Discharge Dispostion Condition at time of disposition: Stable Decision to Admit order: Yes - Referrals - Patient Instructions - Post Discharge Activity - Attestations Physician Attestion: 06/16/18 10:09 I attest to the information provided in this note.
[2018-06-16 11:38] LABS: BASO % 0.7 % (0-2.0); EOS % 3.6 % (0-4.5); HEMATOCRIT 19.2 % (35.4-49); INR 1.29 (0.83-1.09); LYMPH % 7.7 % (8-40); MCH 20.7 pg (25.7-33.7); MCHC 31.2 g/dl (32.0-35.9); MEAN CELL VOLUME 66.2 fl (80-96); MEAN PLT VOLUME 8.2 fl (7.5-11.1); MONO % 10.4 % (3.8-10.2); NEUT % 77.6 % (42.8-82.8); PLATELET COUNT 115 K/MM3 (134-434); PROTHROMBIN TIME (PATIENT) 15.3 SEC (9.7-13.0); RDW 17.8 % (11.9-15.9); WHITE BLOOD COUNT 5.6 K/mm3 (4.0-10.0)
[2018-06-16 12:01] LABS: ALBUMIN 2.6 g/dl (3.4-5.0); ALK PHOS 123 U/L (45-117); ANION GAP 5 MMOL/L (8-16); BILIRUBIN,TOTAL 0.7 mg/dL (0.2-1); BLOOD UREA NITROGEN 52 mg/dL (7-18); CALCIUM 7.9 mg/dL (8.5-10.1); CHLORIDE 109 mmol/L (98-107); CO2 25 mmol/L (21-32); CREATININE 1.3 mg/dL (0.55-1.3); GLUCOSE,RANDOM 164 mg/dL (74-106); N-TERMINAL BNP 708.7 pg/ml (5-125); POTASSIUM 4.1 mmol/L (3.5-5.1); SGOT/AST 27 U/L (15-37); SGPT/ALT 22 U/L (13-61); SODIUM 139 mmol/L (136-145); TOT PROT 7.6 g/dl (6.4-8.2)
--- NOTE | 2018-06-16 12:24 | PDOC ---
Attending Attestation - ED Attending Attestation I have performed the following: I have examined & evaluated the patient, The case was reviewed & discussed with the resident, I agree w/resident's findings & plan, Exceptions are as noted - HPI HPI: 06/16/18 12:06 57 yo male copd ckd htn ESLD with cirrhosis, anemia, CHF here with c/o sob. pt states he does have a history of ascities. was recently treated for brochitis with a z vilma 2 weeks ago, cough improved but sob persistated. denies productive cough. sob is worse with exertion. not positional. baseline leg swelling which hasnt changed. no h/o dvt, or PE. no other c/o chest pain. no f/c pt pcp is dr gutierrez, [facility] Franz. - Physicial Exam PE: 06/16/18 12:24 awake alert lungs clear bilaterally no wheeze no crackle. abd obese, distended. nontender. ext bilat brawning edema. 3+. 2+ dp pulses. bilat lower ext petechia, abd striae, on abd. small eccymosis over anterior chest nuero alert and oriented x 3. speech clear. - Medical Decision Making 06/16/18 12:34 differential chf, pna, ple effusion. acs. anemia. renal failure other electrolyte abnormality. physicial restraint from abd girth, ascites. pericardial effusion. chf. plan focused ED us TTE, FAST, lung us. cxr labs ekg pt/ inr focused ED us TTE performed, indication sob 3 view of heart of hear was obtained. subxiphoid view limited due to habitus. no pericardial effusion contractility overall grossly normal no rv dilation or strain. lung scanned bilaterally in four zones. anteriorly a line predominant. no blines present normal sliding bilaterally. no plerual effusion. impression: normal contractility, no pericardial effusion. a line predominant lung exam, no effusion or edema. FAST performed, indication eval ascites 3 quadrants of abd examined ( right , left, and pelvis) free fluid noted in all three quadrants. unable to view heart in subxiphoid view. impression: ascites. labs noted for anemia, hgb 6, baseline 8, thrombocytopenia. will admit for transfusion. d/w dr figueroa. admission 06/16/18 18:30 dopplers negative for dvt. pt admitted to dr. figueroa. dr franz consulted GI, pt guiac positive. Heart Score/ECG Review #1 General ECG Interpretation: Sinus Rhythm, Normal Intervals Compared to previous ECG there are: Changes noted (comparison 10/25/17 T/W/I I, AVL, left axis.)
[2018-06-16 13:29] LABS: URINE APPEARANCE CLEAR; URINE BILIRUBIN NEGATIVE (<2.0 mg/dL); URINE COLOR LTYELLOW; URINE GLUCOSE (UA) NEGATIVE (NEGATIVE); URINE KETONE NEGATIVE (NEGATIVE); URINE LEUK ESTERASE NEGATIVE (NEGATIVE); URINE NITRITE NEGATIVE (NEGATIVE); URINE PROTEIN NEGATIVE (NEGATIVE); URINE UROBILINOGEN NEGATIVE mg/dL (0.2-1.0)
[2018-06-16 13:41] LABS: ANISOCYTOSIS 1+; MACROCYTOSIS 0; OVALOCYTE 1+; PLATELET ESTIMATE DECREASED
[2018-06-16] MEDS ORDERED: ALPRAZolam 0.25 MG TABLET PO PRN (14:53)
[2018-06-16] MEDS ORDERED: hydrOXYzine PAMOATE 25 MG CAPSULE (FP) PO PRN (15:33)
--- NOTE | 2018-06-16 17:11 | HP ---
Admitting History and Physical - Primary Care Physician PCP: James Ortiz - Admission Chief Complaint: I'm short of breath History of Present Illness: Mr Apodaca is a pleasant 57 year old male who comes in with complaints of shortness of breath. He says it began about 2 weeks ago. It was insidious in nature and increased over time. He says he feels in only on exertion, he cannot tell me how far he can walk before he gets short of breath. He at first thought it was secondary to having a cold, he had a productive cough and was seen by Dr Ortiz. This was treated with antibiotics and resolved, however he presented yesterday and was found to have anemia and told to come to the hospital. He denies fevers, lightheadedness, dizziness, passing out, chest pain, shortness of breath at rest, nausea, vomiting, difficulty or pain on urination, or worsening swelling. He endorses chills, hematochezia (he cannot tell me how much and became embarrassed when asked about it), and increased abdominal distention. History Source: Patient Limitations to Obtaining History: Other (becomes anxious and easily flustered, often tries to talk around questions) - Past Medical History Cardiovascular: Yes: HTN Gastrointestinal: Yes: Esophageal Varices, Other, Other Hepatobiliary: Yes: Other (LIGHT with cirrhosis) Renal/: Yes: Renal Inusuff Heme/Onc: Yes: Thrombocytopenia Infectious Disease: Yes: MRSA Endocrine: Yes: Diabetes Mellitus, Other (Morbid obesity) Dermatology: Yes: Cellulitis - Past Surgical History Past Surgical History: Yes: Tonsillectomy - Smoking History Smoking history: Never smoked Have you smoked in the past 12 months: No Aproximately how many cigarettes per day: 0 - Alcohol/Substance Use Hx Alcohol Use: No History of Substance Use: reports: None - Social History ADL: Independent Occupation: works for [employer] in [employer] History of Recent Travel: No Home Medications - Allergies Allergies/Adverse Reactions: Allergies Allergy/AdvReac Type Severity Reaction Status Date / Time No Known Allergies Allergy Verified 06/16/18 10:03 - Home Medications Home Medications: Ambulatory Orders Furosemide [Lasix -] 40 mg PO DAILY 08/06/13 Glimepiride [Amaryl] 4 mg PO BID 08/06/13 Carvedilol [Coreg -] 6.25 mg PO BID #0 tablet 08/12/13 Collagenase Clostridium Hist. [Santyl -] 1 applic TP DAILY #1 tube 11/02/17 Pantoprazole Sodium [Protonix -] 40 mg PO DAILY #30 tablet.ec 11/02/17 Spironolactone [Aldactone -] 25 mg PO BID #60 tablet 11/02/17 Alprazolam [Xanax] 0.25 mg PO BID PRN 06/16/18 Fluticasone/Salmeterol [Advair Hfa 115-21 Mcg Inhaler] 1 inh PO BID 06/16/18 hydrOXYzine PAMOATE [Vistaril -] 25 mg PO TID 06/16/18 Family Disease History - Family Disease History Family Disease History: Diabetes: Sister (thyroid disease), Heart Disease: Mother (parkinsons, of [place]), [place]: Father (prostate cancer), Other: Mother, Sister Review of Systems Findings/Remarks: Full review of systems obtained, as per HPI and otherwise negative Physical Examination Vital Signs: Vital Signs Temperature 36.8 C 06/16/18 14:25 Pulse Rate 81 06/16/18 14:25 Respiratory Rate 17 06/16/18 14:25 Blood Pressure 141/71 06/16/18 14:25 O2 Sat by Pulse Oximetry (%) 98 06/16/18 14:25 Constitutional: Yes: Anxious, Obese (morbid) Eyes: Yes: Conjunctiva Clear, EOM Intact, PERRL. No: Sclera Icterus HENT: Yes: Atraumatic, Normocephalic Cardiovascular: Yes: Regular Rate and Rhythm, Murmur (slight). No: Gallop, Rub Respiratory: Yes: Regular, CTA Bilaterally. No: Rales, Rhonchi, Wheezes Gastrointestinal: Yes: Normal Bowel Sounds, Ascites, Distention. No: Tenderness Extremities: Yes: WNL Edema: Yes Edema: LLE: 2+, RLE: 2+ Labs: CBC, BMP 06/16/18 11:15 06/16/18 11:15 Imaging - Results Chest X-ray: Report Reviewed, Image Reviewed Problem List - Problems (1) Anemia requiring transfusions Assessment/Plan: -possible AOCD vs GIB with acute blood loss anemia -admit to telemetry -transfuse 2 units -monitor Code(s): D64.9 - ANEMIA, UNSPECIFIED (2) Shortness of breath Assessment/Plan: -secondary to anemia -transfuse as above Code(s): R06.02 - SHORTNESS OF BREATH (3) Ascites Assessment/Plan: -secondary to cirrhosis -GI consult -? if will benefit from therapeutic paracentesis once stabilized -will d/w Dr Franz Code(s): R18.8 - OTHER ASCITES (4) Cirrhosis Assessment/Plan: -chronic Code(s): K74.60 - UNSPECIFIED CIRRHOSIS OF LIVER Qualifiers: Ascites presence: with ascites (5) Diabetes mellitus Assessment/Plan: -will place on clear liquid currently until evaluated by GI -once cleared, begin diabetic diet -FSBS and SSI Code(s): E11.9 - TYPE 2 DIABETES MELLITUS WITHOUT COMPLICATIONS Qualifiers: Diabetes mellitus type: type 2 Diabetes mellitus fpc insulin use: without intermodal dispatcher use Diabetes mellitus complication status: with skin complications Diabetes mellitus complication detail: with other skin ulcer Qualified Code(s): E11.622 - Type 2 diabetes mellitus with other skin ulcer (6) GI bleed Assessment/Plan: -patient had hematochezia -difficult to quantify as becomes embarrassed and will not engage subject -hemoccult positive -most likely lower GI bleed -lower suspicion for UGIB or variceal bleed -transfuse as above -monitor on telemetry -protonix 40mg IV bid -will hold on octreotide at this time -clear liquid diet Code(s): K92.2 - GASTROINTESTINAL HEMORRHAGE, UNSPECIFIED Qualifiers: GI bleed type/associated pathology: unspecified gastrointestinal hemorrhage type Qualified Code(s): K92.2 - Gastrointestinal hemorrhage, unspecified (7) Hyperammonemia Assessment/Plan: -noted -consider lactulose vs xifaxan once anemia issue resolved Code(s): E72.20 - DISORDER OF UREA CYCLE METABOLISM, UNSPECIFIED (8) Hypertension Assessment/Plan: -continue home regimen -monitor Code(s): I10 - ESSENTIAL (PRIMARY) HYPERTENSION (9) Morbid obesity with BMI of 45.0-49.9, adult Assessment/Plan: -outpatient management Code(s): E66.01 - MORBID (SEVERE) OBESITY DUE TO EXCESS CALORIES; Z68.42 - BODY MASS INDEX (BMI) 45.0-49.9, ADULT (10) Thrombocytopenia Assessment/Plan: -stable -does not need transfusion -secondary to cirrhosis Code(s): D69.6 - THROMBOCYTOPENIA, UNSPECIFIED
--- NOTE | 2018-06-16 17:36 | CON.GI ---
Consult Consult Specialty:: Gastroenterology Referred by:: Gopi Buchanan MD Reason for Consultation:: Anemia - History of Present Illness Chief Complaint: SOB History of Present Illness: 57M presents with anasarca, dyspnea and Hb 6. Had similar presentation in 11/06 when 10/31/17 EGD/enteroscopy and colonoscopy revealed left colon diverticulosis , portal gastropathy and duodenal varices but no esophageal varices which were previously endoscopically ablated. Hemorrhoids were noted. He denies hematemesis or melena but has frequent spotting of blood alongside formed stools. He denies abdominal pain but has scrotal pain due to edema. He has not seen his pMD since the 11/06 discharge - History Source History Provided By: Patient Limitations to Obtaining History: No Limitations - Past Medical History Cardio/Vascular: Yes: HTN, Hyperlipdemia Pulmonary: Yes: Sleep Apnea Gastrointestinal: Yes: Diverticulosis, Esophageal Varices (endoscopically ablated), Hemorrhoids, Other (duodenal varices and portal gastropathy, hyperplastic colon polyp excision 2008) Hepatobiliary: Yes: Cirrhosis (due ot LIGHT), Other (LIGHT with cirrhosis) Renal/: Yes: Renal Inusuff Infectious Disease: Yes: MRSA Endocrine: Yes: Diabetes Mellitus, Other (Morbid obesity) Dermatology: Yes: Cellulitis Additional Medical History: Charcot foot with ulcers. LE cellulitis. perineal abscess - Past Surgical History Past Surgical History: Yes: Colonoscopy, Tonsillectomy, Upper Endoscopy Additional Surgical History: anal fistulectomies - Alcohol/Substance Use Hx Alcohol Use: No History of Substance Use: reports: None - Smoking History Smoking history: Never smoked Have you smoked in the past 12 months: No Aproximately how many cigarettes per day: 0 - Social History Usual Living Arrangement: Other (with sister) ADL: Independent Occupation: works for [employer] [place] of : [facility] History of Recent Travel: No Home Medications - Allergies Allergies/Adverse Reactions: Allergies Allergy/AdvReac Type Severity Reaction Status Date / Time No Known Allergies Allergy Verified 06/16/18 10:03 - Home Medications Home Medications: Ambulatory Orders Furosemide [Lasix -] 40 mg PO DAILY 08/06/13 Glimepiride [Amaryl] 4 mg PO BID 08/06/13 Carvedilol [Coreg -] 6.25 mg PO BID #0 tablet 08/12/13 Collagenase Clostridium Hist. [Santyl -] 1 applic TP DAILY #1 tube 11/02/17 Pantoprazole Sodium [Protonix -] 40 mg PO DAILY #30 tablet.ec 11/02/17 Spironolactone [Aldactone -] 25 mg PO BID #60 tablet 11/02/17 Alprazolam [Xanax] 0.25 mg PO BID PRN 06/16/18 Fluticasone/Salmeterol [Advair Hfa 115-21 Mcg Inhaler] 1 inh PO BID 06/16/18 hydrOXYzine PAMOATE [Vistaril -] 25 mg PO TID 06/16/18 Family Disease History - Family Disease History Family Disease History: Diabetes: Sister (thyroid disease), Heart Disease: Mother (parkinsons, of [place]), CA: Father (prostate cancer), Other: Mother, Sister Review of Systems - Review of Systems Constitutional: reports: Malaise Eyes: reports: No Symptoms HENT: reports: No Symptoms Neck: reports: No Symptoms Cardiovascular: reports: No Symptoms Respiratory: reports: Exercise Intolerance, SOB on Exertion Gastrointestinal: reports: Rectal Bleeding Genitourinary: reports: Testicular Pain (scrotal edema) Integumentary: reports: Erythema, Wound (foot ulcers) Physical Exam-GI Vital Signs: Vital Signs Temperature 98.2 F 06/16/18 14:25 Pulse Rate 81 06/16/18 14:25 Respiratory Rate 17 06/16/18 14:25 Blood Pressure 141/71 06/16/18 14:25 O2 Sat by Pulse Oximetry (%) 98 06/16/18 14:25 CBC,CMP WBC 5.6 K/mm3 (4.0-10.0) 06/16/18 11:15 RBC 2.90 M/mm3 (4.00-5.60) L 06/16/18 11:15 Hgb 6.0 GM/dL (11.7-16.9) L* 06/16/18 11:15 Hct 19.2 % (35.4-49) L D 06/16/18 11:15 MCV 66.2 fl (80-96) L 06/16/18 11:15 MCH 20.7 pg (25.7-33.7) L D 06/16/18 11:15 MCHC 31.2 g/dl (32.0-35.9) L 06/16/18 11:15 RDW 17.8 % (11.9-15.9) H 06/16/18 11:15 Plt Count 115 K/MM3 (134-434) L D 06/16/18 11:15 MPV 8.2 fl (7.5-11.1) 06/16/18 11:15 Absolute Neuts (auto) 4.3 K/mm3 (1.5-8.0) 06/16/18 11:15 Neutrophils % 77.6 % (42.8-82.8) 06/16/18 11:15 Lymphocytes % 7.7 % (8-40) L D 06/16/18 11:15 Monocytes % 10.4 % (3.8-10.2) H 06/16/18 11:15 Eosinophils % 3.6 % (0-4.5) D 06/16/18 11:15 Basophils % 0.7 % (0-2.0) 06/16/18 11:15 Nucleated RBC % 0 % (0-0) 06/16/18 11:15 Hypochromia 1+ 06/16/18 11:15 Platelet Estimate Decreased 06/16/18 11:15 Polychromasia 1+ 06/16/18 11:15 Poikilocytosis 0 06/16/18 11:15 Anisocytosis 1+ 06/16/18 11:15 Microcytosis 1+ 06/16/18 11:15 Macrocytosis 0 06/16/18 11:15 Ovalocytes 1+ 06/16/18 11:15 Sodium 139 mmol/L (136-145) 06/16/18 11:15 Potassium 4.1 mmol/L (3.5-5.1) 06/16/18 11:15 Chloride 109 mmol/L (98-107) H 06/16/18 11:15 Carbon Dioxide 25 mmol/L (21-32) 06/16/18 11:15 Anion Gap 5 MMOL/L (8-16) L 06/16/18 11:15 BUN 52 mg/dL (7-18) H 06/16/18 11:15 Creatinine 1.3 mg/dL (0.55-1.3) 06/16/18 11:15 Creat Clearance w eGFR 56.50 (>60) 06/16/18 11:15 Random Glucose 164 mg/dL (74-106) H 06/16/18 11:15 Calcium 7.9 mg/dL (8.5-10.1) L 06/16/18 11:15 Total Bilirubin 0.7 mg/dL (0.2-1) 06/16/18 11:15 AST 27 U/L (15-37) 06/16/18 11:15 ALT 22 U/L (13-61) 06/16/18 11:15 Alkaline Phosphatase 123 U/L (45-117) H 06/16/18 11:15 Ammonia 50.60 umol/L (11-32) H 06/16/18 11:15 Creatine Kinase 95 U/L (26-308) 06/16/18 11:15 Troponin I 0.02 ng/ml (0.00-0.05) 06/16/18 11:15 B-Natriuretic Peptide 708.7 pg/ml (5-125) H 06/16/18 11:15 Total Protein 7.6 g/dl (6.4-8.2) 06/16/18 11:15 Albumin 2.6 g/dl (3.4-5.0) L 06/16/18 11:15 Current Medications Generic Name Dose Route Start Last Admin Trade Name Freq PRN Reason Stop Dose Admin Alprazolam 0.25 mg 06/16/18 14:53 Xanax - PO BID PRN ANXIETY Budesonide/Formoterol Fumarate 2 puff 06/16/18 22:00 Symbicort 80/4.5mcg - IH BID [facility] Carvedilol 6.25 mg 06/16/18 22:00 Coreg - PO BID [facility] Furosemide 40 mg 06/17/18 10:00 Lasix - PO DAILY [facility] Hydroxyzine Pamoate 25 mg 06/16/18 15:33 Vistaril - PO TID PRN FOR ITCHING Insulin Aspart 1 vial 06/16/18 22:00 Novolog Vial Sliding Scale - SQ ACHS [facility] Protocol Pantoprazole Sodium 40 mg 06/16/18 22:00 Protonix Iv IVPUSH BID [facility] Spironolactone 25 mg 06/16/18 22:00 Aldactone - PO BID [facility] Laboratory Tests 10/25/17 11/02/17 06/16/18 09:56 06:24 11:15 Hgb 6.3 L* D 8.5 L 6.0 L* Constitutional: Yes: No Distress Eyes: Yes: Conjunctiva Clear HENT: Yes: Atraumatic Neck: Yes: Supple Cardiovascular: Yes: Regular Rate and Rhythm Respiratory: Yes: CTA Bilaterally Gastrointestinal Inspection: Yes: Distention (with abdominal wall edema) ...Auscultate: Yes: Normoactive Bowel Sounds ...Palpate: Yes: Soft, Other (nontender) ...Rectal Exam: Yes: Guaiac Positive (soft stool, 2+ prostate), Hemorrhoids/ External Genitourinary: Yes: Scrotal Edema Edema: LLE: 4+ (with erythema), RLE: 4+ (with erythema) Peripheral Pulses WNL: No Neurological: Yes: Alert, Oriented Labs: CBC, BMP 06/16/18 11:15 06/16/18 11:15 INR, PTT INR 1.29 (0.83-1.09) H 06/16/18 11:15 Problem List - Problems (1) Anemia requiring transfusions Assessment/Plan: I suspect that Brett has chronic indolent GI bleeding from his portal gastropathy and less likely his duodenal varices. Unfortunately he never went for the capsule endoscopy and EUS of the duodenal varices as I have referred him for. Agree with need to transfuse. Will check iron levels. Will try to get him into a liver center where TIPS could be considered after discharge Code(s): D64.9 - ANEMIA, UNSPECIFIED (2) Anemia due to blood loss, acute Code(s): D62 - ACUTE POSTHEMORRHAGIC ANEMIA (3) Cellulitis Code(s): L03.90 - CELLULITIS, UNSPECIFIED (4) Cirrhosis Assessment/Plan: due to LIGHT with small ascites and thrombocytopenia Code(s): K74.60 - UNSPECIFIED CIRRHOSIS OF LIVER Qualifiers: Ascites presence: with ascites (5) Colon polyp, hyperplastic Code(s): K63.5 - POLYP OF COLON (6) Diabetic wet gangrene of the foot Code(s): E11.52 - TYPE 2 DIABETES W DIABETIC PERIPHERAL ANGIOPATHY W GANGRENE (7) Diverticula of colon Code(s): K57.30 - DVRTCLOS OF LG INT W/O PERFORATION OR ABSCESS W/O BLEEDING (8) Morbid obesity with BMI of 45.0-49.9, adult Code(s): E66.01 - MORBID (SEVERE) OBESITY DUE TO EXCESS CALORIES; Z68.42 - BODY MASS INDEX (BMI) 45.0-49.9, ADULT (9) LIGHT (nonalcoholic steatohepatitis) Code(s): K75.81 - NONALCOHOLIC STEATOHEPATITIS (LIGTH) (10) Portal hypertensive gastropathy Code(s): K76.6 - PORTAL HYPERTENSION; K31.89 - OTHER DISEASES OF STOMACH AND DUODENUM (11) Renal insufficiency Code(s): N28.9 - DISORDER OF KIDNEY AND URETER, UNSPECIFIED (12) T2DM (type 2 diabetes mellitus) Code(s): E11.9 - TYPE 2 DIABETES MELLITUS WITHOUT COMPLICATIONS Qualifiers: Chronic kidney disease stage: stage 3 (moderate) (13) Thrombocytopenia Code(s): D69.6 - THROMBOCYTOPENIA, UNSPECIFIED (14) Varices of small intestine Code(s): I86.8 - VARICOSE VEINS OF OTHER SPECIFIED SITES Assessment/Plan Needs diuresis Will get sono to assess for ascites and liver cancer (hepatoma) Referral to liver center after discharge to confirm duodenal varices by EUS and to consider TIPS
[2018-06-16] MEDS ORDERED: hydrOXYzine PAMOATE 25 MG CAPSULE (FP) PO SCH (22:00)
[2018-06-16] MEDS: INSULIN SLIDING SCALE (NOVOLOG) 1 VIAL SQ SCH (22:15)
[2018-06-16] MEDS: SPIRONOLACTONE 25 MG TABLET (FP) PO SCH (22:15)
[2018-06-16] MEDS: CARVEDILOL 6.25 MG TABLET (FP) PO SCH (22:15)
[2018-06-16] MEDS: PANTOPRAZOLE SODIUM 40 MG VIAL IVPUSH SCH (22:15)
[2018-06-16] MEDS: BUDESONIDE/FORMETEROL FUMARATE 80/4.5 mcg INHALER IH SCH (22:30)
[2018-06-17] MEDS ORDERED: SPIRONOLACTONE 25 MG TABLET (FP) ONE ×2 (01:14→21:30)
[2018-06-17] MEDS ORDERED: CARVEDILOL 3.125 MG TABLET (FP) ONE ×2 (01:14→21:30)
[2018-06-17] MEDS ORDERED: PANTOPRAZOLE SODIUM 40 MG VIAL ONE (01:15)
[2018-06-17 06:29] LABS: HEMOGLOBIN 7.1 GM/dL (11.7-16.9); MCH 22.3 pg (25.7-33.7); MCHC 32.3 g/dl (32.0-35.9); MEAN CELL VOLUME 68.9 fl (80-96); MEAN PLT VOLUME 8.7 fl (7.5-11.1); PLATELET COUNT 125 K/MM3 (134-434); RDW 19.4 % (11.9-15.9); WHITE BLOOD COUNT 5.2 K/mm3 (4.0-10.0)
[2018-06-17 07:00] LABS: ALBUMIN 2.7 g/dl (3.4-5.0); ALK PHOS 113 U/L (45-117); ANION GAP 6 MMOL/L (8-16); BILIRUBIN,TOTAL 1.6 mg/dL (0.2-1); BLOOD UREA NITROGEN 51 mg/dL (7-18); CALCIUM 7.8 mg/dL (8.5-10.1); CHLORIDE 110 mmol/L (98-107); CO2 26 mmol/L (21-32); CREATININE 1.4 mg/dL (0.55-1.3); GLUCOSE,RANDOM 133 mg/dL (74-106); MAGNESIUM 2.1 mg/dL (1.8-2.4); PHOSPHOROUS 2.8 mg/dL (2.5-4.9); POTASSIUM 4.2 mmol/L (3.5-5.1); SGOT/AST 25 U/L (15-37); SGPT/ALT 22 U/L (13-61); SODIUM 141 mmol/L (136-145); TOT PROT 7.8 g/dl (6.4-8.2)
[2018-06-17] MEDS: INSULIN SLIDING SCALE (NOVOLOG) 1 VIAL SQ SCH ×4 (07:15→21:38)
[2018-06-17] MEDS: CARVEDILOL 6.25 MG TABLET (FP) PO SCH ×2 (10:00→21:37)
[2018-06-17] MEDS ORDERED: FUROSEMIDE 40 MG TABLET (FP) PO SCH (10:00)
[2018-06-17] MEDS: SPIRONOLACTONE 25 MG TABLET (FP) PO SCH ×2 (10:30→21:37)
[2018-06-17] MEDS: PANTOPRAZOLE SODIUM 40 MG VIAL IVPUSH SCH (10:30)
[2018-06-17] MEDS: BUDESONIDE/FORMETEROL FUMARATE 80/4.5 mcg INHALER IH SCH ×2 (10:48→21:38)
--- NOTE | 2018-06-17 11:17 | PN ---
Progress Note, Physician Chief Complaint: Mr Apodaca complains of swelling in his abdomen and scrotum. No cp. SOB resolved. - Current Medication List Current Medications: Active Medications Alprazolam (Xanax -) 0.25 mg PO BID PRN PRN Reason: ANXIETY Budesonide/Formoterol Fumarate (Symbicort 80/4.5mcg -) 2 puff IH BID [facility] Last Admin: 06/17/18 10:48 Dose: 2 puff Carvedilol (Coreg -) 6.25 mg PO BID [facility] Last Admin: 06/17/18 10:00 Dose: 6.25 mg Furosemide (Lasix Injection -) 40 mg IVPUSH BID@0600,1400 [facility] Hydroxyzine Pamoate (Vistaril -) 25 mg PO TID PRN PRN Reason: FOR ITCHING Insulin Aspart (Novolog Vial Sliding Scale -) 1 vial SQ [facility]; Protocol Last Admin: 06/17/18 07:15 Dose: Not Given Pantoprazole Sodium (Protonix Iv) 40 mg IVPUSH BID [facility] Last Admin: 06/17/18 10:30 Dose: 40 mg Spironolactone (Aldactone -) 25 mg PO BID [facility] Last Admin: 06/17/18 10:30 Dose: 25 mg - Objective Vital Signs: Vital Signs Temperature 36.4 C 06/17/18 07:19 Pulse Rate 76 06/17/18 07:19 Respiratory Rate 20 06/17/18 07:19 Blood Pressure 140/64 06/17/18 07:19 O2 Sat by Pulse Oximetry (%) 97 06/17/18 07:19 Constitutional: Yes: No Distress, Calm, Obese Cardiovascular: Yes: Regular Rate and Rhythm, Murmur. No: Gallop, Rub Respiratory: Yes: Regular, CTA Bilaterally. No: Rales, Rhonchi, Wheezes Gastrointestinal: Yes: Normal Bowel Sounds, Ascites, Distention. No: Tenderness Extremities: Yes: WNL Edema: Yes Edema: LUE: 3+, LLE: 3+, RLE: 3+ Labs: CBC, BMP 06/17/18 05:10 06/17/18 05:10 INR, PTT INR 1.29 (0.83-1.09) H 06/16/18 11:15 Problem List - Problems (1) Anemia requiring transfusions Code(s): D64.9 - ANEMIA, UNSPECIFIED (2) Shortness of breath Code(s): R06.02 - SHORTNESS OF BREATH (3) Ascites Code(s): R18.8 - OTHER ASCITES (4) Cirrhosis Code(s): K74.60 - UNSPECIFIED CIRRHOSIS OF LIVER Qualifiers: Ascites presence: with ascites (5) Diabetes mellitus Code(s): E11.9 - TYPE 2 DIABETES MELLITUS WITHOUT COMPLICATIONS Qualifiers: Diabetes mellitus type: type 2 Diabetes mellitus petroleum terminal plant operator insulin use: without petroleum terminal plant operator use Diabetes mellitus complication status: with skin complications Diabetes mellitus complication detail: with other skin ulcer Qualified Code(s): E11.622 - Type 2 diabetes mellitus with other skin ulcer (6) GI bleed Code(s): K92.2 - GASTROINTESTINAL HEMORRHAGE, UNSPECIFIED Qualifiers: GI bleed type/associated pathology: unspecified gastrointestinal hemorrhage type Qualified Code(s): K92.2 - Gastrointestinal hemorrhage, unspecified (7) Hyperammonemia Code(s): E72.20 - DISORDER OF UREA CYCLE METABOLISM, UNSPECIFIED (8) Hypertension Code(s): I10 - ESSENTIAL (PRIMARY) HYPERTENSION (9) Morbid obesity with BMI of 45.0-49.9, adult Code(s): E66.01 - MORBID (SEVERE) OBESITY DUE TO EXCESS CALORIES; Z68.42 - BODY MASS INDEX (BMI) 45.0-49.9, ADULT (10) Thrombocytopenia Code(s): D69.6 - THROMBOCYTOPENIA, UNSPECIFIED Assessment/Plan (1) Anemia requiring transfusions Assessment/Plan: -case /w Dr Franz -most likely chronic indolent bleed -proper response to transfusion -monitor Code(s): D64.9 - ANEMIA, UNSPECIFIED (2) Shortness of breath Assessment/Plan: -currently resolved Code(s): R06.02 - SHORTNESS OF BREATH (3) Ascites Assessment/Plan: -secondary to cirrhosis -reviewed abdominal ultrasound -very fluid overloaded -will begin IV lasix -will continue aldactone -consult nephrology to monitor as well since concern for overdiuresis causing renal failure Code(s): R18.8 - OTHER ASCITES (4) Cirrhosis Assessment/Plan: -chronic Code(s): K74.60 - UNSPECIFIED CIRRHOSIS OF LIVER Qualifiers: Ascites presence: with ascites (5) Diabetes mellitus Assessment/Plan: -on diabetic diet -FSBS and SSI Code(s): E11.9 - TYPE 2 DIABETES MELLITUS WITHOUT COMPLICATIONS Qualifiers: Diabetes mellitus type: type 2 Diabetes mellitus penitentiary insulin use: without petroleum terminal plant operator use Diabetes mellitus complication status: with skin complications Diabetes mellitus complication detail: with other skin ulcer Qualified Code(s): E11.622 - Type 2 diabetes mellitus with other skin ulcer (6) GI bleed Assessment/Plan: -appreciate GI assistance and case discussed -continue IV protonix at this time Code(s): K92.2 - GASTROINTESTINAL HEMORRHAGE, UNSPECIFIED Qualifiers: GI bleed type/associated pathology: unspecified gastrointestinal hemorrhage type Qualified Code(s): K92.2 - Gastrointestinal hemorrhage, unspecified (7) Hyperammonemia Assessment/Plan: -noted -consider lactulose vs xifaxan once anemia issue resolved Code(s): E72.20 - DISORDER OF UREA CYCLE METABOLISM, UNSPECIFIED (8) Hypertension Assessment/Plan: -continue home regimen -monitor Code(s): I10 - ESSENTIAL (PRIMARY) HYPERTENSION (9) Morbid obesity with BMI of 45.0-49.9, adult Assessment/Plan: -outpatient management Code(s): E66.01 - MORBID (SEVERE) OBESITY DUE TO EXCESS CALORIES; Z68.42 - BODY MASS INDEX (BMI) 45.0-49.9, ADULT (10) Thrombocytopenia Assessment/Plan: -stable -does not need transfusion -secondary to cirrhosis Code(s): D69.6 - THROMBOCYTOPENIA, UNSPECIFIED (12) LUE edema -concern for DVT -duplex dopplers
--- NOTE | 2018-06-17 11:24 | EKG ---
Test Reason : Blood Pressure : / mmHG Vent. Rate : 091 BPM Atrial Rate : 091 BPM P-R Int : 278 ms QRS Dur : 102 ms QT Int : 366 ms P-R-T Axes : 061 -24 083 degrees QTc Int : 450 ms SINUS RHYTHM WITH 1ST DEGREE A-V BLOCK NONSPECIFIC ST AND T WAVE ABNORMALITY LEFTWARD AXIS ABNORMAL ECG WHEN COMPARED WITH ECG OF 25-OCT-2017 17:22, NO SIGNIFICANT CHANGE WAS FOUND Confirmed by OMEGA KINSEY MD ([id number]) on 06/17/2018 11:24:02 AM Referred By: Confirmed By:OMEGA KINSEY MD
[2018-06-17] MEDS ORDERED: INSULIN (NOVOLOG) ASPART 100 UNITS/ML 10ML VIAL ONE ×3 (12:13→21:30)
--- NOTE | 2018-06-17 13:00 | PN ---
GI Progress Note Subjective: GI NOte: No overt bleeding. Less dyspneic today after 2 units PRBCs. Brett has developed LUE edema extending above the elbow. No pain to suggest gout. - Objective Vital Signs: Vital Signs Temperature 97.6 F 06/17/18 07:19 Pulse Rate 76 06/17/18 07:19 Respiratory Rate 20 06/17/18 07:19 Blood Pressure 140/64 06/17/18 07:19 O2 Sat by Pulse Oximetry (%) 97 06/17/18 07:19 Laboratory Tests 06/16/18 06/16/18 06/17/18 11:15 11:15 05:10 WBC 5.2 Hgb 6.0 L* 7.1 L MCV 68.9 L BUN 52 H Creatinine 1.3 Ferritin Total Bilirubin 0.7 06/17/18 05:10 WBC Hgb MCV BUN 51 H Creatinine 1.4 H Ferritin 20.3 Total Bilirubin 1.6 H Constitutional: No Distress Gastrointestinal Inspection: Yes: Distention ...Auscultate: Yes: Normoactive Bowel Sounds ...Palpate: Yes: Soft, Other (nontender) Genitourinary: Yes: Scrotal Edema Extremities: Yes: Other Edema: LUE: 4+, LLE: 4+, RLE: 4+ Labs: CBC, BMP 06/17/18 05:10 06/17/18 05:10 INR, PTT INR 1.29 (0.83-1.09) H 06/16/18 11:15 Assessment/Plan New LUE edema for Doppler and vascular consult Agree with need for renal securities consultant given HRS risk Transfuse another unit Venofer as ferritin is 20 Problem List - Problems (1) Edema of upper extremity Assessment/Plan: Doppler ordered. Discussed with Dr Wu who will consult vascular. Will also consult renal team as patient is at risk of developing hepatorenal syndrome. Code(s): R60.0 - LOCALIZED EDEMA (2) Anemia requiring transfusions Code(s): D64.9 - ANEMIA, UNSPECIFIED (3) Anemia due to blood loss, acute Code(s): D62 - ACUTE POSTHEMORRHAGIC ANEMIA (4) Cellulitis Code(s): L03.90 - CELLULITIS, UNSPECIFIED (5) Cirrhosis Code(s): K74.60 - UNSPECIFIED CIRRHOSIS OF LIVER Qualifiers: Ascites presence: with ascites (6) Colon polyp, hyperplastic Code(s): K63.5 - POLYP OF COLON (7) Diabetic wet gangrene of the foot Code(s): E11.52 - TYPE 2 DIABETES W DIABETIC PERIPHERAL ANGIOPATHY W GANGRENE (8) Diverticula of colon Code(s): K57.30 - DVRTCLOS OF LG INT W/O PERFORATION OR ABSCESS W/O BLEEDING (9) Morbid obesity with BMI of 45.0-49.9, adult Code(s): E66.01 - MORBID (SEVERE) OBESITY DUE TO EXCESS CALORIES; Z68.42 - BODY MASS INDEX (BMI) 45.0-49.9, ADULT (10) LIGHT (nonalcoholic steatohepatitis) Code(s): K75.81 - NONALCOHOLIC STEATOHEPATITIS (LIGHT) (11) Portal hypertensive gastropathy Code(s): K76.6 - PORTAL HYPERTENSION; K31.89 - OTHER DISEASES OF STOMACH AND DUODENUM (12) Renal insufficiency Code(s): N28.9 - DISORDER OF KIDNEY AND URETER, UNSPECIFIED (13) T2DM (type 2 diabetes mellitus) Code(s): E11.9 - TYPE 2 DIABETES MELLITUS WITHOUT COMPLICATIONS Qualifiers: Chronic kidney disease stage: stage 3 (moderate) (14) Thrombocytopenia Code(s): D69.6 - THROMBOCYTOPENIA, UNSPECIFIED (15) Varices of small intestine Code(s): I86.8 - VARICOSE VEINS OF OTHER SPECIFIED SITES
[2018-06-17] MEDS: FUROSEMIDE 40 MG/4 ML INJECTABLE VIAL IVPUSH SCH (14:23)
[2018-06-17] MEDS ORDERED: FUROSEMIDE 40 MG/4 ML INJECTABLE VIAL ONE (14:34)
[2018-06-17] MEDS ORDERED: PNEUMOC 13-VAL CONJ-DIP CRM/PF 0.5 ML DISP.SYRIN IM ONE (23:11)
[2018-06-18] MEDS: FUROSEMIDE 40 MG/4 ML INJECTABLE VIAL IVPUSH SCH ×2 (05:54→13:41)
[2018-06-18] MEDS: INSULIN SLIDING SCALE (NOVOLOG) 1 VIAL SQ SCH ×4 (05:59→21:00)
[2018-06-18] MEDS ORDERED: INSULIN (LEVEMIR) 100 UNITS/ML UNITS SQ ONE (06:44)
[2018-06-18 08:23] LABS: BASO % 1.2 % (0-2.0); EOS % 5.2 % (0-4.5); HEMATOCRIT 23.4 % (35.4-49); HEMOGLOBIN 7.7 GM/dL (11.7-16.9); LYMPH % 11.8 % (8-40); MCH 22.7 pg (25.7-33.7); MCHC 32.9 g/dl (32.0-35.9); MEAN PLT VOLUME 8.4 fl (7.5-11.1); NEUT % 73.8 % (42.8-82.8); PLATELET COUNT 143 K/MM3 (134-434); RBC 3.39 M/mm3 (4.00-5.60); RDW 20.3 % (11.9-15.9); WHITE BLOOD COUNT 5.5 K/mm3 (4.0-10.0)
[2018-06-18] MEDS ORDERED: PT OWN MED DRAWER 7, Y5N ONE (08:24)
[2018-06-18 08:43] LABS: ANION GAP 6 MMOL/L (8-16); BLOOD UREA NITROGEN 57 mg/dL (7-18); CALCIUM 8.1 mg/dL (8.5-10.1); CHLORIDE 108 mmol/L (98-107); CO2 26 mmol/L (21-32); CREATININE 1.5 mg/dL (0.55-1.3); GLUCOSE,RANDOM 124 mg/dL (74-106); MAGNESIUM 2.3 mg/dL (1.8-2.4); PHOSPHOROUS 2.8 mg/dL (2.5-4.9); POTASSIUM 4.4 mmol/L (3.5-5.1); SODIUM 139 mmol/L (136-145)
[2018-06-18] MEDS ORDERED: IRON SUCROSE INJECTION 200 MG in SODIUM CHLORIDE 90 ML IVPB ONE (09:00)
[2018-06-18] MEDS: SPIRONOLACTONE 25 MG TABLET (FP) PO SCH ×2 (10:02→21:00)
[2018-06-18] MEDS: PANTOPRAZOLE 40 MG TABLET (FP) PO SCH (10:02)
[2018-06-18] MEDS: CARVEDILOL 6.25 MG TABLET (FP) PO SCH ×2 (10:02→21:00)
[2018-06-18] MEDS: BUDESONIDE/FORMETEROL FUMARATE 80/4.5 mcg INHALER IH SCH ×2 (10:03→21:04)
[2018-06-18] MEDS ORDERED: FLU VACCINE QUAD 60 MCG/0.5 ML (MDV 18-19) IM ONE (11:00)
--- NOTE | 2018-06-18 12:19 | PN ---
Progress Note, Physician Chief Complaint: Pt sitting in chair in no acute distress. reports feeling well. Denies any chest pain, sob, n/v/d - Current Medication List Current Medications: Active Medications Alprazolam (Xanax -) 0.25 mg PO BID PRN PRN Reason: ANXIETY Budesonide/Formoterol Fumarate (Symbicort 80/4.5mcg -) 2 puff IH BID [facility] Last Admin: 06/18/18 10:03 Dose: 2 puff Carvedilol (Coreg -) 6.25 mg PO BID [facility] Last Admin: 06/18/18 10:02 Dose: 6.25 mg Furosemide (Lasix Injection -) 40 mg IVPUSH BID@0600,1400 [facility] Last Admin: 06/18/18 05:54 Dose: 40 mg Hydroxyzine Pamoate (Vistaril -) 25 mg PO TID PRN PRN Reason: FOR ITCHING Insulin Aspart (Novolog Vial Sliding Scale -) 1 vial SQ [facility]; Protocol Last Admin: 06/18/18 11:54 Dose: 4 units Pantoprazole Sodium (Protonix -) 40 mg PO DAILY [facility] Last Admin: 06/18/18 10:02 Dose: 40 mg Spironolactone (Aldactone -) 25 mg PO BID [facility] Last Admin: 06/18/18 10:02 Dose: 25 mg - Objective Vital Signs: Vital Signs Temperature 97.6 F 06/18/18 10:00 Pulse Rate 79 06/18/18 10:00 Respiratory Rate 20 06/18/18 10:00 Blood Pressure 126/75 06/18/18 10:00 O2 Sat by Pulse Oximetry (%) 98 06/17/18 20:56 Constitutional: Yes: Well Nourished, No Distress, Calm, Obese Cardiovascular: Yes: Regular Rate and Rhythm Respiratory: Yes: WNL, Regular, CTA Bilaterally. No: Accessory Muscle Use, SOB , Tachypnea, Wheezes Gastrointestinal: Yes: Normal Bowel Sounds, Soft, Abdomen, Obese, Ascites. No: Tenderness Genitourinary: Yes: WNL Edema: Yes Edema: LUE: 1+, LLE: Trace, RLE: Trace Integumentary: Yes: Other (RLE diabetic ulcers) Wound/Incision: Yes: Draining Neurological: Yes: WNL, Alert, Oriented Psychiatric: Yes: WNL, Alert, Oriented Labs: CBC, BMP 06/18/18 06:20 06/18/18 06:20 INR, PTT INR 1.29 (0.83-1.09) H 06/16/18 11:15 Assessment/Plan (1) Anemia requiring transfusions Assessment/Plan: multifactorial AOCD, possible chronic indolent GI bleeding per GI hg/hct stable s/p 3 units prbcs transfuse 1unit today thoracentesis ordered outpt TIPS, capsule endoscopy Code(s): D64.9 - ANEMIA, UNSPECIFIED (2) Shortness of breath Assessment/Plan: resolved Code(s): R06.02 - SHORTNESS OF BREATH (3) Ascites Assessment/Plan: 2/2 to cirrhosis fluid overloaded continue iv lasix nephrology consulted Code(s): R18.8 - OTHER ASCITES (4) Cirrhosis Assessment/Plan: chronic Code(s): K74.60 - UNSPECIFIED CIRRHOSIS OF LIVER Qualifiers: Ascites presence: with ascites (5) Diabetes mellitus Assessment/Plan: on diabetic diet FSBS and SSI Code(s): E11.9 - TYPE 2 DIABETES MELLITUS WITHOUT COMPLICATIONS Qualifiers: Diabetes mellitus type: type 2 Diabetes mellitus exterminator helper insulin use: without usp use Diabetes mellitus complication status: with skin complications Diabetes mellitus complication detail: with other skin ulcer Qualified Code(s): E11.622 - Type 2 diabetes mellitus with other skin ulcer (6) GI bleed Assessment/Plan: GI following Code(s): K92.2 - GASTROINTESTINAL HEMORRHAGE, UNSPECIFIED Qualifiers: GI bleed type/associated pathology: unspecified gastrointestinal hemorrhage type Qualified Code(s): K92.2 - Gastrointestinal hemorrhage, unspecified (7) Hyperammonemia Assessment/Plan: -noted -consider lactulose vs xifaxan once anemia issue resolved Code(s): E72.20 - DISORDER OF UREA CYCLE METABOLISM, UNSPECIFIED (8) Hypertension Assessment/Plan: continue home regimen Code(s): I10 - ESSENTIAL (PRIMARY) HYPERTENSION (9) Morbid obesity with BMI of 45.0-49.9, adult Assessment/Plan: outpatient management Code(s): E66.01 - MORBID (SEVERE) OBESITY DUE TO EXCESS CALORIES; Z68.42 - BODY MASS INDEX (BMI) 45.0-49.9, ADULT (10) Thrombocytopenia Assessment/Plan: stable 2/2 to cirrhosis Code(s): D69.6 - THROMBOCYTOPENIA, UNSPECIFIED (11) LUE edema duplex negative diuresis
--- NOTE | 2018-06-18 16:29 | ECHO ---
Name: MENDEZ GODFREY Exam:Adult Echocardiogram Study Date: 06/18/2018 03:37 PM Age: 57 yrs Reason For Study: ANASARCA EXCLUDE RIGHT HEART FAILURE Height: 75 in Weight: 360 lb BSA: 2.8 m2 MMode/2D Measurements & Calculations IVSd: 1.2 cm Ao root diam: 2.9 cm LVIDd: 5.7 cm LA dimension: 4.6 cm LVIDs: 3.7 cm LVPWd: 0.85 cm EDV(Teich): 161.8 ml TAPSE: 3.1 cm ESV(Teich): 59.0 ml Doppler Measurements & Calculations MV E max milagros: 107.1 cm/sec Ao V2 max: 147.4 cm/sec MV A max milagros: 85.9 cm/sec Ao max P.7 mmHg MV E/A: 1.2 MV dec time: 0.20 sec LV V1 max P.1 mmHg MR max milagros: 297.3 cm/sec LV V1 max: 123.9 cm/sec MR max P.3 mmHg TR max milagros: 175.1 cm/sec Med Peak E' Milagros: 7.5 cm/sec TR max P.3 mmHg Med E/e': 14.3 Lat Peak E' Milagros: 12.1 cm/sec Lat E/e': 8.9 Procedure A complete two-dimensional transthoracic echocardiogram was performed (2D, M-mode, Doppler and color flow Doppler). Left Ventricle The left ventricle is normal in size. Left ventricular systolic function is normal. Ejection Fraction = 60- 65%. No regional wall motion abnormalities noted. Right Ventricle The right ventricle is normal size. The right ventricular systolic function is normal. RV systolic TD I is 15 cm/s. Atria The left atrium is mildly dilated. Right atrial size is normal. Mitral Valve The mitral valve is normal in structure and function. There is mild mitral regurgitation. Tricuspid Valve The tricuspid valve is normal in structure and function. There is mild tricuspid regurgitation. Right ventricular systolic pressure is normal. Aortic Valve The aortic valve is normal in structure and function. No aortic regurgitation is present. Pulmonic Valve The pulmonic valve is not well visualized. Great Vessels The aortic root is normal size. Pericardium/Pleura There is no pericardial effusion. Interpretation Summary The left ventricle is normal in size. Left ventricular systolic function is normal. No regional wall motion abnormalities noted. Ejection Fraction = 60-65%. The right ventricular systolic function is normal. The left atrium is mildly dilated. Right atrial size is normal. There is mild mitral regurgitation. There is mild tricuspid regurgitation. Right ventricular systolic pressure is normal. There is no pericardial effusion. Previous study is not available for comparison Lex Mejia MD 06/18/2018 04:28 PM
--- NOTE | 2018-06-18 17:26 | CONSULT ---
Consult Consult Specialty:: Nephrology Reason for Consultation:: CKD - History of Present Illness Chief Complaint: shortness of breath History of Present Illness: Pt is a 57 year old male with pmhx of HTN, HLD, DM, CKD, and liver cirrhosis who presents to the ER complains of shortness of breath on ambulation. He also complains of worsening edema and weight gain. He was found to have elevated creatinine and I was called to evaluate him. He does have history of CKD. He denies dysuria or hematuria. He denies nsaid use. He has not followed up in the office after his last hospital admission. He denies abdominal pain, fever or chills. He does feel that his abdomen is getting bigger. - History Source History Provided By: Patient, Medical Record - Past Medical History Cardio/Vascular: Yes: HTN, Hyperlipdemia Pulmonary: Yes: Sleep Apnea Gastrointestinal: Yes: Diverticulosis, Esophageal Varices (endoscopically ablated), Hemorrhoids, Other (duodenal varices and portal gastropathy, hyperplastic colon polyp excision 2008) Hepatobiliary: Yes: Cirrhosis (due ot LIGHT), Other (LIGHT with cirrhosis) Renal/: Yes: Renal Inusuff Infectious Disease: Yes: MRSA Endocrine: Yes: Diabetes Mellitus, Other (Morbid obesity) Dermatology: Yes: Cellulitis Additional Medical History: Charcot foot with ulcers. LE cellulitis. perineal abscess - Past Surgical History Past Surgical History: Yes: Colonoscopy, Tonsillectomy, Upper Endoscopy Additional Surgical History: anal fistulectomies - Alcohol/Substance Use Hx Alcohol Use: No History of Substance Use: reports: None - Smoking History Smoking history: Never smoked Have you smoked in the past 12 months: No Aproximately how many cigarettes per day: 0 - Social History Usual Living Arrangement: Other (with sister) ADL: Independent Occupation: works for [employer] in [employer] History of Recent Travel: No Home Medications - Allergies Allergies/Adverse Reactions: Allergies Allergy/AdvReac Type Severity Reaction Status Date / Time No Known Allergies Allergy Verified 06/16/18 10:03 - Home Medications Home Medications: Ambulatory Orders Furosemide [Lasix -] 40 mg PO DAILY 08/06/13 Glimepiride [Amaryl] 4 mg PO BID 08/06/13 Carvedilol [Coreg -] 6.25 mg PO BID #0 tablet 08/12/13 Collagenase Clostridium Hist. [Santyl -] 1 applic TP DAILY #1 tube 11/02/17 Pantoprazole Sodium [Protonix -] 40 mg PO DAILY #30 tablet.ec 11/02/17 Spironolactone [Aldactone -] 25 mg PO BID #60 tablet 11/02/17 Alprazolam [Xanax] 0.25 mg PO BID PRN 06/16/18 Fluticasone/Salmeterol [Advair Hfa 115-21 Mcg Inhaler] 1 inh PO BID 06/16/18 hydrOXYzine PAMOATE [Vistaril -] 25 mg PO TID 06/16/18 Family Disease History - Family Disease History Family Disease History: Diabetes: Sister (thyroid disease), Heart Disease: Mother (parkinsons, of [place]), [place]: Father (prostate cancer), Other: Mother, Sister Review of Systems - Review of Systems Constitutional: reports: Malaise. denies: Chills, Fever HENT: reports: No Symptoms Neck: reports: No Symptoms Cardiovascular: reports: Edema, Shortness of Breath Respiratory: reports: SOB, SOB on Exertion Gastrointestinal: reports: Bloating Genitourinary: reports: No Symptoms Musculoskeletal: reports: No Symptoms Integumentary: reports: No Symptoms Neurological: reports: No Symptoms Endocrine: reports: No Symptoms Psychiatric: reports: No Symptoms Physical Exam Vital Signs: Vital Signs Temperature 98.2 F 06/18/18 15:14 Pulse Rate 70 06/18/18 15:14 Respiratory Rate 20 06/18/18 15:14 Blood Pressure 102/53 L 06/18/18 15:14 O2 Sat by Pulse Oximetry (%) 98 06/17/18 20:56 Constitutional: Yes: Calm, Poor Hygeine Cardiovascular: Yes: S1, S2 Respiratory: Yes: On Nasal O2 Gastrointestinal: Yes: Abdomen, Obese, Ascites Musculoskeletal: Yes: WNL Edema: Yes Edema: LLE: 3+, RLE: 3+ Neurological: Yes: Oriented Psychiatric: Yes: Oriented Labs: CBC, BMP 06/18/18 06:20 06/18/18 06:20 Laboratory Tests 04/07/12 06/24/17 10/30/17 10:25 06:00 06:38 Hgb Creatinine 1.9 H Urine Protein Urine Blood DOMINICK Screen Negative c-ANCA <1:20 Proteinase 3 (PR3) <3.5 p-ANCA <1:20 Atypical p-ANCA <1:20 Myeloperoxidase Ab <9.0 Mitochon/Sm Musc Ab Titr 5.3 10/31/17 11/01/17 11/02/17 06:31 06:00 06:00 Hgb Creatinine 1.8 H 1.9 H 1.8 H Urine Protein Urine Blood DOMINICK Screen c-ANCA Proteinase 3 (PR3) p-ANCA Atypical p-ANCA Myeloperoxidase Ab Mitochon/Sm Musc Ab Titr 06/16/18 06/16/18 06/17/18 11:15 13:20 05:10 Hgb Creatinine 1.3 1.4 H Urine Protein Negative Urine Blood Negative DOMINICK Screen c-ANCA Proteinase 3 (PR3) p-ANCA Atypical p-ANCA Myeloperoxidase Ab Mitochon/Sm Musc Ab Titr 06/18/18 06/18/18 06:20 06:20 Hgb 7.7 L Creatinine 1.5 H Urine Protein Urine Blood DOMINICK Screen c-ANCA Proteinase 3 (PR3) p-ANCA Atypical p-ANCA Myeloperoxidase Ab Mitochon/Sm Musc Ab Titr Imaging - Results Chest X-ray: Report Reviewed Problem List - Problems (1) CKD (chronic kidney disease) Code(s): N18.9 - CHRONIC KIDNEY DISEASE, UNSPECIFIED Qualifiers: Chronic kidney disease stage: stage 3 (moderate) Qualified Code(s): N18.3 - Chronic kidney disease, stage 3 (moderate) Assessment/Plan Current Medications Generic Name Dose Route Start Last Admin Trade Name Freq PRN Reason Stop Dose Admin Alprazolam 0.25 mg 06/16/18 14:53 Xanax - PO BID PRN ANXIETY Budesonide/Formoterol Fumarate 2 puff 06/16/18 22:00 06/18/18 10:03 Symbicort 80/4.5mcg - IH 2 puff BID HANY Administration Carvedilol 6.25 mg 06/16/18 22:00 06/18/18 10:02 Coreg - PO 6.25 mg BID [facility]ANY Administration Furosemide 40 mg 06/17/18 14:00 06/18/18 13:41 Lasix Injection - IVPUSH 40 mg BID@0600,1400 [facility] Administration Hydroxyzine Pamoate 25 mg 06/16/18 15:33 Vistaril - PO TID PRN FOR ITCHING Insulin Aspart 1 vial 06/16/18 22:00 06/18/18 11:54 Novolog Vial Sliding Scale - SQ 4 units ACHS [facility]ANY Administration Protocol Pantoprazole Sodium 40 mg 06/18/18 10:00 06/18/18 10:02 Protonix - PO 40 mg DAILY [facility] Administration Spironolactone 25 mg 06/16/18 22:00 06/18/18 10:02 Aldactone - PO 25 mg BID [facility] Administration Impression 1. CKD 2. anemia 3. DM 4. fluid overload 5. right renal cyst 6. hep c 7. hx MRSA 8. HTN 9. obesity 10. LIGHT Plan - cont with diuretics - monitor renal function - repeat labs in am - avoid nsaids - monitor potassium level - ua neg for blood or protein Dr Bermudez
[2018-06-18] MEDS ORDERED: hydrOXYzine PAMOATE 25 MG CAPSULE (FP) PO PRN (19:18)
[2018-06-19] MEDS: FUROSEMIDE 40 MG/4 ML INJECTABLE VIAL IVPUSH SCH ×2 (05:32→21:06)
[2018-06-19] MEDS: INSULIN SLIDING SCALE (NOVOLOG) 1 VIAL SQ SCH ×4 (06:49→21:17)
[2018-06-19 06:59] LABS: BASO % 0.9 % (0-2.0); EOS % 5.7 % (0-4.5); HEMATOCRIT 24.7 % (35.4-49); HEMOGLOBIN 7.9 GM/dL (11.7-16.9); LYMPH % 9.2 % (8-40); MCHC 31.9 g/dl (32.0-35.9); MEAN CELL VOLUME 69.1 fl (80-96); MEAN PLT VOLUME 8.2 fl (7.5-11.1); MONO % 8.9 % (3.8-10.2); NEUT % 75.3 % (42.8-82.8); PLATELET COUNT 151 K/MM3 (134-434); RBC 3.58 M/mm3 (4.00-5.60); RDW 21.1 % (11.9-15.9); WHITE BLOOD COUNT 5.2 K/mm3 (4.0-10.0)
[2018-06-19 07:19] LABS: ALBUMIN 2.8 g/dl (3.4-5.0); ALK PHOS 119 U/L (45-117); ANION GAP 6 MMOL/L (8-16); BLOOD UREA NITROGEN 58 mg/dL (7-18); CALCIUM 7.9 mg/dL (8.5-10.1); CHLORIDE 107 mmol/L (98-107); CO2 25 mmol/L (21-32); CREATININE 1.5 mg/dL (0.55-1.3); GLUCOSE,RANDOM 134 mg/dL (74-106); MAGNESIUM 2.2 mg/dL (1.8-2.4); PHOSPHOROUS 3.3 mg/dL (2.5-4.9); POTASSIUM 4.2 mmol/L (3.5-5.1); SGOT/AST 35 U/L (15-37); SGPT/ALT 24 U/L (13-61); SODIUM 138 mmol/L (136-145)
[2018-06-19] MEDS: PANTOPRAZOLE 40 MG TABLET (FP) PO SCH (09:12)
[2018-06-19] MEDS: CARVEDILOL 6.25 MG TABLET (FP) PO SCH ×2 (09:12→21:06)
[2018-06-19] MEDS: SPIRONOLACTONE 25 MG TABLET (FP) PO SCH ×2 (09:13→21:07)
[2018-06-19] MEDS: BUDESONIDE/FORMETEROL FUMARATE 80/4.5 mcg INHALER IH SCH ×2 (09:13→21:14)
--- NOTE | 2018-06-19 12:45 | PN ---
Progress Note, Physician Chief Complaint: Pt sitting in chair in no acute distress. reports feeling well. Denies any chest pain, sob, n/v/d - Current Medication List Current Medications: Active Medications Alprazolam (Xanax -) 0.25 mg PO Q12H PRN PRN Reason: ANXIETY Budesonide/Formoterol Fumarate (Symbicort 80/4.5mcg -) 2 puff IH BID [facility] Last Admin: 06/19/18 09:13 Dose: 2 puff Carvedilol (Coreg -) 6.25 mg PO BID [facility] Last Admin: 06/19/18 09:12 Dose: 6.25 mg Furosemide (Lasix Injection -) 40 mg IVPUSH BID@0600,1400 [facility] Last Admin: 06/19/18 05:32 Dose: 40 mg Hydroxyzine Pamoate (Vistaril -) 25 mg PO Q8H PRN PRN Reason: FOR ITCHING Insulin Aspart (Novolog Vial Sliding Scale -) 1 vial SQ ACHS [facility]; Protocol Last Admin: 06/19/18 12:09 Dose: 2 units Pantoprazole Sodium (Protonix -) 40 mg PO DAILY [facility] Last Admin: 06/19/18 09:12 Dose: 40 mg Spironolactone (Aldactone -) 25 mg PO BID [facility] Last Admin: 06/19/18 09:13 Dose: 25 mg - Objective Vital Signs: Vital Signs Temperature 97.7 F 06/19/18 08:48 Pulse Rate 79 06/19/18 08:48 Respiratory Rate 18 06/19/18 08:48 Blood Pressure 126/67 06/19/18 08:48 O2 Sat by Pulse Oximetry (%) 98 06/19/18 08:43 Constitutional: Yes: Well Nourished, No Distress, Calm, Obese Gastrointestinal: Yes: Normal Bowel Sounds, Abdomen, Obese, Ascites, Hepatomegaly. No: Tenderness Genitourinary: Yes: WNL Edema: Yes Edema: LUE: 1+, LLE: 1+, RLE: 1+ Integumentary: Yes: Other (RLE diabetic ulcers) Wound/Incision: Yes: Dressing Dry and Intact Neurological: Yes: WNL, Alert, Oriented Psychiatric: Yes: WNL, Alert, Oriented Labs: CBC, BMP 06/19/18 06:30 06/19/18 06:30 INR, PTT INR 1.29 (0.83-1.09) H 06/16/18 11:15 Assessment/Plan (1) Anemia requiring transfusions Assessment/Plan: multifactorial AOCD, possible chronic indolent GI bleeding per GI hg/hct stable s/p 3 units prbcs transfuse 1unit today paracentesis today outpt TIPS, capsule endoscopy Code(s): D64.9 - ANEMIA, UNSPECIFIED (2) Shortness of breath Assessment/Plan: resolved Code(s): R06.02 - SHORTNESS OF BREATH (3) Ascites Assessment/Plan: 2/2 to cirrhosis fluid overloaded continue iv lasix 1L fluid restriction nephrology following Code(s): R18.8 - OTHER ASCITES (4) Cirrhosis Assessment/Plan: chronic Code(s): K74.60 - UNSPECIFIED CIRRHOSIS OF LIVER Qualifiers: Ascites presence: with ascites (5) Diabetes mellitus Assessment/Plan: on diabetic diet FSBS and SSI Code(s): E11.9 - TYPE 2 DIABETES MELLITUS WITHOUT COMPLICATIONS Qualifiers: Diabetes mellitus type: type 2 Diabetes mellitus custodial insulin use: without intermediate designer use Diabetes mellitus complication status: with skin complications Diabetes mellitus complication detail: with other skin ulcer Qualified Code(s): E11.622 - Type 2 diabetes mellitus with other skin ulcer (6) GI bleed Assessment/Plan: GI following Code(s): K92.2 - GASTROINTESTINAL HEMORRHAGE, UNSPECIFIED Qualifiers: GI bleed type/associated pathology: unspecified gastrointestinal hemorrhage type Qualified Code(s): K92.2 - Gastrointestinal hemorrhage, unspecified (7) Hyperammonemia Assessment/Plan: repeat ammonia level consider lactulose vs xifaxan once anemia issue resolved Code(s): E72.20 - DISORDER OF UREA CYCLE METABOLISM, UNSPECIFIED (8) Hypertension Assessment/Plan: continue home regimen Code(s): I10 - ESSENTIAL (PRIMARY) HYPERTENSION (9) Morbid obesity with BMI of 45.0-49.9, adult Assessment/Plan: outpatient management Code(s): E66.01 - MORBID (SEVERE) OBESITY DUE TO EXCESS CALORIES; Z68.42 - BODY MASS INDEX (BMI) 45.0-49.9, ADULT (10) Thrombocytopenia Assessment/Plan: stable 2/2 to cirrhosis Code(s): D69.6 - THROMBOCYTOPENIA, UNSPECIFIED (11) LUE edema duplex negative diuresis (12) CKD (chronic kidney disease) Assessment/Plan: stable monitor w/ diuresis Code(s): N18.9 - CHRONIC KIDNEY DISEASE, UNSPECIFIED Qualifiers: Chronic kidney disease stage: stage 3 (moderate) Qualified Code(s): N18.3 - Chronic kidney disease, stage 3 (moderate)
[2018-06-19 13:39] VITALS: BMI 46.1
--- NOTE | 2018-06-19 14:16 | PN ---
Progress Note, Physician History of Present Illness: Pt seen and examined at bedside. He is awake and alert. he is going for paracenesis today. - Current Medication List Current Medications: Active Medications Alprazolam (Xanax -) 0.25 mg PO Q12H PRN PRN Reason: ANXIETY Budesonide/Formoterol Fumarate (Symbicort 80/4.5mcg -) 2 puff IH BID [facility] Last Admin: 06/19/18 09:13 Dose: 2 puff Carvedilol (Coreg -) 6.25 mg PO BID [facility] Last Admin: 06/19/18 09:12 Dose: 6.25 mg Furosemide (Lasix Injection -) 40 mg IVPUSH BID@0600,1400 [facility] Last Admin: 06/19/18 05:32 Dose: 40 mg Hydroxyzine Pamoate (Vistaril -) 25 mg PO Q8H PRN PRN Reason: FOR ITCHING Insulin Aspart (Novolog Vial Sliding Scale -) 1 vial SQ ACHS [facility]; Protocol Last Admin: 06/19/18 12:09 Dose: 2 units Pantoprazole Sodium (Protonix -) 40 mg PO DAILY [facility] Last Admin: 06/19/18 09:12 Dose: 40 mg Spironolactone (Aldactone -) 25 mg PO BID [facility] Last Admin: 06/19/18 09:13 Dose: 25 mg - Objective Vital Signs: Vital Signs Temperature 97.7 F 06/19/18 08:48 Pulse Rate 79 06/19/18 08:48 Respiratory Rate 18 06/19/18 08:48 Blood Pressure 126/67 06/19/18 08:48 O2 Sat by Pulse Oximetry (%) 98 06/19/18 08:43 Constitutional: Yes: Calm Eyes: Yes: Conjunctiva Clear HENT: Yes: Atraumatic Cardiovascular: Yes: S1, S2 Respiratory: Yes: CTA Bilaterally Gastrointestinal: Yes: Normal Bowel Sounds, Abdomen, Obese, Ascites Genitourinary: Yes: WNL Musculoskeletal: Yes: WNL Edema: Yes Edema: LLE: 3+, RLE: 3+ Neurological: Yes: Oriented Psychiatric: Yes: Oriented Labs: CBC, BMP 06/19/18 06:30 06/19/18 06:30 INR, PTT INR 1.29 (0.83-1.09) H 06/16/18 11:15 Problem List - Problems (1) CKD (chronic kidney disease) Code(s): N18.9 - CHRONIC KIDNEY DISEASE, UNSPECIFIED Qualifiers: Chronic kidney disease stage: stage 3 (moderate) Qualified Code(s): N18.3 - Chronic kidney disease, stage 3 (moderate) Assessment/Plan Current Medications Generic Name Dose Route Start Last Admin Trade Name Freq PRN Reason Stop Dose Admin Alprazolam 0.25 mg 06/18/18 19:18 Xanax - PO Q12H PRN ANXIETY Budesonide/Formoterol Fumarate 2 puff 06/18/18 22:00 06/19/18 09:13 Symbicort 80/4.5mcg - IH 2 puff BID [facility] Administration Carvedilol 6.25 mg 06/18/18 22:00 06/19/18 09:12 Coreg - PO 6.25 mg BID [facility] Administration Furosemide 40 mg 06/19/18 06:00 06/19/18 05:32 Lasix Injection - IVPUSH 40 mg BID@0600,1400 [facility] Administration Hydroxyzine Pamoate 25 mg 06/18/18 19:18 Vistaril - PO Q8H PRN FOR ITCHING Insulin Aspart 1 vial 06/18/18 22:00 06/19/18 12:09 Novolog Vial Sliding Scale - SQ 2 units ACHS [facility] Administration Protocol Pantoprazole Sodium 40 mg 06/18/18 10:00 06/19/18 09:12 Protonix - PO 40 mg DAILY [facility] Administration Spironolactone 25 mg 06/18/18 22:00 06/19/18 09:13 Aldactone - PO 25 mg BID [facility] Administration Impression 1. CKD 2. anemia 3. DM 4. fluid overload 5. right renal cyst 6. hep c 7. hx MRSA 8. HTN 9. obesity 10. LIGHT Plan - renal function is stable - cont lasix and aldactone - monitor lytes - discussed fluid intake with pt again - paracentesis today - avoid nsaids - monitor potassium level - ua neg for blood or protein Dr Bermudez
--- NOTE | 2018-06-19 16:12 | PN ---
GI Progress Note Subjective: GI NOte: Weight has not budged from 369lbs despite lasix and aldactone. Only a minimal amount of ascitic fluid was yielded. His scrotal and leg edema is still massive . Await ascites chemistries. No thrombosis found in LUE. - Objective Vital Signs: Vital Signs Temperature 97.7 F 06/19/18 08:48 Pulse Rate 79 06/19/18 08:48 Respiratory Rate 18 06/19/18 08:48 Blood Pressure 126/67 06/19/18 08:48 O2 Sat by Pulse Oximetry (%) 98 06/19/18 08:43 Laboratory Tests 06/17/18 06/17/18 06/18/18 05:10 05:10 06:20 Hgb Plt Count Potassium BUN 57 H Creatinine 1.5 H TIBC 294 Iron Saturation 12 L Ferritin 20.3 AST ALT Albumin 06/19/18 06/19/18 06:30 06:30 Hgb 7.9 L Plt Count 151 Potassium 4.2 BUN 58 H Creatinine 1.5 H TIBC Iron Saturation Ferritin AST 35 ALT 24 Albumin 2.8 L Constitutional: Calm Gastrointestinal Inspection: Yes: Distention, Other (abdominal wall edema persists) ...Auscultate: Yes: Normoactive Bowel Sounds ...Palpate: Yes: Other (nontender) Genitourinary: Yes: Scrotal Edema (massive) Edema: LUE: 2+, LLE: 4+, RLE: 4+ Neurological: Yes: Alert Labs: CBC, BMP 06/19/18 06:30 06/19/18 06:30 INR, PTT INR 1.29 (0.83-1.09) H 06/16/18 11:15 Assessment/Plan The etiology for this anasarca is not clear. His cirrhosis and ascites are not that advanced, hypoalbuminemia not as severe as would be expected in nephrosis or severe cirrhosis and echocardiogram does not substantiate significant right heat failure. Will order hepatic vein doppler to exclude Budd Chiari. ? Amyloisdosis. Will screen for light chains Problem List - Problems (1) Anasarca associated with disorder of kidney Assessment/Plan: The echocardiogram reveals relatively good RV function. I will therefore order an Doppler to exclude Budd Chiari syndrome although is this if cirrhosis were the etiology a larger volume of ascites would be expected. Brett tells me that the fluid did not appear milky ( chylous). ? Amyloidosis. Code(s): N04.9 - NEPHROTIC SYNDROME WITH UNSPECIFIED MORPHOLOGIC CHANGES (2) Edema of upper extremity Code(s): R60.0 - LOCALIZED EDEMA (3) Anemia requiring transfusions Code(s): D64.9 - ANEMIA, UNSPECIFIED (4) Anemia due to blood loss, acute Code(s): D62 - ACUTE POSTHEMORRHAGIC ANEMIA (5) Cellulitis Code(s): L03.90 - CELLULITIS, UNSPECIFIED (6) Cirrhosis Code(s): K74.60 - UNSPECIFIED CIRRHOSIS OF LIVER Qualifiers: Ascites presence: with ascites (7) Colon polyp, hyperplastic Code(s): K63.5 - POLYP OF COLON (8) Diabetic wet gangrene of the foot Code(s): E11.52 - TYPE 2 DIABETES W DIABETIC PERIPHERAL ANGIOPATHY W GANGRENE (9) Diverticula of colon Code(s): K57.30 - DVRTCLOS OF LG INT W/O PERFORATION OR ABSCESS W/O BLEEDING (10) Morbid obesity with BMI of 45.0-49.9, adult Code(s): E66.01 - MORBID (SEVERE) OBESITY DUE TO EXCESS CALORIES; Z68.42 - BODY MASS INDEX (BMI) 45.0-49.9, ADULT (11) LIGHT (nonalcoholic steatohepatitis) Code(s): K75.81 - NONALCOHOLIC STEATOHEPATITIS (LIGHT) (12) Portal hypertensive gastropathy Code(s): K76.6 - PORTAL HYPERTENSION; K31.89 - OTHER DISEASES OF STOMACH AND DUODENUM (13) Renal insufficiency Code(s): N28.9 - DISORDER OF KIDNEY AND URETER, UNSPECIFIED (14) T2DM (type 2 diabetes mellitus) Code(s): E11.9 - TYPE 2 DIABETES MELLITUS WITHOUT COMPLICATIONS Qualifiers: Chronic kidney disease stage: stage 3 (moderate) (15) Thrombocytopenia Code(s): D69.6 - THROMBOCYTOPENIA, UNSPECIFIED (16) Varices of small intestine Code(s): I86.8 - VARICOSE VEINS OF OTHER SPECIFIED SITES
--- NOTE | 2018-06-19 16:49 | CONSULT ---
- Consultation REQUESTING PROVIDER: CONSULT REQUEST: We have been asked to surgically evaluate this patient for b/l leg ulcers PCP:ROWAN Mtz HISTORY OF PRESENT ILLNESS: 57yo M h/o chronic venous stasis ulcer, known to wound care clinic. Pt was consulted to vascular for wound care orders. Pt states that he has been treating his wounds with compression dressing. PMHx: HTN, DM Home Medications Medication Instructions Recorded Furosemide [Lasix -] 40 mg PO DAILY 08/06/13 Glimepiride [Amaryl] 4 mg PO BID 08/06/13 Carvedilol [Coreg -] 6.25 mg PO BID #0 tablet 08/12/13 Collagenase Clostridium Hist. 1 applic TP DAILY #1 tube 11/02/17 [Santyl -] Pantoprazole Sodium [Protonix -] 40 mg PO DAILY #30 tablet.ec 11/02/17 Spironolactone [Aldactone -] 25 mg PO BID #60 tablet 11/02/17 Alprazolam [Xanax] 0.25 mg PO BID PRN 06/16/18 Fluticasone/Salmeterol [Advair Hfa 1 inh PO BID 06/16/18 115-21 Mcg Inhaler] hydrOXYzine PAMOATE [Vistaril -] 25 mg PO TID 06/16/18 Allergies Allergy/AdvReac Type Severity Reaction Status Date / Time No Known Allergies Allergy Verified 06/16/18 10:03 PHYSICAL EXAM: GENERAL: Awake, alert, and fully oriented, in no acute distress. HEAD: Normal with no signs of trauma. EYES: PERRL, sclera anicteric, conjunctiva clear. NECK: Normal ROM LUNGS: breathing comfortably HEART: Regular rate and rhythm. ABDOMEN: Soft, nontender, not distended, normoactive bowel sounds, no guarding, no rebound, no masses. No organomegaly. LOWER EXTREMITIES: 2+ pulses, warm, well-perfused. +2 pitting edema, RLE 1 cm posterior stanton ulcer and 1 cm medial maleolus ulcer, LLE shows multiple 1 cm ulcer on posterior calf and anterior ankle. NEUROLOGICAL: Normal speech, gait not observed. PSYCH: Cooperative. Good eye contact. Appropriate mood and affect. SKIN: Warm, dry, normal turgor, no rashes or lesions noted. Vital Signs Temperature 97.7 F 06/19/18 08:48 Pulse Rate 79 01/29/19 08:48 Respiratory Rate 18 06/19/18 08:48 Blood Pressure 126/67 06/19/18 08:48 O2 Sat by Pulse Oximetry (%) 98 06/19/18 08:43 Lab Results WBC 5.2 K/mm3 (4.0-10.0) 06/19/18 06:30 RBC 3.58 M/mm3 (4.00-5.60) L 06/19/18 06:30 Hgb 7.9 GM/dL (11.7-16.9) L 06/19/18 06:30 Hct 24.7 % (35.4-49) L 06/19/18 06:30 MCV 69.1 fl (80-96) L 06/19/18 06:30 MCHC 31.9 g/dl (32.0-35.9) L 06/19/18 06:30 RDW 21.1 % (11.9-15.9) H 06/19/18 06:30 Plt Count 151 K/MM3 (134-434) 06/19/18 06:30 Sodium 138 mmol/L (136-145) 06/19/18 06:30 Potassium 4.2 mmol/L (3.5-5.1) 06/19/18 06:30 Chloride 107 mmol/L (98-107) 06/19/18 06:30 Carbon Dioxide 25 mmol/L (21-32) 06/19/18 06:30 Anion Gap 6 MMOL/L (8-16) L 06/19/18 06:30 BUN 58 mg/dL (7-18) H 06/19/18 06:30 Creatinine 1.5 mg/dL (0.55-1.3) H 06/19/18 06:30 Random Glucose 134 mg/dL (74-106) H 06/19/18 06:30 Calcium 7.9 mg/dL (8.5-10.1) L 06/19/18 06:30 Blood Type A POSITIVE 06/19/18 11:35 Antibody Screen Negative 06/19/18 11:35 INR 1.29 (0.83-1.09) H 06/16/18 11:15 Problem List - Problems (1) Venous (peripheral) insufficiency Assessment/Plan: Plan -b/l compression dressings with santyl -elevate legs -follow up with wound care clinic as outpatient. Code(s): I87.2 - VENOUS INSUFFICIENCY (CHRONIC) (PERIPHERAL)
[2018-06-19] MEDS: ALPRAZolam 0.25 MG TABLET PO PRN (23:52)
[2018-06-20] MEDS: INSULIN SLIDING SCALE (NOVOLOG) 1 VIAL SQ SCH ×4 (06:38→22:59)
[2018-06-20] MEDS: FUROSEMIDE 40 MG/4 ML INJECTABLE VIAL IVPUSH SCH ×2 (06:38→16:27)
[2018-06-20 07:34] LABS: EOS % 5.8 % (0-4.5); HEMATOCRIT 22.5 % (35.4-49); HEMOGLOBIN 7.3 GM/dL (11.7-16.9); MCH 22.7 pg (25.7-33.7); MCHC 32.4 g/dl (32.0-35.9); MEAN PLT VOLUME 8.5 fl (7.5-11.1); NEUT % 71.2 % (42.8-82.8); PLATELET COUNT 116 K/MM3 (134-434); RBC 3.22 M/mm3 (4.00-5.60); RDW 21.2 % (11.9-15.9); WHITE BLOOD COUNT 3.7 K/mm3 (4.0-10.0)
[2018-06-20 07:55] LABS: ANION GAP 6 MMOL/L (8-16); BLOOD UREA NITROGEN 59 mg/dL (7-18); CALCIUM 7.8 mg/dL (8.5-10.1); CHLORIDE 110 mmol/L (98-107); CO2 25 mmol/L (21-32); CREATININE 1.4 mg/dL (0.55-1.3); GLUCOSE,RANDOM 132 mg/dL (74-106); MAGNESIUM 2.4 mg/dL (1.8-2.4); PHOSPHOROUS 3.4 mg/dL (2.5-4.9); POTASSIUM 4.2 mmol/L (3.5-5.1); SODIUM 141 mmol/L (136-145)
[2018-06-20] MEDS: SPIRONOLACTONE 25 MG TABLET (FP) PO SCH ×2 (10:42→22:59)
[2018-06-20] MEDS: PANTOPRAZOLE 40 MG TABLET (FP) PO SCH (10:42)
[2018-06-20] MEDS: CARVEDILOL 6.25 MG TABLET (FP) PO SCH ×2 (10:42→22:58)
[2018-06-20] MEDS: BUDESONIDE/FORMETEROL FUMARATE 80/4.5 mcg INHALER IH SCH ×2 (10:43→22:59)
[2018-06-20 10:49] LABS: ANISOCYTOSIS 1+; MACROCYTOSIS 0; OVALOCYTE 1+; PLATELET ESTIMATE DECREASED
[2018-06-20] MEDS ORDERED: INSULIN (NOVOLOG) ASPART 100 UNITS/ML 10ML VIAL ONE ×2 (12:03→20:23)
--- NOTE | 2018-06-20 12:05 | PN ---
Progress Note, Physician Chief Complaint: Pt sitting in chair in no acute distress. reports feeling well. Denies any chest pain, sob, n/v/d - Current Medication List Current Medications: Active Medications Alprazolam (Xanax -) 0.25 mg PO Q12H PRN PRN Reason: ANXIETY Last Admin: 06/19/18 23:52 Dose: 0.25 mg Budesonide/Formoterol Fumarate (Symbicort 80/4.5mcg -) 2 puff IH BID [facility] Last Admin: 06/20/18 10:43 Dose: 2 puff Carvedilol (Coreg -) 6.25 mg PO BID [facility] Last Admin: 06/20/18 10:42 Dose: 6.25 mg Furosemide (Lasix Injection -) 40 mg IVPUSH BID@0600,1400 [facility] Last Admin: 06/20/18 06:38 Dose: 40 mg Hydroxyzine Pamoate (Vistaril -) 25 mg PO Q8H PRN PRN Reason: FOR ITCHING Insulin Aspart (Novolog Vial Sliding Scale -) 1 vial SQ [facility]; Protocol Last Admin: 06/20/18 06:38 Dose: Not Given Pantoprazole Sodium (Protonix -) 40 mg PO DAILY [facility] Last Admin: 06/20/18 10:42 Dose: 40 mg Spironolactone (Aldactone -) 25 mg PO BID [facility] Last Admin: 06/20/18 10:42 Dose: 25 mg - Objective Vital Signs: Vital Signs Temperature 97.5 F L 06/20/18 10:00 Pulse Rate 78 06/20/18 10:00 Respiratory Rate 18 06/20/18 10:00 Blood Pressure 144/88 06/20/18 10:00 O2 Sat by Pulse Oximetry (%) 100 06/19/18 21:00 Constitutional: Yes: Well Nourished, No Distress, Calm, Obese Cardiovascular: Yes: Regular Rate and Rhythm Respiratory: Yes: WNL, Regular, CTA Bilaterally. No: Accessory Muscle Use, SOB , Tachypnea, Wheezes Gastrointestinal: Yes: Normal Bowel Sounds, Abdomen, Obese, Hepatomegaly. No: Tenderness, Vomiting Genitourinary: Yes: WNL Edema: Yes Edema: LUE: 2+, LLE: 2+, RLE: 2+ Neurological: Yes: WNL, Alert, Oriented Psychiatric: Yes: WNL, Alert, Oriented Labs: CBC, BMP 06/20/18 06:30 06/20/18 06:30 INR, PTT INR 1.29 (0.83-1.09) H 06/16/18 11:15 Assessment/Plan (1) Anemia requiring transfusions Assessment/Plan: multifactorial AOCD, possible chronic indolent GI bleeding per GI hg/hct trending down, no gross bleeding noted s/p 4 units prbcs transfuse 2units today monitor closely Code(s): D64.9 - ANEMIA, UNSPECIFIED (2) Shortness of breath Assessment/Plan: resolved Code(s): R06.02 - SHORTNESS OF BREATH (3) Ascites Assessment/Plan: 2/2 to kohli fluid overloaded continue iv lasix per nephrology 1L fluid restriction case discussed with GI, suspect hypercoagulable state, w/ dropping hg/hct, recommend transfer to [facility] for tips [facility] contacted, awaiting to hear back Code(s): R18.8 - OTHER ASCITES (4) Cirrhosis Assessment/Plan: chronic Code(s): K74.60 - UNSPECIFIED CIRRHOSIS OF LIVER Qualifiers: Ascites presence: with ascites (5) Diabetes mellitus Assessment/Plan: on diabetic diet FSBS and SSI Code(s): E11.9 - TYPE 2 DIABETES MELLITUS WITHOUT COMPLICATIONS Qualifiers: Diabetes mellitus type: type 2 Diabetes mellitus middle or intermediate school principal insulin use: without detention use Diabetes mellitus complication status: with skin complications Diabetes mellitus complication detail: with other skin ulcer Qualified Code(s): E11.622 - Type 2 diabetes mellitus with other skin ulcer (6) GI bleed Assessment/Plan: GI following Code(s): K92.2 - GASTROINTESTINAL HEMORRHAGE, UNSPECIFIED Qualifiers: GI bleed type/associated pathology: unspecified gastrointestinal hemorrhage type Qualified Code(s): K92.2 - Gastrointestinal hemorrhage, unspecified (7) Hyperammonemia Assessment/Plan: consider lactulose vs xifaxan once anemia issue resolved Code(s): E72.20 - DISORDER OF UREA CYCLE METABOLISM, UNSPECIFIED (8) Hypertension Assessment/Plan: continue home regimen Code(s): I10 - ESSENTIAL (PRIMARY) HYPERTENSION (9) Morbid obesity with BMI of 45.0-49.9, adult Assessment/Plan: outpatient management Code(s): E66.01 - MORBID (SEVERE) OBESITY DUE TO EXCESS CALORIES; Z68.42 - BODY MASS INDEX (BMI) 45.0-49.9, ADULT (10) Thrombocytopenia Assessment/Plan: stable 2/2 to cirrhosis Code(s): D69.6 - THROMBOCYTOPENIA, UNSPECIFIED (11) LUE edema duplex negative diuresis (12) CKD (chronic kidney disease) Assessment/Plan: stable monitor w/ diuresis Code(s): N18.9 - CHRONIC KIDNEY DISEASE, UNSPECIFIED Qualifiers: Chronic kidney disease stage: stage 3 (moderate) Qualified Code(s): N18.3 - Chronic kidney disease, stage 3 (moderate) Awaiting to hear back from [facility] regarding transfer
--- NOTE | 2018-06-20 12:40 | PN ---
GI Progress Note Subjective: GI NOte: Hb dropping yet stools are light brown. Will check for hemolysis. Ascites fluid was not set for analyses apparently. Doppler pending. Suspect hypercoagulable state - Objective Vital Signs: Vital Signs Temperature 97.5 F L 06/20/18 10:00 Pulse Rate 78 06/20/18 10:00 Respiratory Rate 18 06/20/18 10:00 Blood Pressure 144/88 06/20/18 10:00 O2 Sat by Pulse Oximetry (%) 100 06/19/18 21:00 Laboratory Tests 06/16/18 06/17/18 06/18/18 11:15 05:10 06:20 Hgb 6.0 L* 7.1 L 7.7 L BUN Creatinine Ammonia 06/19/18 06/20/18 06/20/18 06:30 06:30 06:30 Hgb 7.9 L 7.3 L BUN 59 H Creatinine 1.4 H Ammonia 06/20/18 06:30 Hgb BUN Creatinine Ammonia 94.52 H Constitutional: No Distress ...Auscultate: Yes: Normoactive Bowel Sounds ...Palpate: Yes: Soft, Other (nontender) Labs: CBC, BMP 06/20/18 06:30 06/20/18 06:30 INR, PTT INR 1.29 (0.83-1.09) H 06/16/18 11:15 Assessment/Plan Agree wth transfusion Attempt transfer to [facility] Hemolysis evaluation Doppler pending Will check Protein C and S EGD on 06/22 if Hb continues to drop Problem List - Problems (1) Anemia due to blood loss, acute Assessment/Plan: No overt blood loss so will order hemolysis studies. I have iobtained an informed consnetn for EGD if bleding perissts. An attempt will be made to transfer Brett to [facility] where the duodenal varices can be managed by injection of glue if TIPS is not an option given his ascites. Although ammonia level is high he is not encephalopathic. Discussed with Deidre Hoang NP, I informed Brett of the possible transfer and he is on agreement. 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 Code(s): E11.52 - TYPE 2 DIABETES W DIABETIC PERIPHERAL ANGIOPATHY W GANGRENE (9) Diverticula of colon Code(s): K57.30 - DVRTCLOS OF LG INT W/O PERFORATION OR ABSCESS W/O BLEEDING (10) Morbid obesity with BMI of 45.0-49.9, adult Code(s): E66.01 - MORBID (SEVERE) OBESITY DUE TO EXCESS CALORIES; Z68.42 - BODY MASS INDEX (BMI) 45.0-49.9, ADULT (11) LIGHT (nonalcoholic steatohepatitis) Code(s): K75.81 - NONALCOHOLIC STEATOHEPATITIS (LIGHT) (12) Portal hypertensive gastropathy Code(s): K76.6 - PORTAL HYPERTENSION; K31.89 - OTHER DISEASES OF STOMACH AND DUODENUM (13) Renal insufficiency Code(s): N28.9 - DISORDER OF KIDNEY AND URETER, UNSPECIFIED (14) T2DM (type 2 diabetes mellitus) Code(s): E11.9 - TYPE 2 DIABETES MELLITUS WITHOUT COMPLICATIONS Qualifiers: Chronic kidney disease stage: stage 3 (moderate) (15) Thrombocytopenia Code(s): D69.6 - THROMBOCYTOPENIA, UNSPECIFIED (16) Varices of small intestine Code(s): I86.8 - VARICOSE VEINS OF OTHER SPECIFIED SITES
--- NOTE | 2018-06-20 12:42 | PN ---
Progress Note, Physician History of Present Illness: Pt seen and examined at bedside. He is awake and alert. He denies shortness of breath. - Current Medication List Current Medications: Active Medications Alprazolam (Xanax -) 0.25 mg PO Q12H PRN PRN Reason: ANXIETY Last Admin: 06/19/18 23:52 Dose: 0.25 mg Budesonide/Formoterol Fumarate (Symbicort 80/4.5mcg -) 2 puff IH BID [facility] Last Admin: 06/20/18 10:43 Dose: 2 puff Carvedilol (Coreg -) 6.25 mg PO BID [facility] Last Admin: 06/20/18 10:42 Dose: 6.25 mg Furosemide (Lasix Injection -) 40 mg IVPUSH BID@0600,1400 [facility] Last Admin: 06/20/18 06:38 Dose: 40 mg Hydroxyzine Pamoate (Vistaril -) 25 mg PO Q8H PRN PRN Reason: FOR ITCHING Insulin Aspart (Novolog Vial Sliding Scale -) 1 vial SQ [facility]; Protocol Last Admin: 06/20/18 12:04 Dose: 4 units Pantoprazole Sodium (Protonix -) 40 mg PO DAILY [facility] Last Admin: 06/20/18 10:42 Dose: 40 mg Spironolactone (Aldactone -) 25 mg PO BID [facility] Last Admin: 06/20/18 10:42 Dose: 25 mg - Objective Vital Signs: Vital Signs Temperature 97.5 F L 06/20/18 10:00 Pulse Rate 78 06/20/18 10:00 Respiratory Rate 18 06/20/18 10:00 Blood Pressure 144/88 06/20/18 10:00 O2 Sat by Pulse Oximetry (%) 100 06/19/18 21:00 Constitutional: Yes: Calm Eyes: Yes: Conjunctiva Clear HENT: Yes: Atraumatic Cardiovascular: Yes: S1, S2 Respiratory: Yes: CTA Bilaterally Gastrointestinal: Yes: Soft, Abdomen, Obese Genitourinary: Yes: WNL Edema: Yes Edema: LLE: 2+, RLE: 2+ Neurological: Yes: Oriented Psychiatric: Yes: Oriented Labs: CBC, BMP 06/20/18 06:30 06/20/18 06:30 INR, PTT INR 1.29 (0.83-1.09) H 06/16/18 11:15 Problem List - Problems (1) CKD (chronic kidney disease) Code(s): N18.9 - CHRONIC KIDNEY DISEASE, UNSPECIFIED Qualifiers: Qualified Code(s): N18.3 - Chronic kidney disease, stage 3 (moderate) Assessment/Plan Current Medications Generic Name Dose Route Start Last Admin Trade Name Freq PRN Reason Stop Dose Admin Alprazolam 0.25 mg 06/18/18 19:18 06/19/18 23:52 Xanax - PO 0.25 mg Q12H PRN Administration ANXIETY Budesonide/Formoterol Fumarate 2 puff 06/18/18 22:00 06/20/18 10:43 Symbicort 80/4.5mcg - IH 2 puff BID [facility]ANY Administration Carvedilol 6.25 mg 06/18/18 22:00 06/20/18 10:42 Coreg - PO 6.25 mg BID [facility]ANY Administration Furosemide 40 mg 06/19/18 06:00 06/20/18 06:38 Lasix Injection - IVPUSH 40 mg BID@0600,1400 [facility] Administration Hydroxyzine Pamoate 25 mg 06/18/18 19:18 Vistaril - PO Q8H PRN FOR ITCHING Insulin Aspart 1 vial 06/18/18 22:00 06/20/18 12:04 Novolog Vial Sliding Scale - SQ 4 units ACHS HANY Administration Protocol Pantoprazole Sodium 40 mg 06/18/18 10:00 06/20/18 10:42 Protonix - PO 40 mg DAILY [facility] Administration Spironolactone 25 mg 06/18/18 22:00 06/20/18 10:42 Aldactone - PO 25 mg BID [facility] Administration Impression 1. CKD 2. anemia 3. DM 4. fluid overload 5. right renal cyst 6. hep c 7. hx MRSA 8. HTN 9. obesity 10. LIGHT Plan - cont to monitor renal function - ua neg for blood or protein - follow prt to cr ratio - monitor hg - discussed with medical team - follow ascites fluid analysis - cont lasix and aldactone - monitor lytes - discussed fluid intake with pt again - avoid nsaids Dr Bermudez
--- NOTE | 2018-06-20 16:48 | DS ---
Physical Examination Vital Signs: Vital Signs Temperature 97.6 F 06/20/18 14:21 Pulse Rate 74 06/20/18 14:21 Respiratory Rate 18 06/20/18 14:21 Blood Pressure 127/55 L 06/20/18 14:21 O2 Sat by Pulse Oximetry (%) 100 06/20/18 09:00 Labs: CBC, BMP 06/20/18 06:30 06/20/18 06:30 Discharge Summary Reason For Visit: TRANSFUSION DEPENDENT ANEMIA,SHORTNESS OF BREATH Current Active Problems Acute blood loss anemia (Acute) Anasarca associated with disorder of kidney (Acute) Anemia requiring transfusions (Acute) CKD (chronic kidney disease) (Acute) Edema of upper extremity (Acute) Shortness of breath (Acute) Hospital Course: Pt is a 57 year old male with pmh of HTN, HLD, DM2, CKD3, and liver cirrhosis 2/ 2 LIGHT, MRSA wound infection who was admitted for symptomatic anemia. heme- occult positive. Pt evaluated by GI who suspects chronic indolent GI bleeding. Pt underwent EGD/enteroscopy and colonoscopy in 10/2017, revealed left colon diverticulosis, portal gastropathy and duodenal varices but no esophageal varices which were previously endoscopically ablated. Pt s/p prbcs 5 units, however hg/hct trending down w/out overt blood loss. Pt is asymptomatic, denies any sob/dizziness. Ammonia level noted to be high, however pt is not encephalopathic. Pt underwent therapeutic paracentesis, <500ml removed. Pt developed RUE swelling during his course of stay, duplex negative, no improvement w/ iv diuresis, suspect possible hypercoagulability. Per GI, the duodenal varices can be managed by injection of glue if TIPS is not an option given his ascites. Pt is otherwise in no acute distress, stable for transfer. 40 minutes spent in discharge planning Condition: Stable - Instructions Referrals: James Ortiz MD [Primary Care Provider] - Disposition: TRANSFER ACUTE CARE/OTHER HOSP - Home Medications Comprehensive Discharge Medication List: Ambulatory Orders Furosemide [Lasix -] 40 mg PO DAILY 08/06/13 Glimepiride [Amaryl] 4 mg PO BID 08/06/13 Carvedilol [Coreg -] 6.25 mg PO BID #0 tablet 08/12/13 Collagenase Clostridium Hist. [Santyl -] 1 applic TP DAILY #1 tube 11/02/17 Pantoprazole Sodium [Protonix -] 40 mg PO DAILY #30 tablet.ec 11/02/17 Spironolactone [Aldactone -] 25 mg PO BID #60 tablet 11/02/17 Alprazolam [Xanax] 0.25 mg PO BID PRN 06/16/18 Fluticasone/Salmeterol [Advair Hfa 115-21 Mcg Inhaler] 1 inh PO BID 06/16/18 hydrOXYzine PAMOATE [Vistaril -] 25 mg PO TID 06/16/18
[2018-06-20] MEDS: ALPRAZolam 0.25 MG TABLET PO PRN (23:45)
[2018-06-21] MEDS: INSULIN SLIDING SCALE (NOVOLOG) 1 VIAL SQ SCH ×3 (06:34→17:04)
[2018-06-21] MEDS: FUROSEMIDE 40 MG/4 ML INJECTABLE VIAL IVPUSH SCH ×2 (06:35→15:35)
[2018-06-21 07:28] LABS: BASO % 0.8 % (0-2.0); EOS % 4.5 % (0-4.5); HEMATOCRIT 25.8 % (35.4-49); HEMOGLOBIN 8.4 GM/dL (11.7-16.9); LYMPH % 9.7 % (8-40); MCH 23.3 pg (25.7-33.7); MCHC 32.4 g/dl (32.0-35.9); MEAN CELL VOLUME 71.9 fl (80-96); MEAN PLT VOLUME 8.4 fl (7.5-11.1); MONO % 10.9 % (3.8-10.2); NEUT % 74.1 % (42.8-82.8); PLATELET COUNT 127 K/MM3 (134-434); RBC 3.59 M/mm3 (4.00-5.60); RDW 22.8 % (11.9-15.9); RETICULOCYTES 3.35 % (0.5-1.5); WHITE BLOOD COUNT 4.5 K/mm3 (4.0-10.0)
[2018-06-21 07:50] LABS: ALBUMIN 2.5 g/dl (3.4-5.0); ALK PHOS 114 U/L (45-117); ANION GAP 4 MMOL/L (8-16); BILIRUBIN,TOTAL 1.2 mg/dL (0.2-1); BLOOD UREA NITROGEN 59 mg/dL (7-18); CALCIUM 7.9 mg/dL (8.5-10.1); CHLORIDE 109 mmol/L (98-107); CO2 27 mmol/L (21-32); CREATININE 1.5 mg/dL (0.55-1.3); GLUCOSE,RANDOM 138 mg/dL (74-106); LDH 201 U/L (87-246); POTASSIUM 4.2 mmol/L (3.5-5.1); SGOT/AST 34 U/L (15-37); SGPT/ALT 23 U/L (13-61); SODIUM 140 mmol/L (136-145); TOT PROT 7.5 g/dl (6.4-8.2)
[2018-06-21] MEDS: BUDESONIDE/FORMETEROL FUMARATE 80/4.5 mcg INHALER IH SCH (09:59)
[2018-06-21] MEDS: PANTOPRAZOLE 40 MG TABLET (FP) PO SCH (09:59)
[2018-06-21] MEDS: CARVEDILOL 6.25 MG TABLET (FP) PO SCH (09:59)
[2018-06-21] MEDS ORDERED: COLLAGENASE CLOSTRIDIUM HIST. 30 GRAMS TUBE TP SCH (10:00)
[2018-06-21] MEDS: SPIRONOLACTONE 25 MG TABLET (FP) PO SCH (10:00)
--- NOTE | 2018-06-21 11:20 | PN ---
Progress Note, Physician Chief Complaint: Pt sitting in chair in no acute distress. reports feeling well. Denies any chest pain, sob, n/v/d - Current Medication List Current Medications: Active Medications Alprazolam (Xanax -) 0.25 mg PO Q12H PRN PRN Reason: ANXIETY Last Admin: 06/20/18 23:45 Dose: 0.25 mg Budesonide/Formoterol Fumarate (Symbicort 80/4.5mcg -) 2 puff IH BID [facility] Last Admin: 06/21/18 09:59 Dose: 2 puff Carvedilol (Coreg -) 6.25 mg PO BID [facility] Last Admin: 06/21/18 09:59 Dose: 6.25 mg Collagenase (Santyl -) 1 applic TP DAILY [facility]; Protocol Last Admin: 06/21/18 09:59 Dose: 1 appful Furosemide (Lasix Injection -) 40 mg IVPUSH BID@0600,1400 [facility] Last Admin: 06/21/18 06:35 Dose: 40 mg Hydroxyzine Pamoate (Vistaril -) 25 mg PO Q8H PRN PRN Reason: FOR ITCHING Insulin Aspart (Novolog Vial Sliding Scale -) 1 vial SQ ACHS [facility]; Protocol Last Admin: 06/21/18 06:34 Dose: 2 units Pantoprazole Sodium (Protonix -) 40 mg PO DAILY [facility] Last Admin: 06/21/18 09:59 Dose: 40 mg Spironolactone (Aldactone -) 25 mg PO BID [facility] Last Admin: 06/21/18 10:00 Dose: 25 mg - Objective Vital Signs: Vital Signs Temperature 97.8 F 06/21/18 10:00 Pulse Rate 66 06/21/18 10:00 Respiratory Rate 20 06/21/18 10:00 Blood Pressure 118/54 L 06/21/18 10:00 O2 Sat by Pulse Oximetry (%) 98 06/21/18 09:00 Constitutional: Yes: Well Nourished, No Distress, Calm Cardiovascular: Yes: Regular Rate and Rhythm Respiratory: Yes: WNL, Regular, CTA Bilaterally. No: Accessory Muscle Use, SOB , Tachypnea, Wheezes Gastrointestinal: Yes: Normal Bowel Sounds, Soft, Abdomen, Obese. No: Tenderness, Vomiting Genitourinary: Yes: WNL Edema: Yes Edema: RUE: 2+, LLE: 2+, RLE: 2+ Integumentary: Yes: Venous Stasis Changes Neurological: Yes: WNL, Alert, Oriented Psychiatric: Yes: WNL, Alert, Oriented Labs: CBC, BMP 06/21/18 06:30 06/21/18 06:30 INR, PTT INR 1.29 (0.83-1.09) H 06/16/18 11:15 Assessment/Plan (1) Anemia requiring transfusions Assessment/Plan: multifactorial AOCD, possible chronic indolent GI bleeding per GI hg/hct stable today, no gross bleeding noted s/p 6 units prbcs monitor closely Code(s): D64.9 - ANEMIA, UNSPECIFIED (2) Shortness of breath Assessment/Plan: resolved Code(s): R06.02 - SHORTNESS OF BREATH (3) Ascites Assessment/Plan: 2/2 to kohli fluid overloaded continue iv lasix per nephrology 1L fluid restriction Code(s): R18.8 - OTHER ASCITES (4) Cirrhosis Assessment/Plan: chronic Code(s): K74.60 - UNSPECIFIED CIRRHOSIS OF LIVER Qualifiers: Ascites presence: with ascites (5) Diabetes mellitus Assessment/Plan: on diabetic diet FSBS and SSI Code(s): E11.9 - TYPE 2 DIABETES MELLITUS WITHOUT COMPLICATIONS Qualifiers: Diabetes mellitus type: type 2 Diabetes mellitus equipment operator intermodal yard insulin use: without equipment operator intermodal yard use Diabetes mellitus complication status: with skin complications Diabetes mellitus complication detail: with other skin ulcer Qualified Code(s): E11.622 - Type 2 diabetes mellitus with other skin ulcer (6) GI bleed Assessment/Plan: GI following Code(s): K92.2 - GASTROINTESTINAL HEMORRHAGE, UNSPECIFIED Qualifiers: GI bleed type/associated pathology: unspecified gastrointestinal hemorrhage type Qualified Code(s): K92.2 - Gastrointestinal hemorrhage, unspecified (7) Hyperammonemia Assessment/Plan: consider lactulose vs xifaxan once anemia issue resolved Code(s): E72.20 - DISORDER OF UREA CYCLE METABOLISM, UNSPECIFIED (8) Hypertension Assessment/Plan: continue home regimen Code(s): I10 - ESSENTIAL (PRIMARY) HYPERTENSION (9) Morbid obesity with BMI of 45.0-49.9, adult Assessment/Plan: outpatient management Code(s): E66.01 - MORBID (SEVERE) OBESITY DUE TO EXCESS CALORIES; Z68.42 - BODY MASS INDEX (BMI) 45.0-49.9, ADULT (10) Thrombocytopenia Assessment/Plan: stable 2/2 to cirrhosis Code(s): D69.6 - THROMBOCYTOPENIA, UNSPECIFIED (11) LUE edema persists duplex negative no improvement w/ diuresis possible hypercoagulability (12) CKD (chronic kidney disease) Assessment/Plan: stable monitor w/ diuresis Code(s): N18.9 - CHRONIC KIDNEY DISEASE, UNSPECIFIED Qualifiers: Chronic kidney disease stage: stage 3 (moderate) Qualified Code(s): N18.3 - Chronic kidney disease, stage 3 (moderate) Pt accepted for transfer to [facility] under . Awaiting bed placement
--- NOTE | 2018-06-21 15:18 | PN ---
Progress Note, Physician History of Present Illness: Pt seen and examined at bedside. He is awake and alert. He still complains of edema. - Current Medication List Current Medications: Active Medications Alprazolam (Xanax -) 0.25 mg PO Q12H PRN PRN Reason: ANXIETY Last Admin: 06/20/18 23:45 Dose: 0.25 mg Budesonide/Formoterol Fumarate (Symbicort 80/4.5mcg -) 2 puff IH BID [facility] Last Admin: 06/21/18 09:59 Dose: 2 puff Carvedilol (Coreg -) 6.25 mg PO BID [facility] Last Admin: 06/21/18 09:59 Dose: 6.25 mg Collagenase (Santyl -) 1 applic TP DAILY [facility]; Protocol Last Admin: 06/21/18 09:59 Dose: 1 appful Furosemide (Lasix Injection -) 40 mg IVPUSH BID@0600,1400 [facility] Last Admin: 06/21/18 06:35 Dose: 40 mg Hydroxyzine Pamoate (Vistaril -) 25 mg PO Q8H PRN PRN Reason: FOR ITCHING Insulin Aspart (Novolog Vial Sliding Scale -) 1 vial SQ ACHS [facility]; Protocol Last Admin: 06/21/18 13:18 Dose: Not Given Pantoprazole Sodium (Protonix -) 40 mg PO DAILY [facility] Last Admin: 06/21/18 09:59 Dose: 40 mg Spironolactone (Aldactone -) 25 mg PO BID [facility] Last Admin: 06/21/18 10:00 Dose: 25 mg - Objective Vital Signs: Vital Signs Temperature 97.5 F L 06/21/18 14:05 Pulse Rate 69 06/21/18 14:05 Respiratory Rate 20 06/21/18 14:05 Blood Pressure 132/72 06/21/18 14:05 O2 Sat by Pulse Oximetry (%) 98 06/21/18 09:00 Constitutional: Yes: Calm Eyes: Yes: Conjunctiva Clear HENT: Yes: Atraumatic Cardiovascular: Yes: S1, S2 Respiratory: Yes: CTA Bilaterally Gastrointestinal: Yes: Soft, Abdomen, Obese Genitourinary: Yes: WNL Musculoskeletal: Yes: WNL Edema: Yes Edema: LLE: 2+, RLE: 2+ Neurological: Yes: Oriented Psychiatric: Yes: Oriented Labs: CBC, BMP 06/21/18 06:30 06/21/18 06:30 INR, PTT INR 1.29 (0.83-1.09) H 06/16/18 11:15 Problem List - Problems (1) CKD (chronic kidney disease) Code(s): N18.9 - CHRONIC KIDNEY DISEASE, UNSPECIFIED Qualifiers: Chronic kidney disease stage: stage 3 (moderate) Qualified Code(s): N18.3 - Chronic kidney disease, stage 3 (moderate) Assessment/Plan Current Medications Generic Name Dose Route Start Last Admin Trade Name Freq PRN Reason Stop Dose Admin Alprazolam 0.25 mg 06/18/18 19:18 06/20/18 23:45 Xanax - PO 0.25 mg Q12H PRN Administration ANXIETY Budesonide/Formoterol Fumarate 2 puff 06/18/18 22:00 06/21/18 09:59 Symbicort 80/4.5mcg - IH 2 puff BID [facility] Administration Carvedilol 6.25 mg 06/18/18 22:00 06/21/18 09:59 Coreg - PO 6.25 mg BID [facility] Administration Collagenase 1 applic 06/21/18 10:00 06/21/18 09:59 Santyl - TP 1 appful DAILY [facility] Administration Protocol Furosemide 40 mg 06/19/18 06:00 06/21/18 06:35 Lasix Injection - IVPUSH 40 mg BID@0600,1400 [facility] Administration Hydroxyzine Pamoate 25 mg 06/18/18 19:18 Vistaril - PO Q8H PRN FOR ITCHING Insulin Aspart 1 vial 06/18/18 22:00 06/21/18 13:18 Novolog Vial Sliding Scale - SQ Not Given ACHS [facility] Protocol Pantoprazole Sodium 40 mg 06/18/18 10:00 06/21/18 09:59 Protonix - PO 40 mg DAILY [facility] Administration Spironolactone 25 mg 06/18/18 22:00 06/21/18 10:00 Aldactone - PO 25 mg BID [facility] Administration Impression 1. CKD 2. anemia 3. DM 4. fluid overload 5. right renal cyst 6. hep c 7. hx MRSA 8. HTN 9. obesity 10. LIGHT Plan - renal function stable on diuretics - follow prt to cr ratio - monitor hg - cont lasix and aldactone for now - monitor lytes - discussed fluid intake with pt again - avoid nsaids Dr Bermudez
[2018-06-21 17:58] VITALS: BP 123/65; PULSE 72; TEMP 97.4
[2018-06-23 15:12] LABS: PROTEIN C ACTIVITY 68 % (73-180)
== END 2018-06-21 21:12 | disposition short-term general hospital (02) | DRG 812 ==
LOC: JER 09:48 → JERBED 12:09 → J7W 13:57 → JERBED 13:57 → J7W 06-17 21:58
PROVIDERS: ADMIT Internal Medicine; ATTEND Nurse Practitioner Family
PROC: 30233N1 Transfusion of Nonautologous Red Blood Cells into Peripheral Vein, Percutaneous Approach (ICD-10-PCS; principal; 2018-06-16)
PROC: 0W9G3ZZ Drainage of Peritoneal Cavity, Percutaneous Approach (ICD-10-PCS; 2018-06-20)
DX: D62 Acute posthemorrhagic anemia (principal); Z68.42 Body mass index [BMI] 45.0-49.9, adult; R18.8 Other ascites; K92.2 Gastrointestinal hemorrhage, unspecified; E72.20 Disorder of urea cycle metabolism, unspecified; K76.6 Portal hypertension; L97.328 Non-pressure chronic ulcer of left ankle with other specified severity; L97.318 Non-pressure chronic ulcer of right ankle with other specified severity; L97.228 Non-pressure chronic ulcer of left calf with other specified severity; L97.218 Non-pressure chronic ulcer of right calf with other specified severity; D63.1 Anemia in chronic kidney disease; I12.9 Hypertensive chronic kidney disease with stage 1 through stage 4 chronic kidney disease, or unspecified chronic kidney disease; K75.81 Nonalcoholic steatohepatitis (NASH); N28.1 Cyst of kidney, acquired; E66.01 Morbid (severe) obesity due to excess calories; E11.22 Type 2 diabetes mellitus with diabetic chronic kidney disease; N18.3 Chronic kidney disease, stage 3 (moderate); E87.70 Fluid overload, unspecified; B19.20 Unspecified viral hepatitis C without hepatic coma; D69.6 Thrombocytopenia, unspecified; I44.0 Atrioventricular block, first degree; K74.60 Unspecified cirrhosis of liver; I87.2 Venous insufficiency (chronic) (peripheral); K57.30 Diverticulosis of large intestine without perforation or abscess without bleeding; K31.89 Other diseases of stomach and duodenum; E78.5 Hyperlipidemia, unspecified; Z86.010 Personal history of colon polyps
CPT/HCPCS: 36415; 36430; 36511; 71045-TC-FY; 76700-TC; 76942-TC; 80048; 80053; 81003; 82105; 82140; 82272; 82550; 82728; 82962; 83010; 83540; 83550; 83615; 83735; 83880; 84100; 84155; 84165; 84484; 85025; 85027; 85044; 85303; 85306; 85610; 86140; 86850; 86900; 86901; 86922; 90688; 93005; 93010; 93306-TC; 93970-TC; 93971; 93975; 97116-GP; 97161-GP; 99283-25; G0008; J1756; P9038; P9058